=== PATIENT | male | born 1960 | race Caucasian/White ===

== ENCOUNTER 2022-05-04 11:10 | Outpatient (CLI) | payer OTHER, SELFPAY ==
[2022-05-04 21:47] LABS: Albumin* 4.2 g/dL (3.3-5.0)
[2022-05-04 21:48] LABS: Chloride* 101 mmol/L (96-114); Potassium* 3.9 mmol/L (3.6-5.1); Sodium* 138 mmol/L (135-149)
[2022-05-04 21:50] LABS: Carbon Dioxide* 26 mmol/L (20-32); Cholesterol* 156 mg/dL (90-199); Creatinine* 0.9 mg/dL (0.5-1.5); Estimated Glomerular Filt Rate 96 ml/min
[2022-05-04 21:51] LABS: Alanine Aminotransferase* 19 U/L (4-50); Alkaline Phosphatase* 116 U/L (40-150); Aspartate Amino Transferase* 24 U/L (12-35); Bilirubin Total* 0.6 mg/dL (0.1-1.5); Blood Urea Nitrogen* 14 mg/dL (7-30); Calcium* 7.7 mg/dL (8.4-10.6); Glucose* 200 mg/dL (60-115); HDL Cholesterol* 37 mg/dL (>=40); LDL Cholesterol Calculated 57 mg/dL (<100); Triglycerides* 311 mg/dL (40-149)
== END 2022-05-04 11:11 | disposition home or self-care (01) ==
PROVIDERS: PCP Family Medicine; Visit Provider Family Medicine
DX: E11.9 Type 2 diabetes mellitus without complications (principal); K21.9 Gastro-esophageal reflux disease without esophagitis; I10 Essential (primary) hypertension; F41.9 Anxiety disorder, unspecified
CPT/HCPCS: 80053; 80061

== ENCOUNTER 2022-09-13 12:25 | Outpatient (CLI) | payer OTHER, SELFPAY ==
[2022-09-13 13:21] LABS: PCR FLU A Negative PCR FLU A (Negative); PCR FLU B Negative PCR FLU B (Negative); PCR RSV Negative PCR RSV (Negative); SARS PCR* Negative SARS-CoV-2 (Negative)
== END 2022-09-13 12:26 | disposition home or self-care (01) ==
LOC: LKVREF 12:34
PROVIDERS: PCP Family Medicine; Visit Provider Emergency Medicine
DX: Z20.822 Contact with and (suspected) exposure to COVID-19 (principal); R05.9 Cough, unspecified
CPT/HCPCS: 87502; 87634; 87635

== ENCOUNTER 2022-11-17 15:11 | Outpatient (CLI) | payer OTHER, SELFPAY | END 2022-11-17 15:12 | disposition home or self-care (01) | LOC: LKVREF 15:11 | PROVIDERS: PCP Emergency Medicine; Visit Provider Emergency Medicine | DX: Z00.00 Encounter for general adult medical examination without abnormal findings (principal); E11.9 Type 2 diabetes mellitus without complications; E83.51 Hypocalcemia; I25.10 Atherosclerotic heart disease of native coronary artery without angina pectoris; Z13.6 Encounter for screening for cardiovascular disorders | CPT/HCPCS: 80053; 82043; 82570; 83735 ==

== ENCOUNTER 2024-02-20 14:28 | Outpatient (CLI) | payer OTHER, SELFPAY | END 2024-02-20 14:29 | disposition home or self-care (01) | LOC: NFLDREF 02-24 18:16 | PROVIDERS: PCP Emergency Medicine; Referring Provider Emergency Medicine; Visit Provider Emergency Medicine | DX: E11.65 Type 2 diabetes mellitus with hyperglycemia (principal); E11.9 Type 2 diabetes mellitus without complications; E83.51 Hypocalcemia; I10 Essential (primary) hypertension; E78.5 Hyperlipidemia, unspecified; F17.200 Nicotine dependence, unspecified, uncomplicated; I25.10 Atherosclerotic heart disease of native coronary artery without angina pectoris; L98.9 Disorder of the skin and subcutaneous tissue, unspecified; Z79.4 Long term (current) use of insulin; Z12.5 Encounter for screening for malignant neoplasm of prostate; Z85.528 Personal history of other malignant neoplasm of kidney | CPT/HCPCS: 80053; 80061; 82043; 82570; G0103 ==

== ENCOUNTER 2024-04-18 13:32 | Outpatient (CLI) | payer OTHER, SELFPAY ==
--- NOTE | 2024-04-18 14:00 | CRLHL7_ITS ---
For Patients: As a result of the Century Cures Act, medical imaging exams and procedure reports are released immediately into your electronic medical record. You may view this report before your referring provider. If you have questions, please contact your health care provider. INDICATION: Lung cancer screening. History of smoking. TECHNIQUE: Low-dose lung cancer screening non-contrast CT chest. Dose reduction techniques were used. COMPARISON: CT abdomen 11/30/2020 FINDINGS: NODULES: 2 millimeter benign calcified nodule left lung adjacent to the fissure, . Subpleural nodule in the right middle lobe measures 5.3 millimeters, . Noncalcified nodule right middle lobe measures 4.3 millimeters, . LUNGS AND PLEURA: Emphysema. Mild scarring. MEDIASTINUM: Trace pericardial effusion again noted. Subcentimeter mediastinal lymph nodes. Retroesophageal course of the right subclavian artery. Visualized thyroid normal. CORONARY ARTERY CALCIFICATION: Present. LIMITED UPPER ABDOMEN: Similar appearance of the left kidney with cystic change. Vascular calcifications. MUSCULOSKELETAL: Discogenic spurring mid and lower thoracic spine. No fracture. IMPRESSION: Bilateral nodules measuring up to 5.3 millimeters. LUNG-RADS CATEGORY: 2: Benign. RADIOLOGIST RECOMMENDATION: Continue annual screening with low-dose CT chest in 12 months. Please note that all CT scans at this facility use dose modulation, iterative reconstruction, and/or weight-based dosing when appropriate to reduce radiation dose to as low as reasonably achievable. Dictated by Kenney Florez MD @ 04/19/2024 10:24:23 AM (Electronically Signed)
== END 2024-04-18 13:33 | disposition home or self-care (01) ==
LOC: CT 13:33
PROVIDERS: PCP Emergency Medicine; Visit Provider Emergency Medicine
DX: Z12.2 Encounter for screening for malignant neoplasm of respiratory organs (principal); R91.8 Other nonspecific abnormal finding of lung field; F17.210 Nicotine dependence, cigarettes, uncomplicated
CPT/HCPCS: 71271

== ENCOUNTER 2024-04-26 10:18 | Outpatient (CLI) | payer OTHER, SELFPAY ==
--- OUTSIDE RECORDS SUMMARY | 2024-04-26 10:20 | XMS_ITS | Referral Summary ---
Author Organization [facility] Address [address] [place] [address] Care Team Providers Care Claim Specialist Name Role Phone Shona Vásquez MD Primary Care Provider [phone] Kiet Arias MD Unavailable [phone] Allergies Active Allergy Reactions Criticality Noted Date Comments Amoxicillin 06/04/2012 Medications Medication Sig Dispensed Refills Start Date End Date Status nitroglycerin (NITROSTAT) 0.4 MG SL tabletIndication s:Acute chest pain Place 1 tablet (0.4 mg) under the tongue every 5 minutes as needed for chest pain 25 tablet 0 03/23/2015 Active insulin aspart (NOVOLOG PEN) 100 UNIT/ML solnIndications: Diabetes mellitus, type 2 (H) Inject 8 Units Subcutaneous 3 times daily (with meals) 3 Month 2 03/23/2015 Active Additional Information Patient taking differently: 20 UnitsSubcutaneous 3 TIMES DAILY WITH MEALS, Reported on 06/20/2023 aspirin EC 81 MG EC tabletIndication s:NSTEMI (non-ST elevated myocardial infarction) (H) Take 1 tablet (81 mg) by mouth daily 30 tablet 5 03/23/2015 Active fluticasone-preston nterol (BREO ELLIPTA) 100-25 MCG/ACT inhaler Inhale 1 puff into the lungs daily Active insulin detemir (LEVEMIR PEN) 100 UNIT/ML pen Inject 40 Units Subcutaneous At Bedtime Acti ve metoprolol tartrate (LOPRESSOR) 100 MG tabletIndication s:NSTEMI (non-ST elevated myocardial infarction) (H) Take 1 tablet (100 mg) by mouth 2 times daily 12/30/2022 Activ e amLODIPine (NORVASC) 10 MG tablet Take 1 tablet (10 mg) by mouth daily 12/30/2022 Active lisinopril-hydro chlorothiazide (ZESTORETIC) 20-12.5 MG tablet Take 1 tablet by mouth daily 12/30/2022 Active atorvastatin (LIPITOR) 80 MG tablet Take 1 tablet (80 mg) by mouth daily 12/30/2022 Active clonazePAM (KLONOPIN) 0.5 MG tablet Take 0.5 tablets (0.25 mg) by mouth nightly as needed for anxiety 12/30/2022 Active coenzyme Q-10 200 MG CAPS capsule Take 1 capsule (200 mg) by mouth 12/30/2022 Active JARDIANCE 10 MG TABS tablet TAKE 1 TAB BY MOUTH EVERY MORNING 04/20/2023 Active furosemide (LASIX) 20 MG tablet Take 1 tablet by mouth daily at 2 pm 07/14/2022 Active buPROPion (WELLBUTRIN XL) 150 MG 24 hr tablet TAKE 1 TAB BY MOUTH EVERY MORNING 05/10/2023 Active ALPRAZolam (XANAX) 0.5 MG tablet Take 0.5 mg by mouth daily as needed Active albuterol (PROAIR HFA/PROVENTIL HFA/VENTOLIN HFA) 108 (90 Base) MCG/ACT inhaler INHALE 2 PUFFS EVERY 4 HOURS NEEDED FOR WHEEZE OR FOR SHORTNESS OF BREATH Active Active Problems Problem Noted Date Diagnosed Date 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/30/2022 Metabolic syndrome X 12/30/2022 Peripheral edema 12/30/2022 Pneumonia 03/21/2015 NSTEMI (non-ST elevated myocardial infarction) 0 03/21/2015 Coronary artery disease invo lving [place] coronary artery of [place] heart without angina pectoris Mixed hyperlipidemia Essential hypertension DM (diabetes mellitus), type 2 Tobacco abuse Hypercholesterolemia Resolved Problems Problem Noted Date Diagnosed Date Resolved Date Chest pain 06/05/2012 04/06/2015 ASCVD (arteriosclerotic card iovascular disease) 06/05/2012 04/06/2015 Immunizations Name Administration Dates Next Due Influenza (IIV3) PF 06/05/2012 Social History Tobacco Use Types Packs/Day Years Used Date Smoking Tobacco: Every Day Cigarettes Smokeless Tobacco: Never Tobacco Cessation:Ready to Q uit: Not Asked; Counseling Given: Not Answered Alcohol Use Standard Drinks/Week Comments No 0 (1 standard drink = 0.6 oz pur e alcohol) PHQ-2 Answer Date Recorded PHQ-2 Score 2 12/30/2022 Adolescent Education Answer Date Record ed Getting School Help Needed Not on file 06/12 Sex and Gender Information Value Date Recorded Sex Assigned at Not on file Gender Identity Not on file Sexual Orientation Not on file Last Filed Vital Signs Vital Sign Reading Time Taken Comments Blood Pressure 128/74 06/20/2023 3:21 PM CDT Pulse 78 06/20/2023 3:21 PM CDT Temperature 37 ??C (98.6 ??F) 03/23/2015 1:00 PM CDT Respiratory Rate 20 03/23/2015 8:00 AM CDT Oxygen Saturation 96% 06/20/2023 3:21 PM CDT Inhaled Oxygen Concentration - - Weight 119.3 kg (263 lb) 06/20/2023 3:21 PM CDT Height 177.8 cm (5' 10) 06/20/2023 3:21 PM CDT Body Mass Index 37.74 06/20/2023 3:21 PM CDT Plan of Treatment Not on file Medical Devices Implanted Type Area First Line Supervisor Device Identifier Shelf Expiration Date Model / Serial / Lot Clip Ligating Hem-O-Lock 10mm [id number] Implanted:Qty : 4 on 08/22/2016 Metallic Hardware/Anc hor Right: Abdomen PILLING WECK 06/14/2021 [id number] / / [id number] Cardiac Stents Procedures Procedure Name Priority Date/Time Associated Diagnosis Comments LIPID PROFILE Routine 06/19/2023 7:58 AM CDT Coronary artery disease involving [place] coronary artery of [place] heart without angina pectoris BASIC METABOLIC PANEL Routine 06/19/2023 7:58 AM CDT Coronary artery disease involving [place] coronary artery of [place] heart without angina pectoris HEMOGLOBIN A1C Routine 05/25/2023 10:15 AM CDT from Last 3 Months or Most Recently Relevant to Health Maintenance Results * (ABNORMAL) Lipid Profile (06/19/2023 7:58 AM CDT) Cholesterol 132 <200 mg/dL 06/19/2023 12:21 PM CDT [facility] Triglycerides 326(H) <150 mg/dL 06/19/2023 12:21 PM CDT [facility] Direct Measure HDL 38(L) >=40 mg/dL 06/19/2023 12:21 PM CDT [facility] LDL Cholesterol Calculated 29 <=100 mg/dL 06/19/2023 12:21 PM CDT [facility] Non HDL Cholesterol 94 <130 mg/dL 06/19/2023 12:21 PM CDT [facility] Blood STRUCTURE OF RIGHT UPPER LIMB / Unknown Venipuncture / Unknown 06/19/2023 7:58 AM CDT 06/19/2023 7:58 AM CDT Narrative [facility] - 06/19/2023 12:21 PM CDT Cholesterol Desirable: ??<200 mg/dL Triglycerides Normal: ??Less than 150 mg/dL Borderline High: ??150-199 mg/dL High: ??200-499 mg/dL Very High: ??Greater than or equal to 500 mg/dL Direct Measure HDL Female: ??Greater than or equal to 50 mg/dL Male: ??Greater than or equal to 40 mg/dL LDL Cholesterol Desirable: ??<100mg/dL Above Desirable: ??100-129 mg/dL Borderline High: ??130-159 mg/dL High: ??160-189 mg/dL Very High: ??>= 190 mg/dL Non HDL Cholesterol Desirable: ??130 mg/dL Above Desirable: ??130-159 mg/dL Borderline High: ??160-189 mg/dL High: ??190-219 mg/dL Very High: ??Greater than or equal to 220 mg/dL Kiet Arias MD LAB - BLOOD ORDERA BLES [facility] [place] [facility] [address] [facility], [address] [place] [address], [facility] [phone] * (ABNORMAL) Basic metabolic panel (06/19/2023 7:58 AM CDT) Sodium 143 135 - 145 mmol/L 06/19/2023 8:29 AM CDT [facility] Comment:Reference intervals for this test were updated on 06/06/2023 to more accurately reflect our healthy population. There may be differences in the flagging of prior results with similar values performed with this method. Interpretation of those prior results can be made in the context of the updated reference intervals. Potassium 4.0 3.4 - 5.3 mmol/L 06/19/2023 8:29 AM [facility] Chloride 103 98 - 107 mmol/L 06/19/2023 8:29 AM [facility] Carbon Dioxide (CO2) 28 22 - 29 mmol/L 06/19/2023 8:29 AM [facility] Anion Gap 12 7 - 15 mmol/L 06/19/2023 8:29 AM [facility] Urea Nitrogen 17.8 8.0 - 23.0 mg/dL 06/19/2023 8:29 AM [facility] Creatinine 1.15 0.67 - 1.17 mg/dL 06/19/2023 8:29 AM [facility] GFR Estimate 71 >60 mL/min/1. 73m2 06/19/2023 8:29 AM [facility] Calcium 8.5(L) 8.8 - 10.2 mg/dL 06/19/2023 8:29 AM [facility] Glucose 187(H) 70 - 99 mg/dL 06/19/2023 8:29 AM [facility] Blood STRUCTURE OF RIGHT UPPER LIMB / Unknown Venipuncture / Unknown 06/19/2023 7:58 AM CDT 06/19/2023 7:58 AM CDT Kiet Arias MD LAB - BLOOD ORDERA BLES [facility] Lab [address] [facility] (1st floor, no room number) [place] [address], [facility] [phone] * (ABNORMAL) Hemoglobin A1c (05/25/2023 10:15 AM CDT) Hemoglobin A1C (External) 14.9(H) 0 - 5.6 % NON-INTERFACE D (ONBASE SCANS) Blood BLOOD SPECIMEN / Unknown 05/25/2023 10:15 AM CDT Narrative [facility] - 06/15/2023 7:53 AM CDT Verified by Rc Corbin on 06/15/2023. Provider Outside LAB - BLOOD ORDERABL ES MARY PFRadu NON-INTERFACED (ONBASE SCANS) from Last 3 Months or Most Recently Relevant to Health Maintenance Advance Directives For more information, please contact: [phone] * Full Code (Latest Code Status on File) Date Activated Date Inactivated Comments 03/23/2015 9:44 AM * Full Code Date Activated Date Inactivated Comments 03/21/2015 4:38 PM 03/23/2015 9:44 AM * Full Code Date Activated Date Inactivated Comments 03/21/2015 4:25 AM 03/21/2015 3:22 PM * Full Code Date Activated Date Inactivated Comments 06/04/2012 2:20 PM 06/05/2012 5:52 PM Care Teams Claim Specialist Relationship Specialty Start Date End Date Shona Vásquez MD [facility] [address] [place] [address] PCP - General Family Medicine 12/30/22 Kiet Arias MD [address] [place] [address] Assigned Heart and Vascular Provider 06/24/23
--- OUTSIDE RECORDS SUMMARY | 2024-04-26 10:20 | XMS_ITS | Clinical Summary ---
Author Organization [facility] Address [address] [place] [address] Care Team Providers Care Mat Cutter Name Role Phone Shona Vásquez MD Primary Care Provider [phone] Kiet Arias MD Unavailable [phone] Allergies Active Allergy Reactions Criticality Noted Date [...] 0 03/21/2015 Coronary artery disease invo lving [place] coronary artery of [place]inson heart without angina pectoris Mixed hyperlipidemia Essential hypertension DM (diabetes mellitus), type 2 Tobacco abuse Hypercholesterolemia Resolved Problems Problem Noted Date Diagnosed Date Resolved Date Chest pain 06/05/2012 04/06/2015 ASCVD (arteriosclerotic card iovascular disease) 06/05/2012 04/06/2015 Immunizations Name Administration Dates Next Due Influenza (IIV3) PF 06/05/2012 Family History Medical History Relation Comments Atrial fibrillation Brother Cancer Father Other Cancer Father Cancer Mother Hypertension Mother Other Cancer Mother Pacemaker Mother Kidney Disease Sister Acute Myocardial Infarction No family hx of Relation Status Comments Brother Alive Father Mother Sister Social History Tobacco Use Types Packs/Day Years [...] 06/20/2023 3:21 PM CDT Plan of Treatment Health Maintenance Due Date Last Done Comments ADVANCE CARE PLANNING 1960 ANNUAL REVIEW OF HM ORDERS 1958 CT COLONOGRAPHY 1958 DIABETIC FOOT EXAM 1958 EYE EXAM 1958 FIT 1958 FLEX SIG 1958 MICROALBUMIN 1958 NICOTINE/TOBACCO CESSATION COUNSELING Q 1 YR 1958 sDNA (Cologuard) 1958 COLONOSCOPY 1968 COLORECTAL CANCER SCREENING 1968 HIV SCREENING 1973 HEPATITIS C SCREENING 1976 LUNG CANCER SCREENING 2008 ZOSTER IMMUNIZATION (1 of 2) 2008 Pneumococcal Vaccine: 65+ Years (2 of 2 - PCV) 05/10/2012 05/10/2011 DTAP/TDAP/TD IMMUNIZATION (2 - Td or Tdap) 05/03/2016 05/03/2006 RSV VACCINE ( & 60+) (1 - 1-dose 60+ series) 2018 COVID-19 Vaccine ( - 2022- season) 2023 05/26/2021, 05/03/2021 A1C 08/24/2023 05/25/2023, 08/11, 03/21/2015, Additional history exists AORTIC ANEURYSM SCREENING (SYSTEM ASSIGNED) 2023 FALL RISK ASSESSMENT 2023 MEDICARE ANNUAL WELLNESS VISIT 2023 PHQ-2 (once per calendar year) 2023 12/30/2022 INFLUENZA VACCINE (#1) 2024 , 08/18/2020, 07/31/2018, Additional history exists BMP 06/19/2024 06/19/2023, 05/0 09/2022, 03/23/2015, Additional history exists LIPID 06/19/2024 06/19/2023, 050 09/2022, 02/10/2017, Additional history exists HPV IMMUNIZATION Aged Out No longer e ligible based on patient's age to complete this topic IPV IMMUNIZATION Aged Out No longer e ligible based on patient's age to complete this topic MENINGITIS IMMUNIZATION Aged Out No l onger eligible based on patient's age to complete this topic RSV MONOCLONAL ANTIBODY Aged Out No l onger eligible based on patient's age to complete this topic Medical Devices Implanted Type Area Cleat Maker Device Identifier Shelf Expiration Date Model / Serial / Lot Clip Ligating Hem-O-Lock 10mm [id number] Implanted:Qty : 4 on 08/22/2016 Metallic Hardware/Anc hor Right: Abdomen PILLING WECK 06/14/2021 [id number] / / [id number] Cardiac Stents Procedures Procedure Name Priority Date/Time Associated Diagnosis Comments LIPID PROFILE Routine 06/19/2023 7:58 AM CDT Coronary artery disease involving [place]inson coronary artery of robinson heart without angina pectoris BASIC METABOLIC PANEL Routine 06/19/2023 7:58 AM CDT Coronary artery disease involving [place]inson coronary artery of robinson heart without angina pectoris HEMOGLOBIN A1C Routine [...] LAB - BLOOD ORDERA BLES [facility] [place] [facility] [address] [facility] [address], [address] [place] [address], [facility] [phone] * (ABNORMAL) Basic metabolic panel (06/19/2023 7:58 AM CDT) Sodium 143 135 - 145 mmol/L 06/19/2023 8:29 AM [facility] Comment:Reference intervals for this test were [...] Arias MD LAB - BLOOD ORDERA BLES [facility] Acute Care Lab [address] Lab (1st floor, no room number) [place] [address], [facility] [phone] * (ABNORMAL) Hemoglobin A1c (05/25/2023 10:15 AM [...] Advance Directives For more information, please contact: [phone] * Full Code (Latest Code Status on File) Date Activated Date Inactivated Comments 03/23/2015 9:44 AM * Full Code Date Activated Date Inactivated Comments 03/21/2015 4:38 PM 03/23/2015 9:44 AM * Full Code Date Activated Date Inactivated Comments 03/21/2015 4:25 AM 03/21/2015 3:22 PM * Full Code Date Activated Date Inactivated Comments 06/04/2012 2:20 PM 06/05/2012 5:52 PM Care Teams Mat Cutter Relationship Specialty Start Date End Date Shona Vásquez MD [facility] [address] [place] [address] PCP - General Family Medicine 12/30/22 Kiet Arias MD [address] [place] [id number] Assigned Heart and Vascular Provider 06/24/23
--- OUTSIDE RECORDS SUMMARY | 2024-04-26 10:21 | XMS_ITS | Encounter Summary ---
Author Organization [facility] Address [address] [place] [address] Care Team Providers Care Sys Dir Name Role Phone System, Provider Not In Primary Care Provider Un available Sangeetha Gonzales MD Primary Care Provider + Shona Vásquez MD Primary Care Provider [phone] Kiet Arias MD Unavailable [phone] Zofia Hager APRN FEED MANAGEMENT ADVISOR Unavailable Unavaila ble Kiet Arias MD Unavailable [phone] Encounter Details Date Type Department Care Team (Late st Contact Info) Description 08/29/2011 Office Visit-[facility] [address] [address] Wilian Epps MD Social History Tobacco Use Types Packs/Day Years Used Date Smoking Tobacco: Never Assessed Sex and Gender Information Value Date Recorded Sex Assigned at Not on file Gender Identity Not on file Sexual Orientation Not on file documented as of this encounter Progress Notes * Wilian Epps MD - 09/02/2011 3:54 PM CST Progress Note Created by: Wilian Epps M.D. DATE: 08/29/2011 ALIZA RAMIREZ [id number] DATE OF : 1960 AGE: [age] years old Referring Physician: SANGEETHA GONZALES Referring Clinic: [facility] CURRENT DIAGNOSES 1. - CAD, 414.00 2. - Hyperlipidemia, 272.4 3. Smoking or Tobacco Abuse, 305.1 4. - Hypertension, 401.1 5. Diabetes Mellitus-Insulin Dependent, 250.00 ALLERGIES Amoxicillin Trihydrate, Pruritus MEDICATIONS (prior to changes made today) 1. alprazolam 0.5 mg Tablet, 1 p.o. PRN as Directed 2. Aspirin Low Dose 81 mg Tablet, Delayed Release (E.C.), 1 p.o. daily 3. Effient 10 mg Tablet, 1 p.o. daily 4. lisinopril 10 mg Tablet, 1 p.o. daily 5. metoprolol succinate 100 mg Tablet Extended Release 24 hr, 1 p.o. daily 6. nitroglycerin 0.4 mg Tablet, Sublingual, Take as Directed 7. Novolog Mix 70-30 FlexPen 100 unit/mL (70-30) Insulin Pen, 15 units in a.m. and 20 units in p.m.8. simvastatin 40 mg Tablet, 1 p.o. qHS CHIEF COMPLAINTS HISTORY OF PRESENT ILLNESS I saw Roldan Ramirez today. He is 50. He was admitted to the hospital in May,, with a chest pain typical of unstable angina. He had multiple risk factors as noted, and I am sure you are familiar with. With his unstable angina he had stenting of his LAD, and angioplasty of a diagonal branch, both to the anterior wall. He had 30% lesions in his left circumflex marginal and his RCA, with a 60% mid RCA stenosis. His ejection fraction was in the 55% range. Since then he has not had classic angina. He recently had an upper respiratory infection with coughing and vomiting, etc. He has not had classic exertional angina at this time. I was a little concerned, but I did not feel it was suggestive of angina and he felt it was entirely different from his ischemic chest pain. He continues to smoke, he says six cigarettes per day. It is probably more. He remains obese. His blood pressure is borderline high at 140/90. Physical exam showed that he remains with central obesity at 281 pounds. Blood pressure was 140/90,heart rate 80 beats per minute and regular. Head and neck were normal, no bruits heard. Heart was regular without gallop or murmur. Lungs were clear. Abdomen was rotund, obese, and nontender without organomegaly. Extremities were free of edema. Pedal pulses were +1. 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 Generally when they are small in this fashion we follow them and do not treat them surgically. He had relatively normal velocities otherwise and no evidence of significant peripheral artery occlusive disease. I am sure he has some, but it is not affecting the lower leg flow. Accordingly, I spent at least half of his 35 minute visit renewing the absolute need for him to stop smoking. He is hypertensive, obese, and diabetic and has all of the features of metabolic syndromeon top of tobacco smoke. He just cannot afford to do it. He sheepishly admits that he will stop andtry to do better. I am not going to hold my breath, but he is a nice man and I hope he can succeed. 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 Surgeries/Procedures - General: right knee surgery,herniorrhaphy Cardiac/Vasc Procedures-Invasive: cardiac cath (left) Apr 2011 Vascular Procedures-Noninvasive: arterial ultrasound lower extremities right Apr 2011, 04/21 US pseudoaneurysm repair, arterial ultrasound lower extremities right May 2011, 08/21 aorto iliac US Pulmonary Testing: CXR Apr 2011 Cardiac Cath Results: 04/21 CAD, lesion prox LAD and 1st diagonal,LAD-90%,1st diagonal 95%,L.CFX- sm.marginal 30%,2nd marginal 20-30%,RCA-prox.20-30%,mid 60-70%,distal 20%.MEENU to LAD with angioplasty of diagonal branch Peripheral Vasc Procedure Results: 04/21 arterial RLE-Fistula ,see report.04/21, 05/22 US arterial RLE- no change since 04/21,see report, 08/21 no sig AAA Left Ventricular Ejection Fraction: EF 55% by cath 04/21 LVEF of 55% documented via cardiac cath on 05/09/2011 FAMILY HISTORY: Father - from cancer; Sister 1 - congenital renal failure, [id number] old-renal and renal transplant-young age; CARDIAC RISK FACTORS Tobacco Abuse: currently smoking; Family History of Heart Disease: negative; Hyperlipidemia: positive; Hypertension: positive; Diabetes Mellitus: positive; Prior History of Heart Disease: 04/21 anterior infarct ,CAD; Obesity:positive; Sedentary Life Style:positive ; LDL Goal <LT> 70 SOCIAL HISTORY Alcohol Use - quit drinking years ago; Smoking - smokes,; Diet - watching fats and Na in diet; Lifestyle - , children and sedentary lifestyle; Exercise - walking and 3-4 days per week; 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 EYES needs glasses, but hasn't gotten d/t no insurance EARS, NOSE, THROAT, MOUTH denies any hearing loss, epistaxis, hoarseness or difficulty speaking. RESPIRATORY dyspnea with exertion CARDIOVASCULAR chest tightness ABDOMINAL denies change in bowel habits, dyspepsia, ulcer disease, hematochezia or melena. GENITOURINARY-MALE denies difficulties MUSCULOSKELETAL right knee arthritis/pain NEUROLOGICAL denies any history of recurrent headaches, strokes, TIA, or seizure disorder. PSYCHIATRIC anxiety ENDOCRINE insulin dependent diabetes mellitus HEMATOLOGICAL/IMMUNOLOGIC seasonal allergies VASCULAR meg horses in calf muscles at night PHYSICAL EXAMINATION VITAL SIGNS: Blood Pressure: 140/97Sitting, Left arm, large cuff Pulse- 86.00/min. Weight- 281.40 lbs. Height- 70 CONSTITUTIONAL well developed, well nourished, in no acute distress SKIN warm and dry to touch HEAD normocephalic EYES Pupils equal and round ENT right hearing aide NECK thick, supple CHEST clear to auscultation, normal respiratory excursion CARDIAC normal 1st and 2nd heart sounds without murmur or gallop, regular rhythm, distant heart tones ABDOMEN abdomen soft, bowel sounds normoactive, severely obese PERIPHERAL PULSES right femoral pulse palpable, audible bruit. 2+ DP biltarally, EXTREMITIES & BACK no clubbing, cyanosis or edema MEDICATIONS UPDATED/STARTED TODAY: Effient 10 mg Tablet, 1 p.o. daily, #30 (Thirty) lisinopril 10 mg Tablet, 1 p.o. daily, #30 (Thirty) metoprolol succinate 100 mg Tablet Extended Release 24 hr, 1 p.o. daily, #30 (Thirty) nitroglycerin0.4 mg Tablet, Sublingual, Take as Directed, #30 (Thirty) simvastatin 40 mg Tablet, 1 p.o. qHS, #30 (Thirty) MEDICATIONS REFILLED/STOPPED TODAY: Effient 10 mg Tablet 1 p.o. daily #30 (Thirty) Refill, lisinopril 10 mg Tablet 1 p.o. daily #30 (Thirty) Refill, metoprolol succinate 100 mg Tablet Extended Release 24 hr 1 p.o. daily #30 (Thirty) Refill, nitroglycerin 0.4 mg Tablet, Sublingual Take as Directed #30 (Thirty) Refill, ranitidine HCl 150 mg Capsule 1 p.o. daily #0 Patient Terminated and simvastatin 40 mg Tablet 1 p.o. qHS #30 (Thirty) Refill IMPRESSION: 1. Asymptomatic coronary artery disease. 2. Multivessel CAD. 3. LV function low normal. 4. Treated hyperlipidemia. 5. Chronic tobacco abuse. 6. Obesity. PLAN: I discussed diet, weight loss, exercise, and absolute abstinence from cigarettes. I set him up for a stress test in the spring. I will see him in May and thereafter on an as needed basis.If he has problems, please let me know. We should continue to support any behavior modification that will lead him to a healthier lifestyle. TODAYS ORDERS 1. Treadmill Nuclear Study 4 months, Patient OFF MedsMD able to convert to pharm stress if pt unable to exercise 2. Return Visit 9 months Wilian Epps M.D. documented in this encounter Plan of Treatment Not on file documented as of this encounter Visit Diagnoses Not on filedocumented in this encounter Care Teams Sys Dir Relationship Specialty Start Date End Date System, Provider Not In PCP - General 08/19/11 06/03/12 Sangeetha Gonzales MD PCP - General 06/04/12 12/29/22 Shona Vásquez MD [facility] [address] [place] [address] PCP - General Family Medicine 12/30/22 Kiet Arias MD [address] [place] [id number] Assigned Heart and Vascular Provider 12/31/22 02/10/23 Zofia Hager APRN FEED MANAGEMENT ADVISOR Assigned Heart and Vascular Provider 02/11/23 06/23/23 Kiet Arias MD [address] [place] [id number] Assigned Heart and Vascular Provider 06/24/23 documented as of this encounter
--- OUTSIDE RECORDS SUMMARY | 2024-04-26 10:21 | XMS_ITS | Encounter Summary ---
Author Organization [facility] Address [address] [place] [address]. [place] [address] Care Team Providers Care Counterintelligence Analyst Name Role Phone Shona Vásquez MD Primary Care Provider [phone] Zofia Hager APRN SHOP AND ALTERATION TAILOR Unavailable Unavaila Kiet Reyna MD Unavailable [phone] Encounter Details Date Type Department Care Team (Late st Contact Info) Description 05/25/2023 External Order Results [facility] [address] [place] [address] Outside, Provider Social History Tobacco Use Types Packs/Day Years Used Date Smoking Tobacco: Every Day Cigarettes Smokeless Tobacco: Never Alcohol Use Standard Drinks/Week Comments No 0 (1 standard drink = 0.6 oz pur e alcohol) PHQ-2 Answer Date Recorded PHQ-2 Score 2 12/30/2022 Sex and Gender Information Value Date Recorded Sex Assigned at Not on file Gender Identity Not on file Sexual Orientation Not on file documented as of this encounter Plan of Treatment Not on file documented as of this encounter Procedures Procedure Name Priority Date/Time Associated Diagnosis Comments POTASSIUM Routine 05/25/2023 10:15 AM CDT HEMOGLOBIN A1C Routine 05/25/2023 10:15 AM CDT CREATININE Routine 05/25/2023 10:15 AM CDT CO2 TOTAL Routine 05/25/2023 10:15 AM CDT CHLORIDE Routine 05/25/2023 10:15 AM CDT IONIZED CALCIUM Routine 05/25/2023 10:15 AM CDT GLUCOSE Routine 05/25/2023 10:15 AM CDT SODIUM Routine 05/25/2023 10:15 AM CDT documented in this encounter Results * Sodium (05/25/2023 10:15 AM CDT) Sodium (External) 140 138 - 146 mmol/L NON-INTERFACED (ONBASE SCANS) Blood BLOOD SPECIMEN / Unknown 05/25/2023 10:15 AM CDT Narrative BREEZE PFT - 06/15/2023 7:54 AM CDT Verified by Rc Corbin on 06/15/2023. Provider Outside LAB - BLOOD ORDERABL ES BREEZE PFT NON-INTERFACED (ONBASE SCANS) * Potassium (05/25/2023 10:15 AM CDT) Potassium (External) 3.9 3.5 - 4.9 mmol/l NON-INTERFACED (ONBASE SCANS) Blood BLOOD SPECIMEN / Unknown 05/25/2023 10:15 AM CDT Narrative BREEZE PFT - 06/15/2023 7:54 AM CDT Verified by Rc Corbin on 06/15/2023. Provider Outside LAB - BLOOD ORDERABL ES BREEZE PFT NON-INTERFACED (ONBASE SCANS) * Chloride (05/25/2023 10:15 AM CDT) Chloride (External) 101 98 - 109 mmol/l NON-INTERFACED (ONBASE SCANS) Blood BLOOD SPECIMEN / Unknown 05/25/2023 10:15 AM CDT Narrative BREEZE PFT - 06/15/2023 7:54 AM CDT Verified by Rc Corbin on 06/15/2023. Provider Outside LAB - BLOOD ORDERABL Performing Organization Address [facility] Co de Phone Number BREEZE PFT NON-INTERFACED (ONBASE SCANS) * Co2 Total (05/25/2023 10:15 AM CDT) CO2 (External) 29 20 - 32 mmol/L NON-INTERFACED (ONBASE SCANS) Blood BLOOD SPECIMEN / Unknown 05/25/2023 10:15 AM CDT Narrative BREEZE PFT - 06/15/2023 7:53 AM CDT Verified by Rc Corbin on 06/15/2023. [facility] Performing Organization Address [facility] de Phone Number BREEZE PFT NON-INTERFACED (ONBASE SCANS) * Creatinine (05/25/2023 10:15 AM CDT) Creatinine (External) 1.2 0.6 - 1.3 mg/dl NON-INTERFACED (ONBASE SCANS) Blood BLOOD SPECIMEN / Unknown 05/25/2023 10:15 AM CDT Narrative BREEZE PFT - 06/15/2023 7:53 AM CDT Verified by Rc Corbin on 06/15/2023. Provider Outside LAB - BLOOD ORDERABL Performing Organization Address [facility] Co de Phone Number BREEZE PFT NON-INTERFACED (ONBASE SCANS) * (ABNORMAL) Glucose (05/25/2023 10:15 AM CDT) Glucose (External) 245(H) 60 - 115 mg/dl NON-INTERFACED (ONBASE SCANS) Blood BLOOD SPECIMEN / Unknown 05/25/2023 10:15 AM CDT Narrative BREEZE PFT - 06/15/2023 7:53 AM CDT Verified by Rc Corbin on 06/15/2023. Provider Outside LAB - BLOOD ORDERABL ES Performing Organization Address [facility] Co de Phone Number BREEZE PFT NON-INTERFACED (ONBASE SCANS) * (ABNORMAL) Ionized Calcium (05/25/2023 10:15 AM CDT) Calcium Ionized (External) 1.05(L) 1.11 - 1.33 mmol/L NON-INTERFACED (ONBASE SCANS) Blood BLOOD SPECIMEN / Unknown 05/25/2023 10:15 AM CDT Narrative BREEZE PFT - 06/15/2023 7:53 AM CDT Verified by Rc Corbin on 06/15/2023. Provider Outside LAB - BLOOD ORDERABL ES Performing Organization Address [facility] de Phone Number BREEZE PFT NON-INTERFACED (ONBASE SCANS) * (ABNORMAL) Hemoglobin A1c (05/25/2023 10:15 AM CDT) Hemoglobin A1C (External) 14.9(H) 0 - 5.6 % NON-INTERFACE D (ONBASE SCANS) Blood BLOOD SPECIMEN / Unknown 05/25/2023 10:15 AM CDT Narrative BREEZE PFT - 06/15/2023 7:53 AM CDT Verified by Rc Corbin on 06/15/2023. Provider Outside LAB - BLOOD ORDERABL ES Performing Organization Address [facility] Co de Phone Number BREEZE PFT NON-INTERFACED (ONBASE SCANS) documented in this encounter Visit Diagnoses Not on filedocumented in this encounter Care Teams Counterintelligence Analyst Relationship Specialty Start Date End Date Shona Vsáquez MD [facility] [address] [place] [address] PCP - General Family Medicine 12/30/22 Zofia Hager APRN SHOP AND ALTERATION TAILOR Assigned Heart and Vascular Provider 02/11/23 06/23/23 Kiet Arias MD [address] [place] [address] Assigned Heart and Vascular Provider 06/24/23 documented as of this encounter
--- OUTSIDE RECORDS SUMMARY | 2024-04-26 10:21 | XMS_ITS | Clinical Summary ---
Author Organization [facility] Address [place], [place] [address] Care Team Providers Care Densitometer Reader Name Role Phone Dileep Rhodes MD Primary Care Provider + Allergies Active Allergy Reactions Criticality Noted Date Comments Amoxicillin *Unknown 04/17/2016 Medications Medication Sig Dispensed Refills Start Date End Date Status INSULIN ASPART (NOVOLOG SUBQ) Inject subcutaneous. Active ALPRAZolam (XANAX) 0.5 mg tablet Take 1 tablet by mouth 3 times daily if needed. 4 08/16/2017 Active metoprolol (LOPRESSOR) 100 mg tablet Take 100 mg by mouth 2 times daily. 10 08/16/2017 Active amLODIPine (NORVASC) 5 mg tablet Take 5 mg by mouth once daily. 0 08/18/2017 Active lisinopril (PRINIVIL; ZESTRIL) 20 mg tablet Take 20 mg by mouth once daily. 10 08/16/2017 Active BASAGLAR KWIKPEN 100 unit/mL (3 mL) pen Inject 50 Units subcutaneous at bedtime. 11 08/16/2017 Active NOVOLOG FLEXPEN 100 unit/mL solution for injection Inject 15 Units subcutaneous 3 times daily before meals. 10 08/16/2017 Active CONTOUR NEXT STRIPS strip 1 Strip 2 times daily before meals. 98 08/16/2017 Active acetaminophen (TYLENOL EXTRA STRENGTH) 500 mg tablet Take 500-1,000 mg by mouth every 6 hours if needed. Max acetaminophen dose: 4000mg in 24 hrs. Active atorvastatin (LIPITOR) 80 mg tabletIndications:Hy perlipidemia, unspecified hyperlipidemia type Take 1 tablet by mouth at bedtime. 31 tablet 2 08/22/2017 Active aspirin chewable 81 mg chewable tabletIndications: HD (arteriosclerotic heart disease) Take 1 tablet by mouth once daily with a meal. 0 08/22/2017 Active nitroglycerin (NITROSTAT) 0.4 mg sublingual tabletIndications: HD (arteriosclerotic heart disease) Place 1 tablet under the tongue every 5 minutes if needed for Chest Pain (first choice for chest pain). 25 tablet 08/22/2017 Active clopidogreL (PLAVIX) 75 mg tablet 07/13/2020 Active furosemide (LASIX) 20 mg tablet Take 20 mg by mouth once daily. 04/28/2020 Active Active Problems Problem Noted Date Diagnosed Date Angina pectoris ASHD (arteriosclerotic heart disease) Hypertension Hyperlipidemia Diabetes mellitus GERD (gastroesophageal reflux disease) Renal cell carcinoma Overview: -s/p resection Tobacco abuse NSTEMI (non-ST elevated myocardial infarction) Encounters Date Type Department Care Team Description 04/24/2024 Lab Requisition [facility] [phone] Shona Vásquez MD from Last 3 Months Immunizations Name Administration Dates Next Due Influenza, IIV3 (Age 6-35 mos) 11/02/2011 Influenza, IIV4 08/22/2017,07/15/2016 Influenza, IIV4 (=>6mos) MDV 07/30/2014 Pneumococcal Poly,23-Valent (Pneumovax) 05/10/20 11 Tdap 05/03/2006 Social History Tobacco Use Types Packs/Day Years Used Date Smoking Tobacco: Every Day Cigarettes 1 40 Smokeless Tobacco: Never Tobacco Cessation:Ready to Q uit: No; Counseling Given: No Alcohol Use Standard Drinks/Week Comments No 0 (1 standard drink = 0.6 oz pur e alcohol) Social Connections Answer Date Recorded Frequency of Communication with Friends and Fami ly Not on file 09/11/2021 Financial Resource Strain Answer Date R ecorded Difficulty of Paying Living Expenses Not on file 09/11/2021 Difficulty of Paying Living Expenses Not on file 09/11/2021 Sex and Gender Information Value Date Recorded Sex Assigned at Not on file Gender Identity Not on file Sexual Orientation Not on file Obstetrics History Last Filed Vital Signs Vital Sign Reading Time Taken Comments Blood Pressure 157/84 09/26/2020 2:46 PM COIN BOX INSPECTOR Pulse 73 08/23/2017 12:00 PM COIN BOX INSPECTOR Temperature 37.1 ??C (98.7 ??F) 09/26/2020 2:46 PM CS T Respiratory Rate 18 08/23/2017 8:44 AM COIN BOX INSPECTOR Oxygen Saturation 95% 08/23/2017 8:44 AM COIN BOX INSPECTOR Inhaled Oxygen Concentration - - Weight 121.7 kg (268 lb 4.8 oz) 08/23/2017 6:00 AM COIN BOX INSPECTOR Height 182.9 cm (6') 08/22/2017 10:47 AM COIN BOX INSPECTOR Body Mass Index 36.39 08/22/2017 10:47 AM COIN BOX INSPECTOR Plan of Treatment Health Maintenance Due Date Last Done Comments Depression screening for age 12+ 1970 HIV for age 15-65 1973 BMI (ht and wt on same day) for age 18+ 1976 Hepatitis C screening for age 18-79 1976 Colonoscopy through age 75 2003 Zoster (shingles) series for age 50+ (1 of 2) 2008 Tetanus booster 05/03/2016 05/03/2006 Lipids for age 45-75 08/23/2022 08/23/2017, 08/22/20 17 COVID-19 vaccine series (1 - 2022-24 season) 2023 Pneumococcal series for age 65+ (2 of 2 - PCV) 2023 05/10/2011 Influenza for age 65+ 05/12/2024 08/22/2017 , 07/15/2016, 07/30/2014 Tdap Completed 05/03/2006 Procedures Procedure Name Priority Date/Time Associated Diagnosis Comments PATH TISSUE EXAM Routine 04/23/2024 12:3 0 PM CDT LIPID PANEL Routine 08/23/2017 ASHD (arteriosclerotic heart disease) Hypertension NSTEMI (non-ST elevated myocardial infarction) (HC) from Last 3 Months or Most Recently Relevant to Health Maintenance Results * PATH TISSUE EXAM (04/23/2024 12:30 PM CDT) Case Report Pathology Report ?Case: [id number] ? Authorizing Provider: ??Shona Vásquez MD ?Collected: ? 04/23/2024 1230 ? Ordering Location: ? [facility] ?Received: ?04/24/2024 1746 ? Pathologist: ? Erick Castorena MD ? Specimens: ?? A) - Right Anderson ? B) - Right Forearm ? 04/26/2024 10:17 AM [facility] Final Diagnosis A) SKIN, RIGHT ANDERSON, BIOPSY: 1. Dermatofibroma 2. No evidence of malignancy B) SKIN, RIGHT FOREARM, BIOPSY: 1. Verruca vulgaris 2. No evidence of malignancy 04/26/2024 10:17 AM [facility] Clinical Information Skin cancer. 04/26/2024 10:17 AM [facility] Gross Description A) Received in formalin, labeled with the patient's name and R anderson, is a 0.9 x 0.7 cm skin biopsy. There is a 1.0 x 0.7 cm slightly raised crawford lesion. The specimen is inked blue, serially sectioned and entirely submitted in one cassette. B) Received in formalin, labeled with the patient's name and R forearm, is a 0.9 x 0.9 cm skin biopsy. There is a 0.9 x 0.9 cm raised, verrucoid crawford lesion. The specimen is inked green, trisected and entirely submitted in one cassette. SJ 04/24/2024 04/26/2024 10:17 AM CDT [facility] ENTRAL LABORATORY Microscopic Description The final diagnosis is based on microscopic examination of appropriate sections of all specimens. A) The dermis shows a proliferation of spindled cells growing in a somewhat storiform fashion with no significant mitotic activity or cytologic atypia. At the periphery of the lesion the spindled cells encompass individual collagen bundles. The presence of ??blue ink is confirmed on tissue sections. B) There is an exophytic, symmetric, papillomatous lesion with large keratohyaline granules and inturning of the rete ridges. Parakeratotic columnar tiers of stratum corneum overlie the papillomatous surface. The presence of ??green ink is confirmed on tissue sections. 04/26/2024 10:17 AM CDT [facility] [employer] [facility] Additional Information Interpreted at [facility], Central Laboratory - [address] [facility] [address], [place] [address] 04/26/2024 10:17 AM CDT [facility] [employer] [facility] ENTRAL LABORATORY Other (Right Anderson) 04/23/2024 12:30 PM CDT 04/24/2024 5:46 PM CDT Specimen (specimen) (Right Forearm) 04/23/2024 12:30 PM CDT 04/24/2024 5:46 PM CDT Shona Vásquez MD PATHOLOGY/CYTOLOGY [facility] [employer] [facility]ATORY [address] [place] [address], from Last 3 Months or Most Recently Relevant to Health Maintenance Care Teams Densitometer Reader Relationship Specialty Start Date End Date Dileep Rhodes MD PCP - General Family Practice 05/24/21
--- OUTSIDE RECORDS SUMMARY | 2024-04-26 10:21 | XMS_ITS | Encounter Summary ---
Author Organization [place] Address [address] [place] [address] Care Team Providers Care It Support Consultant Name Role Phone Shona Vásquez MD Primary Care Provider [phone] Kiet Arias MD Unavailable [phone] Zofia Hager APRN MATE RELIEF Unavailable Unavaila ble Kiet Arias MD Unavailable [phone] Encounter Details Date Type Department Care Team (Late st Contact Info) Description 01/10/2023 [facility] [place] [facility] [address] [place] [address] Amna Rodriguez, RN Social History Tobacco Use Types Packs/Day Years [...] on file Sexual Orientation Not on file COVID-19 Exposure Response Date Recorded In the last 10 days, have yo u been in contact with someone who was confirmed or suspected to have Coronavirus/COVID-19? No / Unsure 01/09/2023 10:47 AM CDT documented as of this encounter Plan of Treatment Not on file documented as of this encounter Visit Diagnoses Not on filedocumented in this encounter Care Teams It Support Consultant Relationship Specialty Start Date End Date Shona Vásquez MD [facility] [address] [place] [address] PCP - General Family Medicine 12/30/22 Kiet Arias MD [address] [place] [id number] Assigned Heart and Vascular Provider 12/31/22 02/10/23 Zofia Hager APRN [facility] Assigned Heart and Vascular Provider 02/11/23 06/23/23 Kiet Arias MD [address] [place] [id number] Assigned Heart and Vascular Provider 06/24/23 documented as of this encounter
--- OUTSIDE RECORDS SUMMARY | 2024-04-26 10:21 | XMS_ITS | Encounter Summary ---
Author Organization [place] Address [address] [place] [address]. [place] [address] Care Team Providers Care Unitizer Name Role Phone System, Provider Not In Primary Care Provider Un available Sangeetha Gonzales MD Primary Care Provider + Shona Vásquez MD Primary Care Provider [phone] Kiet Arias MD Unavailable Zofia Hager DRYING UNIT FELTING MACHINE OPERATOR SE[employer]AT[employer] ARRANGER Unavailable Unavaila ble Kiet Arias MD Unavailable Encounter Details Date Type Department Care Team (Late st Contact Info) Description 05/30/2011 Office Visit-[facility] [place] [id number] [facility] [address] [place] [address] Sandy Briones, DRYING UNIT FELTING MACHINE OPERATOR SEED POTATO ARRANGER [address] [facility] [address] [place] [address] Social History Tobacco Use Types Packs/Day Years Used Date Smoking Tobacco: Never Assessed Sex and Gender Information Value Date Recorded Sex Assigned at Not on file Gender Identity Not on file Sexual Orientation Not on file documented as of this encounter Progress Notes * Sandy Briones NP - 06/01/2011 3:04 PM CDT Progress Note Created by: Sandy Briones NKelseaPKelsea [id number] DATE: 05/30/2011 ALIZA RAMIREZ DATE OF : 1960 AGE: [age] years old Referring Physician: SANGEETHA GONZALES Referring Clinic: [facility] CURRENT DIAGNOSES 1. - CAD, 414.00 2. Diabetes Mellitus-Insulin Dependent, 250.00 3. - Hyperlipidemia, 272.4 4. Smoking or Tobacco Abuse, 305.1 5. - Hypertension, 401.1 ALLERGIES Amoxicillin Trihydrate, Pruritus MEDICATIONS (prior to changes made today) 1. alprazolam 0.5 mg Tablet, 1 p.o. PRN as Directed 2. Aspirin Low Dose 81 mg Tablet, Delayed Release (E.C.), 1 p.o. daily 3. ranitidine HCl 150 mg Capsule, 1 p.o. daily 4. Effient 10 mg Tablet, 1 p.o. daily 5. simvastatin 40 mg Tablet, 1 p.o. qHS 6. nitroglycerin 0.4 mg Tablet, Sublingual, Take as Directed 7. lisinopril 10 mg Tablet, 1 p.o. daily 8. Novolog Mix 70-30 FlexPen 100 unit/mL (70-30) Insulin Pen, 15 units in a.m. and 20 units in p.m.9. metoprolol succinate 100 mg Tablet Extended Release 24 hr, 1 p.o. daily CHIEF COMPLAINTS Followup of recent hospitalization HISTORY OF PRESENT ILLNESS: This is a delightful 50-year-old male who presents to the [facility] today for a follow-up visit. He is a patient of Dr. Epps and Dr. Langley seen in our clinic for a past medical history of: Coronary artery disease, hypertension, tobacco abuse, hyperlipidemia, diabetes and obesity. Roldan has a longstanding history of diabetes and tobacco abuse. Unfortunately he was admitted three weeks ago with complaints of heartburn occurring in the evening. He was found to have an acute evolving non-Q wave myocardial infarction and underwent emergent coronary angiography. He was found to have a 95% blockage at his proximal left anterior descending at the diagonal bifurcation. He subsequently underwent a 3.5 x 23 mm drug-eluting stent reestablishing good flow with 0% residual stenosis. Hewas also noted to have 50% distal left anterior descending disease, mild obtuse marginal 2 disease and circumflex disease and 60 to 70% mid right coronary artery disease. His troponin did peak at 44.He was placed on Effient to be taken everyday for one full year. Postprocedure he was found to haveevidence of AV femoral fistula with a common femoral artery branch an accessory greater saphenous vein. He underwent a follow-up ultrasound one week later showing still a small AV fistula with a small hematoma surrounding. The patient continued to be asymptomatic. He was discharged to home in stable condition. He was found to have quite elevated triglyceride levels and total cholesterol 251, therefore, he was started on simvastatin. He returns today for reassessment. Roldan tells me he has been doing well. He does admit to some brief episodes of mild chest discomfort that comes on when he is sitting idle. These pains are brief, erratic, but no associated nausea, vomiting, diaphoresis or any exertional component. In fact, he is able to walk at least a mile everyday without any limitations or chest pain. He tells me he has not had any pain similar to what brought him into the hospital. He denies shortness of breath. He denies orthopnea, paroxysmal nocturnal dyspnea or peripheral edema. He also denies any palpations, light-headedness, dizziness or near syncope. He does have some mild light-headedness if he bends over and comes up quickly. He tells me that his right groin occasionally feels a little sore, however, he is not having any pain from that area whatsoever. His blood pressure today is 152/94 with a heart rate of 92 beats per minute. His lungs are clear. There is no evidence of any jugular venous distention or peripheral edema. Further review of systems and physical examination as noted below. 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 Surgeries/Procedures - General: right knee surgery,herniorrhaphy Cardiac/Vasc Procedures-Invasive: cardiac cath (left) Apr 2011 Vascular Procedures-Noninvasive: arterial ultrasound lower extremities right Apr 2011, 04/21 US pseudoaneurysm repair, arterial ultrasound lower extremities right May 2011 Pulmonary Testing: CXR Apr 2011 Cardiac Cath Results: 04/21 CAD, lesion prox LAD and 1st diagonal,LAD-90%,1st diagonal 95%,L.CFX- sm.marginal 30%,2nd marginal 20-30%,RCA-prox.20-30%,mid 60-70%,distal 20%.MEENU to LAD with angioplasty of diagonal branch Peripheral Vasc Procedure Results: 04/21 US arterial RLE-Fistula ,see report.04/21, 05/22 US arterial RLE- no change since 04/21,see report Left Ventricular Ejection Fraction: EF 55% by cath 04/21 LVEF of 55% documented via cardiac cath on 05/09/2011 FAMILY HISTORY: Father - from cancer; Sister 1 - congenital renal failure, [id number] old-renal and renal transplant-young age; SOCIAL HISTORY Alcohol Use - quit drinking years ago; Smoking - smokes, 2 cigarettes daily; Diet - watching fats and Na in diet; Lifestyle - , children and sedentary lifestyle; Exercise - walking 5-6 days weekly; 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 EYES needs glasses, but hasn't gotten d/t no insurance EARS, NOSE, THROAT, MOUTH denies any hearing loss, epistaxis, hoarseness or difficulty speaking. RESPIRATORY denies dyspnea, snoring, cough, wheezing or hemoptysis. CARDIOVASCULAR occasional chest tightness with activity, lightheaded or dizziness with quick position changes, denies palpitations or BRITTNEY ABDOMINAL denies change in bowel habits, dyspepsia, ulcer disease, hematochezia or melena. GENITOURINARY-MALE denies difficulties MUSCULOSKELETAL right knee arthritis/pain NEUROLOGICAL denies any history of recurrent headaches, strokes, TIA, or seizure disorder. PSYCHIATRIC denies any history of depression, substance abuse or change in cognitive functions. ENDOCRINE insulin dependent diabetes mellitus HEMATOLOGICAL/IMMUNOLOGIC seasonal allergies VASCULAR meg horses in calf muscles at night PHYSICAL EXAMINATION VITAL SIGNS: Blood Pressure: 152/94Sitting, Right arm, large cuff Pulse- 92.00/min. Weight- 281.10 lbs. Height- 70.00 Temperature- .00 CONSTITUTIONAL well developed, well nourished, in no [...] clubbing, cyanosis or edema MEDICATIONS UPDATED/STARTED TODAY: Aspirin Low Dose 81 mg Tablet, Delayed Release (E.C.), 1 p.o. daily, #0 Effient 10 mg Tablet, 1 p.o. daily, #30 (Thirty) lisinopril 10 mg Tablet, 1 p.o. daily, #30 (Thirty) metoprolol succinate 100 mg Tablet Extended Release 24 hr, 1 p.o. daily, #30 (Thirty) nitroglycerin0.4 mg Tablet, Sublingual, Take as Directed, #30 (Thirty) Novolog Mix 70-30 FlexPen 100 unit/mL (70-30) Insulin Pen, 15 units in a.m. and 20 units in p.m., #-1 ranitidine HCl 150 mg Capsule, 1 p.o. daily, #0 simvastatin 40 mg Tablet, 1 p.o. qHS, #30 (Thirty) MEDICATIONS REFILLED/STOPPED TODAY: lisinopril 10 mg Tablet 1 p.o. daily #0 Refill, simvastatin 40 mg Tablet 1 p.o. qHS #0 Refill, ranitidine HCl 150 mg Capsule 1 p.o. twice daily #0 Refill, Effient 10 mg Tablet 1 p.o. daily #0 Refill,metoprolol succinate 50 mg Tablet Sustained Release 24 hr 1 1/2 p.o. daily #0 Refill, Aspirin Low Dose 81 mg Tablet, Delayed Release (E.C.) 1 p.o. daily #30 (Thirty) Refill, lisinopril 5 mg Tablet 1 p.o. daily #30 (Thirty) Refill, metoprolol succinate 50 mg Tablet Extended Release 24 hr 1 p.o. daily #30 (Thirty) Refill, nitroglycerin 0.4 mg Tablet, Sublingual Take as Directed 30 Refill and metoprolol succinate 50 mg Tablet Extended Release 24 hr 1 1/2 tab (75mg)p.o. daily #30 (Thirty) Dosage Inc reased IMPRESSION/PLAN: 1. Coronary artery disease. Recent ST elevated myocardial infarction with troponin peak of 44. He underwent subsequent drug-eluting stent placement to his proximal left anterior descending and diagonal bifurcation reestablishing good flow. He does have remaining 50% distal left anterior descending disease and 60 to 70% mid right coronary artery disease. He is free from any anginal symptoms. He has admitted to some brief atypical type chest discomfort, not similar to what brought him into the hospital. He is aware to remain on Effient for one full year without interruption. He has tolerated the change from atenolol to metoprolol, HYA inhibitor therapy and aspirin. 2. Ultrasound confirmation of AV femoral fistula. Repeat ultrasound revealed continued small AV fistula. The patient is quite asymptomatic and the plan is to repeat this ultrasound again in three months per Dr. Epps's recommendation. 3. Hypertension. His blood pressure is not controlled today. I have asked him to increase his metoprolol succinate to 100 mg daily. 4. Tobacco abuse. I encouraged cessation. He tells me he isjust smoking minimally, around two cigarettes a day at this time. 5. Hypertension, mixed. He has recently started simvastatin and does not have a primary medical doctor. I will set him up for a lipidpanel to be done in the next couple months. 6. Diabetes, on insulin. 7. Obesity. I encouraged weight loss and dietary modifications. Thank you for allowing me to participate in this patient's care. We will have him return as mentioned in a couple months. He is to notify our clinic with chest discomfort, shortness of breath, light-headedness, dizziness or other concerns that he may have during the interim. TODAYS ORDERS 1. F/U with Wilian Epps MD 2 months 2. Lipid Profile 2 months Sandy Briones N.P. documented in this encounter Plan of Treatment Not on file documented as of this encounter Visit Diagnoses Not on filedocumented in this encounter Care Teams Unitizer Relationship Specialty Start Date End Date System, Provider Not In PCP - General 08/19/11 06/03/12 Sangeetha Gonzales MD PCP - General 06/04/12 12/29/22 Shona Vásquez MD [facility] [address] [place] [address] PCP - General Family Medicine 12/30/22 Kiet Arias MD [address] [place] [address] Assigned Heart and Vascular Provider 12/31/22 02/10/23 Zofia Hager APRN SE[employer] POTATO ARRANGER Assigned Heart and Vascular Provider 02/11/23 06/23/23 Kiet Arias MD [address] [place] [address] Assigned Heart and Vascular Provider 06/24/23 documented as of this encounter
--- OUTSIDE RECORDS SUMMARY | 2024-04-26 10:21 | XMS_ITS | Encounter Summary ---
Author Organization [facility] Address [address] [place] [address] Care Team Providers Care Data Processing Clerk Name Role Phone Sangeetha Gonzales MD Primary Care Provider + Shona Vásquez MD Primary Care Provider [phone] Kiet Arias MD Unavailable [phone] Zofia Hager APRN ACCESS NURSE Unavailable Unavaila ble Kiet Arias MD Unavailable [phone] Encounter Details Date Type Department Care Team (Late st Contact Info) Description 07/05/2012 Office Visit-[facility] [address] [id number] Wilian Epps MD Social History Tobacco Use Types Packs/Day Years Used Date Smoking Tobacco: Never Assessed Sex and Gender Information Value Date Recorded Sex Assigned at Not on file Gender Identity Not on file Sexual Orientation Not on file documented as of this encounter Progress Notes * Wilian Epps MD - 07/06/2012 4:39 PM CDT Progress Note Created by: Wilian Epps M.D. DATE: 07/05/2012 ALIZA RAMIREZ [id number] DATE OF : 1960 AGE: [age] years old Referring Physician: SANGEETHA GONZALES Referring Clinic: [facility] CURRENT DIAGNOSES 1. - CAD, 414.00 [...] COMPLAINTS HISTORY OF PRESENT ILLNESS I saw Aliza Ramirez again this morning. Aliza is 51. He has a history of documented coronary disease having presented with unstable angina in April 2011 when he had stenting of his LAD, angioplasty of a diagonal branch, and diffuse multiple vessel coronary disease in the RCA and left circumflex. His LV function had been normal. He did not sustain any significant myocardial injury. Recently, he was admitted for observation overnight at [facility] because of vague intermittent across the chest feelings that he described to me in retrospect as soreness in the nipples and a vague tightness that comes and goes fleetingly. It worried him enough that he went to the ER. They subsequently ruled out an MA and did a Cardiolite Lexiscan thallium study, which showed an ejection fraction of 60% with a very small area of mid anterior vasal ischemia. With this in retrospect, he says that he has only had very fleeting and mild symptoms and the soreness of the chest and nipples is entirely different from the more classic midsternal burning and tightness that he had with his unstable angina. He continues to smoke a half pack a day. His risk factors are well know to both of us, but include hyperlipidemia, hypertension, obesity, sedentary lifestyle, and adult onset diabetes. His physical exam revealed that he was rotund at 279 pounds. Blood pressure was 140/90. Heart rate was 90 beats per minute. Head and neck were normal. Carotids were equal. No bruits were heard. Heartwas regular without gallop or murmur. Lungs were clear. Abdomen was soft, rotund, obese, and nontender without organomegaly or bruits. Extremities showed 2+ pedal pulses and no edema. Aliza has not turned the corner yet as to improving his healthcare. Most decidedly, he is smoking.I gave him a prescription for Imdur 30 mg to be taken in the morning. I am going to ask to see him in a couple of months. If you think or if he lets you know that he is having progressive or unstable angina symptoms, please let me know and we will proceed more aggressively. His symptoms are so faint and somewhat atypical. Despite the stress nuclear study, I did not feel a mandate to hoffman him off for an angiogram. I spent 15 minutes reinforcing the absolute need to stop smoking. He implies that he will. Time will tell. 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 Surgeries/Procedures - General: right knee surgery,herniorrhaphy Cardiac/Vasc Procedures-Invasive: cardiac cath (left) Apr 2011 Vascular Procedures-Noninvasive: arterial ultrasound lower extremities right Apr 2011, 04/21 US pseudoaneurysm repair, arterial ultrasound lower extremities right May 2011, 08/21 aorto iliac US, nuc.stress test-05/2012 Pulmonary Testing: CXR Apr 2011 Cardiac Cath Results: 04/21 CAD, lesion prox LAD and 1st diagonal,LAD-90%,1st diagonal 95%,L.CFX- sm.marginal 30%,2nd marginal 20-30%,RCA-prox.20-30%,mid 60-70%,distal 20%.MEENU to LAD with angioplasty of diagonal branch Peripheral Vasc Procedure Results: 04/21 US arterial RLE-Fistula ,see report.04/21, 05/22 US arterial RLE- no change since 04/21,see report, 08/21 no sig AAA Left Ventricular Ejection Fraction: EF 55% by cath 04/21, EF<GT>55% by nuclear study -May 2012 Nuclear Results: 05/2012- small perfusion defect involving mid to basal anterior wall LVEF of 55-60% documented via nuclear study on 06/05/2012 FAMILY HISTORY: Father - from cancer; Sister 1 - congenital renal failure, [id number] old-renal and renal transplant-young age; CARDIAC RISK FACTORS Tobacco Abuse: currently smoking; Family History of Heart Disease: negative; Hyperlipidemia: positive; Hypertension: positive; Diabetes Mellitus: positive; Prior History of Heart Disease: 04/21 anterior infarct ,CAD; Obesity:positive; Sedentary Life Style:positive ; LDL Goal <LT> 70 SOCIAL HISTORY Alcohol Use - quit drinking years ago; Smoking - smokes, and 1/2 PPD; Diet - watching fats and Na in diet; Lifestyle - , children and sedentary lifestyle; Exercise - walking, 3-4 days per weekand not lately due to right knee pain; 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 INTEGUMENTARY denies any change in hair or nails, rashes, or skin lesions. EYES wears eye glasses/contact lenses EARS, NOSE, THROAT, MOUTH denies any hearing loss, epistaxis, hoarseness or difficulty speaking. RESPIRATORY dyspnea with exertion CARDIOVASCULAR chest tightness, twice a day ABDOMINAL denies change in bowel habits, dyspepsia, ulcer disease, hematochezia or melena. GENITOURINARY-MALE denies difficulties MUSCULOSKELETAL right knee arthritis/pain NEUROLOGICAL denies any history of recurrent headaches, strokes, TIA, or seizure disorder. PSYCHIATRIC anxiety ENDOCRINE insulin dependent diabetes mellitus HEMATOLOGICAL/IMMUNOLOGIC seasonal allergies VASCULAR meg horses in calf muscles at night PHYSICAL EXAMINATION VITAL SIGNS: Blood Pressure: 148/102Sitting, Right arm, large cuff Pulse- 102.00/min. Weight- 279.40 lbs. Height- 70 BMI Measurement: 40 CONSTITUTIONAL well developed, well nourished, in no acute distress, moderately obese SKIN warm and dry to touch HEAD [...] clubbing, cyanosis or edema MEDICATIONS UPDATED/STARTED TODAY: IMPRESSION: 1. Vague intermittent atypical chest symptoms. 2. Stress nuclear study suggests a small area of possible anterior ischemia. 3. Multiple vessel coronary disease. 4. Persistent smoking. 5. Risk factors as noted above. PLAN: 1. Abstinence from cigarettes. 2. Diet, weight loss, and exercise. 3. Imdur. I will revisit with him in a couple of months. We will see how he is doing. If you have any questions, concerns, or disagreements, please give me a call. TODAYS ORDERS 1. Return Visit 2 months Wilian Epps M.D. documented in this encounter Plan of Treatment Not on file documented as of this encounter Visit Diagnoses Not on filedocumented in this encounter Care Teams Data Processing Clerk Relationship Specialty Start Date End Date Sangeetha Gonzales MD PCP - General 06/04/12 12/29/22 Shona Vásquez MD [facility] [address] [place] [address] PCP - General Family Medicine 12/30/22 Kiet Arias MD [address] [place] [address] Assigned Heart and Vascular Provider 12/31/22 02/10/23 Zofia Hager APRN ACCESS NURSE Assigned Heart and Vascular Provider 02/11/23 06/23/23 Kiet Arias MD [address] [place] [address] Assigned Heart and Vascular Provider 06/24/23 documented as of this encounter
--- NOTE | 2024-04-26 10:45 | CRLHL7_ITS ---
For Patients: As a result of the Century Cures Act, medical imaging exams and procedure reports are released immediately into your electronic medical record. You may view this report before your referring provider. If you have questions, please contact your health care provider. Examination: US abdominal aorta Indication: nicotine dependence. Abdominal aortic aneurysm screening. Technique: Adame scale and color Doppler images of the aorta and common iliac arteries are obtained. Comparison: None Findings: Proximal aorta: 2.5 x 3.0 cm Mid aorta: 2.2 x 2.3 cm Distal aorta: 2.6 x 2.8 cm Right common iliac artery: 1.2 x 1.0 cm Left common iliac artery: 1.1 x 1.3 cm Atherosclerotic changes noted. Recommended imaging interval for ectatic aorta: 3.0-3.4 cm: 3 years Impression: Proximal aorta measures 3.0 cm. Follow-up in 3 years recommended. Dictated by Kenney Florez MD @ 04/26/2024 2:50:28 PM (Electronically Signed)
== END 2024-04-26 10:19 | disposition home or self-care (01) ==
LOC: US 10:18
PROVIDERS: PCP Emergency Medicine; Visit Provider Emergency Medicine
DX: Z13.6 Encounter for screening for cardiovascular disorders (principal); F17.210 Nicotine dependence, cigarettes, uncomplicated; F17.200 Nicotine dependence, unspecified, uncomplicated
CPT/HCPCS: 76775

== ENCOUNTER 2024-06-24 11:46 | Outpatient (RCR) | payer OTHER, SELFPAY ==
[2024-06-24] VITALS (8 sets, daily range): BP systolic 103–133; BP diastolic 67–76; PULSE 69–84; RESP 16–20; TEMP 36.4–36.9; O2SAT 94–98
--- NOTE | 2024-06-24 16:29 | ONC.NURNOTE ---
Pt tolerated 1 unit PRBC well. Reviewed s/s delayed reaction with pt and ; they verbalize understanding. DC'd ambulatory feeling better than when he arrived, per pt.
== END 2024-12-21 23:59 | disposition home or self-care (01) ==
LOC: CCIC 11:46
PROVIDERS: PCP Emergency Medicine; Referring Provider Emergency Medicine; Visit Provider Clinical Nurse Specialist
DX: D64.9 Anemia, unspecified (principal); I95.9 Hypotension, unspecified; R42 Dizziness and giddiness; K92.2 Gastrointestinal hemorrhage, unspecified; Z79.82 Long term (current) use of aspirin
CPT/HCPCS: 36415; 36430; 82607; 84443; 86850; 86900; 86901; 86922; P9016

== ENCOUNTER 2024-07-08 12:27 | Inpatient (IN) | payer OTHER, SELFPAY ==
[2024-07-08] VITALS (36 sets, daily range): BP systolic 119–141; BP diastolic 77–89; PULSE 73–100; RESP 16–26; TEMP 36.7–37.1; O2SAT 90–96; BMI 24.4; BMI 38.7
--- NOTE | 2024-07-08 13:07 | CRLHL7_ITS ---
For Patients: As a result of the Century Cures Act, medical imaging exams and procedure reports are released immediately into your electronic medical record. You may view this report before your referring provider. If you have questions, please contact your health care provider. INDICATION: Short of breath, weakness COMPARISON: CT 04/18/2024, radiograph 09/13/2022 TECHNIQUE: PA and lateral 2 view chest. FINDINGS: Lung volumes are overall good. Mild distortion in the right lung related to prior surgical interventions or other insult. Hazy opacities in the right mid to lower lung. Prominent pulmonary vascular markings with a few peripheral septal lines bilaterally. Small right pleural effusion. No pneumothorax. No pneumomediastinum. Heart size is large but similar to prior. Atherosclerotic vascular calcifications. Bones: Normal for age. IMPRESSION: Mild pulmonary edema. Small right pleural effusion. Dictated by Francesca Rodriguez MD @ 07/08/2024 2:05:23 PM (Electronically Signed)
--- NOTE | 2024-07-08 13:21 | ED_ITS ---
HPI - General Adult General Chief complaint: Dizziness/Vertigo Stated complaint: Low Hgb after transfusion 1-2wks ago sent from Time Seen by Provider: 07/08/24 13:04 Source: patient Mode of arrival: ambulatory Limitations: no limitations History of Present Illness HPI narrative: Patient is a 63-year-old male presenting today with dizziness requesting a blood transfusion. Patient states that he started feeling dizzy approximately 3 weeks ago and was found to have a very low hemoglobin. He has since then undergone an upper endoscopy and colonoscopy where he had 7 polyps removed and was diagnosed with duodenitis. He has received a blood transfusion with 1 unit and was generally feeling much better until yesterday he began to feel dizzy once again. He was seen in the urgent care where his hemoglobin, previously 8.7 after transfusion was back down to 8. He was encouraged to follow up with primary care the patient states that he feels even worse today with increasing dizziness, shortness of breath and decreased energy. When this all started patient was having dark tarry stools, he states that this has resolved. Patient denies any chest pain. Patient does have COPD, diabetes, coronary artery disease, history of renal cell carcinoma and tobacco use disorder. Related Data Home Medications ?Medication ?Instructions ?Recorded ?Confirmed aspirin 81 mg tablet,delayed 81 mg PO Q OTHER DAY 03/29/22 07/07/24 release atorvastatin 80 mg tablet 80 mg PO QHS 06/24/24 07/07/24 pantoprazole 40 mg tablet,delayed 40 mg PO BID 06/24/24 07/07/24 release Previous Rx's ?Medication ?Instructions ?Recorded insulin aspart U-100 100 unit/mL 20 unit (0.2 mL) subcut TIDWMEAL 02/20/24 (3 mL) subcutaneous pen (Novolog #15 mL FlexPen U-100 Insulin aspart) nitroglycerin 0.4 mg sublingual 0.4 mg sublingual Q5-15M PRN chest 02/20/24 tablet pain #30 tabs metoprolol tartrate 100 mg tablet 100 mg PO BID #180 tabs 04/15/24 empagliflozin 10 mg tablet 10 mg PO QAM #90 tabs 04/22/24 (Jardiance) ipratropium 0.5 mg-albuterol 3 mg 3 ml inhalation Q6H PRN shortness 06/06/24 (2.5 mg base)/3 mL nebulization of breath or wheezing #90 mL soln fluticasone 250 mcg-salmeterol 50 1 inh inhalation Q12H #60 ea 07/03/24 mcg/dose blistr powdr for inhalation (Advair Diskus) doxycycline hyclate 100 mg capsule 100 mg PO BID 7 days #14 caps 07/07/24 albuterol sulfate 90 mcg/actuation 2 puff inhalation Q4H PRN 07/08/24 aerosol inhaler shortness of breath or wheezing #8.5 grams insulin glargine 100 unit/mL (3 25 unit (0.25 mL) subcut BID #15 mL 07/08/24 mL) subcutaneous pen (Lantus Solostar U-100 Insulin) Allergies Allergy/AdvReac Type Severity Reaction Status Date / Time amoxicillin Allergy Intermediate itching Verified 07/08/24 12:58 hands and swelling in hands Review of Systems Status of ROS: Reports: 10 or more systems reviewed and unremarkable except as noted in History and below PFSH PFSH Surgical History History of partial nephrectomy ?Z90.5 - Acquired absence of kidney (ICD-10) History of knee surgery ?Z98.890 - Other specified postprocedural states (ICD-10) History of hernia repair ?Z98.890 - Other specified postprocedural states (ICD-10) ?Z87.19 - Personal history of other diseases of the digestive system (ICD-10) History of coronary artery stent placement ?Z95.5 - Presence of coronary angioplasty implant and graft (ICD-10) Family History Sister Breast cancer Kidney disease Brother Diabetes Mother Non Hodgkin's lymphoma Social History Narrative: Does not drink alcohol Marijuana use Smoker- 40 pack years 3/4 pack/day Smoking Status: Current every day smoker Little interest or pleasure in doing things: several days Feeling down, depressed, or hopeless: several days Exam Narrative: Exam Narrative: Overweight, well-developed patient in no acute distress. Alert and oriented. Answers questions appropriately. Mood and affect are appropriate. Thoughts are goal oriented and rational. No tangential or magical thinking noted. Patient speaks in full sentences without needing to catch his breath. HEENT: Normocephalic atraumatic. Pupils are equally round reactive to light. Extraocular muscles are intact. Conjunctivae are moist without any icterus noted. Slightly dry mucous membranes. Posterior pharynx is normal. Neck is soft. Cardiovascular: Heart is regular rate and rhythm. Lungs: Distant breath sounds bilaterally. Abdomen: Protuberant. Soft and nontender nondistended with normal bowel sounds. No guarding or rebound. No masses or organomegaly appreciated. Extremities: Bilateral lower extremities are with 1+ pitting edema. Skin: Well perfused without any obvious rashes. Const: Vital Signs, click to edit/add: Vital Signs - 24 hr 07/08/24 13:00 07/08/24 13:13 07/08/24 13:13 Temperature 98.7 F Pulse Rate 86 86 Pulse Rate [Pulse Oximeter] 93 Respiratory Rate 20 16 Blood Pressure 119/78 119/78 Blood Pressure [Ri ght Upper Arm] 125/77 Pulse Oximetry 96 96 96 Oxygen Delivery Me thod Room Air 07/08/24 13:13 07/08/24 13:14 07/08/24 13:15 Temperature Pulse Rate 86 84 86 Pulse Rate [Pulse Oximeter] Respiratory Rate Blood Pressure 119/78 Blood Pressure [Ri ght Upper Arm] Pulse Oximetry 96 95 95 Oxygen Delivery Me thod 07/08/24 13:30 07/08/24 13:45 07/08/24 14:00 Temperature Pulse Rate 87 85 81 Pulse Rate [Pulse Oximeter] Respiratory Rate Blood Pressure Blood Pressure [Ri ght Upper Arm] Pulse Oximetry 95 94 92 Oxygen Delivery Me thod 07/08/24 14:15 07/08/24 14:30 07/08/24 14:45 Temperature Pulse Rate 88 88 83 Pulse Rate [Pulse Oximeter] Respiratory Rate Blood Pressure Blood Pressure [Ri ght Upper Arm] Pulse Oximetry 95 93 93 Oxygen Delivery Me thod 07/08/24 15:00 07/08/24 15:15 07/08/24 15:30 Temperature Pulse Rate 86 82 88 Pulse Rate [Pulse Oximeter] Respiratory Rate Blood Pressure Blood Pressure [Ri ght Upper Arm] Pulse Oximetry 90 92 93 Oxygen Delivery Me thod 07/08/24 15:45 07/08/24 16:00 07/08/24 16:07 Temperature 98.2 F Pulse Rate 80 88 89 Pulse Rate [Pulse Oximeter] Respiratory Rate 16 Blood Pressure 119/78 Blood Pressure [Ri ght Upper Arm] Pulse Oximetry 94 94 91 Oxygen Delivery Me thod 07/08/24 16:12 07/08/24 16:15 07/08/24 16:23 Temperature 98.1 F Pulse Rate 85 82 81 Pulse Rate [Pulse Oximeter] Respiratory Rate 16 Blood Pressure 132/88 141/87 H Blood Pressure [Ri ght Upper Arm] Pulse Oximetry 94 93 93 Oxygen Delivery Me thod Room Air Course Course ED Course: Type and cross ordered. EKG, read by me, shows normal sinus rhythm with a pulse of 83. CBC shows a hemoglobin of 8.1. Normal lactate. Triple swab is negative. D-dimer is elevated at 0.92. Normal chemistries. Glucose is 160 Calcium is low at 7.4, in February of this year it was 8.6. Normal magnesium. LFTs are unremarkable. CRP 1.3. BNP 2340. Troponin elevated at 0.76. Negative triple swab. I did re-evaluate the patient at this time he continues to be chest pain free. While waiting for the blood, did repeat the EKG at the 90 minute jr in this was unchanged: Showing normal sinus rhythm with a pulse of 83. Repeat troponin was also drawn - this return at 0.71. Given that the patient has new onset shortness of breath today I do think we need to go ahead and do a chest CT PE protocol to rule out any other causes of acute shortness of breath. This is pending at this time. I also consulted with Dr. Cota, business intelligence developer at [facility] who recommends admission, serial troponins and an echo in the morning. Vital Signs Vital signs: Initial Vital Signs Temperature 98.7 F 07/08/24 13:00 Temperature Source Temporal Artery Scan 07/08/24 13:00 Pulse Rate 93 07/08/24 13:00 Pulse Rhythm Regular 07/08/24 13:00 Pulse Strength 3+ Normal 07/08/24 13:00 Respiratory Rate 20 07/08/24 13:00 Blood Pressure 125/77 07/08/24 13:00 Blood Pressure Mean 93 07/08/24 13:00 Blood Pressure Position Sitting 07/08/24 13:00 Pulse Oximetry 96 07/08/24 13:00 Oxygen Delivery Method Room Air 07/08/24 13:00 Vital Signs Temperature 98.7 F 07/08/24 13:00 Pulse Rate 93 07/08/24 13:00 Respiratory Rate 20 07/08/24 13:00 Blood Pressure 125/77 07/08/24 13:00 Pulse Oximetry 96 07/08/24 13:00 Oxygen Delivery Method Room Air 07/08/24 13:00 Temperature 98.1 F 07/08/24 16:23 Pulse Rate 81 07/08/24 16:23 Respiratory Rate 16 07/08/24 16:23 Blood Pressure 141/87 H 07/08/24 16:23 Pulse Oximetry 93 07/08/24 16:23 Oxygen Delivery Method Room Air 07/08/24 16:23 Medications Administered Medications: Generic Name Dose Route Start Last Admin Trade Name Freq PRN Reason Stop Dose Admin Sodium Chloride 250 ml 07/08/24 13:47 07/08/24 15:56 0.9 % Sodium Chloride 500 Ml IV 07/09/24 23:59 250 ml ONCE PRN Administration Medical Decision Making MDM Narrative Medical decision making narrative: 63-year-old male with anemia presenting with dizziness and shortness of breath. 1 unit of packed red blood cells transfusion started in the ER. Elevated troponins. Patient will be admitted for further management. Lab Data Lab results reviewed: Yes I reviewed the patient's lab results Labs: Lab Results 07/08/24 07/08/24 07/08/24 Range/Units 13:25 13:26 15:03 WBC 8.96 (4.50-11.00) K/uL RBC 3.14 L (4.30-5.90) m/uL Hgb 8.1 L (13.5-17.5) gm/dL Hct 27.1 L (37.0-53.0) % MCV 86 (80-100) fL MCH 26 (26-34) pg MCHC 30 L (32-36) gm/dL RDW Coeff of Laine 19.5 H (11.5-15.5) % Plt Count 311 (140-440) K/uL Neut % (Auto) 76.8 H (42.0-72.0) % Lymph % (Auto) 13.7 L (20-44) % [place] % (Auto) 7.6 (0.0-11.0) % Eos % (Auto) 0.7 (0.0-7.0) % Baso % (Auto) 0.6 (0.0-3.0) % Neut # (Auto) 6.90 (1.7-7.0) K/uL Lymph # (Auto) 1.20 (0.90-2.90) K/uL [place] # (Auto) 0.70 (0.00-0.90) K/UL Eos # (Auto) 0.06 (0.00-0.50) K/uL Baso # (Auto) 0.05 (0.00-0.30) K/uL Abs Immat Gran (auto) 0.05 (0.00-0.30) K/uL Imm/Tot Granulo (auto) 0.6 % D-Dimer Quant (PE/DVT) 0.92 H (0.00-0.50) ug/ml Sodium 139 (135-149) mmol/L Potassium 3.6 (3.6-5.1) mmol/L Chloride 103 (96-114) mmol/L Carbon Dioxide 24 (20-32) mmol/L Anion Gap 12 (7-15) mEq/L BUN 20 (7-30) mg/dL Creatinine 1.2 (0.5-1.5) mg/dL Estimated Creat Clear 63.37 Estimated GFR 67 ml/min Glucose 160 H (60-115) mg/dL Lactate 1.4 (0.5-1.9) mmol/L Calcium 7.4 L (8.4-10.6) mg/dL Magnesium 2.1 (1.5-2.6) mg/dL Total Bilirubin 0.3 (0.1-1.5) mg/dL Direct Bilirubin 0.1 (0.0-0.5) mg/dL AST 40 H (12-35) U/L ALT 25 (4-50) U/L Alkaline Phosphatase 137 (40-150) U/L Troponin I 0.76 H* 0.71 H* (0.01-0.04) ng/mL C-Reactive Protein 1.3 H (0.5-1.0) mg/dL NT-Pro-B Natriuret Pep 2340 pg/mL Total Protein 6.7 (6.0-8.3) g/dL Albumin 4.0 (3.3-5.0) g/dL SARS-CoV-2 (PCR) Negative SARS-CoV-2 (Negative) Influenza Type A (PCR) Negative PCR FLU A (Negative) Influenza Type B (PCR) Negative PCR FLU B (Negative) RSV (PCR) Negative PCR RSV (Negative) Blood Type O Positive Antibody Screen NEGATIVE Crossmatch (AHG) See Detail Imaging Data Chest x-ray: Attestation: I have reviewed the pertinent imaging results. Radiologist's impression: INDICATION: Short of breath, weakness COMPARISON: CT 04/18/2024, radiograph 09/13/2022 TECHNIQUE: PA and lateral 2 view chest. FINDINGS: Lung volumes are overall good. Mild distortion in the right lung related to prior surgical interventions or other insult. Hazy opacities in the right mid to lower lung. Prominent pulmonary vascular markings with a few peripheral septal lines bilaterally. Small right pleural effusion. No pneumothorax. No pneumomediastinum. Heart size is large but similar to prior. Atherosclerotic vascular calcifications. Bones: Normal for age. IMPRESSION: Mild pulmonary edema. Small right pleural effusion. ECG Data Attestation: I personally reviewed and interpreted this ECG as follows: Discharge Plan Discharge Clinical Impression: Anemia, Ischemia due to increased oxygen demand Patient Disposition: Admitted As Observation Condition: Stable
[2024-07-08 13:36] LABS: Basophils Absolute Auto 0.05 K/uL (0.00-0.30); Basophils Percent Auto 0.6 % (0.0-3.0); Eosinophils Absolute Auto 0.06 K/uL (0.00-0.50); Eosinophils Percent Auto 0.7 % (0.0-7.0); Hematocrit 27.1 % (37.0-53.0); Hemoglobin* 8.1 gm/dL (13.5-17.5); Immature Granulocytes Abs Auto 0.05 K/uL (0.00-0.30); Immature Granulocytes Pct Auto 0.6 %; Lymphocytes Percent Auto 13.7 % (20-44); Mean Corpuscular HGB Conc 30 gm/dL (32-36); Mean Corpuscular Hemoglobin 26 pg (26-34); Mean Corpuscular Volume 86 fL (80-100); Monocytes Percent Auto 7.6 % (0.0-11.0); Neutrophils Percent Auto 76.8 % (42.0-72.0); Platelet Count* 311 K/uL (140-440); RDW Coefficient of Variation % 19.5 % (11.5-15.5); Red Blood Count 3.14 m/uL (4.30-5.90); White Blood Count* 8.96 K/uL (4.50-11.00)
[2024-07-08 13:40] LABS: Slide Review Reflex No
[2024-07-08 13:52] LABS: Lactate* 1.4 mmol/L (0.5-1.9)
[2024-07-08 14:08] LABS: D Dimer Quantitative* 0.92 ug/ml (0.00-0.50)
[2024-07-08 14:12] LABS: Alkaline Phosphatase* 137 U/L (40-150); Aspartate Amino Transferase* 40 U/L (12-35); Bilirubin Direct* 0.1 mg/dL (0.0-0.5); Bilirubin Total* 0.3 mg/dL (0.1-1.5); Magnesium* 2.1 mg/dL (1.5-2.6); Total Protein* 6.7 g/dL (6.0-8.3)
[2024-07-08 14:13] LABS: Alanine Aminotransferase* 25 U/L (4-50)
[2024-07-08 14:15] LABS: PCR FLU A Negative PCR FLU A (Negative); PCR FLU B Negative PCR FLU B (Negative); PCR RSV Negative PCR RSV (Negative); SARS PCR* Negative SARS-CoV-2 (Negative)
[2024-07-08 14:17] LABS: C Reactive Protein* 1.3 mg/dL (0.5-1.0)
[2024-07-08 14:27] LABS: NT Pro B Type NatriureticPept* 2340 pg/mL; Troponin I* 0.76 ng/mL (0.01-0.04)
[2024-07-08 14:28] LABS: Chloride* 103 mmol/L (96-114); Potassium* 3.6 mmol/L (3.6-5.1); Sodium* 139 mmol/L (135-149)
--- OUTSIDE RECORDS SUMMARY | 2024-07-08 14:28 | XMS_ITS | Clinical Summary ---
Author Organization [facility] Address [address] [place] [address] Care Team Providers Care Executive Asst Name Role Phone Shona Vásquez MD Primary Care Provider [phone] Kiet Arias MD Unavailable [phone] Allergies Active Allergy Reactions Criticality Noted Date Comments Amoxicillin 06/04/2012 Medications nitroglycerin (NITROSTAT) 0.4 MG SL tabletIndications:A cute chest pain Place 1 tablet (0.4 mg) under the tongue every 5 minutes as needed for chest pain 25 tablet 0 015 Active insulin aspart (NOVOLOG PEN) 100 UNIT/ML solnIndications:Dorothy betes mellitus, type 2 (H) Inject 8 Units Subcutaneous 3 times daily (with meals) 3 Month 2 015 Active Additional Information Patient taking differently: 20 UnitsSubcutaneous 3 TIMES DAILY WITH MEALS, Reported on 06/18/2024 aspirin EC 81 MG EC tabletIndications:N STEMI (non-ST elevated myocardial infarction) (H) Take 1 tablet (81 mg) by mouth daily 30 tablet 5 015 Active metoprolol tartrate (LOPRESSOR) 100 MG tabletIndications:N STEMI (non-ST elevated myocardial infarction) (H) Take 1 tablet (100 mg) by mouth 2 times daily 023 Active atorvastatin (LIPITOR) 80 MG tablet Take 1 tablet (80 mg) by mouth daily 023 Active clonazePAM (KLONOPIN) 0.5 MG tablet Take 0.5 tablets (0.25 mg) by mouth nightly as needed for anxiety Active coenzyme Q-10 200 MG CAPS capsule Take 1 capsule (200 mg) by mouth 023 Active JARDIANCE 10 MG TABS tablet TAKE 1 TAB BY MOUTH EVERY MORNING Active ALPRAZolam (XANAX) 0.5 MG tablet Take 0.5 mg by mouth daily as needed Active albuterol (PROAIR HFA/PROVENTIL HFA/VENTOLIN HFA) 108 (90 Base) MCG/ACT inhaler INHALE 2 PUFFS EVERY 4 HOURS NEEDED FOR WHEEZE OR FOR SHORTNESS OF BREATH Active LANTUS SOLOSTAR 100 UNIT/ML soln Inject 28 Units subcutaneously every evening. 024 Active fluticasone-salmete rol (ADVAIR) 250-50 MCG/ACT inhaler Inhale 1 puff into the lungs 2 times daily. 024 Active pantoprazole (PROTONIX) 40 MG EC tabletIndications:U GIB (upper gastrointestinal bleed) Take 1 tablet (40 mg) by mouth 2 times daily. 60 tablet 024 Active fluticasone-vilante rol (BREO ELLIPTA) 100-25 MCG/ACT inhaler Inhale 1 puff into the lungs daily 2023 Disconti nued(Med Rec(No AVS / No eCancel) ) insulin detemir (LEVEMIR PEN) 100 UNIT/ML pen Inject 40 Units Subcutaneous At Bedtime 2023 Disconti nued(Med Rec(No AVS / No eCancel) ) amLODIPine (NORVASC) 10 MG tablet Take 1 tablet (10 mg) by mouth daily 023 2023 Disconti nued(Sto p at Discharg e) lisinopril-hydrochl orothiazide (ZESTORETIC) 20-12.5 MG tablet Take 1 tablet by mouth daily 023 2023 Disconti nued(Sto p at Discharg e) furosemide (LASIX) 20 MG tablet Take 1 tablet by mouth daily at 2 pm 022 2023 Disconti nued(Med Rec(No AVS / No eCancel) ) buPROPion (WELLBUTRIN XL) 150 MG 24 hr tablet TAKE 1 TAB BY MOUTH EVERY MORNING 023 2023 Disconti nued(Med Rec(No AVS / No eCancel) ) Active Problems Problem Noted Date Diagnosed Date Anemia due to blood loss, acute 06/17/2024 UGIB (upper gastrointestinal bleed) 06/17/2024 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/30/2022 Metabolic syndrome X 12/30/2022 Peripheral edema 12/30/2022 Pneumonia 03/21/2015 NSTEMI (non-ST elevated myocardial infarction) 0 03/21/2015 Coronary artery disease invo lving gulkana coronary artery of gulkana heart without angina pectoris Mixed hyperlipidemia Essential hypertension DM (diabetes mellitus), type 2 Tobacco abuse Hypercholesterolemia Resolved Problems Problem Noted Date Diagnosed Date Resolved Date Chest pain 06/05/2012 04/06/2015 ASCVD (arteriosclerotic card iovascular disease) 06/05/2012 04/06/2015 Encounters Date Type Department Care Team Description 06/18/2024 1:00 PM CDT - 06/18/2024 1:30 PM CDT Surgery [facility] [address] [place] [address] Kiet Blevins MD ESOPHAGOGASTRODUODENOSCOP Y, WITH BIOPSies using cold biopsy forceps 06/17/2024 7:24 PM CDT - 06/19/2024 12:11 PM CDT Emergency [place] [address] [facility] [address] [place] [address] Kushal Portillo MD Amdahl, MD [place] Karl R, MD Baxa, Alexander, UGIB (upper gastrointestinal bleed); Anemia due to blood loss, acute Discharge Disposition: Home or Self Care 06/17/2024 Travel from Last 3 Months Immunizations Name Administration Dates Next Due Influenza [...] School Help Needed Not on file 06/12 Food Insecurity Answer Date Recorded Within the past 12 months, d id you worry that your food would run out before you got money to buy more? No 06/18/2024 Within the past 12 months, d id the food you bought just not last and you didn? t have money to get more? No 06/18/2024 Housing Stability Answer Date Recorded Do you have housing? (Daly mir is defined as stable permanent housing and does not include staying ouside in a car, in a tent, in an abandoned building, in an overnight long-term, or couch-surfing.) Yes 06/18/2024 Are you worried about losing your housing? No 06/18/2024 Financial Resource Strain Answer Date R ecorded Within the past 12 months, h ave you or your family members you live with been unable to get utilities (heat, electricity) when it was really needed? No 06/18/2024 Transportation Needs Answer Date Record ed Within the past 12 months, h as lack of transportation kept you from medical appointments, getting your medicines, non-medical meetings or appointments, work, or from getting things that you need? No 06/18/2024 Interpersonal Safety Answer Date Record ed Do you feel physically and e motionally safe where you currently live? Yes 06/18/2024 Within the past 12 months, h ave you been hit, slapped, kicked or otherwise physically hurt by someone? No 06/18/2024 Within the past 12 months, h ave you been humiliated or emotionally abused in other ways by your partner or ex-partner? No 06/18/2024 Sex and Gender Information Value Date Recorded Sex Assigned at Not on file Legal Sex Male 3:08 AM [employer] Gender Identity Not on file Sexual Orientation Not on file Last Filed Vital Signs Vital Sign Reading Time Taken Comments Blood Pressure 119/72 06/19/2024 7:18 AM CDT Pulse 83 06/19/2024 7:18 AM CDT Temperature 36.7 ??C (98 ??F) 06/19/2024 7:18 AM CDT Respiratory Rate 16 06/19/2024 7:18 AM CDT Oxygen Saturation 98% 06/19/2024 7:18 AM CDT Inhaled Oxygen Concentration - - Weight 117.2 kg (258 lb 6.1 oz) 06/17/2024 7:22 PM CDT Height 177.8 cm (5' 10) 06/17/2024 7:22 PM CDT Body Mass Index 37.07 06/17/2024 7:22 PM CDT Plan of Treatment Health Maintenance Due Date Last Done Comments ADVANCE CARE PLANNING 1960 ANNUAL REVIEW OF HM ORDERS 1960 CT COLONOGRAPHY 1960 DIABETIC FOOT EXAM 1960 EYE EXAM 1960 FLEX SIG 1960 MICROALBUMIN 1960 NICOTINE/TOBACCO CESSATION COUNSELING Q 1 YR 1960 sDNA (Cologuard) 1960 COLONOSCOPY 1968 HIV SCREENING 1973 HEPATITIS C SCREENING 1976 LUNG CANCER SCREENING 2008 ZOSTER IMMUNIZATION (1 of 2) 2008 Pneumococcal Vaccine: 65+ Years (2 of 2 - PCV) 05/10/2012 05/10/2011 DTAP/TDAP/TD IMMUNIZATION (2 - Td or Tdap) 05/03/2016 05/03/2006 RSV VACCINE (1 - Risk 60-74 years 1-dose series) 2018 AORTIC ANEURYSM SCREENING (SYSTEM ASSIGNED) 2023 FALL RISK ASSESSMENT 2023 MEDICARE ANNUAL WELLNESS VISIT 2023 PHQ-2 (once per calendar year) 2023 12/30/2022 COVID-19 Vaccine (3 - season) 2024 05/26/2021, 05/03/2021 INFLUENZA VACCINE (#1) 2024 2, 08/18/2020, 07/31/2018, Additional history exists LIPID 06/19/2024 06/19/2023, 05/0 09/2022, 02/10/2017, Additional history exists A1C 09/17/2024 06/17/2024, 05/12, 08/23/2016, Additional history exists COLORECTAL CANCER SCREENING 06/17/2025 FIT 06/17/2025 06/17/2024 BMP 06/18/2025 06/18/2024, 1003/2024, 06/19/2023, Additional history exists HPV IMMUNIZATION Aged Out No longer e ligible based on patient's age to complete this topic MENINGITIS IMMUNIZATION Aged Out No l onger eligible based on patient's age to complete this topic RSV MONOCLONAL ANTIBODY Aged Out No l onger eligible based on patient's age to complete this topic Medical Devices Implanted Type [employer] Manager Device Identifier Shelf Expiration Date Model / Serial / Lot Clip Ligating Hem-O-Lock 10mm [id number] Implanted:Qty : 4 on 08/22/2016 Metallic Hardware/Anc hor Right: Abdomen PILLING WECK 06/14/2021 [id number] / / [id number] Cardiac Stents Procedures Procedure Name Priority Date/Time Associated Diagnosis Comments GLUCOSE BY METER Routine 06/19/2024 8:26 AM CDT EXTRA GREEN TOP TUBE (LAB USE ONLY) Routine 06/19/2024 7:37 AM CDT HEMOGLOBIN Routine 06/19/2024 7:37 AM CDT GLUCOSE BY METER Routine 06/19/2024 1:09 AM CDT GLUCOSE BY METER Routine 06/18/2024 9:31 PM CDT GLUCOSE BY METER Routine 06/18/2024 5:50 PM CDT HEMOGLOBIN Timed 06/18/2024 3:14 PM CDT GLUCOSE BY METER Routine 06/18/2024 2:31 PM CDT SURGICAL PATHOLOGY EXAM Routine 06/18/2024 1:27 PM CDT UGI ENDOSCOPY DIAG W BIOPSY 06/18/2024 12:42 PM CDT Anemia, unspecified type GLUCOSE BY METER Routine 06/18/2024 12:3 5 PM CDT UPPER GI ENDOSCOPY Routine 06/18/2024 12 :29 PM CDT GLUCOSE BY METER Routine 06/18/2024 10:1 8 AM CDT CBC WITH PLATELETS Routine 06/18/2024 6: 43 AM CDT BASIC METABOLIC PANEL Routine 06/18/2024 6:43 AM CDT GLUCOSE BY METER Routine 06/18/2024 5:30 AM CDT GLUCOSE BY METER Routine 06/18/2024 1:24 AM CDT OCCULT BLOOD STOOL STAT 06/17/2024 8: 10 PM CDT ABO/RH TYPE AND SCREEN STAT 7:48 PM CDT CBC WITH PLATELETS & DIFFERENTIAL STAT 06/17/2024 7:48 PM CDT TYPE AND SCREEN, ADULT STAT 7:48 PM CDT HEMOGLOBIN A1C Add-On 06/17/2024 7:48 PM CDT EXTRA RED TOP TUBE STAT 06/17/2024 7: 48 PM CDT CBC WITH PLATELETS AND DIFFERENTIAL STAT 06/17/2024 7:48 PM CDT EXTRA TUBE STAT 06/17/2024 7:48 PM CDT ETHYL ALCOHOL LEVEL STAT 06/17/2024 7 :48 PM CDT COMPREHENSIVE METABOLIC PANEL STAT 06/17/2024 7:48 PM CDT INR STAT 06/17/2024 7:48 PM CDT LAB RESULT - HIM SCAN 06/17/2024 12:00 AM CDT EKG CARDIAC - HIM SCAN 12:00 AM CDT LIPID PROFILE Routine 06/19/2023 7:58 AM CDT Coronary artery disease involving gulkana coronary artery of gulkana heart without angina pectoris from Last 3 Months or Most Recently Relevant to Health Maintenance Results * (ABNORMAL) Glucose by meter (06/19/2024 8:26 AM CDT) Only the most recent of9 resultswithin the time period is included. GLUCOSE BY METER POCT 179(H) 70 - 99 mg/dL 06/19/2024 8:33 AM CDT [facility] LABORATORY POC Blood, Capillary BLOOD SPECIMEN / Unknown 06/19/2024 8:26 AM CDT 06/19/2024 8:33 AM CDT us Ge Bowman MD LAB - BEAKER POCT Final Result LABORATORY POC [facility] [address] [employer] Lab (1st floor, no room number) [place] [phone] [place] [address] * Extra Green Top Tube (LAB USE ONLY) (06/19/2024 7:37 AM CDT) Hold Specimen JIC 06/19/2024 9:02 AM CDT LABORATORY Blood STRUCTURE OF RIGHT HAND / Unknown Venipuncture / Unknown 06/19/2024 7:37 AM CDT 06/19/2024 7:48 AM CDT us Jassi Felix MD LAB - BLOOD ORDERABLES Final Result LABORATORY [facility] [address] Lab (1st floor, no room number) [place] [phone] * (ABNORMAL) Hemoglobin (06/19/2024 7:37 AM CDT) Only the most recent of2 resultswithin the time period is included. Hemoglobin 8.2(L) 13.3 - 17.7 g/dL 06/19/2024 7:53 AM CDT LABORATORY Blood STRUCTURE OF RIGHT HAND / Unknown Venipuncture / Unknown 06/19/2024 7:37 AM CDT 06/19/2024 7:48 AM CDT us Elvis Herman DO LAB - BLOOD ORDERABLES Final R esult LABORATORY [facility] [address] [facility] Lab (1st floor, no room number) [place] [address] * Surgical Pathology Exam (06/18/2024 1:27 PM CDT) Case Report Surgical Pathology Report ? Case: [id number] ? Authorizing Provider: ??Kiet Blevins MD ? Collected: ? 06/18/2024 01:27 PM ? Ordering Location: ? [facility] ?Received: ?06/18/2024 01:58 PM ? [facility] ? Pathologist: ? Nicole Parham MD ? Specimen: ?Stomach, gastric biopsies for h.pylori ? 06/19/2024 12:49 PM T LABORATORY Final Diagnosis A. Stomach, biopsy: - Oxyntic and antral type gastric mucosa with mild chronic inflammation. - Negative for H. Pylori organisms on routine stains. - Negative for intestinal metaplasia. -Negative for dysplasia or malignancy 06/19/2024 12:49 PM [facility] Clinical Information Procedure: ESOPHAGOGASTRO DUODENOSCOPY, WITH BIOPSies using cold biopsy forceps Pre-op Diagnosis: Anemia, unspecified type [D64.9] Post-op Diagnosis: D64.9 - Anemia, unspecified type [ICD-10-CM] 06/19/2024 12:49 PM [facility] Gross Description A(1). Stomach, gastric biopsies for h.pylori: The specimen is received in formalin, labeled with the patient's name, medical record number and other identifying information and designated ? gastric biopsies? . It consists of 4 crawford soft tissue fragments ranging from 0.2-0.3 cm. Entirely submitted in one cassette. (JU Silva)06/18/2024 2:01 PM 06/19/2024 12:49 PM [facility] Microscopic Description Microscopic examination was performed. 06/19/2024 12:49 PM [facility] Performing Labs The technical component of this testing was completed at [facility]. Stain controls for all stains resulted within this report have been reviewed and show appropriate reactivity. 06/19/2024 12:49 PM [facility] Case Images 06/19/2024 12:49 PM [facility] Biopsy STOMACH STRUCTURE / Unknown 06/18/2024 1:27 PM CDT 06/18/2024 1:58 PM CDT us Kiet Blevins MD LAB - [facility] AP [facility] Resul t [facility] Lab [address] [facility] Lab (1st floor, no room number) [place] [address], [facility] * UPPER GI ENDOSCOPY (06/18/2024 12:29 PM CDT) [facility] Upper GI Endoscopy [facility] Patient Name: Dustin Carrera ?Procedure Date: 06/18/2024 12:29 PM ? Date of : 1960 ? Admit Type: Inpatient Age: 63 ? Gender: Male Attending MD: KIET BLEVINS MD, ??Total Sedation Time: Minutes of continuous bedside 1:1: 15 minutes Instrument Name: [id number] Gastroscope Procedure: ?Upper GI endoscopy Indications: ?Melena, Anemia Providers: ?KIET BLEVINS MD (Doctor) Referring MD: ? Medicines: ?Midazolam 2 mg IV, Fentanyl 100 micrograms IV, ?Cetacaine spray Complications: ?No immediate complications. Procedure: ?Pre-Anesthesia Assessment: ?- Prior to the procedure, a History and Physical ?was performed, and patient medications and ?allergies were reviewed. The patient is competent. ?The risks and benefits of the procedure and the ?sedation options and risks were discussed with the ?patient. All questions were answered and informed ?consent was obtained. Patient identification and ?proposed procedure were verified by the physician ?in the pre-procedure area. Mental Status ?Examination: alert and oriented. Airway ?Examination: normal oropharyngeal airway and neck ?mobility. Respiratory Examination: clear to ?auscultation. CV Examination: normal. Prophylactic ?Antibiotics: The patient does not require ?prophylactic antibiotics. Prior Anticoagulants: The ?patient has taken no anticoagulant or antiplatelet ?agents. ASA Grade Assessment: II - A patient with ?mild systemic disease. After reviewing the risks ?and benefits, the patient was deemed in ?satisfactory condition to undergo the procedure. ?The anesthesia plan was to use moderate sedation / ?analgesia (conscious sedation). Immediately prior ?to administration of medications, the patient was ?re-assessed for adequacy to receive sedatives. The ?heart rate, respiratory rate, oxygen saturations, ?blood pressure, adequacy of pulmonary ventilation, ?and response to care were monitored throughout the ?procedure. The physical status of the patient was ?re-assessed after the procedure. ?After obtaining informed consent, the endoscope was ?passed under direct vision. Throughout the ?procedure, the patient's blood pressure, pulse, and ?oxygen saturations were monitored continuously. The ?Olympus Gasrointestinal Videoscope, Model# ?GIF-1100, Censitrac# [id number], SN# [id number] ?was introduced through the mouth, and advanced to ?the second part of duodenum. The upper GI endoscopy ?was accomplished without difficulty. The patient ?tolerated the procedure well. ? Findings: ? The Z-line was regular and was found 45 cm from the incisors. ? The esophagus was normal. ? The entire examined stomach was normal. Biopsies were taken with a cold ? forceps for histology. ? Localized moderate inflammation characterized by congestion (edema) and ? erythema was found in the duodenal bulb. ? Impression: ? - Z-line regular, 45 cm from the incisors. ?- Normal esophagus. ?- Normal stomach. Biopsied to evaluate for H. ?pylori. ?- Duodenitis without overt ulceration or bleeding. Recommendation: ? - Await pathology results. ?- Continue empiric PPI antacid (omeprazole 40mg ?once daily or equivalent x1 month). ?- We will contact patient for colonoscopy which ?will be arranged within 1-2 weeks. ?- Discharge planning per hospital service. ? Procedure Code(s): ? --- Professional --- ? 04515, Esophagogastroduod enoscopy, flexible, transoral; with biopsy, ? single or multiple Diagnosis Code(s): ? --- Professional --- ? D64.9, Anemia, unspecified ? K92.1, Melena (includes Hematochezia) ? K29.80, Duodenitis without bleeding CPT copyright 2021 [employer]. All rights reserved. The codes documented in this report are preliminary and upon detective narcotics and vice review may be revised to meet current compliance requirements. Kiet Blevins M.D. ___ KIET BLEVINS MD 06/18/2024 1:38:23 PM Number of Addenda: 0 Note Initiated On: 06/18/2024 12:29 PM MRN: ?[id number] Procedure Date: ? 06/18/2024 12:29:49 PM Total Procedure Duration: 0 hours 11 minutes 0 seconds Estimated Blood Loss: ? Scope In: 1:17:45 PM Scope Out: 1:28:45 PM RADIOLOGY RESULTS 06/18/2024 12:2 9 PM CDT us Kiet Blevins MD PROCEDURES Final Resul t RADIOLOGY RESULTS * (ABNORMAL) Basic metabolic panel (06/18/2024 6:43 AM CDT) Sodium 141 135 - 145 mmol/L 06/18/2024 7:24 AM CDT [facility] LABORATORY Potassium 3.8 3.4 - 5.3 mmol/L 06/18/2024 7:24 AM CDT [facility] LAB[facility] Chloride 106 98 - 107 mmol/L 06/18/2024 7:24 AM CDT [facility] LAB[facility] Carbon Dioxide (CO2) 25 22 - 29 mmol/L 06/18/2024 7:24 AM CDT [facility] LAB[facility] Anion Gap 10 7 - 15 mmol/L 06/18/2024 7:24 AM CDT [facility] LAB[facility] Urea Nitrogen 27.9(H) 8.0 - 23.0 mg/dL 06/18/2024 7:24 AM CDT [facility] LAB[facility] Creatinine 1.20(H) 0.67 - 1.17 mg/dL 06/18/2024 7:24 AM CDT [facility] LAB[facility] GFR Estimate 67 >60 mL/min/1.7 3m2 06/18/2024 7:24 AM CDT [facility] LAB[facility] Comment:eGFR calculated usin g 2020 CKD-EPI equation. Calcium 7.5(L) 8.8 - 10.4 mg/dL 06/18/2024 7:24 AM CDT [facility] Comment:Reference intervals for this test were updated on 03/26/2024 to reflect our healthy population more accurately. There may be differences in the flagging of prior results with similar values performed with this method. Those prior results can be interpreted in the context of the updated reference intervals. Glucose 125(H) 70 - 99 mg/dL 06/18/2024 7:24 AM CDT [facility] LAB[facility]AT[facility] Blood STRUCTURE OF RIGHT UPPER LIMB / Unknown Venipuncture / Unknown 06/18/2024 6:43 AM CDT 06/18/2024 6:58 AM CDT us Kings Larson MD LAB - BLOOD ORDERABLES Final Re sult RH LABORATORY [facility] [address] Lab (1st floor, no room number) [place] [address], [facility] * (ABNORMAL) CBC with platelets (06/18/2024 6:43 AM CDT) Pathologist [facility] WBC Count 13.3(H) 4.0 - 11.0 10e3/uL 06/18/2024 7:03 AM CDT [facility] LABORATORY RBC Count 2.50(L) 4.40 - 5.90 10e6/uL 06/18/2024 7:03 AM CDT [facility] LABORAT[facility] Hemoglobin 7.5(L) 13.3 - 17.7 g/dL 06/18/2024 7:03 AM CDT [facility] LAB[facility] Hematocrit 23.5(L) 40.0 - 53.0 % 06/18/2024 7:03 AM CDT [facility] LAB[facility] MCV 94 78 - 100 fL 06/18/2024 7:03 AM CDT [facility] LAB[facility]AT[facility] MCH 30.0 26.5 - 33.0 pg 06/18/2024 7:03 AM CDT [facility] LAB[facility]AT[facility] MCHC 31.9 31.5 - 36.5 g/dL 06/18/2024 7:03 AM CDT [facility] LABORATORY RDW 15.5(H) 10.0 - 15.0 % 06/18/2024 7:03 AM CDT [facility] LAB[facility] Platelet Count 248 150 - 450 10e3/uL 06/18/2024 7:03 AM CDT [facility] LABORATORY Blood STRUCTURE OF RIGHT UPPER LIMB / Unknown Venipuncture / Unknown 06/18/2024 6:43 AM CDT 06/18/2024 6:58 AM CDT us Kings Larson MD LAB - BLOOD ORDERABLES Final Re sult RH LABORATORY [facility] [address] Lab (1st floor, no room number) [address] * (ABNORMAL) Occult blood stool (06/17/2024 8:10 PM CDT) Occult Blood Positive(A ) Negative ANAHI 06/17/2024 8:20 PM CDT LABORATORY Stool RECTAL CONTENTS / Unknown Non-blood Collection / Unknown 06/17/2024 8:10 PM CDT 06/17/2024 8:19 PM CDT Kushal Portillo MD LAB - STOOLS ORDERABLES Shantel l Result LABORATORY [facility] [address] Lab (1st floor, no room number) [address] * Extra Red Top Tube (06/17/2024 7:48 PM CDT) Hold Specimen JIC 06/17/2024 9:02 PM CDT LABORATORY Blood BLOOD SPECIMEN / Unknown Venipuncture / Unknown 06/17/2024 7:48 PM CDT 06/17/2024 7:55 PM CDT Kushal Portillo MD LAB - BLOOD ORDERABLES Final Result LABORATORY [facility] Lab [address] Lab (1st floor, no room number) [address] * (ABNORMAL) CBC with platelets and differential (06/17/2024 7:48 PM CDT) WBC Count 16.6(H) 4.0 - 11.0 10e3/uL 06/17/2024 7:58 PM CDT LABORATORY RBC Count 2.88(L) 4.40 - 5.90 10e6/uL 06/17/2024 7:58 PM CDT [facility] LAB[facility]AT[facility] Hemoglobin 8.7(L) 13.3 - 17.7 g/dL 06/17/2024 7:58 PM CDT [facility] LAB[facility] Hematocrit 27.4(L) 40.0 - 53.0 % 06/17/2024 7:58 PM CDT [facility] LAB[facility] MCV 95 78 - 100 fL 06/17/2024 7:58 PM CDT [facility] LAB[facility] MCH 30.2 26.5 - 33.0 pg 06/17/2024 7:58 PM CDT [facility] MCHC 31.8 31.5 - 36.5 g/dL 06/17/2024 7:58 PM CDT [facility] RDW 15.2(H) 10.0 - 15.0 % 06/17/2024 7:58 PM CDT [facility] Platelet Count 295 150 - 450 10e3/uL 06/17/2024 7:58 PM CDT [facility] % Neutrophils 70 % 06/17/2024 7:58 PM CDT [facility] % Lymphocytes 20 % 06/17/2024 7:58 PM CDT [facility] % Monocytes 6 % 06/17/2024 7:58 PM CDT [facility] LAB[facility] % Eosinophils 1 % 06/17/2024 7:58 PM CDT [facility] LAB[facility] % Basophils 0 % 06/17/2024 7:58 PM CDT [facility] LAB[facility] % Immature Granulocytes 2 % 06/17/2024 7:58 PM CDT [facility] LAB[facility] NRBCs per 100 WBC 0 <1 /100 024 7:58 PM CDT [facility] LAB[facility] Absolute Neutrophils 11.7(H) 1.6 - 8.3 10e3/uL 06/17/2024 7:58 PM CDT [facility] LAB[facility] Absolute Lymphocytes 3.4 0.8 - 5.3 10e3/uL 06/17/2024 7:58 PM CDT [facility] LAB[facility] Absolute Monocytes 1.0 0.0 - 1.3 10e3/uL 06/17/2024 7:58 PM CDT [facility] LAB[facility] Absolute Eosinophils 0.2 0.0 - 0.7 10e3/uL 06/17/2024 7:58 PM CDT [facility] LAB[facility] Absolute Basophils 0.1 0.0 - 0.2 10e3/uL 06/17/2024 7:58 PM CDT [facility] LAB[facility]AT[facility] Absolute Immature Granulocytes 0.4 <=0.4 10e3/uL 06/17/2024 7:58 PM CDT [facility] LAB[facility] Absolute NRBCs 0.0 10e3/uL 06/17/2024 7:58 PM CDT [facility] LAB[facility] Blood BLOOD SPECIMEN / Unknown Venipuncture / Unknown 06/17/2024 7:48 PM CDT 06/17/2024 7:55 PM CDT Kushal Portillo MD LAB - BLOOD ORDERABLES Final Result LABORATORY [facility] [address] Lab (1st floor, no room number) [place] [phone] [place] [address] * Adult Type and Screen (06/17/2024 7:48 PM CDT) ABO/RH(D) O POS 06/17/2024 7:31 PM CDT RH BLOOD BANK Antibody Screen Negative Negative 06/17/2024 7:31 PM CDT RH BLOOD BANK SPECIMEN EXPIRATION DATE [id number] 06/17/2024 7:31 PM CDT RH BLOOD BANK Blood BLOOD SPECIMEN / Unknown Venipuncture / Unknown 06/17/2024 7:48 PM CDT 06/17/2024 7:55 PM CDT Kushal Portillo MD LAB - BLOOD BANK TEST ORDER Final Result Performing Organization Address City/Va Hospital/ZIP Co de Phone Number BLOOD BANK [address] [place] [phone] [place] [address] * INR (06/17/2024 7:48 PM CDT) INR 0.95 0.85 - 1.15 06/17/2024 8:10 PM CDT RH LABORATORY Blood BLOOD SPECIMEN / Unknown Venipuncture / Unknown 06/17/2024 7:48 PM CDT 06/17/2024 7:55 PM CDT Kushal Portillo MD LAB - BLOOD ORDERABLES Final Result LABORATORY [facility] [address] [facility] [address] [facility] (1st floor, no room number) [place] [id number] * (ABNORMAL) Hemoglobin A1c (06/17/2024 7:48 PM CDT) Estimated Average Glucose 203(H) <117 mg/dL 06/17/2024 11:30 PM CDT [facility] Hemoglobin A1C 8.7(H) <5.7 % 06/17/2024 11:30 PM CDT [facility] Comment: Normal <5.7% Prediabetes 5.7-6.4% ?? Diabetes 6.5% or higher Note: Adopted from ADA consensus guidelines. Blood BLOOD SPECIMEN / Unknown Venipuncture / Unknown 06/17/2024 7:48 PM CDT 06/17/2024 7:55 PM CDT us Kings Larson MD LAB - BLOOD ORDERABLES Final Re sult LABORATORY [facility] [address] Lab (1st floor, no room number) [place] [address], [facility] * (ABNORMAL) Comprehensive metabolic panel (06/17/2024 7:48 PM CDT) Sodium 140 135 - 145 mmol/L 06/17/2024 8:15 PM CDT LABORATORY Potassium 4.2 3.4 - 5.3 mmol/L 06/17/2024 8:15 PM CDT LABORATORY Carbon Dioxide (CO2) 24 22 - 29 mmol/L 06/17/2024 8:15 PM CDT LABORATORY Anion Gap 15 7 - 15 mmol/L 06/17/2024 8:15 PM CDT LABORATORY Urea Nitrogen 30.5(H) 8.0 - 23.0 mg/dL 06/17/2024 8:15 PM CDT [facility] Creatinine 1.26(H) 0.67 - 1.17 mg/dL 06/17/2024 8:15 PM CDT LABORATORY GFR Estimate 63 >60 mL/min/1.7 3m2 06/17/2024 8:15 PM CDT LABORATORY Comment:eGFR calculated usin 2020 CKD-EPI equation. Calcium 7.5(L) 8.8 - 10.4 mg/dL 06/17/2024 8:15 PM CDT [facility] Comment:Reference intervals for this test were updated on 03/26/2024 to reflect our healthy population more accurately. There may be differences in the flagging of prior results with similar values performed with this method. Those prior results can be interpreted in the context of the updated reference intervals. Chloride 101 98 - 107 mmol/L 06/17/2024 8:15 PM CDT [facility] Glucose 221(H) 70 - 99 mg/dL 06/17/2024 8:15 PM CDT [facility] Alkaline Phosphatase 84 40 - 150 U/L 06/17/2024 8:15 PM CDT [facility] AST 17 0 - 45 U/L 06/17/2024 8:15 PM CDT [facility] ALT 17 0 - 70 U/L 06/17/2024 8:15 PM CDT [facility] Protein Total 5.7(L) 6.4 - 8.3 g/dL 06/17/2024 8:15 PM CDT [facility] Albumin 3.8 3.5 - 5.2 g/dL 06/17/2024 8:15 PM CDT [facility] Bilirubin Total 0.2 <=1.2 mg/dL 06/17/2024 8:15 PM CDT [facility] Blood BLOOD SPECIMEN / Unknown Venipuncture / Unknown 06/17/2024 7:48 PM CDT 06/17/2024 7:55 PM CDT Kushal Portillo MD LAB - BLOOD ORDERABLES Final Result LABORATORY [facility] [address] Lab (1st floor, no room number) [place] [address], [facility] * Ethyl Alcohol Level (06/17/2024 7:48 PM CDT) Alcohol ethyl <0.01 <=0.01 g/dL 06/17/2024 8:15 PM CDT [facility] Blood BLOOD SPECIMEN / Unknown Venipuncture / Unknown 06/17/2024 7:48 PM CDT 06/17/2024 7:55 PM CDT Kushal Portillo MD LAB - BLOOD ORDERABLES Final Result [facility] Acute Care Lab [address] Lab (1st floor, no room number) [place] [address], [facility] * Lab Result - HIM Scan (06/17/2024 12:00 AM CDT) 06/17/2024 us Provider Outside MH NON-BEAKER LAB TESTING Final Result * EKG Cardiac - HIM Scan (06/17/2024 12:00 AM CDT) 06/17/2024 us Provider Outside ECG ORDERABLES Final Result * (ABNORMAL) Lipid Profile (06/19/2023 7:58 AM [...] ??Greater than or equal to 220 mg/dL us Kiet Arias MD LAB - BLOOD ORDERABLES Fin al Result LABORATORY [facility] Core Lab [address] [facility], [address] [place] [address], [facility] [phone] from Last 3 Months or Most Recently Relevant to Health Maintenance Insurance [employer] Advance Directives For more information, please contact: [phone] * Full Code (Latest Code Status on File) Date Activated Date Inactivated Comments 06/17/2024 11:14 PM 06/19/2024 2:11 PM All basic a nd advanced life-sustaining interventions are performed as appropriate Question Answer Comments Code status determined by: Discussion with patie nt/ legal decision maker * Full Code Date Activated Date Inactivated Comments 03/23/2015 9:44 AM 06/17/2024 7:18 PM * Full Code Date Activated Date Inactivated Comments 03/21/2015 4:38 PM 03/23/2015 9:44 AM * Full Code Date Activated Date Inactivated Comments 03/21/2015 4:25 AM 03/21/2015 3:22 PM * Full Code Date Activated Date Inactivated Comments 06/04/2012 2:20 PM 06/05/2012 5:52 PM Care Teams Executive Asst Relationship Specialty Start Date End Date Shona Vásquez MD [facility] [address] [place] [address] PCP - General Family Medicine 12/30/22 Kiet Arias MD [address] [place] [address] Assigned Heart and Vascular Provider 06/24/23
--- OUTSIDE RECORDS SUMMARY | 2024-07-08 14:28 | XMS_ITS | Referral Summary ---
Author Organization [place] Address [address] [place] [address] Care Team Providers Care Awake Overnight Counselor Name Role Phone Shona Vásquez MD Primary Care Provider [phone] Kiet Arias MD Unavailable [phone] Encounters Date Type Department Care Team Description 06/17/2024 7:24 PM CDT - 06/19/2024 12:11 PM CDT Emergency [place] [address] Medical Surgical [address] [place] [address] Kushal Portillo MD Amdahl, John, MD Parens, Karl R, MD Baxa, Alexander, DO UGIB (upper gastrointestinal bleed); Anemia due to blood loss, acute Discharge Disposition: Home or Self Care 06/18/2024 1:00 PM CDT - 06/18/2024 1:30 PM CDT Surgery [facility] [place] [address] [place] [address] Kiet Brown MD ESOPHAGOGASTRODUODENOSCOP Y, WITH BIOPSies using cold biopsy forceps 06/17/2024 Travel from Last 3 Months Allergies Active Allergy Reactions Criticality Noted Date Comments Amoxicillin 06/04/2012 Medications nitroglycerin (NITROSTAT) 0.4 MG SL tabletIndications:A cute chest pain Place 1 tablet (0.4 mg) under the tongue every 5 minutes as needed for chest pain 25 tablet 0 015 Active insulin aspart (NOVOLOG PEN) 100 UNIT/ML solnIndications:Dorothy carnes mellitus, type 2 (H) Inject 8 Units Subcutaneous 3 times daily (with meals) 3 Month 2 Active Additional Information Patient taking differently: 20 UnitsSubcutaneous 3 TIMES DAILY WITH MEALS, Reported on 06/18/2024 aspirin EC 81 MG EC tabletIndications:N STEMI (non-ST elevated myocardial infarction) (H) Take 1 tablet (81 mg) by mouth daily 30 tablet 5 Active metoprolol tartrate (LOPRESSOR) 100 MG tabletIndications:N STEMI (non-ST elevated myocardial infarction) (H) Take 1 tablet (100 mg) by mouth 2 times daily 023 Active atorvastatin (LIPITOR) 80 MG tablet Take 1 tablet (80 mg) by mouth daily 023 Active clonazePAM (KLONOPIN) 0.5 MG tablet Take 0.5 tablets (0.25 mg) by mouth nightly as needed for anxiety 023 Active coenzyme Q-10 200 MG CAPS capsule Take 1 capsule (200 mg) by mouth 023 Active JARDIANCE 10 MG TABS tablet TAKE 1 TAB BY MOUTH EVERY MORNING 023 Active ALPRAZolam (XANAX) 0.5 MG tablet Take [...] puff into the lungs 2 times daily. Active pantoprazole (PROTONIX) 40 MG EC tabletIndications:U [...] 0 03/21/2015 Coronary artery disease invo lving port lions coronary artery of port lions heart without angina pectoris Mixed hyperlipidemia Essential [...] Answer Date Recorded Do you have housing? 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 Substitute Cosmetology Device Identifier Shelf Expiration Date Model / Serial / Lot Clip Ligating Hem-O-Lock 10mm [id number] Implanted:Qty : 4 on 08/22/2016 Metallic Hardware/Anc hor Right: Abdomen PILLING WECK 06/14/2021 [id number] / / [id number] Cardiac Stents Procedures Procedure Name Priority [...] 7:58 AM CDT Coronary artery disease involving port lions coronary artery of port lions heart without angina pectoris from Last 3 Months or Most Recently Relevant to Health Maintenance Results * (ABNORMAL) Glucose by meter (06/19/2024 8:26 AM CDT) Only the most recent of9 resultswithin the time period is included. GLUCOSE BY METER POCT 179(H) 70 - 99 mg/dL 06/19/2024 8:33 AM CDT LABORATORY POC Blood, Capillary BLOOD SPECIMEN / Unknown 06/19/2024 8:26 AM CDT 06/19/2024 8:33 AM CDT Ge Bowman MD LAB - BEAKER POCT Final Result LABORATORY [facility] Lab [address] Lab (1st floor, no room number) [place] [id number] [place] [address] * Extra Green Top Tube (LAB USE ONLY) (06/19/2024 7:37 AM CDT) [facility] Hold Specimen JIC 06/19/2024 9:02 AM CDT LABORATORY Blood STRUCTURE OF RIGHT HAND / Unknown Venipuncture / Unknown 06/19/2024 7:37 AM CDT 06/19/2024 7:48 AM CDT us Jassi Felix MD LAB - BLOOD ORDERABLES Final Result [facility] Lab [address] Lab (1st floor, no room number) [place] [id number] [place] [address] * (ABNORMAL) Hemoglobin (06/19/2024 7:37 AM CDT) Only the most recent of2 resultswithin the time period is included. Hemoglobin 8.2(L) 13.3 - 17.7 g/dL 06/19/2024 7:53 AM CDT LABORATORY Blood STRUCTURE OF RIGHT HAND / Unknown Venipuncture / Unknown 06/19/2024 7:37 AM CDT 06/19/2024 7:48 AM CDT us Elvis Herman DO LAB - BLOOD ORDERABLES Final R esult LABORATORY [facility] Acute Care Lab [address] Lab (1st floor, no room number) [place] [address], [facility] * Surgical Pathology Exam (06/18/2024 1:27 PM CDT) Case Report Surgical Pathology Report ? Case: [id number] ? Authorizing Provider: ??Kiet Brown MD ? Collected: ? 06/18/2024 01:27 PM ? Ordering Location: ? [facility] ?Received: ?06/18/2024 01:58 PM ? [facility] [place] ? Pathologist: ? Nicole Parham MD ? Specimen: ?Stomach, gastric biopsies for h.pylori ? 06/19/2024 12:49 PM CDT LABORATORY Final Diagnosis A. Stomach, biopsy: - Oxyntic and antral type gastric mucosa with mild chronic inflammation. - Negative for H. Pylori organisms on routine stains. - Negative for intestinal metaplasia. -Negative for dysplasia or malignancy 06/19/2024 12:49 PM [facility] Clinical Information Procedure: ESOPHAGOGASTRO DUODENOSCOPY, WITH BIOPSies using cold biopsy forceps Pre-op Diagnosis: Anemia, unspecified type [D64.9] Post-op Diagnosis: D64.9 - Anemia, unspecified type [ICD-10-CM] 06/19/2024 12:49 PM T LABORATORY Gross Description A(1). Stomach, gastric biopsies for h.pylori: The specimen is received in formalin, labeled with the patient's name, medical record number and other identifying information and designated ? gastric biopsies? . It consists of 4 crawford soft tissue fragments ranging from 0.2-0.3 cm. Entirely submitted in one cassette. (JU Silva)06/18/2024 2:01 PM 06/19/2024 12:49 PM [facility] Microscopic Description Microscopic examination was performed. 06/19/2024 12:49 PM [facility] Performing Labs The technical component of this testing was completed at [facility]. Stain controls for all stains resulted within this report have been reviewed and show appropriate reactivity. 06/19/2024 12:49 PM T LABORATORY Case Images 06/19/2024 12:49 PM [facility] Biopsy STOMACH STRUCTURE / Unknown 06/18/2024 1:27 PM CDT 06/18/2024 1:58 PM CDT us Kiet Brown MD LAB - NORMA FLORES Final Resul t [facility] Lab [address] [facility] (1st floor, no room number) [place] [address], [facility] * UPPER GI ENDOSCOPY (06/18/2024 12:29 PM CDT) [facility] Upper GI Endoscopy [facility] Patient Name: Dustin Carrera ?Procedure Date: 06/18/2024 12:29 PM ? Date of : 1960 ? Admit Type: Inpatient Age: 63 ? Gender: Male Attending MD: KIET BROWN MD, ??Total Sedation Time: Minutes of continuous bedside 1:1: 15 minutes Instrument Name: [id number] Gastroscope Procedure: ?Upper GI endoscopy Indications: ?Melena, Anemia Providers: ?KIET BROWN MD (Doctor) Referring MD: ? Medicines: ?Midazolam [...] The ?Olympus Gasrointestinal Videoscope, Model# ?[id number]-1100, Censitrac# [id number], SN# [id number] ?was introduced through the mouth, and advanced [...] Procedure Code(s): ? --- Professional --- ? 86745, Esophagogastroduod enoscopy, flexible, transoral; with biopsy, ? single or multiple Diagnosis Code(s): ? --- Professional --- ? D64.9, Anemia, unspecified ? K92.1, Melena (includes Hematochezia) ? K29.80, Duodenitis without bleeding CPT copyright 2021 [employer]. All rights reserved. The codes documented in this report are preliminary and upon paddock judge review may be revised to meet current compliance requirements. Kiet Brown M.D. ___ KIET BROWN MD 06/18/2024 1:38:23 PM Number of Addenda: 0 Note Initiated On: 06/18/2024 12:29 PM MRN: ?[id number] Procedure Date: ? 06/18/2024 12:29:49 PM Total Procedure Duration: 0 hours 11 minutes 0 seconds Estimated Blood Loss: ? Scope In: 1:17:45 PM Scope Out: 1:28:45 PM RADIOLOGY RESULTS 06/18/2024 12:2 9 PM CDT us Kiet Brown MD PROCEDURES Final Resul t RADIOLOGY RESULTS [...] AM CDT [facility] Comment:eGFR calculated usin 2020 CKD-EPI equation. [...] BLOOD ORDERABLES Final Re sult RH LABORATORY [facility] Acute Care Lab [address] Lab (1st floor, no room number) [place] [address] * (ABNORMAL) CBC with platelets (06/18/2024 6:43 AM CDT) WBC Count 13.3(H) 4.0 - 11.0 10e3/uL [...] - BLOOD ORDERABLES Final Re sult LABORATORY [facility] Lab [address] Lab (1st floor, no room number) [place] [address], [facility] * (ABNORMAL) Occult blood stool (06/17/2024 8:10 PM CDT) Occult Blood Positive(A ) Negative ANAHI 06/17/2024 8:20 PM CDT RH LAB[facility]ATORY Stool RECTAL CONTENTS / Unknown Non-blood Collection / Unknown 06/17/2024 8:10 PM CDT 06/17/2024 8:19 PM CDT Kushal Portillo MD LAB - STOOLS ORDERABLES [place]antel l Result [facility] Care Lab [address] Lab (1st floor, no room number) [address] * Extra Red Top Tube (06/17/2024 7:48 PM CDT) Pathologist [facility] Hold Specimen JIC 06/17/2024 9:02 PM CDT LABORATORY Blood BLOOD SPECIMEN / Unknown Venipuncture / Unknown 06/17/2024 7:48 PM CDT 06/17/2024 7:55 PM CDT Kushal Portillo MD LAB - BLOOD ORDERABLES Final Result [facility] Lab [address] Lab (1st floor, no room number) [address] * (ABNORMAL) CBC with platelets and differential (06/17/2024 7:48 PM CDT) [facility] WBC Count 16.6(H) 4.0 - 11.0 10e3/uL 06/17/2024 7:58 PM CDT RH LABORATORY RBC Count 2.88(L) 4.40 - 5.90 [...] LAB - BLOOD ORDERABLES Final Result LABORATORY [facility] Acute Care Lab [address] Lab (1st floor, no room number) [place] [address] * Adult Type and Screen (06/17/2024 7:48 PM CDT) Pathologist [facility] ABO/RH(D) O POS 06/17/2024 7:31 PM CDT RH BLOOD BANK Antibody Screen Negative Negative 06/17/2024 7:31 PM CDT RH BLOOD BANK SPECIMEN EXPIRATION DATE [id number] 06/17/2024 7:31 PM CDT RH BLOOD BANK Blood BLOOD SPECIMEN / Unknown Venipuncture / Unknown 06/17/2024 7:48 PM CDT 06/17/2024 7:55 PM CDT Kushal Portillo MD LAB - BLOOD BANK TEST ORDER Final Result BLOOD BANK [address] [place] [address] * INR (06/17/2024 7:48 PM CDT) [facility] INR 0.95 0.85 - 1.15 06/17/2024 8:10 PM CDT RH LABORATORY Blood BLOOD SPECIMEN / Unknown Venipuncture / Unknown 06/17/2024 7:48 PM CDT 06/17/2024 7:55 PM CDT Kushal Portillo MD LAB - BLOOD ORDERABLES Final Result LABORATORY [facility] Acute Care Lab [address] [facility] Lab (1st floor, no room number) [place] [address] * (ABNORMAL) Hemoglobin A1c (06/17/2024 7:48 PM CDT) [facility] Estimated Average Glucose 203(H) <117 mg/dL 06/17/2024 [...] - BLOOD ORDERABLES Final Re sult LABORATORY [facility] Lab [address] Lab (1st floor, no room number) [place] [address], [facility] * (ABNORMAL) Comprehensive metabolic panel (06/17/2024 7:48 [...] - 23.0 mg/dL 06/17/2024 8:15 PM CDT LABORATORY Creatinine 1.26(H) 0.67 - 1.17 mg/dL 06/17/2024 8:15 PM CDT LABORATORY GFR Estimate 63 >60 mL/min/1.7 3m2 06/17/2024 8:15 PM CDT RH LABORATORY Comment:eGFR calculated usin g [...] MD LAB - BLOOD ORDERABLES Final Result [facility] Lab [address] Lab (1st floor, no room number) [place] [address] * Ethyl Alcohol Level (06/17/2024 7:48 PM CDT) Alcohol ethyl <0.01 <=0.01 g/dL 06/17/2024 8:15 PM CDT RH LABORATORY Blood BLOOD SPECIMEN / Unknown Venipuncture / Unknown 06/17/2024 7:48 PM CDT 06/17/2024 7:55 PM CDT Kushal Portillo MD LAB - BLOOD ORDERABLES Final Result [facility] Acute Care Lab [address] Lab (1st floor, no room number) [place] [address], [facility] * Lab Result - HIM Scan (06/17/2024 12:00 AM CDT) 06/17/2024 us Provider Outside MH NON-BEAKER LAB TESTING Final Result * EKG Cardiac - HIM Scan (06/17/2024 12:00 AM CDT) 06/17/2024 us Provider Outside ECG ORDERABLES Final Result * (ABNORMAL) Lipid Profile (06/19/2023 7:58 AM CDT) Pathologist [facility] Cholesterol 132 <200 mg/dL 06/19/2023 12:21 PM [...] LAB - BLOOD ORDERABLES Fin al Result [facility] LABORATORY [facility] [place] [facility] Lab [address] [facility] [address] [facility], [address] [place] [address], [facility] [phone] from Last 3 Months or Most Recently Relevant to Health Maintenance Insurance [employer] Advance Directives For more information, please contact: [phone] * Full Code (Latest Code Status on [...] 2:20 PM 06/05/2012 5:52 PM Care Teams Awake Overnight Counselor Relationship Specialty Start Date End Date Shona Vásquez MD [facility] [address] [place] [address] PCP - General Family Medicine 12/30/22 Kiet Arias MD [address] [place] [address] Assigned Heart and Vascular Provider 06/24/23
--- OUTSIDE RECORDS SUMMARY | 2024-07-08 14:29 | XMS_ITS | Encounter Summary ---
Author Organization [facility] Address [address] [place] [id number] Care Team Providers Care Rfid Technician Name Role Phone Shona Vásquez MD Primary Care Provider [phone] Kiet Arias MD Unavailable [phone] Reason for Visit * Reason Comments Abnormal Labs * Auth/Cert (Routine) Specialty Diagnoses / Procedures Referred By Contac t Referred To Contact Med Surg Diagnoses Anemia due to blood loss, acute UGIB (upper gastrointestinal bleed) UGIB (upper gastrointestinal bleed) Anemia due to blood loss, acute [place] [address] [facility] [address] [place] [address] Phone: tel: fax: Referral ID Status Reason Start Date Expiration Date Visits Re quested Visits Authorized [id number] 1 1 Encounter Details Date Type Department Care Team (Late st Contact Info) Description 06/17/2024 7:24 PM CDT - 06/19/2024 12:11 PM CDT Emergency [place] [address] [facility] [address] [place] [address] Kushal Portillo MD [facility] [address] [facility] [address] [place] [id number] Ge Bowman MD [facility] [address] [place] [address] Kings Larson MD [address] [place] [place], [place] [id number] Elvis Herman DO [address] [place] [address] UGIB (upper gastrointestinal bleed); Anemia due to blood loss, acute Discharge Disposition: Home or Self Care Social History Tobacco Use Types Packs/Day Years [...] in an abandoned building, in an overnight mcfp, or couch-surfing.) Yes 06/18/2024 Are you worried [...] on file Legal Sex Male 3:08 AM [employer] Gender Identity Not on file Sexual Orientation Not on file documented as of this encounter Last Filed Vital Signs Vital Sign Reading [...] Mass Index 37.07 06/17/2024 7:22 PM CDT documented in this encounter Discharge Summaries * Elvis Herman DO - 06/19/2024 8:04 AM CDT [facility] Hospitalist Discharge Summary Date of Admission: 06/17/2024 Date of Discharge: 06/19/2024 12:11 PM Discharging Provider: Elvis Herman DO Discharge Service: Hospitalist Service Discharge Diagnoses Dustin Carrera is a 63 year old man with PMH of CAD, obesity, COPD, tobacco abuse, T2DM who was admitted on 06/17/2024 with dizziness, epigastric pain. He was found to have acute decline in his hemoglobin. Stool occult positive. Patient also endorses 1 week of black smelly stools. Patient underwent EGD with help of GI. Some duodenitis was found but no obvious source of bleeding was seen. Hemoglobin remained stable. He was discharged home in stablecondition on a twice daily PPI. ABLA Suspect UGIB Dizziness & epigastric pain: Presents with 1 week of black stools. Also endorsed dizziness and epigastric pain. Hemoglobin showsan acute decline. Reportedly had a hemoglobin of 17 3 months ago. Patient underwent EGD with help of GI. Some duodenitis was found but no obvious source of bleeding was seen. Hemoglobin remained stable. He was discharged home in stable condition on a twice daily PPI. Insulin dependent T2DM: DAY CARE HOME PROVIDER Lantus, aspart, Jardiance on discharge. HTN CAD s/p stenting: Discontinue DAY CARE HOME PROVIDER lisinopril/hydrochlorothiazide, amlodipine on discharge given normal blood pressureand dizziness on admission. Will continue DAY CARE HOME PROVIDER metoprolol. He should have follow-up with his primarydoctor in approximately 1 to 2 weeks for repeat blood pressure check. He may need to restart antihypertensives at that time. This was discussed with the patient. COPD: DAY CARE HOME PROVIDER Advair Clinically Significant Risk Factors # DMII: A1C = 8.7 % (Ref range: <5.7 %) within past 6 months # Obesity: Estimated body mass index is 37.07 kg/m?? as calculated from the following: Height as of this encounter: 1.778 m (5' 10). Weight as of this encounter: 117.2 kg (258 lb 6.1 oz). Follow-ups Needed After Discharge Follow-up Appointments Follow-up and recommended labs and tests Follow up with primary care provider, Shona Vásquez, within 7 days for hospital follow- up. The following labs/tests are recommended: Hgb. You should have a colonoscopy in the near future. Unresulted Labs Ordered in the Past 30 Days of this Admission Date and Time Order Name Status Description 06/18/2024 1:29 PM Surgical Pathology Exam In process These results will be followed up by PCP Discharge Disposition Discharged to home Condition at discharge: Good Consultations This Hospital Stay GASTROENTEROLOGY IP CONSULT Code Status Full Code Time Spent on this Encounter I, Elvis Herman DO, personally saw the patient today and spent greater than 30 minutes discharging this patient. Elvis Herman DO [place] [address] [facility] [address] [facility] [address] Physical Exam Vital Signs: Temp: 98 ??F (36.7 ??C) Temp src: Oral BP: 119/72 Pulse: 83 Resp: 16 SpO2: 98 % O2 Device: None (Room air) Oxygen Delivery: 2 LPM Weight: 258 lbs 6.07 oz General Appearance: Patient awake & alert. No apparent distress. Respiratory: Lungs are CTAB. Work of breathing appears normal on room air. Cardiovascular: Regular rate and rhythm. No murmurs rubs or gallops. There is no edema present. GI: Benign. Soft. Non-tender. Bowel sounds active. Skin: No rashes or lesions exposed skin. Neuro: The patient is moving all extremities. No obvious focal asymmetries. Other: Patient is appropriate and oriented x3. Primary Care Physician Shona Vásquez Discharge Orders Reason for your hospital stay You were hospitalized for dizziness. You were found to have anemia. This is thought related to upper GI bleeding. You underwent EGD which showed some irritation in the first part of the small intestine. You will need a colonoscopy in the near future as an outpatient. Follow-up and recommended labs and tests Follow up with primary care provider, Shona Vásquez, within 7 days for hospital follow- up. The following labs/tests are recommended: Hgb. You should have a colonoscopy in the near future. Activity Your activity upon discharge: activity as tolerated Diet Follow this diet upon discharge: Regular Significant Results and Procedures Most Recent 3 CBC's: Recent Labs Lab Test 06/19/24 0737 06/18/24 1514 06/18/24 0643 06/17/241947 WBC -- -- 13.3* 16.6* HGB 8.2* 7.8* 7.5* 8.7* MCV -- -- 94 95 PLT -- -- 248 295 Most Recent 3 BMP's: Recent Labs Lab Test 06/19/24 0826 06/19/24 0109 06/18/24 2131 06/18/24 1018 06/18/24 0643 06/18/24 0124 06/17/24 1948 06/19/23 0758 NA -- -- -- -- 141 -- 140 143 POTASSIUM -- -- -- -- 3.8 -- 4.2 4.0 CHLORIDE -- -- -- -- 106 -- 101 103 CO2 -- -- -- -- 25 -- 24 28 BUN -- -- -- -- 27.9* -- 30.5* 17.8 CR -- -- -- -- 1.20* -- 1.26* 1.15 ANIONGAP -- -- -- -- 10 -- 15 12 ENRIQUETA -- -- -- -- 7.5* -- 7.5* 8.5* GLC 179* 146* 169* < > 125* < > 221* 187* < > = values in this interval not displayed. Discharge Medications Current Discharge Medication List START taking these medications Details pantoprazole (PROTONIX) 40 MG EC tablet Take 1 tablet (40 mg) by mouth 2 times daily. Qty: 60 tablet, Refills: 0 Associated Diagnoses: UGIB (upper gastrointestinal bleed) CONTINUE these medications which have NOT CHANGED Details albuterol (PROAIR HFA/PROVENTIL HFA/VENTOLIN HFA) 108 (90 Base) MCG/ACT inhaler INHALE 2 PUFFS EVERY 4 HOURS NEEDED FOR WHEEZE OR FOR SHORTNESS OF BREATH aspirin EC 81 MG EC tablet Take 1 tablet (81 mg) by mouth daily Qty: 30 tablet, Refills: 5 Associated Diagnoses: NSTEMI (non-ST elevated myocardial infarction) (H) atorvastatin (LIPITOR) 80 MG tablet Take 1 tablet (80 mg) by mouth daily clonazePAM (KLONOPIN) 0.5 MG tablet Take 0.5 tablets (0.25 mg) by mouth nightly as needed for anxiety coenzyme Q-10 200 MG CAPS capsule Take 1 capsule (200 mg) by mouth fluticasone-salmeterol (ADVAIR) 250-50 MCG/ACT inhaler Inhale 1 puff into the lungs 2 times daily. insulin aspart (NOVOLOG PEN) 100 UNIT/ML soln Inject 8 Units Subcutaneous 3 times daily (with meals) Qty: 3 Month, Refills: 2 Associated Diagnoses: Diabetes mellitus, type 2 (H) JARDIANCE 10 MG TABS tablet TAKE 1 TAB BY MOUTH EVERY MORNING LANTUS SOLOSTAR 100 UNIT/ML soln Inject 28 Units subcutaneously every evening. metoprolol tartrate (LOPRESSOR) 100 MG tablet Take 1 tablet (100 mg) by mouth 2 times daily Associated Diagnoses: NSTEMI (non-ST elevated myocardial infarction) (H) nitroglycerin (NITROSTAT) 0.[address] 1 tablet (0.4 mg) under the tongue every 5 minutesas needed for chest pain Qty: 25 tablet, Refills: 0 Associated Diagnoses: Acute chest pain ALPRAZolam (XANAX) 0.5 MG tablet Take 0.5 mg by mouth daily as needed STOP taking these medications amLODIPine (NORVASC) 10 MG tablet Comments: Reason for Stopping: lisinopril-hydrochlorothiazide (ZESTORETIC) 20-12.5 MG tablet Comments: Reason for Stopping: Allergies Allergies Allergen Reactions Amoxicillin documented in this encounter Discharge Instructions * Discharge Instructions* Carlotta Coburn RN - 06/18/2024 1:54 PM CDT The patient has received a copy of the Provation Report the doctor has written and was discussed with the patient and given to primary RN prior to returning to the inpatient floor. All questions wereanswered and patient has provider's office phone number for further questions or concerns. * Attachments The following attachments cannot be sent through Care Everywhere. * Infection: H. Pylori Bacterial (Haitian) documented in this encounter Medications at Time of Discharge albuterol (PROAIR HFA/PROVENTIL HFA/VENTOLIN HFA) 108 (90 Base) MCG/ACT inhaler INHALE 2 PUFFS EVERY 4 HOURS NEEDED FOR WHEEZE OR FOR SHORTNESS OF BREATH aspirin EC 81 MG EC tabletIndications:NS GÉNESIS (non-ST elevated myocardial infarction) (H) Take 1 tablet (81 mg) by mouth daily 30 tablet 5 5 atorvastatin (LIPITOR) 80 MG tablet Take 1 tablet (80 mg) by mouth daily 3 clonazePAM (KLONOPIN) 0.5 MG tablet Take 0.5 tablets (0.25 mg) by mouth nightly as needed for anxiety 3 coenzyme Q-10 200 MG CAPS capsule Take 1 capsule (200 mg) by mouth 3 fluticasone-salmeter ol (ADVAIR) 250-50 MCG/ACT inhaler Inhale 1 puff into the lungs 2 times daily. 4 insulin aspart (NOVOLOG PEN) 100 UNIT/ML solnIndications:Diab etes mellitus, type 2 (H) Inject 8 Units Subcutaneous 3 times daily (with meals) 3 Month 2 5 JARDIANCE 10 MG TABS tablet TAKE 1 TAB BY MOUTH EVERY MORNING 3 LANTUS SOLOSTAR 100 UNIT/ML soln Inject 28 Units subcutaneously every evening. 4 metoprolol tartrate (LOPRESSOR) 100 MG tabletIndications:NS GÉNESIS (non-ST elevated myocardial infarction) (H) Take 1 tablet (100 mg) by mouth 2 times daily 3 nitroglycerin (NITROSTAT) 0.4 MG SL tabletIndications:Ac [place] chest pain Place 1 tablet (0.4 mg) under the tongue every 5 minutes as needed for chest pain 25 tablet 0 5 pantoprazole (PROTONIX) 40 MG EC tabletIndications:UG IB (upper gastrointestinal bleed) Take 1 tablet (40 mg) by mouth 2 times daily. 60 tablet 4 ALPRAZolam (XANAX) 0.5 MG tablet Take 0.5 mg by mouth daily as needed documented as of this encounter Progress Notes * Elvis Herman DO - 06/18/2024 11:36 AM CDT [facility] Medicine Progress Note - Hospitalist Service Date of Admission: 06/17/2024 Assessment & Plan Dustin Carrera is a 63 year old man with PMH of CAD, obesity, COPD, tobacco abuse, T2DM who was admitted on 06/17/2024 with dizziness, epigastric pain. He was found to have acute decline in his hemoglobin. Stool occult positive. Patient also endorses 1 week of black smelly stools. Concern for UGIB so GI is consulted. ABLA Suspect UGIB Dizziness & epigastric pain: Presents with 1 week of black stools. Also endorsed dizziness and epigastric pain. Hemoglobin showsan acute decline. Reportedly had a hemoglobin of 17 3 months ago. Hemoglobin is now 8.7. Followingmorning dropped to 7.5. Stool occult positive in the ED. -GI consultation -N.p.o. until GI recommendations regarding possible procedure -Pantoprazole IV 40 mg twice daily -Hemoglobin recheck this afternoon -Consented for transfusion -Transfuse for hemoglobin less than 7 -Continue NS at 100 ml/hr -Close monitoring of vitals Insulin dependent T2DM: Normally takes 28 units Lantus every evening, ?20 units 3 times daily with meals. -Lantus 28 units daily was ordered on admission -N.p.o. sliding scale ordered -DAY CARE HOME PROVIDER Jardiance CAD s/p stenting: -Hold DAY CARE HOME PROVIDER lisinopril/hydrochlorothiazide, amlodipine, aspirin in the setting of suspected upper GI bleed -Continue DAY CARE HOME PROVIDER metoprolol with hold parameters COPD: DAY CARE HOME PROVIDER Advair Diet: NPO per Anesthesia Guidelines for Procedure/Surgery Except for: Meds DVT Prophylaxis: Pneumatic Compression Devices Crane Catheter: Not present Lines: None Cardiac Monitoring: None Code Status: Full Code Clinically Significant Risk Factors Present on Admission # Hypocalcemia: Lowest Ca = 7.5 mg/dL in last 2 days, will monitor and replace as appropriate # Drug Induced Platelet Defect: home medication list includes an antiplatelet medication # Hypertension: Noted on problem list # Anemia: based on hgb <11 # Anemia: based on hgb <11 # DMII: A1C = 8.7 % (Ref range: <5.7 %) within past 6 months # Obesity: Estimated body mass index is 37.07 kg/m?? as calculated from the following: Height as of this encounter: 1.778 m (5' 10). Weight as of this encounter: 117.2 kg (258 lb 6.1 oz). Disposition Plan Medically Ready for Discharge: Anticipated Tomorrow Elvis Herman DO Hospitalist Service [facility] Securely message with Caden (more info) Text page via woohoo mobile marketing Paging/Directory Interval History NAEO. Patient with no complaints. No further bowel movements. Physical Exam Vital Signs: Temp: 98 ??F (36.7 ??C) Temp src: Oral BP: 108/58 Pulse: 96 Resp: 18 SpO2: 90 % O2 Device: None (Room air) Weight: 258 lbs 6.07 oz General Appearance: Patient awake & alert. No apparent distress. Respiratory: Lungs are CTAB. Work of breathing appears normal on room air. Cardiovascular: Regular rate and rhythm. No murmurs rubs or gallops. There is no edema present. GI: Benign. Soft. Non-tender. Bowel sounds active. Skin: No rashes or lesions exposed skin. Neuro: The patient is moving all extremities. No obvious focal asymmetries. Other: Patient is appropriate and oriented x3. Medical Decision Making 50 MINUTES SPENT BY ME on the date of service doing chart review, history, exam, documentation & further activities per the note. Data PAST 24 HR DATA REVIEWED I have personally reviewed the following data over the past 24 hrs: 13.3 (H) \ 7.5 (L) / 248 141 106 27.9 (H) / 130 (H) 3.8 25 1.20 (H) \ ALT: 17 AST: 17 AP: 84 TBILI: 0.2 ALB: 3.8 TOT PROTEIN: 5.7 (L) LIPASE: N/A TSH: N/A T4: N/A A1C: 8.7 (H) INR: 0.95 PTT: N/A D-dimer: N/A Fibrinogen: N/A Imaging results reviewed over the past 24 hrs: No results found for this or any previous visit (from the past 24 hour(s)). * Riya Acosta RN - 06/18/2024 6:30 AM CDT 06/18/24 0120 Skin Skin WDL X;integrity Skin Integrity scab;bruised (ecchymotic) (scattered scabs and scratching, bruising) Bruised (ecchymotic) location (scattered) Admitted/transferred from: ER 2 RN full skin assessment completed by Riya Acosta, RN and Anabell Solis RN. Skin assessment finding: other Bruises, scabs, scratches to abdomen & RACHAEL UE Interventions/actions: other Lotion to dry areas Will continue to monitor. documented in this encounter H&P Notes * Kings Larson MD - 06/17/2024 7:18 PM CDT [facility] History and Physical Dustin Carrera Age: [age] year old Date of : 1960 Date of Admission: 06/17/2024 Home clinic: [facility] Primary care provider: Shona Vásquez Assessment and Plan: Assessment: Dustin Carrera is a 63 year old man with history of CAD, Obesity, COPD, tobacco abuse and IDDM, type 2 who initially presented to an outside UC for dizziness and epigastric pain. He came to attention tonight in [facility] ED after having been found to have a hgb 8.7. A recent Hgb was 17, apparently measured 3 months ago. He was directed to the ED due to concern for possible UGI Bleed. On presentation to the ED, VS: HR 80 BP 103/67, RR 20 with oxygen saturation 98% breathing room air. The patient is afebrile. Examination: Alert, coherent in no apparent distress. Mr. Rasmussen is alert but without significant discomfort. He is fully appropriate to the situation is able to give a full history. Labs: Creatinine 1.26 with BUN 30.5, calcium 7.5, albumin 3.8. Other electrolytes and LFTs are normal. Glucose 221 with HbA1c 8.7. Stool occult blood is positive. WBC 16.6 with Hgb 8.7, PLT 297. INR 0.95. BAL less than measured threshold. Imaging: None. Interventions in the emergency department: Patient was started on Protonix 40 mg IV twice daily. I was asked to admit him for further evaluation. Diagnoses: Normocytic anemia. This is a reportedly fairly rapid drop from about 3 months ago. Patient is on chronic aspirin due to his coronary artery disease and recently was treated for bronchitis with antibiotics and a steroid burst. It was around the time of the steroid burst that the patient noticed darkstools though these were not frankly melenic. Insulin-dependent type 2 diabetes. Overall, patient appears to have fairly good control but reportsperipheral neuropathy. Coronary artery disease status post stenting x 5. No current active concerns. Suspect underlying COPD with history of smoking and recent bronchitis. Plan: 1. Admit to inpatient. 2. N.p.o. for possible EGD tomorrow. 3. [facility] is consulted. 4. The patient was typed and screened in the emergency department. 5. Continue with Lantus insulin at bedtime. Patient will also be on an insulin sliding scale every 4 hours for n.p.o. status. 6. Continue with Protonix 40 mg IV twice daily. Chief Complaint: Lab abnormalities History is obtained from the patient, electronic health record, and emergency department physician Mr. Carrera reports that over the course the last week he has noticed more dizziness when he bendsover or stands up quickly. He does not otherwise have much in the way of significant shortness of breath and has not had any chest pain. He has not passed out but does endorse some lightheadedness. He did not really notice much in the way of stool changes but describes at passing 2 stools today that were very dark though they were formed and fairly firm. He has not had any trouble with urinating. No nausea or vomiting. He has not noticed nausea or worsened epigastric pain with eating. He has not noticed that he is full faster than previous. He has not particularly noticed that fatty foods are problematic for him. He does report passing more gas than usual. Past Medical History: Past Medical History: Diagnosis Date CAD (coronary artery disease) DM (diabetes mellitus), type 2 (H) HTN (hypertension) Hypercholesterolemia Hyperlipidemia Myocardial infarction (H) 03-20-15 Tobacco abuse Past Surgical History: Past Surgical History: Procedure Laterality Date ANGIOGRAM 03-21-15 2 vessel coronary artery disease (diagonal-SHED BOSS, apical LAD, and culprit mid to distal RCA). Successful PCI of culprit mid to distal RCA with placement of a 3.5 x 12 mm and 3.5 x 38 mm Promus drug-eluting stents CARDIAC CATHETERIZATION CARDIAC CATHETERIZATION 07/15/2016 no interventions CARDIAC SURGERY stent CARDIAC SURGERY CORONARY ANGIOPLASTY CORONARY STENT PLACEMENT 2010 LAD stent, total 3 stents HERNIA REPAIR HERNIA REPAIR KNEE SURGERY X 2 KNEE SURGERY NEPHRECTOMY Right 08/22/2016 Procedure: ROBOTIC ASSISTED RIGHT NEPHRECTOMY WITH INTRA OPERATIVE ULTRASOUND; Surgeon: Shila Núñez MD; Location: [facility] [place]; Service: Social History: Social History Tobacco Use Smoking status: Every Day Current packs/day: 0.75 Types: Cigarettes Smokeless tobacco: Never Substance Use Topics Alcohol use: No Family History: Family History Problem Relation Age of Onset Other Cancer Father Hypertension Mother Other Cancer Mother Kidney Disease Sister Pacemaker Mother Cancer Mother Cancer Father Atrial fibrillation Brother Acute Myocardial Infarction No family hx of Family history reviewed Immunizations: Immunization History Administered Date(s) Administered COVID-19 MONOVALENT 12+ (Pfizer) 05/03/2021, 05/26/2021 Influenza (IIV3) PF 06/05/2012 Allergies: Allergies Allergen Reactions Amoxicillin Medications: Albuterol inhaler Alprazolam 0.5 mg daily as needed Amlodipine 10 mg daily Aspirin 81 mg daily Atorvastatin 80 mg daily Insulin Lantus 28 units in the evening. Insulin aspart 20 units with each meal Lisinopril-hydrochlorothiazide 20-12.5 daily Metoprolol tartrate 100 mg twice daily Nitroglycerin as needed. Review of Systems: A comprehensive review of systems was performed and found to be negative except as described in this note Physical Exam: Vitals were reviewed Temp: 97.5 ??F (36.4 ??C) BP: 110/69 Pulse: 80 Resp: 20 SpO2: 95 % Constitutional: Awake, alert, cooperative, no apparent distress, and appears stated age. Eyes: Lids and lashes normal, pupils equal and round, extra ocular muscles intact, sclera clear, conjunctiva normal. ENT: Normocephalic, without obvious abnormality, atraumatic. Neck: Supple, symmetrical, trachea midline, no adenopathy, thyroid symmetric, not enlarged and no tenderness, skin normal. Hematologic / Lymphatic: No cervical lymphadenopathy and no supraclavicular lymphadenopathy. Lungs: No increased work of breathing, good air exchange, clear to auscultation bilaterally, no crackles or wheezing. Cardiovascular: Regular rate and rhythm, normal S1 and S2, no S3 or S4, and no murmur noted. Abdomen: Normal bowel sounds, soft, non-distended, mildly tender in the epigastric and subcostal areas. No masses palpated, no hepatosplenomegally. Musculoskeletal: No redness, warmth, or swelling of the joints. Tone is normal. Neurologic: Awake, alert, oriented to name, place and time. Cranial nerves II- XII are grossly intact. Neuropsychiatric: Normal affect, mood, orientation, memory and insight. Skin: No rashes, erythema, pallor, petechia or purpura. Data: Results for orders placed or performed during the hospital encounter of 06/17/24 (from the past 24 hour(s)) CBC with platelets differential Narrative The following orders were created for panel order CBC with platelets differential. Procedure Abnormality Status --------- ------ CBC with platelets and d...[[id number]] Abnormal Final result Please view results for these tests on the individual orders. INR Result Value Ref Range INR 0.95 0.85 - 1.15 Comprehensive metabolic panel Result Value Ref Range Sodium 140 135 - 145 mmol/L Potassium 4.2 3.4 - 5.3 mmol/L Carbon Dioxide (CO2) 24 22 - 29 mmol/L Anion Gap 15 7 - 15 mmol/L Urea Nitrogen 30.5 (H) 8.0 - 23.0 mg/dL Creatinine 1.26 (H) 0.67 - 1.17 mg/dL GFR Estimate 63 >60 mL/min/1.73m2 Calcium 7.5 (L) 8.8 - 10.4 mg/dL Chloride 101 98 - 107 mmol/L Glucose 221 (H) 70 - 99 mg/dL Alkaline Phosphatase 84 40 - 150 U/L AST 17 0 - 45 U/L ALT 17 0 - 70 U/L Protein Total 5.7 (L) 6.4 - 8.3 g/dL Albumin 3.8 3.5 - 5.2 g/dL Bilirubin Total 0.2 <=1.2 mg/dL Ethyl Alcohol Level Result Value Ref Range Alcohol ethyl <0.01 <=0.01 g/dL ABO/Rh type and screen Narrative The following orders were created for panel order ABO/Rh type and screen. Procedure Abnormality Status --------- ------ Adult Type and Screen[[id number]] Final result Please view results for these tests on the individual orders. [place] Draw Narrative The following orders were created for panel order [place] Draw. Procedure Abnormality Status --------- ------ Extra Red Top Tube[[id number]] Final result Please view results for these tests on the individual orders. CBC with platelets and differential Result Value Ref Range WBC Count 16.6 (H) 4.0 - 11.0 10e3/uL RBC Count 2.88 (L) 4.40 - 5.90 10e6/uL Hemoglobin 8.7 (L) 13.3 - 17.7 g/dL Hematocrit 27.4 (L) 40.0 - 53.0 % MCV 95 78 - 100 fL MCH 30.2 26.5 - 33.0 pg MCHC 31.8 31.5 - 36.5 g/dL RDW 15.2 (H) 10.0 - 15.0 % Platelet Count 295 150 - 450 10e3/uL % Neutrophils 70 % % Lymphocytes 20 % % Monocytes 6 % % Eosinophils 1 % % Basophils 0 % % Immature Granulocytes 2 % NRBCs per 100 WBC 0 <1 /100 Absolute Neutrophils 11.7 (H) 1.6 - 8.3 10e3/uL Absolute Lymphocytes 3.4 0.8 - 5.3 10e3/uL Absolute Monocytes 1.0 0.0 - 1.3 10e3/uL Absolute Eosinophils 0.2 0.0 - 0.7 10e3/uL Absolute Basophils 0.1 0.0 - 0.2 10e3/uL Absolute Immature Granulocytes 0.4 <=0.4 10e3/uL Absolute NRBCs 0.0 10e3/uL Adult Type and Screen Result Value Ref Range ABO/RH(D) O POS Antibody Screen Negative Negative SPECIMEN EXPIRATION DATE [id number] Extra Red Top Tube Result Value Ref Range Hold Specimen [facility] Hemoglobin A1c Result Value Ref Range Estimated Average Glucose 203 (H) <117 mg/dL Hemoglobin A1C 8.7 (H) <5.7 % Occult blood stool Result Value Ref Range Occult Blood Positive (A) Negative All cardiac studies reviewed by me. All imaging studies reviewed by me. Attestation: I have reviewed today's vital signs, notes, medications, labs and imaging. Kings Larson MD documented in this encounter Consult Notes * Kiet Brown MD - 06/18/2024 2:05 PM CDT [facility] Chart Update 63 yo with 1 week dark stool, anemia, epigastric pain. EGD today with mild duodenitis, otherwise normal. No prior colonoscopy. Will arrange for outpatient colonoscopy within 2 weeks. Will follow up on H. Pylori biopsies taken today. Suggest continued empiric PPI x1 month. Resume regular diet. Discharge planning per hospital service. Keit Brown MD [facility] Digest[facility] Health documented in this encounter ED Notes * Riya Acosta RN - 06/17/2024 11:04 PM CDT [facility] ED Nurse Handoff Report ED Chief complaint: Abnormal Labs . ED Diagnosis: Final diagnoses: UGIB (upper gastrointestinal bleed) Anemia due to blood loss, acute Allergies: Allergies Allergen Reactions Amoxicillin Code Status: Full Code Activity level - Baseline/Home: independent. Activity Level - Current: independent. Lift room needed: No. Bariatric: No Infrastructure Technician Needed: No Isolation: No. Infection: Not Applicable. Respiratory status: Room air Vital Signs (within 30 minutes): Vitals: 06/17/24201206/17/24202706/17/24204206/17/242057 BP: 113/70 112/69 106/72 110/69 Pulse: 80 Resp: Temp: SpO2: 95% 95% 98% 95% Weight: Height: Cardiac Rhythm: , Pain level: Patient confused: No. Patient Falls Risk: arm band in place, activity supervised, and toileting schedule implemented. Elimination Status: Has voided Patient Report - Initial Complaint:Send for abnormal lab, epigastric pain, positive GI bleed . Focused Assessment: Dustin Carrera is a 63 year old male referred from an outside urgent care for further evaluation after presenting there with complaints of epigastric abdominal pain lightheadedness and weakness. He had testing there that showed a hemoglobin of 8.7. There is no history of GI bleed. He has noted about 3 days of black appearing stools. He was also recently treated with a course of azithromycin and prednisone for a respiratory illnessfrom which she is improved. Abnormal Results: Labs Ordered and Resulted from Time of ED Arrival to Time of ED Departure COMPREHENSIVE METABOLIC PANEL - Abnormal Result Value Sodium 140 Potassium 4.2 Carbon Dioxide (CO2) 24 Anion Gap 15 Urea Nitrogen 30.5 (*) Creatinine 1.26 (*) GFR Estimate 63 Calcium 7.5 (*) Chloride 101 Glucose 221 (*) Alkaline Phosphatase 84 AST 17 ALT 17 Protein Total 5.7 (*) Albumin 3.8 Bilirubin Total 0.2 OCCULT BLOOD STOOL - Abnormal Occult Blood Positive (*) CBC WITH PLATELETS AND DIFFERENTIAL - Abnormal WBC Count 16.6 (*) RBC Count 2.88 (*) Hemoglobin 8.7 (*) Hematocrit 27.4 (*) MCV 95 MCH 30.2 MCHC 31.8 RDW 15.2 (*) Platelet Count 295 % Neutrophils 70 % Lymphocytes 20 % Monocytes 6 % Eosinophils 1 % Basophils 0 % Immature Granulocytes 2 NRBCs per 100 WBC 0 Absolute Neutrophils 11.7 (*) Absolute Lymphocytes 3.4 Absolute Monocytes 1.0 Absolute Eosinophils 0.2 Absolute Basophils 0.1 Absolute Immature Granulocytes 0.4 Absolute NRBCs 0.0 INR - Normal INR 0.95 ETHYL ALCOHOL LEVEL - Normal Alcohol ethyl <0.01 TYPE AND SCREEN, ADULT ABO/RH(D) O POS Antibody Screen Negative SPECIMEN EXPIRATION DATE [id number] ABO/RH TYPE AND SCREEN No orders to display Treatments provided: See MAR Family Comments: spouse OBS brochure/video discussed/provided to patient: N/A ED Medications: Medications pantoprazole (PROTONIX) IV push injection 40 mg (40 mg Intravenous $Given 06/17/241949) Drips infusing: No For the majority of the shift this patient was Green. Interventions performed were NA . Sepsis treatment initiated: No Cares/treatment/interventions/medications to be completed following ED care: NA ED Nurse Name: Kay Simon RN 11:04 PM RECEIVING UNIT ED HANDOFF REVIEW Above ED Nurse Handoff Report was reviewed: Yes Reviewed by: Riya Acosta RN on June 18, 2024 at 12:45 AM I Vocera called the ED to inform them the note was read: No * Kushal Portillo MD - 06/17/2024 7:27 PM CDT Emergency Department Note History of Present Illness Chief Complaint Abnormal Labs HPI Dustin Carrera is a 63 year old male referred from an outside urgent care for further evaluationafter presenting there with complaints of epigastric abdominal pain lightheadedness and weakness. He had testing there that showed a hemoglobin of 8.7. There is no history of GI bleed. He has noted about 3 days of black appearing stools. He was also recently treated with a course of azithromycin and prednisone for a respiratory illnessfrom which she is improved. Independent Historian None Review of External Notes I reviewed paperwork from [place] urgent care. This is not appearing in the EMR/Care Everywhere. Labs included a white blood cell count 15.76, hemoglobin 8.7, platelets 285. Past Medical History Medical History and Problem List Past Medical History: Diagnosis Date CAD (coronary artery disease) DM (diabetes mellitus), type 2 (H) HTN (hypertension) Hypercholesterolemia Hyperlipidemia Myocardial infarction (H) Tobacco abuse Medications albuterol (PROAIR HFA/PROVENTIL HFA/VENTOLIN HFA) 108 (90 Base) MCG/ACT inhaler ALPRAZolam (XANAX) 0.5 MG tablet amLODIPine (NORVASC) 10 MG tablet aspirin EC 81 MG EC tablet atorvastatin (LIPITOR) 80 MG tablet buPROPion (WELLBUTRIN XL) 150 MG 24 hr tablet clonazePAM (KLONOPIN) 0.5 MG tablet coenzyme Q-10 200 MG CAPS capsule fluticasone-vilanterol (BREO ELLIPTA) 100-25 MCG/ACT inhaler furosemide (LASIX) 20 MG tablet insulin aspart (NOVOLOG PEN) 100 UNIT/ML soln insulin detemir (LEVEMIR PEN) 100 UNIT/ML pen JARDIANCE 10 MG TABS tablet lisinopril-hydrochlorothiazide (ZESTORETIC) 20-12.5 MG tablet metoprolol tartrate (LOPRESSOR) 100 MG tablet nitroglycerin (NITROSTAT) 0.4 MG SL tablet Surgical History Past Surgical History: Procedure Laterality Date ANGIOGRAM 03-21-15 2 vessel coronary artery disease (diagonal-SHED BOSS, apical LAD, and culprit mid to distal RCA). Successful PCI of culprit mid to distal RCA with placement of a 3.5 x 12 mm and 3.5 x 38 mm Promus drug-eluting stents CARDIAC CATHETERIZATION CARDIAC CATHETERIZATION 07/15/2016 no interventions CARDIAC SURGERY stent CARDIAC SURGERY CORONARY ANGIOPLASTY CORONARY STENT PLACEMENT 2010 LAD stent, total 3 stents HERNIA REPAIR HERNIA REPAIR KNEE SURGERY X 2 KNEE SURGERY NEPHRECTOMY Right 08/22/2016 Procedure: ROBOTIC ASSISTED RIGHT NEPHRECTOMY WITH INTRA OPERATIVE ULTRASOUND; Surgeon: Shila Núñez MD; Location: [facility] [place]; Service: Physical Exam Patient Vitals for the past 24 hrs: BP Temp Pulse Resp SpO2 Height Weight 06/17/242057 110/69 -- -- -- 95 % -- -- 06/17/242042 106/72 -- -- -- 98 % -- -- 06/17/242027 112/69 -- 80 -- 95 % -- -- 06/17/242012 113/70 -- -- -- 95 % -- -- 06/17/242002 110/69 -- 80 -- 95 % -- -- 06/17/241957 99/67 -- -- -- 96 % -- -- 06/17/241941 -- -- -- -- 96 % -- -- 06/17/241936 123/78 -- 78 -- -- -- -- 06/17/241921 103/67 97.5 ??F (36.4 ??C) 78 20 99 % 1.778 m (5' 10) 117.2 kg (258 lb 6.1 oz) Physical Exam General: Patient is alert and cooperative. Overweight. HENT: Normal nose, oropharynx. Moist oral mucosa. Eyes: EOMI. Normal conjunctiva. Neck: Normal range of motion and appearance. Cardiovascular: Normal rate, regular rhythm. Pulmonary/Chest: Effort normal. No wheezing or crackles. Abdominal: Soft. No distension; mild epigastric tenderness. Musculoskeletal: Normal range of motion. Neurological: oriented, normal strength, sensation, and coordination. Skin: Warm and dry. No rash or bruising. Psychiatric: Normal mood and affect. Normal behavior and judgement. Diagnostics Lab Results Labs Ordered and Resulted from Time of ED Arrival to Time of ED Departure COMPREHENSIVE METABOLIC PANEL - Abnormal Result Value Sodium 140 Potassium 4.2 Carbon Dioxide (CO2) 24 Anion Gap 15 Urea Nitrogen 30.5 (*) Creatinine 1.26 (*) GFR Estimate 63 Calcium 7.5 (*) Chloride 101 Glucose 221 (*) Alkaline Phosphatase 84 AST 17 ALT 17 Protein Total 5.7 (*) Albumin 3.8 Bilirubin Total 0.2 OCCULT BLOOD STOOL - Abnormal Occult Blood Positive (*) CBC WITH PLATELETS AND DIFFERENTIAL - Abnormal WBC Count 16.6 (*) RBC Count 2.88 (*) Hemoglobin 8.7 (*) Hematocrit 27.4 (*) MCV 95 MCH 30.2 MCHC 31.8 RDW 15.2 (*) Platelet Count 295 % Neutrophils 70 % Lymphocytes 20 % Monocytes 6 % Eosinophils 1 % Basophils 0 % Immature Granulocytes 2 NRBCs per 100 WBC 0 Absolute Neutrophils 11.7 (*) Absolute Lymphocytes 3.4 Absolute Monocytes 1.0 Absolute Eosinophils 0.2 Absolute Basophils 0.1 Absolute Immature Granulocytes 0.4 Absolute NRBCs 0.0 INR - Normal INR 0.95 ETHYL ALCOHOL LEVEL - Normal Alcohol ethyl <0.01 TYPE AND SCREEN, ADULT ABO/RH(D) O POS Antibody Screen Negative SPECIMEN EXPIRATION DATE [id number] ABO/RH TYPE AND SCREEN Imaging No orders to display ED Course Medications Administered Medications pantoprazole (PROTONIX) IV push injection 40 mg (40 mg Intravenous $Given 06/17/241949) Procedures Procedures Discussion of Management Admitting HospitalistNeo ED Course I reviewed the patient's medical record. The patient was seen and examined by myself. I discussed the course of care with the patient including laboratory and diagnostic studies. he understands and is agreeable to the plan. Additional Documentation None Medical Decision Making / Diagnosis [facility] Diagnoses: None MIPS None MDM Dustin Carrera is a 63 year old male referred from outside urgent care after presenting there with complaints of some lightheadedness and epigastric abdominal pain with dark stools. He was found to have a hemoglobin of 8.7 at that time and referred to the emergency department. He is hemodynamically stable on arrival and well-appearing. Appears to have some mild epigastric tenderness. Workup isincluded guaiac positive stool. CBC shows a hemoglobin of 8.7 white blood cell count 16.6, platelets 295. CMP suggest mild dehydration, BUN 30.6, creatinine 1.26. IV Protonix was administered and he was typed and screened and arranges made for admission to the hospital for further management of what appears to be a first-time upper GI bleed with symptomatic anemia. Disposition The patient was admitted to the hospital. Diagnosis ICD-10-CM 1. UGIB (upper gastrointestinal bleed) K92.2 2. Anemia due to blood loss, acute D62 Discharge Medications New Prescriptions No medications on file MD Lindsey Orozco Brian A, MD 06/17/242210 * Nita Franks RN - 06/17/2024 7:20 PM CDT Pt arrives for abnormal labs, sent from clinic, high WBC, low Hgb 8.7, Hgb was 17 3 months ago. Epigastric abdominal pain, dark stool. Takes aspirin daily. Dizziness, SOB. Recently finished z pack and prednisone for URI. AVSS on RA. documented in this encounter Miscellaneous Notes * Plan of Care - Jude Lynn RN - 06/19/2024 11:42 AM CDT Goal Outcome Evaluation: Plan of Care Reviewed With: patient Overall Patient Progress: improvingOverall Patient Progress: improving Outcome Evaluation: Discharge orders Discharge Note Patient discharged to home via private vehicle accompanied by significant other . IV: Discontinued Prescriptions printed and given to patient/family. Belongings reviewed and sent with patient. Home medications returned to patient: NA Equipment sent with: N/A. patient verbalizes understanding of discharge instructions. AVS given to patient. Additional education completed? NA * Plan of Care - Riya Acosta RN - 06/19/2024 6:26 AM CDT A/O x4. VSS. Up Ax1/walker. Denies pain. RBG 146. No BM. Most recent HgB 7.8 Shift events: Uneventful night, slept well. No significant change in condition. Treatment Plan: continue PPI, Monitor Hgb, GI following, Outpatient colonoscopy in 2 weeks Problem: Adult Inpatient Plan of Care Goal: Plan of Care Review Description: The Plan of Care Review/Shift note should be completed every shift. The Outcome Evaluation is a brief statement about your assessment that the patient is improving, declining, or no change. This information will be displayed automatically on your shift note. Outcome: Progressing Flowsheets (Taken 06/19/2024 0626) Plan of Care Reviewed With: patient Overall Patient Progress: improving Goal: Patient-Specific Goal (Individualized) Description: You can add care plan individualizations to a care plan. Examples of Individualizationmight be: Parent requests to be called daily at 9am for status, I have a hard time hearing out of my right ear, or Do not touch me to wake me up as it startles me. Outcome: Progressing Goal: Absence of Hospital-Acquired Illness or Injury Outcome: Progressing Intervention: Identify and Manage Fall Risk Recent Flowsheet Documentation Taken 06/19/2024 0000 by Riya Acosta, YONATHAN Safety Promotion/Fall Prevention: safety round/check completed Intervention: Prevent Skin Injury Recent Flowsheet Documentation Taken 06/19/2024 0000 by Riya Acosta, RN Body Position: position changed independently Goal: Optimal Comfort and Wellbeing Outcome: Progressing Goal: Readiness for Transition of Care Outcome: Progressing Goal Outcome Evaluation: Plan of Care Reviewed With: patient Overall Patient Progress: improvingOverall Patient Progress: improving * Plan of Care - Sven William RN - 06/18/2024 10:33 PM CDT Assessments: A/O x4. VSS. Up Ax1 wit hwalker. Denies pain, n/v, SOB. Tolerated regular diet. No bm, so signs of bleeding. Voiding without difficulties. BG 164 Treatment Plan: continue PPI, Monitor Hgb, GI following, Outpatient colonoscopy in 2 weeks Bedside Nurse: Sven William RN Problem: Adult Inpatient Plan of Care Goal: Plan of Care Review Description: The Plan of Care Review/Shift note should be completed every shift. The Outcome Evaluation is a brief statement about your assessment that the patient is improving, declining, or no change. This information will be displayed automatically on your shift note. Outcome: Progressing Flowsheets (Taken 06/18/2024 2232) Outcome Evaluation: no s/s of bleeding, VSS Plan of Care Reviewed With: patient Goal: Patient-Specific Goal (Individualized) Description: You can add care plan individualizations to a care plan. Examples of Individualizationmight be: Parent requests to be called daily at 9am for status, I have a hard time hearing out of my right ear, or Do not touch me to wake me up as it startles me. Outcome: Progressing Goal: Absence of Hospital-Acquired Illness or Injury Outcome: Progressing Intervention: Identify and Manage Fall Risk Recent Flowsheet Documentation Taken 06/18/2024 1720 by Sven William RN Safety Promotion/Fall Prevention: activity supervised safety round/check completed Intervention: Prevent Skin Injury Recent Flowsheet Documentation Taken 06/18/2024 1720 by Sven William RN Body Position: position changed independently Intervention: Prevent Infection Recent Flowsheet Documentation Taken 06/18/2024 1720 by Sven William RN Infection Prevention: rest/sleep promoted Goal: Optimal Comfort and Wellbeing Outcome: Progressing Goal: Readiness for Transition of Care Outcome: Progressing Problem: Gastrointestinal Bleeding Goal: Optimal Coping with Acute Illness Outcome: Progressing Goal: Hemostasis Outcome: Progressing Goal Outcome Evaluation: Plan of Care Reviewed With: patient Outcome Evaluation: no s/s of bleeding, VSS * Plan of Care - Dominik Serrano RN - 06/18/2024 2:37 PM CDT Goal Outcome Evaluation: Plan of Care Reviewed With: patient Overall Patient Progress: improvingOverall Patient Progress: improving Outcome Evaluation: No active bleeding noted, EGD completed refer to chart, hemoglobin stable, continues with on going poc. A/Ox4, up A1 G/Walker, VSS, on RA, denies pain, sob. Monitoring hemoglobin, continues with poc. Problem: Adult Inpatient Plan of Care Goal: Plan of Care Review Description: The Plan of Care Review/Shift note should be completed every shift. The Outcome Evaluation is a brief statement about your assessment that the patient is improving, declining, or no change. This information will be displayed automatically on your shift note. Outcome: Progressing Flowsheets (Taken 06/18/2024 1436) Outcome Evaluation: No active bleeding noted, EGD completed refer to chart, hemoglobin stable, continues with on going poc. Plan of Care Reviewed With: patient Overall Patient Progress: improving Goal: Patient-Specific Goal (Individualized) Description: You can add care plan individualizations to a care plan. Examples of Individualizationmight be: Parent requests to be called daily at 9am for status, I have a hard time hearing out of my right ear, or Do not touch me to wake me up as it startles me. Outcome: Progressing Goal: Absence of Hospital-Acquired Illness or Injury Outcome: Progressing Goal: Optimal Comfort and Wellbeing Outcome: Progressing Goal: Readiness for Transition of Care Outcome: Progressing Problem: Gastrointestinal Bleeding Goal: Optimal Coping with Acute Illness Outcome: Progressing Goal: Hemostasis Outcome: Progressing Problem: Adult Inpatient Plan of Care Goal: Patient-Specific Goal (Individualized) Description: You can add care plan individualizations to a care plan. Examples of Individualizationmight be: Parent requests to be called daily at 9am for status, I have a hard time hearing out of my right ear, or Do not touch me to wake me up as it startles me. Outcome: Progressing * Pharmacy-Admission Medication History - Linda Cheyr RP - 06/18/2024 10:36 AM CDT Pharmacist Admission Medication History Admission medication history is complete. The information provided in this note is only as accurateas the sources available at the time of the update. Information Source(s): Patient via in-person, [employer] Pertinent Information: - Changes made to DAY CARE HOME PROVIDER medication list: Added: Advair, insulin Lantus Deleted: insulin Levemir, bupropion, furosemide Changed: None Allergies reviewed with patient and updates made in EHR: unable to assess Medication History Completed By: Linda Chery RPH 06/18/2024 10:36 AM DAY CARE HOME PROVIDER Med List Medication Sig Last Dose albuterol (PROAIR HFA/PROVENTIL HFA/VENTOLIN HFA) 108 (90 Base) MCG/ACT inhaler INHALE 2 PUFFS EVERY 4 HOURS NEEDED FOR WHEEZE OR FOR SHORTNESS OF BREATH amLODIPine (NORVASC) 10 MG tablet Take 1 tablet (10 mg) by mouth daily 06/17/2024 aspirin EC 81 MG EC tablet Take 1 tablet (81 mg) by mouth daily 06/17/2024 atorvastatin (LIPITOR) 80 MG tablet Take 1 tablet (80 mg) by mouth daily 06/17/2024 clonazePAM (KLONOPIN) 0.5 MG tablet Take 0.5 tablets (0.25 mg) by mouth nightly as needed for anxiety Unknown coenzyme Q-10 200 MG CAPS capsule Take 1 capsule (200 mg) by mouth 06/17/2024 fluticasone-salmeterol (ADVAIR) 250-50 MCG/ACT inhaler Inhale 1 puff into the lungs 2 times daily. 06/17/2024 insulin aspart (NOVOLOG PEN) 100 UNIT/ML soln Inject 8 Units Subcutaneous 3 times daily (with meals) (Patient taking differently: Inject 20 Units subcutaneously 3 times daily (with meals).) 06/17/2024 JARDIANCE 10 MG TABS tablet TAKE 1 TAB BY MOUTH EVERY MORNING 06/17/2024 LANTUS SOLOSTAR 100 UNIT/ML soln Inject 28 Units subcutaneously every evening. 06/17/2024 at [facility] lisinopril-hydrochlorothiazide (ZESTORETIC) 20-12.5 MG tablet Take 1 tablet by mouth daily 06/17/2024 metoprolol tartrate (LOPRESSOR) 100 MG tablet Take 1 tablet (100 mg) by mouth 2 times daily 06/17/2024 nitroglycerin (NITROSTAT) 0.[address] 1 tablet (0.4 mg) under the tongue every 5 minutesas needed for chest pain Unknown * Plan of Care - Riya Acosta RN - 06/18/2024 6:44 AM CDT Admit from ER ~0130. Denies pain. Occasionally lightheaded. BP soft but stable. HS lopressor held per parameters. Pale dry skin with scattered scabs, scratches and bruising noted on abdomen- patient states he has two new kittens. Up with 1, walker to BR. Voiding without issue, no BM overnight. IVF infusing. NPO for GI consult today. RBG 159/120. Major Shift Events Admit from ER- oriented to room and POC reviewed, otherwise uneventful night, slept well. No significant change in condition. Treatment Plan: NPO, GI consult. Monitor HgB. Assist when OOB until symptoms improve. Problem: Adult Inpatient Plan of Care Goal: Plan of Care Review Description: The Plan of Care Review/Shift note should be completed every shift. The Outcome Evaluation is a brief statement about your assessment that the patient is improving, declining, or no change. This information will be displayed automatically on your shift note. Outcome: Progressing Flowsheets (Taken 06/18/2024 0644) Plan of Care Reviewed With: patient Overall Patient Progress: improving Goal: Patient-Specific Goal (Individualized) Description: You can add care plan individualizations to a care plan. Examples of Individualizationmight be: Parent requests to be called daily at 9am for status, I have a hard time hearing out of my right ear, or Do not touch me to wake me up as it startles me. Outcome: Progressing Goal: Absence of Hospital-Acquired Illness or Injury Outcome: Progressing Intervention: Identify and Manage Fall Risk Recent Flowsheet Documentation Taken 06/18/2024 012 by Riya Acosta RN Safety Promotion/Fall Prevention: safety round/check completed Intervention: Prevent Skin Injury Recent Flowsheet Documentation Taken 06/18/2024119 by Riya Acosta, RN Body Position: position changed independently Goal: Optimal Comfort and Wellbeing Outcome: Progressing Goal: Readiness for Transition of Care Outcome: Progressing Intervention: Mutually Develop Transition Plan Recent Flowsheet Documentation Taken 06/18/2024 0100 by Riya Acosta, RN Equipment Currently Used at Home: none Goal Outcome Evaluation: Plan of Care Reviewed With: patient Overall Patient Progress: improvingOverall Patient Progress: improving documented in this encounter Plan of Treatment [...] METER Routine 06/18/2024 10:1 8 AM CDT BASIC METABOLIC PANEL Routine 06/18/2024 6:43 AM CDT CBC WITH PLATELETS Routine 06/18/2024 6: 43 AM CDT GLUCOSE BY METER Routine 06/18/2024 5:30 AM CDT GLUCOSE BY METER Routine 06/18/2024 1:24 AM CDT OCCULT BLOOD STOOL STAT 06/17/2024 8: 10 PM CDT EXTRA TUBE STAT 06/17/2024 7:48 PM CDT EXTRA RED TOP TUBE STAT 06/17/2024 7: 48 PM CDT CBC WITH PLATELETS AND DIFFERENTIAL STAT 06/17/2024 7:48 PM CDT TYPE AND SCREEN, ADULT STAT 7:48 PM CDT CBC WITH PLATELETS & DIFFERENTIAL STAT 06/17/2024 7:48 PM CDT INR STAT 06/17/2024 7:48 PM CDT HEMOGLOBIN A1C Add-On 06/17/2024 7:48 PM CDT COMPREHENSIVE METABOLIC PANEL STAT 06/17/2024 7:48 PM CDT ETHYL ALCOHOL LEVEL STAT 06/17/2024 7 :48 PM CDT ABO/RH TYPE AND SCREEN STAT 7:48 PM CDT documented in this encounter Results * (ABNORMAL) Glucose by meter (06/19/2024 8:26 AM CDT) [facility] GLUCOSE BY METER POCT 179(H) 70 - 99 mg/dL 06/19/2024 8:33 AM CDT [facility] POC Blood, Capillary BLOOD SPECIMEN / Unknown 06/19/2024 8:26 AM CDT 06/19/2024 8:33 AM CDT us Ge VENTURA - BEZA POCT Final Result [facility] [address] [facility] (1st floor, no room number) [place] [id number] [place] [address] * Extra Green Top Tube (LAB USE ONLY) (06/19/2024 7:37 AM CDT) Hold Specimen JIC 06/19/2024 9:02 AM CDT LABORATORY Blood STRUCTURE OF RIGHT HAND / Unknown Venipuncture / Unknown 06/19/2024 7:37 AM CDT 06/19/2024 7:48 AM CDT Jassi Felix MD LAB - BLOOD ORDERABLES Final Result [facility] [address] [facility] (1st floor, no room number) [address] [place] [address] * (ABNORMAL) Hemoglobin (06/19/2024 7:37 AM CDT) Pathologist [facility] Hemoglobin 8.2(L) 13.3 - 17.7 g/dL 06/19/2024 7:53 AM CDT LABORATORY Blood STRUCTURE OF RIGHT HAND / Unknown Venipuncture / Unknown 06/19/2024 7:37 AM CDT 06/19/2024 7:48 AM CDT us Elvis Herman DO LAB - BLOOD ORDERABLES Final R esult [facility] [address] Lab (1st floor, no room number) [place] [phone] [place] [address] * (ABNORMAL) Glucose by meter (06/19/2024 1:09 AM CDT) GLUCOSE BY METER POCT 146(H) 70 - 99 mg/dL 06/19/2024 1:15 AM CDT LABORATORY POC Blood, Capillary BLOOD SPECIMEN / Unknown 06/19/2024 1:09 AM CDT 06/19/2024 1:15 AM CDT Ge Bowman MD LAB - BEAKER POCT Final Result LABORATORY [facility] [address] Lab (1st floor, no room number) [address] * (ABNORMAL) Glucose by meter (06/18/2024 9:31 PM CDT) GLUCOSE BY METER POCT 169(H) 70 - 99 mg/dL 06/18/2024 9:38 PM CDT RH LABORATORY POC Blood, Capillary BLOOD SPECIMEN / Unknown 06/18/2024 9:31 PM CDT 06/18/2024 9:38 PM CDT Ge Bowman MD LAB - BEAKER POCT Final Result Performing Organization Address [facility]/ZIP Co de Phone Number LABORATORY [facility] [address] Lab (1st floor, no room number) [address] * (ABNORMAL) Glucose by meter (06/18/2024 5:50 PM CDT) GLUCOSE BY METER POCT 164(H) 70 - 99 mg/dL 06/18/2024 5:56 PM CDT LABORATORY POC Blood, Capillary BLOOD SPECIMEN / Unknown 06/18/2024 5:50 PM CDT 06/18/2024 5:56 PM CDT Ge Bowman MD LAB - BEAKER POCT Final Result LABORATORY [facility] [address] Lab (1st floor, no room number) [address] * (ABNORMAL) Hemoglobin (06/18/2024 3:14 PM CDT) Hemoglobin 7.8(L) 13.3 - 17.7 g/dL 06/18/2024 3:28 PM CDT RH LABORATORY Blood STRUCTURE OF RIGHT UPPER LIMB / Unknown Venipuncture / Unknown 06/18/2024 3:14 PM CDT 06/18/2024 3:25 PM CDT Elvis Herman DO LAB - BLOOD ORDERABLES Final R esult LABORATORY [facility] [address] Lab (1st floor, no room number) [address] [place] [address] * (ABNORMAL) Glucose by meter (06/18/2024 2:31 PM CDT) GLUCOSE BY METER POCT 142(H) 70 - 99 mg/dL 06/18/2024 2:37 PM CDT LABORATORY POC Blood, Capillary BLOOD SPECIMEN / Unknown 06/18/2024 2:31 PM CDT 06/18/2024 2:37 PM CDT Ge Bowman MD LAB - BEAKER POCT Final Result Performing Organization Address [facility]/State/ZIP Co de Phone Number LABORATORY POC [facility] [address] Lab (1st floor, no room number) [address] * Surgical Pathology Exam (06/18/2024 1:27 PM CDT) Case Report Surgical Pathology Report ? Case: [id number] ? Authorizing Provider: ??Kiet Brown MD ? Collected: ? 06/18/2024 01:27 PM ? Ordering Location: ? [facility] ?Received: ?06/18/2024 01:58 PM ? [facility] [place] ? Pathologist: ? Nicole Parham MD ? Specimen: ?Stomach, gastric biopsies for h.pylori ? 06/19/2024 12:49 PM [facility] LABORATORY Final Diagnosis A. Stomach, biopsy: - Oxyntic and antral type gastric mucosa with mild chronic inflammation. - Negative for H. Pylori organisms on routine stains. - Negative for intestinal metaplasia. -Negative for dysplasia or malignancy 06/19/2024 12:49 PM [facility] LABORATORY Clinical Information Procedure: ESOPHAGOGASTRO DUODENOSCOPY, WITH BIOPSies using cold biopsy forceps Pre-op Diagnosis: Anemia, unspecified type [D64.9] Post-op Diagnosis: D64.9 - Anemia, unspecified type [ICD-10-CM] 06/19/2024 12:49 PM [facility] LABORATORY Gross Description A(1). Stomach, gastric biopsies for h.pylori: The specimen is received in formalin, labeled with the patient's name, medical record number and other identifying information and designated ? gastric biopsies? . It consists of 4 crawford soft tissue fragments ranging from 0.2-0.3 cm. Entirely submitted in one cassette. (JU Silva)06/18/2024 2:01 PM 06/19/2024 12:49 PM [facility] LABORATORY Microscopic Description Microscopic examination was performed. 06/19/2024 12:49 PM CDT LABORATORY Performing Labs The technical component of this testing was completed at [facility]. Stain controls for all stains resulted within this report have been reviewed and show appropriate reactivity. 06/19/2024 12:49 PM CDT LABORATORY Case Images 06/19/2024 12:49 PM CDT LABORATORY Biopsy STOMACH STRUCTURE / Unknown 06/18/2024 1:27 PM CDT 06/18/2024 1:58 PM CDT us Kiet Brown MD LAB - BEZA AP Final Resul t LABORATORY [facility] [email or web address] Lab (1st floor, no room number) [address] * (ABNORMAL) Glucose by meter (06/18/2024 12:35 PM CDT) GLUCOSE BY METER POCT 136(H) 70 - 99 mg/dL 06/18/2024 12:42 PM CDT LABORATORY POC Blood, venous BLOOD SPECIMEN / Unknown 06/18/2024 12:35 PM CDT 06/18/2024 12:42 PM CDT us Ge Bowmna MD LAB - BEZA POCT Final Result LABORATORY [facility] [email or web address] Lab (1st floor, no room number) [address] * UPPER GI ENDOSCOPY (06/18/2024 12:29 PM CDT) Upper GI Endoscopy [facility] Patient Name: Dustin Carrera ?Procedure Date: 06/18/2024 12:29 PM ? Date of : 1960 ? Admit Type: Inpatient Age: 63 ? Gender: Male Attending MD: KIET BROWN MD, ??Total Sedation Time: Minutes of continuous bedside 1:1: 15 minutes Instrument Name: [id number] Gastroscope Procedure: ?Upper GI endoscopy Indications: ?Melena, [...] The ?Olympus Gasrointestinal Videoscope, Model# ?GIF-1100, Censitrac# [id number], SN# [id number] ?was introduced through the mouth, and advanced [...] Procedure Code(s): ? --- Professional --- ? 93166, Esophagogastroduod enoscopy, flexible, transoral; with biopsy, ? single or multiple Diagnosis Code(s): ? --- Professional --- ? D64.9, Anemia, unspecified ? K92.1, Melena (includes Hematochezia) ? K29.80, Duodenitis without bleeding CPT copyright 2021 [employer]. All rights reserved. The codes documented in this report are preliminary and upon top installer review may be revised to meet current compliance requirements. Kiet Brown M.D. ___ KIET BROWN MD 06/18/2024 1:38:23 PM Number of Addenda: 0 Note Initiated On: 06/18/2024 12:29 PM MRN: ?[id number] Procedure Date: ? 06/18/2024 12:29:49 PM Total Procedure Duration: 0 hours 11 minutes 0 seconds Estimated Blood Loss: ? Scope In: 1:17:45 PM Scope Out: 1:28:45 PM RADIOLOGY RESULTS 06/18/2024 12:2 9 PM CDT us Kiet Brown MD PROCEDURES Final Resul t RADIOLOGY RESULTS * (ABNORMAL) Glucose by meter (06/18/2024 10:18 AM CDT) GLUCOSE BY METER POCT 130(H) 70 - 99 mg/dL 06/18/2024 10:25 AM CDT LABORATORY POC Blood, Capillary BLOOD SPECIMEN / Unknown 06/18/2024 10:18 AM CDT 06/18/2024 10:25 AM CDT us Ge Bowman MD LAB - BEAKER POCT Final Result RH LABORATORY POC [facility] [address] Lab (1st floor, no room number) [place] [address], [facility] * (ABNORMAL) CBC with platelets (06/18/2024 6:43 [...] BLOOD ORDERABLES Final Re sult RH LABORATORY [facility] [address] Lab (1st floor, no room number) [place] [address], [facility] * (ABNORMAL) Basic metabolic panel (06/18/2024 6:43 AM CDT) Sodium 141 135 - 145 mmol/L 06/18/2024 7:24 AM CDT LABORATORY Potassium 3.8 3.4 - 5.3 mmol/L 06/18/2024 7:24 AM CDT LABORATORY Chloride 106 98 - 107 mmol/L 06/18/2024 7:24 AM CDT LABORATORY Carbon Dioxide (CO2) 25 22 - 29 mmol/L 06/18/2024 7:24 AM CDT LABORATORY Anion Gap 10 7 - 15 mmol/L 06/18/2024 7:24 AM CDT LABORATORY Urea Nitrogen 27.9(H) 8.0 - 23.0 mg/dL 06/18/2024 7:24 AM CDT LABORATORY Creatinine 1.20(H) 0.67 - 1.17 mg/dL 06/18/2024 7:24 AM CDT LABORATORY GFR Estimate 67 >60 mL/min/1.7 3m2 06/18/2024 7:24 AM CDT LABORATORY Comment:eGFR calculated usin 2020 CKD-EPI equation. Calcium 7.5(L) 8.8 - 10.4 mg/dL 06/18/2024 7:24 AM CDT LABORATORY Comment:Reference intervals for this test were updated on 03/26/2024 to reflect our healthy population more accurately. There may be differences in the flagging of prior results with similar values performed with this method. Those prior results can be interpreted in the context of the updated reference intervals. Glucose 125(H) 70 - 99 mg/dL 06/18/2024 7:24 AM CDT LABORATORY Blood STRUCTURE OF RIGHT UPPER LIMB / Unknown Venipuncture / Unknown 06/18/2024 6:43 AM CDT 06/18/2024 6:58 AM CDT us Kings Larson MD LAB - BLOOD ORDERABLES Final Re sult LABORATORY [facility] [address] Lab (1st floor, no room number) [place] [address], [facility] * (ABNORMAL) Glucose by meter (06/18/2024 5:30 AM CDT) GLUCOSE BY METER POCT 120(H) 70 - 99 mg/dL 06/18/2024 5:37 AM CDT LABORATORY POC Blood, Capillary BLOOD SPECIMEN / Unknown 06/18/2024 5:30 AM CDT 06/18/2024 5:37 AM CDT Ge Bowman MD LAB - BEAKER POCT Final Result LABORATORY [facility] [address] Lab (1st floor, no room number) [place] [phone], [facility] * (ABNORMAL) Glucose by meter (06/18/2024 1:24 AM CDT) GLUCOSE BY METER POCT 159(H) 70 - 99 mg/dL 06/18/2024 1:31 AM CDT LABORATORY POC Blood, Capillary BLOOD SPECIMEN / Unknown 06/18/2024 1:24 AM CDT 06/18/2024 1:31 AM CDT Ge Bowman MD LAB - BEAKER POCT Final Result Performing Organization Address [facility] Co de Phone Number [facility] [address] Lab (1st floor, no room number) [place] [phone] * (ABNORMAL) Occult blood stool (06/17/2024 8:10 PM CDT) Occult Blood Positive(A ) Negative ANAHI 06/17/2024 8:20 PM CDT LABORATORY Stool RECTAL CONTENTS / Unknown Non-blood Collection / Unknown 06/17/2024 8:10 PM CDT 06/17/2024 8:19 PM CDT us Kushal Portillo MD LAB - STOOLS ORDERABLES Shantel l Result [facility] [address] Lab (1st floor, no room number) [place] [address] * (ABNORMAL) Hemoglobin A1c (06/17/2024 7:48 PM CDT) [facility] Estimated Average Glucose 203(H) <117 mg/dL 06/17/2024 [...] LAB - BLOOD ORDERABLES Final Re sult [facility] [address] Lab (1st floor, no room number) [place] [address] * Extra Red Top Tube (06/17/2024 7:48 PM CDT) [facility] Hold Specimen JIC 06/17/2024 9:02 PM CDT RH LABORATORY Blood BLOOD SPECIMEN / Unknown Venipuncture / Unknown 06/17/2024 7:48 PM CDT 06/17/2024 7:55 PM CDT us Kushal Portillo MD LAB - BLOOD ORDERABLES Final Result LABORATORY [facility] [address] Lab (1st floor, no room number) [place] [address] * Adult Type and Screen (06/17/2024 7:48 PM CDT) [facility] ABO/RH(D) O POS 06/17/2024 7:31 PM CDT RH BLOOD BANK Antibody Screen Negative Negative 06/17/2024 7:31 PM CDT RH BLOOD BANK SPECIMEN EXPIRATION DATE [id number] 06/17/2024 7:31 PM CDT RH BLOOD BANK Blood BLOOD SPECIMEN / Unknown Venipuncture / Unknown 06/17/2024 7:48 PM CDT 06/17/2024 7:55 PM CDT us Kushal Portillo MD LAB - BLOOD BANK TEST ORDER Final Result RH BLOOD BANK [address] [place] [address], [facility] * (ABNORMAL) CBC with platelets and differential [...] LAB - BLOOD ORDERABLES Final Result LABORATORY [facility] [address] Lab (1st floor, no room number) [place] [address], [facility] * Ethyl Alcohol Level (06/17/2024 7:48 PM CDT) Alcohol ethyl <0.01 <=0.01 g/dL 06/17/2024 8:15 PM CDT RH LABORATORY Blood BLOOD SPECIMEN / Unknown Venipuncture / Unknown 06/17/2024 7:48 PM CDT 06/17/2024 7:55 PM CDT us Kushal Portillo MD LAB - BLOOD ORDERABLES Final Result RH LABORATORY [facility] [address] [facility] Lab (1st floor, no room number) [place] [address], [facility] * (ABNORMAL) Comprehensive metabolic panel (06/17/2024 7:48 PM CDT) Sodium 140 135 - 145 mmol/L 06/17/2024 8:15 PM CDT RH LABORATORY Potassium 4.2 3.4 - 5.3 mmol/L 06/17/2024 8:15 PM CDT RH LABORATORY Carbon Dioxide (CO2) 24 22 - 29 mmol/L 06/17/2024 8:15 PM CDT RH LABORATORY Anion Gap 15 7 - 15 mmol/L 06/17/2024 8:15 PM CDT RH LABORATORY Urea Nitrogen 30.5(H) 8.0 - 23.0 mg/dL 06/17/2024 8:15 PM CDT RH LABORATORY Creatinine 1.26(H) 0.67 - 1.17 mg/dL 06/17/2024 8:15 PM CDT RH LABORATORY GFR Estimate 63 >60 mL/min/1.7 3m2 06/17/2024 8:15 PM CDT RH LABORATORY Comment:eGFR calculated usin 2020 [...] MD LAB - BLOOD ORDERABLES Final Result [facility] [email or web address] Lab (1st floor, no room number) [place] [address] * INR (06/17/2024 7:48 PM CDT) INR 0.95 0.85 - 1.15 06/17/2024 8:10 PM CDT RH LABORATORY Blood BLOOD SPECIMEN / Unknown Venipuncture / Unknown 06/17/2024 7:48 PM CDT 06/17/2024 7:55 PM CDT Kushal Portillo MD LAB - BLOOD ORDERABLES Final Result [facility] [address] Lab (1st floor, no room number) [place] [address] documented in this encounter Visit Diagnoses Diagnosis UGIB (upper gastrointestinal bleed) Hemorrhage of gastrointestinal tract, unspecified Anemia due to blood loss, acute Acute posthemorrhagic anemia Anemia due to blood loss, acute Acute posthemorrhagic anemia UGIB (upper gastrointestinal bleed) Hemorrhage of gastrointestinal tract, unspecified documented in this encounter Administered Medications Inactive Administered Medications - up to 3 most recent administrations Medication Order MAR Action Action Date Dose Rate Site acetaminophen (TYLENOL) Suppository 650 mg 650 mg, Rectal, EVERY 4 HOURS PRN, mild pain, other, and adjunct with moderate or severe pain or per patient request, Starting on Mon06/17/24 at 2314, Alternate with ibuprofen if ordered. Maximum acetaminophen dose from all sources = 75 mg/kg/day not to exceed 4 grams/day. acetaminophen (TYLENOL) tablet 650 mg 650 mg, Oral, EVERY 4 HOURS PRN, mild pain, other, and adjunct with moderate or severe pain or per patient request, Starting on Mon06/17/24 at 2314, Alternate with ibuprofen if ordered. Maximum acetaminophen dose from all sources = 75 mg/kg/day not to exceed 4 grams/day. ALPRAZolam (XANAX) tablet 0.5 mg 0.5 mg, Oral, AT BEDTIME PRN, sleep, anxiety, Starting on Mon06/18/24 at 0147, Dose and sig verified with patient / RN Avoid taking with grapefruit juice $Given 06/18/2024 10:59 PM CDT 0.5 mg $Given 06/18/2024 1:58 AM CDT 0.5 mg dextrose 50 % injection 25-50 mL 25-50 mL, Intravenous, EVERY 15 MIN PRN, low blood sugar, Administer over 1-5 Minutes, Starting on Mon06/17/24 at 2314, Use if have IV access, BG less than 70 mg/dL and meet dose criteria below: Dose if conscious and alert (or disorientated) and NPO = 25 mL Dose if unconscious / not alert = 50 mL Give first dose for initial blood glucose less than 70 mg/dL. If blood glucose at 15 minute recheck is less than or equal to 80 mg/dL continue to administer carbohydrate treatment every 15 minutes, as needed, based on blood glucose and assessment parameters until blood glucose level is above 80 mg/dL x 2 consecutive 15 minute checks. empagliflozin (JARDIANCE) tablet 10 mg 10 mg, Oral, DAILY, First dose on Mon06/18/24 at 1030 $Given 06/19/2024 8:02 AM CDT 10 mg $Given 06/18/2024 11:35 AM CDT 10 mg fentaNYL (PF) (SUBLIMAZE) injection 50-100 mcg 50-100 mcg, Intravenous, EVERY 5 MIN PRN, severe pain, If inadequate response may repeat every 3 min PRN severe pain; when verbally requested by provider., Starting on Mon06/18/24 at 1311, Doses can be exceeded under direct oversight of patient by physician., Intra-procedure $Given 06/18/2024 1:16 PM CDT 100 mcg glucagon injection 1 mg 1 mg, Subcutaneous, EVERY 15 MIN PRN, low blood sugar, May repeat x 1 only, Starting on Mon06/17/24 at 2314, May give SQ or IM. ONLY use glucagon IF patient has NO IV access AND is UNABLE to swallow AND blood glucose is LESS than or EQUAL to 50 mg/dL. glucose gel 15-30 g 15-30 g, Oral, EVERY 15 MIN PRN, low blood sugar, Starting on Mon06/17/24 at 2314, Give first dose for initial blood glucose less than 70 mg/dL per the dosing instructions below. If blood glucose at 15 minute rechecks is still less than or equal to 80 mg/dL, continue to administer doses per blood glucose parameters every 15 minutes, as needed, until blood glucose level is at or above 80 mg/dL x 2 consecutive 15 minute checks. Dosing Instructions: ~If patient is conscious and able to swallow and NO enteral tube For initial BG 51-69mg/dL OR 15 minute recheck BG 51- 80 mg/dL - give 15 g For BG less than or equal to 50 mg/dL - give 30 g ~ If Enteral tube For initial BG 51-69mg/dL OR 15 minute recheck BG 51- 80 mg/dL - give apple juice 120 mL (4 oz or 15 g of CHO) via enteral tube For BG less than or equal to 50 mg/dL - Give apple juice 240 mL (8 oz or 30 g of CHO) via enteral tube ~Oral gel is preferable for conscious and able to swallow patient. ~IF gel unavailable or patient refuses may provide apple juice per Enteral tube dosing instructions. Document juice on I and O flowsheet. insulin aspart (NovoLOG) injection (RAPID ACTING) 1-12 Units, Subcutaneous, EVERY 4 HOURS, First dose on Mon06/17/24 at 2320, Correction Scale - HIGH INSULIN RESISTANCE DOSING? Do Not give Correction Insulin if BG less than 140 For BG 140 - 164 give 1 unit. For BG 165 - 189 give 2 units. For BG 190 - 214 give 3 units. For BG 215 - 239 give 4 units. For BG 240 - 264 give 5 units. For BG 265 - 289 give 6 units. For BG 290 - 314 give 7 units. For BG 315 - 339 give 8 units For BG 340??- 364 give 9 units For BG 365 - 389 give 10 units For BG 390 - 414 give 11 units For BG greater than or equal to 415 give 12 units Check blood glucose Q4H and administer based on blood glucose. Notify provider if glucose greater than or equal to 350 mg/dL after administration of correction dose. $Given 06/18/2024 10:07 PM CDT 2 Units $Given 06/18/2024 6:44 PM CDT 1 Units insulin aspart (NovoLOG) injection (RAPID ACTING) 1-12 Units, Subcutaneous, 4 TIMES DAILY BEFORE MEALS & NIGHTLY, First dose (after last reorder) on Mon06/19/24 at 0000, Correction Scale - HIGH INSULIN RESISTANCE DOSING? Do Not give Correction Insulin if BG less than 140 For BG 140 - 164 give 1 unit. For BG 165 - 189 give 2 units. For BG 190 - 214 give 3 units. For BG 215 - 239 give 4 units. For BG 240 - 264 give 5 units. For BG 265 - 289 give 6 units. For BG 290 - 314 give 7 units. For BG 315 - 339 give 8 units For BG 340??- 364 give 9 units For BG 365 - 389 give 10 units For BG 390 - 414 give 11 units For BG greater than or equal to 415 give 12 units Check blood glucose Q4H and administer based on blood glucose. Notify provider if glucose greater than or equal to 350 mg/dL after administration of correction dose. $Given 06/19/2024 8:50 AM CDT 2 Units insulin glargine (LANTUS PEN) injection 28 Units 28 Units, Subcutaneous, AT BEDTIME, First dose on Mon06/17/24 at 2345 $Given 06/18/2024 10:06 PM CDT 28 Units $Given 06/18/2024 1:29 AM CDT 20 Units lactated ringers infusion at 100 mL/hr, Intravenous, CONTINUOUS, Starting on Mon06/18/24 at 0000, Until Mon06/18/24 at 0959 $New Bag 06/18/2024 1:29 AM CDT 100 mL/hr metoprolol tartrate (LOPRESSOR) tablet 100 mg 100 mg, Oral, 2 TIMES DAILY, First dose on Mon06/17/24 at 2315, Hold for SBP < 110 or HR < 60 $Given 06/19/2024 8:02 AM CDT 100 mg $Given 06/18/2024 10:01 PM CDT 100 mg $Given 06/18/2024 11:36 AM CDT 100 mg midazolam (VERSED) injection 0.5-2 mg 0.5-2 mg, Intravenous, EVERY 4 MIN PRN, sedation, If inadequate response may repeat every 4 minutes PRN sedation until desired response; when verbally requested by provider., Starting on Mon06/18/24 at 1311, Doses can be exceeded under direct oversight of patient by physician. This drug may cause significant respiratory depression. Monitor respiratory status and vital signs carefully for 1 hour after each dose., Intra-procedure $Given 06/18/2024 1:16 PM CDT 2 mg naloxone (NARCAN) injection 0.2 mg 0.2 mg, Intravenous, EVERY 2 MIN PRN, opioid reversal, Starting on Mon06/18/24 at 1350, Administer intravenous route when available and notify provider when administered. For unintended sedation or respiratory depression if all of the below criteria are met: ~ respiratory rate LESS than or EQUAL to 8. ~SaO2 less than 92% and or/end-tidal CO2 is greater than 50. ~ the patient is receiving an opioid, has unintended sedations assessed as RASS (-3), and is currently not on mechanical ventilation. RASS scale moderate (-3) is movement or eye opening to voice but no eye contact. Patient Monitoring Once the patient has demonstrated a response to the naloxone, continue to monitor respiratory rate, depth, oxygen saturation and end-tidal CO2 (if available) every 15 minutes x 2, then every 30 minutes x 2, then every 1 hour x 1 after each naloxone dose. Consider transfer to ICU if patient respiratory parameters have not improved after 4 naloxone doses. naloxone (NARCAN) injection 0.2 mg 0.2 mg, Intramuscular, EVERY 2 MIN PRN, opioid reversal, Starting on Mon06/18/24 at 1350, Administer intramuscular if an intravenous route is not available and notify provider when administered. For unintended sedation or respiratory depression if all of the below criteria are met: ~ respiratory rate LESS than or EQUAL to 8. ~SaO2 less than 92% and or/end-tidal CO2 is greater than 50. ~ the patient is receiving an opioid, has unintended sedations assessed as RASS (-3), and is currently not on mechanical ventilation. RASS scale moderate (-3) is movement or eye opening to voice but no eye contact. Patient Monitoring Once the patient has demonstrated a response to the naloxone, continue to monitor respiratory rate, depth, oxygen saturation and end-tidal CO2 (if available) every 15 minutes x 2, then every 30 minutes x 2, then every 1 hour x 1 after each naloxone dose. Consider transfer to ICU if patient respiratory parameters have not improved after 4 naloxone doses. naloxone (NARCAN) injection 0.4 mg 0.4 mg, Intravenous, EVERY 2 MIN PRN, opioid reversal, Starting on Mon06/18/24 at 1350, Administer intravenous route when available and notify provider when administered. For unintended sedation or respiratory depression if all of the below criteria are met: ~ respiratory rate LESS than or EQUAL to 8. ~ SaO2 less than 92% and or/end-tidal CO2 is greater than 50. ~ the patient is receiving an opioid, has unintended sedation assessed as RASS (-4) or (-5) and patient is currently not on mechanical ventilation. RASS scale (-4) is deep sedation with no response to voice but movement or eye opening to physical stimulation. RASS scale (-5) is unarousable. Patient Monitoring Once the patient has demonstrated a response to the naloxone, continue to monitor respiratory rate, depth, oxygen saturation and end-tidal CO2 (if available) every 15 minutes x 2, then every 30 minutes x 2, then every 1 hour x 1 after each naloxone dose. Consider transfer to ICU if patient respiratory parameters have not improved after 4 naloxone doses. naloxone (NARCAN) injection 0.4 mg 0.4 mg, Intramuscular, EVERY 2 MIN PRN, opioid reversal, Starting on Mon06/18/24 at 1350, Administer intramuscular if an intravenous route is not available and notify provider when administered. For unintended sedation or respiratory depression if all of the below criteria are met: ~ respiratory rate LESS than or EQUAL to 8. ~ SaO2 less than 92% and or/end-tidal CO2 is greater than 50. ~ the patient is receiving an opioid, has unintended sedation assessed as RASS (-4) or (-5) and patient is currently not on mechanical ventilation. RASS scale (-4) is deep sedation with no response to voice but movement or eye opening to physical stimulation. RASS scale (-5) is unarousable. Patient Monitoring Once the patient has demonstrated a response to the naloxone, continue to monitor respiratory rate, depth, oxygen saturation and end-tidal CO2 (if available) every 15 minutes x 2, then every 30 minutes x 2, then every 1 hour x 1 after each naloxone dose. Consider transfer to ICU if patient respiratory parameters have not improved after 4 naloxone doses. ondansetron (ZOFRAN ODT) ODT tab 4 mg 4 mg, Oral, EVERY 6 HOURS PRN, nausea, vomiting, Starting on Mon06/17/24 at 2314, This is Step 1 of nausea and vomiting management. If nausea not resolved in 15 minutes, go to Step 2 prochlorperazine (COMPAZINE). With dry hands, peel back foil backing and gently remove tablet. Do not push oral disintegrating tablet through foil backing. Administer immediately on tongue and oral disintegrating tablet dissolves in seconds, then swallow with saliva. Liquid not required. ondansetron (ZOFRAN) injection 4 mg 4 mg, Intravenous, EVERY 6 HOURS PRN, nausea, vomiting, Administer over 2-5 Minutes, Starting on Mon06/17/24 at 2314, Give IF patient unable to tolerate oral medication. This is Step 1 of nausea and vomiting management. If nausea not resolved in 15 minutes, go to Step 2 prochlorperazine (COMPAZINE). pantoprazole (PROTONIX) IV push injection 40 mg 40 mg, Intravenous, ONCE, On Mon06/17/24 at 1935, For 1 dose $Given 06/17/2024 7:50 PM CDT 40 mg pantoprazole (PROTONIX) IV push injection 40 mg 40 mg, Intravenous, EVERY 12 HOURS, First dose on Mon06/18/24 at 0800 $Given 06/19/2024 8:04 AM CDT 40 mg $Given 06/18/2024 10:03 PM CDT 40 mg $Given 06/18/2024 10:13 AM CDT 40 mg senna-docusate (SENOKOT-S/PERICOLACE) 8.6-50 MG per tablet 1 tablet 1 tablet, Oral, 2 TIMES DAILY PRN, constipation, Starting on Mon06/17/24 at 2314, If no bowel movement in 24 hours, increase to 2 tablets by mouth. IF more than 1 constipation PRN medication is ordered, administer step-chandra as indicated, moving to the next step ONLY if prior step ineffective. Step 1: senna-docusate (SENOKOT-S; PERICOLACE) OR bisacodyl (DULCOLAX) EC tablet Step 2: polyethylene glycol (MIRALAX/GLYCOLAX) Step 3: bisacodyl (DULCOLAX) suppository Step 4: enema Hold for loose stools. senna-docusate (SENOKOT-S/PERICOLACE) 8.6-50 MG per tablet 2 tablet 2 tablet, Oral, 2 TIMES DAILY PRN, constipation, Starting on Mon06/17/24 at 2314, IF more than 1 constipation PRN medication is ordered, administer step-chandra as indicated, moving to the next step ONLY if prior step ineffective. Step 1: senna-docusate (SENOKOT-S; PERICOLACE) OR bisacodyl (DULCOLAX) EC tablet Step 2: polyethylene glycol (MIRALAX/GLYCOLAX) Step 3: bisacodyl (DULCOLAX) suppository Step 4: enema Hold for loose stools. sodium chloride (PF) 0.9% PF flush 3 mL 3 mL, Intracatheter, EVERY 8 HOURS, First dose on Mon06/17/24 at 2315, to lock peripheral IV dormant line $Given 06/18/2024 6:48 PM CDT 3 mLs $Given 06/18/2024 10:14 AM CDT 3 mLs sodium chloride (PF) 0.9% PF flush 3 mL 3 mL, Intravenous, EVERY 1 MIN PRN, line flush, Starting on Mon06/18/24 at 1311, Indications: for Peripheral IV flush post IV meds, Intra-procedureIndications:for Peripheral IV flush post IV meds $Given 06/18/2024 1:16 PM CDT 3 mLs documented in this encounter Active and Recently Administered Medications Times are shown in CDT. Scheduled Medication Order 06/17/2024 06/18/2024 06/19/2024 empagliflozin (JARDIANCE) tablet 10 mg 10 mg, Oral, DAILY, First dose on Mon06/18/24 at 1030 1135 ($Given - Provider: Dominik Serrano RN) 0802 ($Given - Provider: Jude Lynn RN) insulin aspart (NovoLOG) injection (RAPID ACTING) (CANCELED) 1-12 Units, Subcutaneous, EVERY 4 HOURS, First dose on Mon06/17/24 at 2320, Correction Scale - HIGH INSULIN RESISTANCE DOSING? Do Not give Correction Insulin if BG less than 140 For BG 140 - 164 give 1 unit. For BG 165 - 189 give 2 units. For BG 190 - 214 give 3 units. For BG 215 - 239 give 4 units. For BG 240 - 264 give 5 units. For BG 265 - 289 give 6 units. For BG 290 - 314 give 7 units. For BG 315 - 339 give 8 units For BG 340??- 364 give 9 units For BG 365 - 389 give 10 units For BG 390 - 414 give 11 units For BG greater than or equal to 415 give 12 units Check blood glucose Q4H and administer based on blood glucose. Notify provider if glucose greater than or equal to 350 mg/dL after administration of correction dose. 0200 (Not Given - Provider: Riya Acosta RN - Reason: Patient/family refused)1051 (Not Given - Provider: Dominik Serrano RN - Reason: Order parameters not met)1503 (Not Given - Provider: Dominik Serrano RN - Reason: Order parameters not met)1844 ($Given - Provider: Sven William RN)2207 ($Given - Provider: Sven William, YONATHAN) insulin aspart (NovoLOG) injection (RAPID ACTING) 1-12 Units, Subcutaneous, 4 TIMES DAILY BEFORE MEALS & NIGHTLY, First dose (after last reorder) on Mon06/19/24 at 0000, Correction Scale - HIGH INSULIN RESISTANCE DOSING? Do Not give Correction Insulin if BG less than 140 For BG 140 - 164 give 1 unit. For BG 165 - 189 give 2 units. For BG 190 - 214 give 3 units. For BG 215 - 239 give 4 units. For BG 240 - 264 give 5 units. For BG 265 - 289 give 6 units. For BG 290 - 314 give 7 units. For BG 315 - 339 give 8 units For BG 340??- 364 give 9 units For BG 365 - 389 give 10 units For BG 390 - 414 give 11 units For BG greater than or equal to 415 give 12 units Check blood glucose Q4H and administer based on blood glucose. Notify provider if glucose greater than or equal to 350 mg/dL after administration of correction dose. 2338 (Canceled Entry - Provider: Riya Acosta RN - Comment: already given) 0850 ($Given - Provider: Jude Lynn RN)1130 (Canceled Entry - Provider: Orders Generic Provider - Comment: Automatically canceled at discontinue of medication order) insulin glargine (LANTUS PEN) injection 28 Units 28 Units, Subcutaneous, AT BEDTIME, First dose on Mon06/17/24 at 2345 0129 ($Given - Provider: Riya Acosta RN - Comment: patient only agreed to 20 units due to NPO status)2206 ($Given - Provider: Sven William RN) metoprolol tartrate (LOPRESSOR) tablet 100 mg 100 mg, Oral, 2 TIMES DAILY, First dose on Mon06/17/24 at 2315, Hold for SBP < 110 or HR < 60 0121 (Not Given - Provider: Riya Acosta RN - Reason: Contraindicated)113 6 ($Given - Provider: Dominik Serrano RN)2201 ($Given - Provider: Sven William, YONATHAN) 0802 ($Given - Provider: Jude Lynn RN) pantoprazole (PROTONIX) IV push injection 40 mg (COMPLETED) 40 mg, Intravenous, ONCE, On Mon06/17/24 at 1935, For 1 dose 1950 ($Given - Provider: Regina Nobles RN) pantoprazole (PROTONIX) IV push injection 40 mg 40 mg, Intravenous, EVERY 12 HOURS, First dose on Mon06/18/24 at 0800 1013 ($Given - Provider: Dominik Serrano RN)2203 ($Given - Provider: Sven William RN) 0804 ($Given - Provider: Jude Lynn RN) sodium chloride (PF) 0.9% PF flush 3 mL 3 mL, Intracatheter, EVERY 8 HOURS, First dose on Mon06/17/24 at 2315, to lock peripheral IV dormant line 0121 (Canceled Entry - Provider: Riya Acosta RN)1014 ($Given - Provider: Dominik Serrano RN)1848 ($Given - Provider: Sven William, YONATHAN) 0949 (Canceled Entry - Provider: Jude Lynn RN) Continuous Medication Order 06/17/2024 06/18/2024 06/19/2024 lactated ringers infusion (CANCELED) at 100 mL/hr, Intravenous, CONTINUOUS, Starting on Mon06/18/24 at 0000, Until Mon06/18/24 at 0959 0129 ($New Bag - Provider: Riya Acosta RN) PRN Medication Order 06/17/2024 06/18/2024 06/19/2024 acetaminophen (TYLENOL) Suppository 650 mg(Linked Group 1) 650 mg, Rectal, EVERY 4 HOURS PRN, mild pain, other, and adjunct with moderate or severe pain or per patient request, Starting on Mon06/17/24 at 2314, Alternate with ibuprofen if ordered. Maximum acetaminophen dose from all sources = 75 mg/kg/day not to exceed 4 grams/day. acetaminophen (TYLENOL) tablet 650 mg(Linked Group 1) 650 mg, Oral, EVERY 4 HOURS PRN, mild pain, other, and adjunct with moderate or severe pain or per patient request, Starting on Mon06/17/24 at 2314, Alternate with ibuprofen if ordered. Maximum acetaminophen dose from all sources = 75 mg/kg/day not to exceed 4 grams/day. ALPRAZolam (XANAX) tablet 0.5 mg 0.5 mg, Oral, AT BEDTIME PRN, sleep, anxiety, Starting on Mon06/18/24 at 0147, Dose and sig verified with patient / RN Avoid taking with grapefruit juice 0158 ($Given - Provider: Riya Acosta RN)2259 ($Given - Provider: Sven William, YONATHAN) calcium carbonate (TUMS) chewable tablet 1,000 mg 1,000 mg, Oral, 4 TIMES DAILY PRN, heartburn, Starting on Mon06/17/24 at 2314 dextrose 50 % injection 25-50 mL(Linked Group 2) 25-50 mL, Intravenous, EVERY 15 MIN PRN, low blood sugar, Administer over 1-5 Minutes, Starting on Mon06/17/24 at 2314, Use if have IV access, BG less than 70 mg/dL and meet dose criteria below: Dose if conscious and alert (or disorientated) and NPO = 25 mL Dose if unconscious / not alert = 50 mL Give first dose for initial blood glucose less than 70 mg/dL. If blood glucose at 15 minute recheck is less than or equal to 80 mg/dL continue to administer carbohydrate treatment every 15 minutes, as needed, based on blood glucose and assessment parameters until blood glucose level is above 80 mg/dL x 2 consecutive 15 minute checks. fentaNYL (PF) (SUBLIMAZE) injection 50-100 mcg (CANCELED) 50-100 mcg, Intravenous, EVERY 5 MIN PRN, severe pain, If inadequate response may repeat every 3 min PRN severe pain; when verbally requested by provider., Starting on Mon06/18/24 at 1311, Doses can be exceeded under direct oversight of patient by physician., Intra-procedure 1316 ($Given - Provider: Theresa Rodriguez RN) flumazenil (ROMAZICON) injection 0.2 mg 0.2 mg, Intravenous, EVERY 1 MIN PRN, benzodiazepine reversal, over sedation, Administer over 1 Minutes, Starting on Mon06/18/24 at 1350, For 12 hours, Give over 15 seconds. If inadequate response after 45 seconds, may repeat up to a MAX total dose of 1 mg) Use with caution in patients on benzodiazepine therapy. glucagon injection 1 mg(Linked Group 2) 1 mg, Subcutaneous, EVERY 15 MIN PRN, low blood sugar, May repeat x 1 only, Starting on Mon06/17/24 at 2314, May give SQ or IM. ONLY use glucagon IF patient has NO IV access AND is UNABLE to swallow AND blood glucose is LESS than or EQUAL to 50 mg/dL. glucose gel 15-30 g(Linked Group 2) 15-30 g, Oral, EVERY 15 MIN PRN, low blood sugar, Starting on Mon06/17/24 at 2314, Give first dose for initial blood glucose less than 70 mg/dL per the dosing instructions below. If blood glucose at 15 minute rechecks is still less than or equal to 80 mg/dL, continue to administer doses per blood glucose parameters every 15 minutes, as needed, until blood glucose level is at or above 80 mg/dL x 2 consecutive 15 minute checks. Dosing Instructions: ~If patient is conscious and able to swallow and NO enteral tube For initial BG 51-69mg/dL OR 15 minute recheck BG 51- 80 mg/dL - give 15 g For BG less than or equal to 50 mg/dL - give 30 g ~ If Enteral tube For initial BG 51-69mg/dL OR 15 minute recheck BG 51- 80 mg/dL - give apple juice 120 mL (4 oz or 15 g of CHO) via enteral tube For BG less than or equal to 50 mg/dL - Give apple juice 240 mL (8 oz or 30 g of CHO) via enteral tube ~Oral gel is preferable for conscious and able to swallow patient. ~IF gel unavailable or patient refuses may provide apple juice per Enteral tube dosing instructions. Document juice on I and O flowsheet. HYDROmorphone (DILAUDID) injection 0.2 mg 0.2 mg, Intravenous, EVERY 2 HOURS PRN, moderate pain, IF patient cannot take oral opioid OR IF pain not managed with non-pharmacological, non-opioid, or oral opioid interventions if ordered, Starting on Mon06/17/24 at 2314, May use concomitant with non-opioid analgesics. HYDROmorphone (DILAUDID) injection 0.4 mg 0.4 mg, Intravenous, EVERY 2 HOURS PRN, severe pain, IF patient cannot take oral opioid OR IF pain not managed with non-pharmacological, non-opioid, or oral opioid interventions if ordered, Starting on Mon06/17/24 at 2314, May use concomitant with non-opioid analgesics. lidocaine (LMX4) cream Topical, EVERY 1 HOUR PRN, pain, with VAD insertion, Starting on Mon06/17/24 at 2314, Apply at least 30 minutes prior to VAD insertion in divided doses as needed for size of site for insertion. MAX Dose: 2.5 g (?? of 5 g tube) Do NOT give if patient has a history of allergy to any local anesthetic or any alejandro product. Do NOT use both lidocaine intradermal/subcutaneous injection and the lidocaine cream on the same site. lidocaine 1 % 0.1-1 mL 0.1-1 mL, Other, EVERY 1 HOUR PRN, mild pain with VAD insertion, Starting on Mon06/17/24 at 2314, MAX dose 1 mL subcutaneous OR intradermal along the side of the vein in divided doses as needed for VAD insertion. Do NOT give if patient has a history of allergy to any local anesthetic or any alejandro product. Do NOT use both lidocaine intradermal/subcutaneous injection and the lidocaine cream on the same site. midazolam (VERSED) injection 0.5-2 mg (CANCELED) 0.5-2 mg, Intravenous, EVERY 4 MIN PRN, sedation, If inadequate response may repeat every 4 minutes PRN sedation until desired response; when verbally requested by provider., Starting on Mon06/18/24 at 1311, Doses can be exceeded under direct oversight of patient by physician. This drug may cause significant respiratory depression. Monitor respiratory status and vital signs carefully for 1 hour after each dose., Intra-procedure 1316 ($Given - Provider: Theresa Rodriguez RN) naloxone (NARCAN) injection 0.2 mg 0.2 mg, Intravenous, EVERY 2 MIN PRN, opioid reversal, Starting on Mon06/18/24 at 1350, Administer intravenous route when available and notify provider when administered. For unintended sedation or respiratory depression if all of the below criteria are met: ~ respiratory rate LESS than or EQUAL to 8. ~SaO2 less than 92% and or/end-tidal CO2 is greater than 50. ~ the patient is receiving an opioid, has unintended sedations assessed as RASS (-3), and is currently not on mechanical ventilation. RASS scale moderate (-3) is movement or eye opening to voice but no eye contact. Patient Monitoring Once the patient has demonstrated a response to the naloxone, continue to monitor respiratory rate, depth, oxygen saturation and end-tidal CO2 (if available) every 15 minutes x 2, then every 30 minutes x 2, then every 1 hour x 1 after each naloxone dose. Consider transfer to ICU if patient respiratory parameters have not improved after 4 naloxone doses. naloxone (NARCAN) injection 0.2 mg 0.2 mg, Intramuscular, EVERY 2 MIN PRN, opioid reversal, Starting on Mon06/18/24 at 1350, Administer intramuscular if an intravenous route is not available and notify provider when administered. For unintended sedation or respiratory depression if all of the below criteria are met: ~ respiratory rate LESS than or EQUAL to 8. ~SaO2 less than 92% and or/end-tidal CO2 is greater than 50. ~ the patient is receiving an opioid, has unintended sedations assessed as RASS (-3), and is currently not on mechanical ventilation. RASS scale moderate (-3) is movement or eye opening to voice but no eye contact. Patient Monitoring Once the patient has demonstrated a response to the naloxone, continue to monitor respiratory rate, depth, oxygen saturation and end-tidal CO2 (if available) every 15 minutes x 2, then every 30 minutes x 2, then every 1 hour x 1 after each naloxone dose. Consider transfer to ICU if patient respiratory parameters have not improved after 4 naloxone doses. naloxone (NARCAN) injection 0.4 mg 0.4 mg, Intravenous, EVERY 2 MIN PRN, opioid reversal, Starting on Mon06/18/24 at 1350, Administer intravenous route when available and notify provider when administered. For unintended sedation or respiratory depression if all of the below criteria are met: ~ respiratory rate LESS than or EQUAL to 8. ~ SaO2 less than 92% and or/end-tidal CO2 is greater than 50. ~ the patient is receiving an opioid, has unintended sedation assessed as RASS (-4) or (-5) and patient is currently not on mechanical ventilation. RASS scale (-4) is deep sedation with no response to voice but movement or eye opening to physical stimulation. RASS scale (-5) is unarousable. Patient Monitoring Once the patient has demonstrated a response to the naloxone, continue to monitor respiratory rate, depth, oxygen saturation and end-tidal CO2 (if available) every 15 minutes x 2, then every 30 minutes x 2, then every 1 hour x 1 after each naloxone dose. Consider transfer to ICU if patient respiratory parameters have not improved after 4 naloxone doses. naloxone (NARCAN) injection 0.4 mg 0.4 mg, Intramuscular, EVERY 2 MIN PRN, opioid reversal, Starting on Mon06/18/24 at 1350, Administer intramuscular if an intravenous route is not available and notify provider when administered. For unintended sedation or respiratory depression if all of the below criteria are met: ~ respiratory rate LESS than or EQUAL to 8. ~ SaO2 less than 92% and or/end-tidal CO2 is greater than 50. ~ the patient is receiving an opioid, has unintended sedation assessed as RASS (-4) or (-5) and patient is currently not on mechanical ventilation. RASS scale (-4) is deep sedation with no response to voice but movement or eye opening to physical stimulation. RASS scale (-5) is unarousable. Patient Monitoring Once the patient has demonstrated a response to the naloxone, continue to monitor respiratory rate, depth, oxygen saturation and end-tidal CO2 (if available) every 15 minutes x 2, then every 30 minutes x 2, then every 1 hour x 1 after each naloxone dose. Consider transfer to ICU if patient respiratory parameters have not improved after 4 naloxone doses. ondansetron (ZOFRAN ODT) ODT tab 4 mg(Linked Group 3) 4 mg, Oral, EVERY 6 HOURS PRN, nausea, vomiting, Starting on Mon06/17/24 at 2314, This is Step 1 of nausea and vomiting management. If nausea not resolved in 15 minutes, go to Step 2 prochlorperazine (COMPAZINE). With dry hands, peel back foil backing and gently remove tablet. Do not push oral disintegrating tablet through foil backing. Administer immediately on tongue and oral disintegrating tablet dissolves in seconds, then swallow with saliva. Liquid not required. ondansetron (ZOFRAN) injection 4 mg(Linked Group 3) 4 mg, Intravenous, EVERY 6 HOURS PRN, nausea, vomiting, Administer over 2-5 Minutes, Starting on Mon06/17/24 at 2314, Give IF patient unable to tolerate oral medication. This is Step 1 of nausea and vomiting management. If nausea not resolved in 15 minutes, go to Step 2 prochlorperazine (COMPAZINE). senna-docusate (SENOKOT-S/PERICOLACE) 8.6-50 MG per tablet 1 tablet(Linked Group 4) 1 tablet, Oral, 2 TIMES DAILY PRN, constipation, Starting on Mon06/17/24 at 2314, If no bowel movement in 24 hours, increase to 2 tablets by mouth. IF more than 1 constipation PRN medication is ordered, administer step-chandra as indicated, moving to the next step ONLY if prior step ineffective. Step 1: senna-docusate (SENOKOT-S; PERICOLACE) OR bisacodyl (DULCOLAX) EC tablet Step 2: polyethylene glycol (MIRALAX/GLYCOLAX) Step 3: bisacodyl (DULCOLAX) suppository Step 4: enema Hold for loose stools. senna-docusate (SENOKOT-S/PERICOLACE) 8.6-50 MG per tablet 2 tablet(Linked Group 4) 2 tablet, Oral, 2 TIMES DAILY PRN, constipation, Starting on Mon06/17/24 at 2314, IF more than 1 constipation PRN medication is ordered, administer step-chandra as indicated, moving to the next step ONLY if prior step ineffective. Step 1: senna-docusate (SENOKOT-S; PERICOLACE) OR bisacodyl (DULCOLAX) EC tablet Step 2: polyethylene glycol (MIRALAX/GLYCOLAX) Step 3: bisacodyl (DULCOLAX) suppository Step 4: enema Hold for loose stools. sodium chloride (PF) 0.9% PF flush 3 mL 3 mL, Intracatheter, EVERY 1 MIN PRN, line flush, other, to ensure patency or to lock dormant line, Starting on Mon06/17/24 at 2314 sodium chloride (PF) 0.9% PF flush 3 mL (CANCELED) 3 mL, Intravenous, EVERY 1 MIN PRN, line flush, Starting on Mon06/18/24 at 1311, Indications: for Peripheral IV flush post IV meds, Intra-procedure 1316 ($Given - Provider: Theresa Rodriguez RN) Linked Groups Order Group 1: acetaminophen (TYLENOL) tablet 650 mgJump to med 650 mg, Oral, EVERY 4 HOURS PRN, mild pain, other, and adjunct with moderate or severe pain or per patient request, Starting on Mon06/17/24 at 2314, Alternate with ibuprofen if ordered. Maximum acetaminophen dose from all sources = 75 mg/kg/day not to exceed 4 grams/day. Or acetaminophen (TYLENOL) Suppository 650 mgJump to med 650 mg, Rectal, EVERY 4 HOURS PRN, mild pain, other, and adjunct with moderate or severe pain or per patient request, Starting on Mon06/17/24 at 2314, Alternate with ibuprofen if ordered. Maximum acetaminophen dose from all sources = 75 mg/kg/day not to exceed 4 grams/day. Group 2: glucose gel 15-30 gJump to med 15-30 g, Oral, EVERY 15 MIN PRN, low blood sugar, Starting on Mon06/17/24 at 2314, Give first dose for initial blood glucose less than 70 mg/dL per the dosing instructions below. If blood glucose at 15 minute rechecks is still less than or equal to 80 mg/dL, continue to administer doses per blood glucose parameters every 15 minutes, as needed, until blood glucose level is at or above 80 mg/dL x 2 consecutive 15 minute checks. Dosing Instructions: ~If patient is conscious and able to swallow and NO enteral tube For initial BG 51-69mg/dL OR 15 minute recheck BG 51- 80 mg/dL - give 15 g For BG less than or equal to 50 mg/dL - give 30 g ~ If Enteral tube For initial BG 51-69mg/dL OR 15 minute recheck BG 51- 80 mg/dL - give apple juice 120 mL (4 oz or 15 g of CHO) via enteral tube For BG less than or equal to 50 mg/dL - Give apple juice 240 mL (8 oz or 30 g of CHO) via enteral tube ~Oral gel is preferable for conscious and able to swallow patient. ~IF gel unavailable or patient refuses may provide apple juice per Enteral tube dosing instructions. Document juice on I and O flowsheet. Or dextrose 50 % injection 25-50 mLJump to med 25-50 mL, Intravenous, EVERY 15 MIN PRN, low blood sugar, Administer over 1-5 Minutes, Starting on Mon06/17/24 at 2314, Use if have IV access, BG less than 70 mg/dL and meet dose criteria below: Dose if conscious and alert (or disorientated) and NPO = 25 mL Dose if unconscious / not alert = 50 mL Give first dose for initial blood glucose less than 70 mg/dL. If blood glucose at 15 minute recheck is less than or equal to 80 mg/dL continue to administer carbohydrate treatment every 15 minutes, as needed, based on blood glucose and assessment parameters until blood glucose level is above 80 mg/dL x 2 consecutive 15 minute checks. Or glucagon injection 1 mgJump to med 1 mg, Subcutaneous, EVERY 15 MIN PRN, low blood sugar, May repeat x 1 only, Starting on Mon06/17/24 at 2314, May give SQ or IM. ONLY use glucagon IF patient has NO IV access AND is UNABLE to swallow AND blood glucose is LESS than or EQUAL to 50 mg/dL. Group 3: ondansetron (ZOFRAN ODT) ODT tab 4 mgJump to med 4 mg, Oral, EVERY 6 HOURS PRN, nausea, vomiting, Starting on Mon06/17/24 at 2314, This is Step 1 of nausea and vomiting management. If nausea not resolved in 15 minutes, go to Step 2 prochlorperazine (COMPAZINE). With dry hands, peel back foil backing and gently remove tablet. Do not push oral disintegrating tablet through foil backing. Administer immediately on tongue and oral disintegrating tablet dissolves in seconds, then swallow with saliva. Liquid not required. Or ondansetron (ZOFRAN) injection 4 mgJump to med 4 mg, Intravenous, EVERY 6 HOURS PRN, nausea, vomiting, Administer over 2-5 Minutes, Starting on Mon06/17/24 at 2314, Give IF patient unable to tolerate oral medication. This is Step 1 of nausea and vomiting management. If nausea not resolved in 15 minutes, go to Step 2 prochlorperazine (COMPAZINE). Group 4: senna-docusate (SENOKOT-S/PERICOLACE) 8.6-50 MG per tablet 1 tabletJump to med 1 tablet, Oral, 2 TIMES DAILY PRN, constipation, Starting on Mon06/17/24 at 2314, If no bowel movement in 24 hours, increase to 2 tablets by mouth. IF more than 1 constipation PRN medication is ordered, administer step-chandra as indicated, moving to the next step ONLY if prior step ineffective. Step 1: senna-docusate (SENOKOT-S; PERICOLACE) OR bisacodyl (DULCOLAX) EC tablet Step 2: polyethylene glycol (MIRALAX/GLYCOLAX) Step 3: bisacodyl (DULCOLAX) suppository Step 4: enema Hold for loose stools. Or senna-docusate (SENOKOT-S/PERICOLACE) 8.6-50 MG per tablet 2 tabletJump to med 2 tablet, Oral, 2 TIMES DAILY PRN, constipation, Starting on Mon06/17/24 at 2314, IF more than 1 constipation PRN medication is ordered, administer step-chandra as indicated, moving to the next step ONLY if prior step ineffective. Step 1: senna-docusate (SENOKOT-S; PERICOLACE) OR bisacodyl (DULCOLAX) EC tablet Step 2: polyethylene glycol (MIRALAX/GLYCOLAX) Step 3: bisacodyl (DULCOLAX) suppository Step 4: enema Hold for loose stools. documented in this encounter Care Teams Rfid Technician Relationship Specialty Start Date End Date Shona Vásquez MD [facility] [address] [place] [address] PCP - General Family Medicine 12/30/22 Kiet Arias MD [address] [place] [address] Assigned Heart and Vascular Provider 06/24/23 documented as of this encounter
--- OUTSIDE RECORDS SUMMARY | 2024-07-08 14:29 | XMS_ITS | Encounter Summary ---
Author Organization [facility] Address [address] [place] [address] Care Team Providers Care Polisher Hand Name Role Phone Shona Vásquez MD Primary Care Provider [phone] Kiet Arias MD Unavailable [phone] Zofia Hager APRN STARCH TREATING ASSISTANT Unavailable Unavaila ble Kiet Arias MD Unavailable [phone] Encounter Details Date Type Department Care Team (Late st Contact Info) Description 01/10/2023 [facility] [place] [facility] [address] [place] [address] Amna Rodriguez, RN Social History [...] on file 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 Gender Identity Not on file Sexual Orientation [...] on filedocumented in this encounter Care Teams Polisher Hand Relationship Specialty Start Date End Date Shona Vásquez MD [facility] [place] [facility] [address] [place] [address] PCP - General Family Medicine 12/30/22 Kiet Arias MD [address] [place] [address] Assigned Heart and Vascular Provider 12/31/22 02/10/23 Zofia aHger APRN [facility] Assigned Heart and Vascular Provider 02/11/23 06/23/23 Kiet Arias MD [address] [place] [address] Assigned Heart and Vascular Provider 06/24/23 documented as of this encounter
--- OUTSIDE RECORDS SUMMARY | 2024-07-08 14:29 | XMS_ITS | Encounter Summary ---
Author Organization [facility] Address [address] [place] [address]. [place] [address] Care Team Providers Care Automobile Seat Cover Installer Name Role Phone System, Provider Not In Primary Care Provider Un available Sangeetha Gonzales MD Primary Care Provider + Shona Vásquez MD Primary Care Provider [phone] Kiet Arias MD Unavailable Zofia Hager HEALTH AID IT SOLUTIONS ARCHITECT Unavailable Unavaila ble Kiet Arias MD Unavailable [phone] Encounter Details Date Type Department Care Team (Late st Contact Info) Description 05/30/2011 Office Visit-[facility] [place] [id number] [facility] [address] [place] [phone] Sandy Briones, HEALTH AID IT SOLUTIONS ARCHITECT [address] [facility] [address] [place] [address] Social History Tobacco Use Types Packs/Day Years Used Date Smoking Tobacco: Never Assessed Sex and Gender Information Value Date Recorded Sex Assigned at Not on file 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 [id number] DATE: 05/30/2011 ALIZA RAMIREZ DATE OF : 1960 AGE: [age] years old Referring Physician: SANGEETHA GONZALES Referring Clinic: [facility] CURRENT DIAGNOSES 1. - CAD, 414.00 2. 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 [address] [place] [address] PCP - General Family Medicine 12/30/22 Kiet Arias MD [address] [facility] [place] [address] Assigned Heart and Vascular Provider 12/31/22 02/10/23 Zofia Hager, HEALTH AID IT SOLUTIONS ARCHITECT Assigned Heart and Vascular Provider 02/11/23 06/23/23 Kiet Arias MD [address] [place] [address] Assigned Heart and Vascular Provider 06/24/23 documented as of this encounter
--- OUTSIDE RECORDS SUMMARY | 2024-07-08 14:29 | XMS_ITS | Encounter Summary ---
Author Organization [facility] Address [address] [place] [address] Care Team Providers Care Mechanical Service Representative Name Role Phone System, Provider Not In Primary Care Provider Un available Sangeetha Gonzales MD Primary Care Provider + Shona Vásquez MD Primary Care Provider + [phone] Kiet Arias MD Unavailable [phone] Zofia Hager APRN CLOTH MERCERIZING SUPERVISOR Unavailable Unavaila ble Kiet Arias MD Unavailable [phone] Encounter Details Date Type Department Care Team (Late st Contact Info) Description 08/29/2011 Office Visit-[facility] [address] [address] Wilian Epps MD Social History Tobacco Use Types Packs/Day Years Used Date Smoking Tobacco: Never Assessed Sex and Gender Information Value Date Recorded Sex Assigned at Not on file 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 DATE: 08/29/2011 ALIZA RAMIREZ [id number] DATE OF : 1960 AGE: [age] years old Referring Physician: SANGEETHA GONZALES Referring Clinic: [facility] CURRENT DIAGNOSES 1. - CAD, 414.00 [...] HISTORY OF PRESENT ILLNESS I saw Roldan Ramriez today. He is 50. 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; Residence - lives with and children; [...] on filedocumented in this encounter Care Teams Mechanical Service Representative Relationship Specialty Start Date End Date System, Provider Not In PCP - General 08/19/11 06/03/12 Sangeetha Gonzales MD PCP - General 06/04/12 12/29/22 Shona Vásquez MD [facility] [address] [place] [address] PCP - General Family Medicine 12/30/22 Kiet Arias MD [address] [place] [id number] Assigned Heart and Vascular Provider 12/31/22 02/10/23 Zofia Hager APRN CLOTH MERCERIZING SUPERVISOR Assigned Heart and Vascular Provider 02/11/23 06/23/23 Kiet Arias MD [address] [place] [address] Assigned Heart and Vascular Provider 06/24/23 documented as of this encounter
--- OUTSIDE RECORDS SUMMARY | 2024-07-08 14:29 | XMS_ITS | Encounter Summary ---
Author Organization [facility] [facility] Address [address] [place] [address] Care Team Providers Care Coat Joiner Lockstitch Name Role Phone Sangeetha Gonzales MD Primary Care Provider + Shona Vásquez MD Primary Care Provider [phone] Kiet Arias MD Unavailable [phone] Zofia Hager APRN RESTAURANT LINE SERVER Unavailable Unavaila ble Kiet Arias MD Unavailable [phone] Encounter Details Date Type Department Care Team (Late st Contact Info) Description 07/05/2012 Office Visit-[facility] [address] [phone] Wilian Epps MD Social History Tobacco Use Types Packs/Day Years Used Date Smoking Tobacco: Never Assessed Sex and Gender Information Value Date Recorded Sex Assigned at Not on file 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 DATE: 07/05/2012 ALIZA RAMIREZ [id number] DATE OF : 1960 AGE: [age] years old Referring Physician: SANGEETHA GONZALES Referring Clinic: [facility] CURRENT DIAGNOSES 1. - CAD, 414.00 [...] he was admitted for observation overnight at [facility] because of vague intermittent across the chest feelings that he described to me in retrospect as soreness in the nipples and a vague tightness that comes and goes fleetingly. It worried him enough that he went to the ER. 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; Residence - lives with and children; [...] on filedocumented in this encounter Care Teams Coat Joiner Lockstitch Relationship Specialty Start Date End Date Sangeetha Gonzales MD PCP - General 06/04/12 12/29/22 Shona Vásquez MD [facility] [address] [place] [address] PCP - General Family Medicine 12/30/22 Kiet Arias MD [address] [place] [address] Assigned Heart and Vascular Provider 12/31/22 02/10/23 Zofia Hager, REHABILITATION WORKER RESTAURANT LINE SERVER Assigned Heart and Vascular Provider 02/11/23 06/23/23 Kiet Arias MD [address] [place] [address] Assigned Heart and Vascular Provider 06/24/23 documented as of this encounter
--- OUTSIDE RECORDS SUMMARY | 2024-07-08 14:29 | XMS_ITS | Encounter Summary ---
Author Organization [place] Address [address] [place] [address] Care Team Providers Care Electromechanical Engineer Name Role Phone Shona Vásquez MD Primary Care Provider [phone] Kiet Arias MD Unavailable [phone] Reason for Visit * Reason Comments Abnormal Labs * Auth/Cert (Routine) Specialty Diagnoses / Procedures Referred By Contcesar t Referred To Contact Med Surg Diagnoses Anemia due to blood loss, acute UGIB (upper gastrointestinal bleed) UGIB (upper gastrointestinal bleed) Anemia due to blood loss, acute [place] [address] [facility] Surgical [address] [place] [address] Phone: tel: fax: Referral ID Status Reason Start Date Expiration Date Visits Re quested Visits Authorized [id number] 1 1 Encounter Details Date Type Department Care Team (Late st Contact Info) Description 06/18/2024 1:00 PM CDT - 06/18/2024 1:30 PM CDT Surgery [facility] [place] [address] [place] [address] Kiet Brown MD [facility] [address] [facility] [address] ESOPHAGOGASTRODUODENOS COPY, WITH BIOPSies using cold biopsy forceps Surgery Details Date/Time Status Location OR Service Patient Class Case Class Case Type Trauma Case? 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 Gender Identity Not on file Sexual Orientation Not on file documented as of this encounter Last Filed Vital Signs Vital Sign Reading Time Taken Comments Blood Pressure 110/75 06/18/2024 1:30 PM CDT Pulse 78 06/18/2024 1:30 PM CDT Temperature 36.7 ??C (98 ??F) 06/18/2024 7:55 AM CDT Respiratory Rate 23 06/18/2024 1:30 PM CDT Oxygen Saturation 98% 06/18/2024 1:30 PM CDT Inhaled Oxygen Concentration - - Weight 117.2 kg (258 lb 6.1 oz) 06/17/2024 7:22 PM CDT Height 177.8 cm (5' 10) 06/17/2024 7:22 PM CDT Body Mass Index 37.07 06/17/2024 7:22 PM CDT documented in this encounter Discharge Summaries * Elvis Herman DO - 06/19/2024 8:[address] [facility] Hospitalist Discharge Summary Date of Admission: [...] a twice daily PPI. Insulin dependent T2DM: REFRIGERATION PLANT CORK INSULATOR Lantus, aspart, Jardiance on discharge. HTN CAD s/p stenting: Discontinue REFRIGERATION [employer]ANT CORK INSULATOR lisinopril/hydrochlorothiazide, amlodipine on discharge given normal blood pressureand dizziness on admission. Will continue REFRIGERATION PLANT CORK INSULATOR metoprolol. He should have follow-up with his primarydoctor in approximately 1 to 2 weeks for repeat blood pressure check. He may need to restart antihypertensives at that time. This was discussed with the patient. COPD: REFRIGERATION PLANT CORK INSULATOR Advair Clinically Significant Risk Factors # DMII: [...] minutes discharging this patient. Elvis Herman DO [place] [address] MEDICAL SURGICAL [address] [facility] [address] Physical Exam Vital Signs: Temp: 98 ??F [...] 2131 06/18/24 1018 06/18/24 0643 06/18/24 0124 06/17/24194706/19/23 0758 NA -- -- -- -- 141 [...] Care Everywhere. * Infection: H. Pylori Bacterial (Jamaican) documented in this encounter Medications at Time [...] 3 nitroglycerin (NITROSTAT) 0.4 MG SL tabletIndications:Ac se chest pain Place 1 tablet (0.4 mg) [...] Herman DO - 06/18/2024 11:36 AM CDT [facility] Medicine Progress Note - Hospitalist Service Date [...] 3 months ago. Hemoglobin is now 8.7. Following morning dropped to 7.5. Stool occult positive in [...] ordered on admission -N.p.o. sliding scale ordered -REFRIGERATION PLANT CORK INSULATOR Jardiance CAD s/p stenting: -Hold REFRIG[employer] C[employer] INSULATOR lisinopril/hydrochlorothiazide, amlodipine, aspirin in the setting of suspected upper GI bleed -Continue REFR[employer] C[employer] INSULATOR metoprolol with hold parameters COPD: REFRIGERATION PL[employer] CORK INSULATOR Advair Diet: NPO per Anesthesia Guidelines for [...] Anticipated Tomorrow Elvis Herman DO Hospitalist Service [facility] Securely message with Cadne (more info) Text page via Picturk Paging/Directory Interval History NAEO. Patient with no [...] completed by Riya Acosta, RN and Anabell Solis, YONATHAN. Skin assessment finding: other Bruises, scabs, scratches to abdomen & RACHAEL UE Interventions/actions: other Lotion to dry areas Will continue to monitor. documented in this encounter H&P Notes * Kings Larson MD - 06/17/2024 7:18 PM CDT [facility] History and Physical Dustin Carrera Age: [age] year old Date of : 1960 Date of Admission: 06/17/2024 Home clinic: [facility] Primary care provider: Shona Vásquez Assessment and Plan: Assessment: Dustin Carrera is a 63 year old man with history of CAD, Obesity, COPD, tobacco abuse and IDDM, type 2 who initially presented to an outside UC for dizziness and epigastric pain. He came to attention tonight in [facility] ED after having been found to have [...] 2. N.p.o. for possible EGD tomorrow. 3. [facility] is consulted. 4. The patient was [...] ANGIOGRAM 03-21-15 2 vessel coronary artery disease (diagonal-SWEEPING COMPOUND BLENDER, apical LAD, and culprit mid to distal [...] OPERATIVE ULTRASOUND; Surgeon: Shila Núñez MD; Location: [facility]; Service: Social History: Social History Tobacco Use [...] Status --------- ------ CBC with platelets and d...[[id number]] Abnormal Final result Please view results for [...] Abnormality Status --------- ------ Adult Type and Screen[[id number]] Final result Please view results for these tests on the individual orders. [place] [facility] Narrative The following orders were created for panel order [place] [facility]. Procedure Abnormality Status --------- ------ Extra Red Top Tube[[id number]] Final result Please view results for these [...] Antibody Screen Negative Negative SPECIMEN EXPIRATION DATE [id number] Extra Red Top Tube Result Value Ref Range Hold Specimen [facility] Hemoglobin A1c Result Value Ref Range Estimated [...] Brown MD - 06/18/2024 2:05 PM CDT [facility] Chart Update 63 yo with 1 week dark stool, anemia, epigastric pain. EGD today with mild duodenitis, otherwise normal. No prior colonoscopy. Will arrange for outpatient colonoscopy within 2 weeks. Will follow up on H. Pylori biopsies taken today. Suggest continued empiric PPI x1 month. Resume regular diet. Discharge planning per hospital service. Kiet Brown MD [facility] Digestive Health documented in this encounter ED Notes * Riya Acosta RN - 06/17/2024 11:[address] [facility] ED Nurse Handoff Report ED Chief complaint: Abnormal Labs . ED Diagnosis: Final diagnoses: UGIB (upper gastrointestinal bleed) Anemia due to blood loss, acute Allergies: Allergies Allergen Reactions Amoxicillin Code Status: Full Code Activity level - Baseline/Home: independent. Activity Level - Current: independent. Lift room needed: No. Bariatric: No Painter Hand Needed: No Isolation: No. Infection: Not Applicable. [...] POS Antibody Screen Negative SPECIMEN EXPIRATION DATE [id number] ABO/RH TYPE AND SCREEN No orders to [...] June 18, 2024 at 12:45 AM I Caden called the ED to inform them the [...] of External Notes I reviewed paperwork from [facility]. This is not appearing in [...] ANGIOGRAM 03-21-15 2 vessel coronary artery disease (diagonal-SWEEPING COMPOUND BLENDER, apical LAD, and culprit mid to distal [...] OPERATIVE ULTRASOUND; Surgeon: Shila Núñez MD; Location: [facility]; Service: Physical Exam Patient Vitals for the [...] POS Antibody Screen Negative SPECIMEN EXPIRATION DATE [id number] ABO/RH TYPE AND SCREEN Imaging No orders to display ED Course Medications Administered Medications pantoprazole (PROTONIX) IV push injection 40 mg (40 mg Intravenous $Given 06/17/241949) Procedures Procedures Discussion of Management Admitting Hospitalist, [facility] ED Course I reviewed the patient's medical record. The patient was seen and examined by myself. I discussed the course of care with the patient including laboratory and diagnostic studies. he understands and is agreeable to the plan. Additional Documentation None Medical Decision Making / Diagnosis [facility] Diagnoses: None MIPS None [facility] Dustin Carrera is a 63 year old [...] Flowsheet Documentation Taken 06/19/2024 0000 by Riya Acosta RN Body Position: position changed independently Goal: [...] your shift note. Outcome: Progressing Flowsheets (Taken 06/18/20242) Outcome Evaluation: no s/s of bleeding, VSS [...] Progressing * Pharmacy-Admission Medication History - Linda Chery RPH - 06/18/2024 10:36 AM CDT Pharmacist Admission Medication History Admission medication history is complete. The information provided in this note is only as accurateas the sources available at the time of the update. Information Source(s): Patient via in-person, Sure Scripts Pertinent Information: - Changes made to REFRIG[employer] C[employer] INSULATOR medication list: Added: Advair, insulin Lantus Deleted: insulin Levemir, bupropion, furosemide Changed: None Allergies reviewed with patient and updates made in EHR: unable to assess Medication History Completed By: Linda Chery RPH 06/18/2024 10:36 AM REFRIGERATION [employer]ANT CORK INSULATOR Med List Medication Sig Last Dose albuterol [...] 28 Units subcutaneously every evening. 06/17/2024 at [facility] lisinopril-hydrochlorothiazide (ZESTORETIC) 20-12.5 MG tablet Take 1 [...] Flowsheet Documentation Taken 06/18/2024 012 by Riya Acosta, YONATHAN Safety Promotion/Fall Prevention: safety round/check completed Intervention: Prevent Skin Injury Recent Flowsheet Documentation Taken 06/18/2024119 by Riya Acosta RN Body Position: position changed independently Goal: Optimal Comfort and Wellbeing Outcome: Progressing Goal: Readiness for Transition of Care Outcome: Progressing Intervention: Mutually Develop Transition Plan Recent Flowsheet Documentation Taken 06/18/2024 010 by Riya Acosta, RN Equipment Currently Used [...] meter (06/19/2024 8:26 AM CDT) [facility] GLUCOSE BY METER POCT 179(H) 70 - 99 mg/dL 06/19/2024 8:33 AM CDT RH LABORATORY POC Blood, Capillary BLOOD SPECIMEN / Unknown 06/19/2024 8:26 AM CDT 06/19/2024 8:33 AM CDT [facility] Final Result [facility] LABORATORY [facility] [address] [facility] Lab (1st floor, no room number) [place] [address], [facility] * Extra Green Top Tube (LAB USE ONLY) (06/19/2024 7:37 AM CDT) Hold Specimen JIC 06/19/2024 9:02 AM CDT LABORATORY Blood STRUCTURE OF RIGHT HAND / Unknown Venipuncture / Unknown 06/19/2024 7:37 AM CDT 06/19/2024 7:48 AM CDT us Jassi Felix MD LAB - BLOOD ORDERABLES Final Result LABORATORY [facility] Lab [address] Lab (1st floor, no room number) [place] [address], [facility] * (ABNORMAL) Hemoglobin (06/19/2024 7:37 AM CDT) Hemoglobin 8.2(L) 13.3 - 17.7 g/dL 06/19/2024 7:53 AM CDT LABORATORY Blood STRUCTURE OF RIGHT HAND / Unknown Venipuncture / Unknown 06/19/2024 7:37 AM CDT 06/19/2024 7:48 AM CDT us Elvis Herman DO LAB - BLOOD ORDERABLES Final R esult [facility] Lab [address] Lab (1st floor, no room number) [place] [address], [facility] * (ABNORMAL) Glucose by meter (06/19/2024 1:09 AM CDT) GLUCOSE BY METER POCT 146(H) 70 - 99 mg/dL 06/19/2024 1:15 AM CDT LABORATORY POC Blood, Capillary BLOOD SPECIMEN / Unknown 06/19/2024 1:09 AM CDT 06/19/2024 1:15 AM CDT us Ge Bowman MD LAB - BEAKER POCT Final Result LABORATORY [facility] [address] Lab (1st floor, no room number) [place] [phone] [place] [address] * (ABNORMAL) Glucose by meter (06/18/2024 9:31 PM CDT) GLUCOSE BY METER POCT 169(H) 70 - 99 mg/dL 06/18/2024 9:38 PM CDT RH LABORATORY POC Blood, Capillary BLOOD SPECIMEN / Unknown 06/18/2024 9:31 PM CDT 06/18/2024 9:38 PM CDT Ge Bowman MD LAB - BEAKER POCT Final Result LABORATORY [facility] Lab [address] Lab (1st floor, no room number) [place] [phone] [place] [address] * (ABNORMAL) Glucose by meter (06/18/2024 5:50 PM CDT) GLUCOSE BY METER POCT 164(H) 70 - 99 mg/dL 06/18/2024 5:56 PM CDT RH LABORATORY POC Blood, Capillary BLOOD SPECIMEN / Unknown 06/18/2024 5:50 PM CDT 06/18/2024 5:56 PM CDT Ge Bowman MD LAB - BEAKER POCT Final Result LABORATORY [facility] Lab [address] Lab (1st floor, no room number) [place] [phone] * (ABNORMAL) Hemoglobin (06/18/2024 3:14 PM CDT) Hemoglobin 7.8(L) 13.3 - 17.7 g/dL 06/18/2024 3:28 PM CDT RH LABORATORY Blood STRUCTURE OF RIGHT UPPER LIMB / Unknown Venipuncture / Unknown 06/18/2024 3:14 PM CDT 06/18/2024 3:25 PM CDT us Elvis Herman DO LAB - BLOOD ORDERABLES Final R esult LABORATORY [facility] [address] Lab (1st floor, no room number) [place] [address] * (ABNORMAL) Glucose by meter (06/18/2024 2:31 PM CDT) GLUCOSE BY METER POCT 142(H) 70 - 99 mg/dL 06/18/2024 2:37 PM CDT LABORATORY POC Blood, Capillary BLOOD SPECIMEN / Unknown 06/18/2024 2:31 PM CDT 06/18/2024 2:37 PM CDT us Ge Bowman MD LAB - BEAKER POCT Final Result Performing Organization Address City/[facility]/ZIP Co de Phone Number LABORATORY POC [facility] [address] Lab (1st floor, no room number) [place] [address] * Surgical Pathology Exam (06/18/2024 1:27 PM CDT) Case Report Surgical Pathology Report ? Case: [id number] ? Authorizing Provider: ??Kiet Brown MD ? Collected: ? 06/18/2024 01:27 PM ? Ordering Location: ? [facility] ?Received: ?06/18/2024 01:58 PM ? [facility] [place] ? Pathologist: ? Nicole Parham MD ? Specimen: ?Stomach, gastric biopsies for h.pylori ? 06/19/2024 12:49 PM [facility] Final Diagnosis A. Stomach, biopsy: - Oxyntic and antral type gastric mucosa with mild chronic inflammation. - Negative for H. Pylori organisms on routine stains. - Negative for intestinal metaplasia. -Negative for dysplasia or malignancy 06/19/2024 12:49 PM [facility] Clinical Information Procedure: ESOPHAGOGASTRO DUODENOSCOPY, WITH BIOPSies using cold biopsy forceps Pre-op Diagnosis: Anemia, unspecified type [D64.9] Post-op Diagnosis: D64.9 - Anemia, unspecified type [ICD-10-CM] 06/19/2024 12:49 PM [facility] Gross Description A(1). Stomach, gastric biopsies for h.pylori: The specimen is received in formalin, labeled with the patient's name, medical record number and other identifying information and designated ? gastric biopsies? . It consists of 4 crawford soft tissue fragments ranging from 0.2-0.3 cm. Entirely submitted in one cassette. (JU Silva)06/18/2024 2:01 PM 06/19/2024 12:49 PM [facility] Microscopic Description Microscopic examination was performed. 06/19/2024 12:49 PM [facility] Performing Labs The technical component of this testing was completed at [facility]. Stain controls for all stains resulted within this report have been reviewed and show appropriate reactivity. 06/19/2024 12:49 PM CDT LABORATORY Case Images 06/19/2024 12:49 PM CDT LABORATORY Biopsy STOMACH STRUCTURE / Unknown 06/18/2024 1:27 PM CDT 06/18/2024 1:58 PM CDT us Kiet [facility] - [facility] AP Final Resul t [facility] [address] Lab (1st floor, no room number) [place] [address] * (ABNORMAL) Glucose by meter (06/18/2024 12:35 PM CDT) GLUCOSE BY METER POCT 136(H) 70 - 99 mg/dL 06/18/2024 12:42 PM CDT LABORATORY POC Blood, venous BLOOD SPECIMEN / Unknown 06/18/2024 12:35 PM CDT 06/18/2024 12:42 PM CDT us Ge [facility] POCT Final Result Performing Organization Address City/[facility]/ZIP Co de Phone Number LABORATORY [facility] Lab [address] Lab (1st floor, no room number) [place] [address] * UPPER GI ENDOSCOPY (06/18/2024 12:29 PM CDT) Upper GI Endoscopy [facility] Patient Name: Dustin Carrera ?Procedure Date: 06/18/2024 12:29 PM ? Date of : 1960 ? Admit Type: Inpatient Age: 63 ? Gender: Male Attending MD: KIET BROWN MD, ??Total Sedation Time: Minutes of continuous bedside 1:1: 15 minutes Instrument Name: [id number] Gastroscope Procedure: ?Upper GI endoscopy Indications: ?Melena, [...] The ?Olympus Gasrointestinal Videoscope, Model# ?[id number]-1100, Censitrac# [id number], SN# [id number] ?was introduced through the mouth, and advanced [...] Procedure Code(s): ? --- Professional --- ? 13983, Esophagogastroduod enoscopy, flexible, transoral; with biopsy, ? single or multiple Diagnosis Code(s): ? --- Professional --- ? D64.9, Anemia, unspecified ? K92.1, Melena (includes Hematochezia) ? K29.80, Duodenitis without bleeding CPT copyright 2021 [employer]. All rights reserved. The codes documented in this report are preliminary and upon associate dean of students review may be revised to meet current compliance requirements. Kiet Brown M.D. ___ KIET BROWN MD 06/18/2024 1:38:23 PM Number of Addenda: 0 Note Initiated On: 06/18/2024 12:29 PM MRN: ?[id number] Procedure Date: ? 06/18/2024 12:29:49 PM Total [...] - 99 mg/dL 06/18/2024 10:25 AM CDT RH LABORATORY POC Blood, Capillary BLOOD SPECIMEN / Unknown 06/18/2024 10:18 AM CDT 06/18/2024 10:25 AM CDT Ge Bowman MD LAB - BEAKER POCT Final Result RH LABORATORY POC [facility] [address] Lab (1st floor, no room number) [place] [address], [facility] * (ABNORMAL) CBC with platelets (06/18/2024 [...] BLOOD ORDERABLES Final Re sult RH LABORATORY [facility] [address] [facility], no room number) [place] [address], [facility] * (ABNORMAL) Basic metabolic panel (06/18/2024 6:43 AM CDT) Pathologist [facility] Sodium 141 135 - 145 mmol/L 06/18/2024 [...] - BLOOD ORDERABLES Final Re sult LABORATORY [facility] [address] [facility] Lab (1st floor, no room number) [place] [address], [facility] * (ABNORMAL) Glucose by meter (06/18/2024 5:30 AM CDT) Pathologist [facility] GLUCOSE BY METER POCT 120(H) 70 - 99 mg/dL 06/18/2024 5:37 AM CDT LABORATORY POC Blood, Capillary BLOOD SPECIMEN / Unknown 06/18/2024 5:30 AM CDT 06/18/2024 5:37 AM CDT Ge Bowman MD LAB - BEAKER POCT Final Result LABORATORY [facility] Lab [address] Lab (1st floor, no room number) [place] [phone] [place] [address] * (ABNORMAL) Glucose by meter (06/18/2024 1:24 AM CDT) GLUCOSE BY METER POCT 159(H) 70 - 99 mg/dL 06/18/2024 1:31 AM CDT LABORATORY POC Blood, Capillary BLOOD SPECIMEN / Unknown 06/18/2024 1:24 AM CDT 06/18/2024 1:31 AM CDT Ge Bowman MD LAB - BEAKER POCT Final Result Performing Organization Address City/[facility]/ZIP Co de Phone Number [facility] Lab [address] Lab (1st floor, no room number) [place] [phone] [place] [address] * (ABNORMAL) Occult blood stool (06/17/2024 8:10 PM CDT) Occult Blood Positive(A ) Negative ANAHI 06/17/2024 8:20 PM CDT LABORATORY Stool RECTAL CONTENTS / Unknown Non-blood Collection / Unknown 06/17/2024 8:10 PM CDT 06/17/2024 8:19 PM CDT Kushal Portillo MD LAB - STOOLS ORDERABLES Shantel l Result [facility] [address] Lab (1st floor, no room number) [place] [phone] * (ABNORMAL) Hemoglobin A1c (06/17/2024 7:48 [...] LAB - BLOOD ORDERABLES Final Re sult [facility] [place] [facility] Lab [address] Lab (1st floor, no room number) [place] [phone] * Extra Red Top Tube (06/17/2024 7:48 PM CDT) Pathologist [facility] Hold Specimen JIC 06/17/2024 9:02 PM CDT RH LABORATORY Blood BLOOD SPECIMEN / Unknown Venipuncture / Unknown 06/17/2024 7:48 PM CDT 06/17/2024 7:55 PM CDT us Kushal Portillo MD LAB - BLOOD ORDERABLES Final Result [facility] [address] Lab (1st floor, no room number) [place] [phone] [place] [address] * Adult Type and Screen (06/17/2024 7:48 PM CDT) Pathologist [facility] ABO/RH(D) O POS 06/17/2024 7:31 PM CDT RH BLOOD BANK Antibody Screen Negative Negative 06/17/2024 7:31 PM CDT RH BLOOD BANK SPECIMEN EXPIRATION DATE [id number] 06/17/2024 7:31 PM CDT RH BLOOD BANK Blood BLOOD SPECIMEN / Unknown Venipuncture / Unknown 06/17/2024 7:48 PM CDT 06/17/2024 7:55 PM CDT Kushal Portillo MD LAB - BLOOD BANK TEST ORDER Final Result BLOOD B[place] [address], [facility] * (ABNORMAL) CBC with platelets and differential [...] 7:48 PM CDT 06/17/2024 7:55 PM CDT uKshal Portillo MD LAB - BLOOD ORDERABLES Final Result [facility] [address] Lab (1st floor, no room number) [place] [address] * Ethyl Alcohol Level (06/17/2024 7:48 PM CDT) Alcohol ethyl <0.01 <=0.01 g/dL 06/17/2024 8:15 PM CDT RH LABORATORY Blood BLOOD SPECIMEN / Unknown Venipuncture / Unknown 06/17/2024 7:48 PM CDT 06/17/2024 7:55 PM CDT Kushal Portillo MD LAB - BLOOD ORDERABLES Final Result [facility] [address] Lab (1st floor, no room number) [place] [address], [facility] * (ABNORMAL) Comprehensive metabolic panel (06/17/2024 [...] MD LAB - BLOOD ORDERABLES Final Result [facility] [address] Lab (1st floor, no room number) [place] [phone] * INR (06/17/2024 7:48 PM CDT) INR 0.95 0.85 - 1.15 06/17/2024 8:10 PM CDT RH LABORATORY Blood BLOOD SPECIMEN / Unknown Venipuncture / Unknown 06/17/2024 7:48 PM CDT 06/17/2024 7:55 PM CDT Kushal Portillo MD LAB - BLOOD ORDERABLES Final Result [facility] [address] Lab (1st floor, no room number) [place] [phone] documented in this encounter Visit Diagnoses Diagnosis UGIB (upper gastrointestinal bleed) Hemorrhage of gastrointestinal tract, unspecified Anemia due to blood loss, acute Acute posthemorrhagic anemia Anemia due to blood loss, acute Acute posthemorrhagic anemia UGIB (upper gastrointestinal bleed) Hemorrhage of gastrointestinal tract, unspecified Anemia, unspecified type documented in this encounter Administered Medications Inactive [...] parameters not met)1844 ($Given - Provider: Sven William, YONATHAN)2207 ($Given - Provider: Sven William, YONATHAN) insulin [...] already given) 0850 ($Given - Provider: Jude Lynn, RN)1130 (Canceled Entry - Provider: Orders Generic [...] Dominik Serrano RN)2201 ($Given - Provider: Sven William RN) 0802 ($Given - Provider: Jude Lynn [...] Dominik Serrano RN)1848 ($Given - Provider: Sven William RN) 0949 (Canceled Entry - Provider: Jude Lynn [...] Riya Acosta RN)2259 ($Given - Provider: Sven William RN) calcium carbonate (TUMS) chewable tablet 1,000 mg [...] stools. documented in this encounter Care Teams Electromechanical Engineer Relationship Specialty Start Date End Date Shona Vásquez MD [facility] [address] [place] [address] PCP - General Family Medicine 12/30/22 Kiet Arias MD [address] [place] [address] Assigned Heart and Vascular Provider 06/24/23 documented as of this encounter
--- OUTSIDE RECORDS SUMMARY | 2024-07-08 14:29 | XMS_ITS | Encounter Summary ---
Author Organization [place] Address [address] [place] [id number] Care Team Providers Care Grounds/Maintenance Specialist Name Role Phone Shona Vásquez MD Primary Care Provider [phone] Zofia Hager APRN RIVETER Unavailable Unavaila Kiet Reyna MD Unavailable [phone] Encounter Details Date Type Department Care Team (Late st Contact Info) Description 05/25/2023 External Order Results [facility] [address] [place] [address] Outside, Provider Social History Tobacco Use Types Packs/Day Years Used Date Smoking Tobacco: Every Day Cigarettes Smokeless Tobacco: Never Alcohol Use Standard Drinks/Week Comments No 0 (1 standard drink = 0.6 oz pur e alcohol) PHQ-2 Answer Date Recorded PHQ-2 Score 2 12/30/2022 Sex and Gender Information Value Date Recorded Sex Assigned at Not on file 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 Provider Outside LAB - BLOOD ORDERABLES Edited Screen BREEZE PFT NON-INTERFACED (ONBASE SCANS) * Potassium (05/25/2023 10:15 AM CDT) Potassium (External) 3.9 3.5 - 4.9 mmol/l NON-INTERFACED (ONBASE SCANS) Blood BLOOD SPECIMEN / Unknown 05/25/2023 10:15 AM CDT Narrative BREEZE PFT - 06/15/2023 7:54 AM CDT Verified by Rc Corbin on 06/15/2023. us Provider Outside LAB - BLOOD ORDERABLES Edited [facility] BREEZE PFT NON-INTERFACED (ONBASE SCANS) * Chloride (05/25/2023 10:15 AM CDT) Chloride (External) 101 98 - 109 mmol/l NON-INTERFACED (ONBASE SCANS) Blood BLOOD SPECIMEN / Unknown 05/25/2023 10:15 AM CDT Narrative BREEZE PFT - 06/15/2023 7:54 AM CDT Verified by Rc Corbin on 06/15/2023. Provider Outside LAB - BLOOD ORDERABLES Edited [employer] BREEZE PFT NON-INTERFACED (ONBASE SCANS) * Co2 Total (05/25/2023 10:15 AM CDT) CO2 (External) 29 20 - 32 mmol/L NON-INTERFACED (ONBASE SCANS) Blood BLOOD SPECIMEN / Unknown 05/25/2023 10:15 AM CDT Narrative BREEZE PFT - 06/15/2023 7:53 AM CDT Verified by Rc Corbin on 06/15/2023. Provider Outside LAB - BLOOD ORDERABLES Edited [employer] Performing Organization Address [facility]/ZIP Co de Phone Number BREEZE PFT NON-INTERFACED (ONBASE SCANS) * Creatinine (05/25/2023 10:15 AM CDT) Creatinine (External) 1.2 0.6 - 1.3 mg/dl NON-INTERFACED (ONBASE SCANS) Blood BLOOD SPECIMEN / Unknown 05/25/2023 10:15 AM CDT Narrative BREEZE PFT - 06/15/2023 7:53 AM CDT Verified by Rc Corbin on 06/15/2023. Provider Outside LAB - BLOOD ORDERABLES Edited Screen Performing Organization Address City/[facility] Co de Phone Number BREEZE PFT NON-INTERFACED (ONBASE SCANS) * (ABNORMAL) Glucose (05/25/2023 10:15 AM CDT) Glucose (External) 245(H) 60 - 115 mg/dl NON-INTERFACED (ONBASE SCANS) Blood BLOOD SPECIMEN / Unknown 05/25/2023 10:15 AM CDT Narrative BREEZE PFT - 06/15/2023 7:53 AM CDT Verified by Rc Corbin on 06/15/2023. Provider Outside LAB - BLOOD ORDERABLES Edited [employer] Performing Organization Address City/[facility]/ZIP Co de Phone Number BREEZE PFT NON-INTERFACED (ONBASE SCANS) * (ABNORMAL) Ionized Calcium (05/25/2023 10:15 AM CDT) Calcium Ionized (External) 1.05(L) 1.11 - 1.33 mmol/L NON-INTERFACED (ONBASE SCANS) Blood BLOOD SPECIMEN / Unknown 05/25/2023 10:15 AM CDT Narrative BREEZE PFT - 06/15/2023 7:53 AM CDT Verified by Rc Corbin on 06/15/2023. Provider Outside LAB - BLOOD ORDERABLES Edited [employer] Per[employer] Organization Address [facility] de Phone Number BREEZE PFT NON-INTERFACED (ONBASE SCANS) * (ABNORMAL) Hemoglobin A1c (05/25/2023 10:15 AM CDT) Hemoglobin A1C (External) 14.9(H) 0 - 5.6 % NON-INTERFACE D (ONBASE SCANS) Blood BLOOD SPECIMEN / Unknown 05/25/2023 10:15 AM CDT Narrative BREEZE PFT - 06/15/2023 7:53 AM CDT Verified by Rc Corbin on 06/15/2023. Provider Outside LAB - BLOOD ORDERABLES Edited Screen Performing Organization Address City/[facility]/ZIP Co de Phone Number BREEZE PFT NON-INTERFACED (ONBASE SCANS) documented in this encounter Visit Diagnoses Not on filedocumented in this encounter Care Teams Grounds/Maintenance Specialist Relationship Specialty Start Date End Date Shona Vásquez MD [facility] [address] [place] [address] PCP - General Family Medicine 12/30/22 Zofia Hager APRN RIVETER Assigned Heart and Vascular Provider 02/11/23 06/23/23 Kiet Arias MD [address] [place] [address] Assigned Heart and Vascular Provider 06/24/23 documented as of this encounter
--- OUTSIDE RECORDS SUMMARY | 2024-07-08 14:29 | XMS_ITS | Clinical Summary ---
Author Organization [facility] Address [place], [place] [address] Care Team Providers Care Swatcher Name Role Phone Dileep Rhodes MD Primary [...] GERD (gastroesophageal reflux disease) Renal cell carcinoma Overview (08/22/2017): -s/p resection Tobacco abuse NSTEMI (non-ST elevated myocardial infarction) Encounters Date Type Department Care Team Description 04/24/2024 Lab Requisition [facility] [phone] Shona Vásquez MD from Last 3 Months [...] Comments Blood Pressure 157/84 09/26/2020 2:46 PM [facility] Pulse 73 08/23/2017 12:00 PM [facility] Temperature 37.1 ??C (98.7 ??F) 09/26/2020 2:46 PM CS T Respiratory Rate 18 08/23/2017 8:44 AM [facility] Oxygen Saturation 95% 08/23/2017 8:44 AM [facility] Inhaled Oxygen Concentration - - Weight 121.7 kg (268 lb 4.8 oz) 08/23/2017 6:00 AM [facility] Height 182.9 cm (6') 08/22/2017 10:47 AM [facility] Body Mass Index 36.39 08/22/2017 10:47 AM [facility] Plan of Treatment Health Maintenance Due Date [...] for age 45-75 08/23/2022 08/23/2017, 08/22/20 17 Pneumococcal series for age 65+ (2 of 2 - PCV) 2023 05/10/2011 COVID-19 vaccine series ( - season) 2024 Influenza for age 65+ 05/12/2024 08/22/2017 , 07/15/2016, 07/30/2014 Tdap Completed 05/03/2006 Procedures Procedure Name Priority Date/Time Associated Diagnosis Comments LAB TRACKING EVENT Routine 04/23/2024 12 :30 PM CDT PATH TISSUE EXAM Routine 04/23/2024 12:3 0 PM CDT LIPID PANEL Routine 08/23/2017 ASHD (arteriosclerotic heart disease) Hypertension NSTEMI (non-ST elevated myocardial infarction) (HC) from Last 3 Months or Most Recently Relevant to Health Maintenance Results * LAB TRACKING EVENT (04/23/2024 12:30 PM CDT) Other (Other) Client Collect / Unknown 04/23/2024 12:30 PM CDT 04/24/2024 4:32 PM CDT Shona Vásquez MD LAB BILL ONLY [facility] [address] [place] [address], * PATH TISSUE EXAM (04/23/2024 12:30 PM CDT) Case Report Pathology Report ?Case: [id number] ? Authorizing Provider: ??Shona Vásquez MD ?Collected: ? 04/23/2024 1230 ? Ordering Location: ? [facility] ?Received: ?04/24/2024 1746 ? Pathologist: ? Erick Castorena MD ? Specimens: ?? A) - Right Anderson ? B) - Right Forearm ? 04/26/2024 10:17 AM [facility] Final Diagnosis A) SKIN, RIGHT ANDERSON, BIOPSY: 1. Dermatofibroma 2. No evidence of malignancy B) SKIN, RIGHT FOREARM, BIOPSY: 1. Verruca vulgaris 2. No evidence of malignancy 04/26/2024 10:17 AM [facility] Clinical Information Skin cancer. 04/26/2024 10:17 AM [facility] Gross Description A) Received in [...] trisected and entirely submitted in one cassette. [facility] 04/24/2024 04/26/2024 10:17 AM [facility] Microscopic Description The final diagnosis is [...] confirmed on tissue sections. 04/26/2024 10:17 AM [facility] Additional Information Interpreted at [facility] - [address] [address] 04/26/2024 10:17 AM [facility] Other (Right Anderson) 04/23/2024 12:30 PM CDT 04/24/2024 5:46 PM CDT Specimen (specimen) (Right Forearm) 04/23/2024 12:30 PM CDT 04/24/2024 5:46 PM CDT Shona Vásquez MD [facility] [address] [place] [address], from Last 3 Months or Most Recently Relevant to Health Maintenance Care Teams Swatcher Relationship Specialty Start Date End Date Dileep Rhodes MD PCP - General Family Practice 05/24/21
[2024-07-08 14:30] LABS: Creatinine* 1.2 mg/dL (0.5-1.5); Est. Creatinine Clearance* 63.37; Estimated Glomerular Filt Rate 67 ml/min
[2024-07-08 14:31] LABS: Anion Gap 12 mEq/L (7-15); Blood Urea Nitrogen* 20 mg/dL (7-30); Calcium* 7.4 mg/dL (8.4-10.6); Carbon Dioxide* 24 mmol/L (20-32); Glucose* 160 mg/dL (60-115)
--- NOTE | 2024-07-08 15:43 | CRLHL7_ITS ---
For Patients: As a result of the 21st Century Cures Act, medical imaging exams and procedure reports are released immediately into your electronic medical record. You may view this report before your referring provider. If you have questions, please contact your health care provider. INDICATION: SOB, LIGHTHEADED X2 MONTHS. HX SKIN AND RT KIDNEY CANCER. TECHNIQUE: CT chest PE was acquired with 95 cc Isovue 370 IV contrast. COMPARISON: None. FINDINGS: Heart and vasculature: Contrast opacification of the pulmonary arterial tree is adequate. No sign of pulmonary embolism. Heart size is borderline enlarged. Thoracic aorta is normal in caliber.Main pulmonary artery is enlarged measuring up to 39 millimeters in diameter. Coronary artery calcifications and/or stents. Lungs and pleura: Small bilateral pleural effusions worse on the right than the left. Adjacent compressive atelectasis is noted. Lymph nodes/mediastinum: Mild diffuse mediastinal adenopathy. Chest wall: No masses. Upper abdomen: No acute or significant findings. Bones: Unremarkable for age. IMPRESSION: No pulmonary embolism identified. Small bilateral pleural effusions worse on the right than the left with adjacent compressive atelectasis. Please note that all CT scans at this facility use dose modulation, iterative reconstruction, and/or weight-based dosing when appropriate to reduce radiation dose to as low as reasonably achievable. Dictated by Sebas Alvarez MD @ 07/08/2024 6:19:27 PM (Electronically Signed)
[2024-07-08] MEDS: 0.9 % SODIUM CHLORIDE 500 ML 250 ML IV (15:56)
[2024-07-08 16:03] LABS: Troponin I* 0.71 ng/mL (0.01-0.04)
[2024-07-08 20:42] LABS: Ionized Calcium* 0.94 mmol/L (1.11-1.30)
[2024-07-08] MEDS: INSULIN ASPART 100 UNIT/ML SUBCUT (21:42)
[2024-07-08] MEDS: FUROSEMIDE 10 MG/ML inj 20 MG IVP (21:43)
[2024-07-08] MEDS: ATORVASTATIN CALCIUM 40 MG TABLET 80 MG PO (21:44)
[2024-07-08] MEDS: METOPROLOL TARTRATE 100 MG TABLET 50 MG PO (21:44)
[2024-07-08] MEDS: OMEPRAZOLE 20 MG CAPSULE DR 40 MG PO (21:44)
[2024-07-08] MEDS: SODIUM CHLORIDE 0.9 % (FLUSH) 10 ML SYRINGE 5 ML IVF (21:44)
[2024-07-08] MEDS: INSULIN GLARGINE,HUM.REC.ANLOG 100 UNIT/ML INSULN.PEN 28 UNIT SUBCUT (21:45)
[2024-07-08 22:32] LABS: Troponin I* 0.52 ng/mL (0.01-0.04)
[2024-07-09] VITALS (10 sets, daily range): BP systolic 115–138; BP diastolic 71–85; PULSE 73–103; RESP 20–27; TEMP 36.7–37; O2SAT 91–96
--- NOTE | 2024-07-09 00:42 | PM.IMHP1 ---
Hospitalist- H&P: HPI History of Present Illness Time Seen by Provider: 19:50 Date Seen: 07/08/24 Chief complaint: Low Hgb after transfusion 1-2wks ago sent from Narrative: Dustin Carrera is a 63 year old male with a history of coronary artery disease, uncontrolled diabetes mellitus type 2, hypertension, hyperlipidemia, COPD, and tobacco abuse who came into the emergency department for persistent dizziness. He started having abdominal pain, melena, and dizziness on 06/17/2024. He was seen for this in the urgent care and transferred to [facility] where he had an EGD. He had duodenitis and no other explanation for GI bleeding. His blood pressures were low normal and so several of his antihypertensives were stopped. He followed up with Dr. German for persistent dizziness and his hemoglobin at that visit was lower than the 1 at discharge from [facility]. He was given 1 unit packed red blood cells. He had a colonoscopy the next week which found 7 polyps that were removed. He has had no further melena or abdominal pain, but does have persistent dizziness. He denies any chest pain or shortness of breath. He thought that maybe he needed another blood transfusion today, but his hemoglobin is 8.1. He was found to have an elevated troponin in the emergency department, but again is completely asymptomatic other than dizziness. He does note that his ankles have been swollen over the last few days which is new. Review of Systems Status of ROS: Reports: 10 or more systems reviewed and unremarkable except as noted in History and below [facility] Medical History (Updated 07/09/24 @ 00:59 by Deja Alanis MD) NSTEMI (non-ST elevated myocardial infarction) ?I21.4 - Non-ST elevation (NSTEMI) myocardial infarction (ICD-10) Macular degeneration ?H35.30 - Unspecified macular degeneration (ICD-10) Gastroesophageal reflux disease ?K21.9 - Gastro-esophageal reflux disease without esophagitis (ICD-10) Ectatic aorta ?I77.819 - Aortic ectasia, unspecified site (ICD-10) Microalbuminuria ?R80.9 - Proteinuria, unspecified (ICD-10) Skin lesion of right arm ?L98.9 - Disorder of the skin and subcutaneous tissue, unspecified (ICD-10) History of renal cell carcinoma ?Z85.528 - Personal history of other malignant neoplasm of kidney (ICD-10) Anxiety and depression ?F41.9 - Anxiety disorder, unspecified (ICD-10) ?F32.A - Depression, unspecified (ICD-10) Neuropathy ?G62.9 - Polyneuropathy, unspecified (ICD-10) Abnormal nuclear stress test ?R94.39 - Abnormal result of other cardiovascular function study (ICD-10) BPH (benign prostatic hyperplasia) ?N40.0 - Benign prostatic hyperplasia without lower urinary tract symptoms (ICD-10) COPD (chronic obstructive pulmonary disease) ?J44.9 - Chronic obstructive pulmonary disease, unspecified (ICD-10) Tobacco use disorder ?F17.200 - Nicotine dependence, unspecified, uncomplicated (ICD-10) Hyperlipidemia ?E78.5 - Hyperlipidemia, unspecified (ICD-10) Coronary artery disease ?I25.10 - Atherosclerotic heart disease of [place] coronary artery without angina pectoris (ICD-10) Angina pectoris ?I20.9 - Angina pectoris, unspecified (ICD-10) Hypertension ?I10 - Essential (primary) hypertension (ICD-10) Uncontrolled type 2 diabetes mellitus Surgical History History of partial nephrectomy ?Z90.5 - Acquired absence of kidney (ICD-10) History of knee surgery ?Z98.890 - Other specified postprocedural states (ICD-10) History of hernia repair ?Z98.890 - Other specified postprocedural states (ICD-10) ?Z87.19 - Personal history of other diseases of the digestive system (ICD-10) History of coronary artery stent placement ?Z95.5 - Presence of coronary angioplasty implant and graft (ICD-10) Family History Sister Breast cancer Kidney disease Brother Diabetes Mother Non Hodgkin's lymphoma Social History (Updated 07/09/24 @ 00:44 by Deja Alanis MD) Narrative: . 6 grandchildren. Does not drink alcohol Marijuana use Current Smoker- 40 pack years, 3/4 pack/day, no plans to quit or cut down. What is your current living situation?: I presently have a place to live Problems where you live: no known problems Problems where you live details: n/a In the past 12 months, utilities in danger of being shut off: no In past 12 months, lack of transportation kept you from medical appts, meetings, work, or getting things needed for daily living: no In the past 12 mos, have been you worried that your food would run out before you had money to buy more?: never true In the past 12 mos, the food you bought just didn't last and you didn't have money to buy more?: never true Smoking Status: Current every day smoker What tobacco products do you use: cigarettes How often do you have a drink containing alcohol: never AUDIT-C Alcohol total score: 0 Non-prescribed substance use: denies use Caffeine: No How often does anyone, including family, friends and others, physically hurt you: never How often does anyone, including family, friends and others, insult or talk down to you: never How often does anyone, including family, friends and others, threaten you with harm: never How often does anyone, including family, friends and others, scream or curse at you: never Little interest or pleasure in doing things: several days Feeling down, depressed, or hopeless: several days service: No Meds Home Medications and Allergies Home Medications ?Medication ?Instructions ?Recorded ?Confirmed ?Type aspirin 81 mg tablet,delayed 81 mg PO MOWEFR 03/29/22 07/08/24 History release atorvastatin 80 mg tablet 80 mg PO HS 06/24/24 07/08/24 History pantoprazole 40 mg tablet,delayed 40 mg PO BID 06/24/24 07/08/24 History release empagliflozin 10 mg tablet 10 mg PO DAILY 07/08/24 07/08/24 History (Jardiance) fluticasone 250 mcg-salmeterol 50 1 inh inhalation DAILY PRN 07/08/24 07/08/24 History mcg/dose blistr powdr for inhalation (Advair Diskus) insulin glargine 100 unit/mL (3 28 unit subcut BID 07/08/24 07/08/24 History mL) subcutaneous pen (Lantus Solostar U-100 Insulin) metoprolol tartrate 100 mg tablet 50 mg PO BID 07/08/24 07/08/24 History Allergies Allergy/AdvReac Type Severity Reaction Status Date / Time amoxicillin Allergy Intermediate itching Verified 07/08/24 17:14 hands and swelling in hands Exam Narrative: Exam Narrative: General: No acute distress. Awake alert oriented x3. Obese. HEENT: Normocephalic atraumatic, pupils equally round and reactive to light and accommodation. Oropharynx clear. Mucous membranes are moist. No cervical lymphadenopathy, thyromegaly or carotid bruits. No JVD. Cardiovascular: Regular rate and rhythm. No murmurs, gallops, or rubs. Chest: No increased work of breathing. Clear to auscultation bilaterally. No crackles or wheezes. Abdomen: Bowel sounds present. Soft, nondistended, nontender. No hepatosplenomegaly or masses. Extremities: 1+ bilateral lower extremity edema, no cyanosis or clubbing. Skin: No jaundice, no pallor, no rashes. Const: Vital Signs, click to edit/add: Vital Signs - 24 hr 07/08/24 13:00 07/08/24 13:13 07/08/24 13:13 Temperature 98.7 F Pulse Rate 86 86 Pulse Rate [Pulse Oximeter] 93 Pulse Rate [Right Pulse Oximeter] Respiratory Rate 20 16 Blood Pressure 119/78 119/78 Blood Pressure [Ri ght Arm] Blood Pressure [Ri ght Upper Arm] 125/77 Pulse Oximetry 96 96 96 Oxygen Delivery Me thod Room Air 07/08/24 13:13 07/08/24 13:14 07/08/24 13:15 Temperature Pulse Rate 86 84 86 Pulse Rate [Pulse Oximeter] Pulse Rate [Right Pulse Oximeter] Respiratory Rate Blood Pressure 119/78 Blood Pressure [Ri ght Arm] Blood Pressure [Ri ght Upper Arm] Pulse Oximetry 96 95 95 Oxygen Delivery Me thod 07/08/24 13:30 07/08/24 13:45 07/08/24 14:00 Temperature Pulse Rate 87 85 81 Pulse Rate [Pulse Oximeter] Pulse Rate [Right Pulse Oximeter] Respiratory Rate Blood Pressure Blood Pressure [Ri ght Arm] Blood Pressure [Ri ght Upper Arm] Pulse Oximetry 95 94 92 Oxygen Delivery Me thod 07/08/24 14:15 07/08/24 14:30 07/08/24 14:45 Temperature Pulse Rate 88 88 83 Pulse Rate [Pulse Oximeter] Pulse Rate [Right Pulse Oximeter] Respiratory Rate Blood Pressure Blood Pressure [Ri ght Arm] Blood Pressure [Ri ght Upper Arm] Pulse Oximetry 95 93 93 Oxygen Delivery Me thod 07/08/24 15:00 07/08/24 15:15 07/08/24 15:30 Temperature Pulse Rate 86 82 88 Pulse Rate [Pulse Oximeter] Pulse Rate [Right Pulse Oximeter] Respiratory Rate Blood Pressure Blood Pressure [Ri ght Arm] Blood Pressure [Ri ght Upper Arm] Pulse Oximetry 90 92 93 Oxygen Delivery Me thod 07/08/24 15:45 07/08/24 16:00 07/08/24 16:07 Temperature 98.2 F Pulse Rate 80 88 89 Pulse Rate [Pulse Oximeter] Pulse Rate [Right Pulse Oximeter] Respiratory Rate 16 Blood Pressure 119/78 Blood Pressure [Ri ght Arm] Blood Pressure [Ri ght Upper Arm] Pulse Oximetry 94 94 91 Oxygen Delivery Me thod 07/08/24 16:12 07/08/24 16:15 07/08/24 16:23 Temperature 98.1 F Pulse Rate 85 82 81 Pulse Rate [Pulse Oximeter] Pulse Rate [Right Pulse Oximeter] Respiratory Rate 16 Blood Pressure 132/88 141/87 H Blood Pressure [Ri ght Arm] Blood Pressure [Ri ght Upper Arm] Pulse Oximetry 94 93 93 Oxygen Delivery Me thod Room Air 07/08/24 16:26 07/08/24 16:30 07/08/24 16:45 Temperature Pulse Rate 83 83 85 Pulse Rate [Pulse Oximeter] Pulse Rate [Right Pulse Oximeter] Respiratory Rate 18 Blood Pressure 141/87 H Blood Pressure [Ri ght Arm] Blood Pressure [Ri ght Upper Arm] Pulse Oximetry 93 93 91 Oxygen Delivery Me thod 07/08/24 16:53 07/08/24 17:12 07/08/24 17:15 Temperature 98.0 F Pulse Rate 80 94 81 Pulse Rate [Pulse Oximeter] Pulse Rate [Right Pulse Oximeter] Respiratory Rate 16 Blood Pressure 134/82 Blood Pressure [Ri ght Arm] Blood Pressure [Ri ght Upper Arm] Pulse Oximetry 93 90 94 Oxygen Delivery Me thod Room Air 07/08/24 17:18 07/08/24 17:19 07/08/24 17:30 Temperature Pulse Rate 73 82 81 Pulse Rate [Pulse Oximeter] Pulse Rate [Right Pulse Oximeter] Respiratory Rate Blood Pressure 134/82 Blood Pressure [Ri ght Arm] Blood Pressure [Ri ght Upper Arm] Pulse Oximetry 94 94 92 Oxygen Delivery Me thod 07/08/24 17:45 07/08/24 18:00 07/08/24 18:06 Temperature Pulse Rate 84 88 90 Pulse Rate [Pulse Oximeter] Pulse Rate [Right Pulse Oximeter] Respiratory Rate Blood Pressure 127/89 Blood Pressure [Ri ght Arm] Blood Pressure [Ri ght Upper Arm] Pulse Oximetry 93 90 91 Oxygen Delivery Me thod 07/08/24 18:07 07/08/24 18:55 07/08/24 18:58 Temperature 98.1 F 98.7 F Pulse Rate 83 Pulse Rate [Pulse Oximeter] Pulse Rate [Right Pulse Oximeter] 97 Respiratory Rate 16 26 H 26 H Blood Pressure 127/89 Blood Pressure [Ri ght Arm] 132/85 Blood Pressure [Ri ght Upper Arm] Pulse Oximetry 93 93 93 Oxygen Delivery Me thod Room Air Room Air 07/08/24 20:37 07/08/24 23:44 Temperature 98.7 F 98.1 F Pulse Rate Pulse Rate [Pulse Oximeter] Pulse Rate [Right Pulse Oximeter] 100 76 Respiratory Rate 26 H 22 Blood Pressure Blood Pressure [Ri ght Arm] 132/85 124/80 Blood Pressure [Ri ght Upper Arm] Pulse Oximetry 93 95 Oxygen Delivery Me thod Room Air Room Air Hospitalist - H&P: Result Labs Labs: Short CBC 07/08/24 Range/Units 13:25 WBC 8.96 (4.50-11.00) K/uL Hgb 8.1 L (13.5-17.5) gm/dL Hct 27.1 L (37.0-53.0) % Plt Count 311 (140-440) K/uL BMP 07/08/24 13:25 Sodium 139 Potassium 3.6 Chloride 103 Carbon Dioxide 24 BUN 20 Creatinine 1.2 Glucose 160 H Calcium 7.4 L Cardiac Enzymes 07/08/24 07/08/24 07/08/24 Range/Units 13:25 15:03 21:27 Troponin I 0.76 H* 0.71 H* 0.52 H* (0.01-0.04) ng/mL Liver Function 07/08/24 Range/Units 13:25 Total Bilirubin 0.3 (0.1-1.5) mg/dL Direct Bilirubin 0.1 (0.0-0.5) mg/dL AST 40 H (12-35) U/L ALT 25 (4-50) U/L Alkaline Phosphatase 137 (40-150) U/L Albumin 4.0 (3.3-5.0) g/dL 07/08/2024 1:21 p.m. EKG: Normal sinus rhythm 83 beats per minute, normal EKG. 07/08/2024 3:12 p.m. EKG: Normal sinus rhythm, 83 beats per minute, normal EKG. Ordering Physician: Temitope Villa M.D. Date of Service: 07/08/24 Procedure(s): XR chest 2V Accession Number(s): [id number] cc: Temitope Villa M.D.; Shona Vásquez M.D.~ For Patients: As a result of the Cures Act, medical imaging exams and procedure reports are released immediately into your electronic medical record. You may view this report before your referring provider. If you have questions, please contact your health care provider. INDICATION: Short of breath, weakness COMPARISON: CT 04/18/2024, radiograph 09/13/2022 TECHNIQUE: PA and lateral 2 view chest. FINDINGS: Lung volumes are overall good. Mild distortion in the right lung related to prior surgical interventions or other insult. Hazy opacities in the right mid to lower lung. Prominent pulmonary vascular markings with a few peripheral septal lines bilaterally. Small right pleural effusion. No pneumothorax. No pneumomediastinum. Heart size is large but similar to prior. Atherosclerotic vascular calcifications. Bones: Normal for age. IMPRESSION: Mild pulmonary edema. Small right pleural effusion. Dictated by Francesca Rodriguez MD @ 07/08/2024 2:05:23 PM (Electronically Signed) Ordering Physician: Temitope Villa M.D. Date of Service: 07/08/24 Procedure(s): CT angio chest PE protocol Accession Number(s): [id number] cc: Temitope Villa M.D.; Shona Vásquez M.D.~ For Patients: As a result of the Cures Act, medical imaging exams and procedure reports are released immediately into your electronic medical record. You may view this report before your referring provider. If you have questions, please contact your health care provider. INDICATION: SOB, LIGHTHEADED X2 MONTHS. HX SKIN AND RT KIDNEY CANCER. TECHNIQUE: CT chest PE was acquired with 95 cc Isovue 370 IV contrast. COMPARISON: None. FINDINGS: Heart and vasculature: Contrast opacification of the pulmonary arterial tree is adequate. No sign of pulmonary embolism. Heart size is borderline enlarged. Thoracic aorta is normal in caliber.Main pulmonary artery is enlarged measuring up to 39 millimeters in diameter. Coronary artery calcifications and/or stents. Lungs and pleura: Small bilateral pleural effusions worse on the right than the left. Adjacent compressive atelectasis is noted. Lymph nodes/mediastinum: Mild diffuse mediastinal adenopathy. Chest wall: No masses. Upper abdomen: No acute or significant findings. Bones: Unremarkable for age. IMPRESSION: No pulmonary embolism identified. Small bilateral pleural effusions worse on the right than the left with adjacent compressive atelectasis. Please note that all CT scans at this facility use dose modulation, iterative reconstruction, and/or weight-based dosing when appropriate to reduce radiation dose to as low as reasonably achievable. Dictated by Sebas Alvarez MD @ 07/08/2024 6:19:27 PM (Electronically Signed) Assessment and Plan Assessment and plan (1) Ischemia due to increased oxygen demand: Problem comment: - NSTEMI with elevated trop. I suspect he was largely asymptomatic due to longstanding uncontrolled DM - chest CT is negative for PE - cardiac risk factors include uncontrolled diabetes mellitus type 2, previous history of coronary artery disease, extended past history and current tobacco use, hypertension, hyperlipidemia - Suspect demand ischemia is the cause. Hgb 8.1 now. Monitor as I suspect this will improve with diuresis. I do not think he need transfusion, but if trop increases or he becomes symptomatic, transfusion should be considered. - Increase Asprin to 81 mg daily. Monitor for GI bleeding. Continue metoprolol. - Counseled to quit smoking. - admit for cardiac telemetry, serial troponins, echocardiogram Status: Acute (2) Heart failure: Problem comment: - proBNP is elevated, lower extremity edema present, pulmonary edema and small pleural effusions on imaging - Suspect diastolic heart failure secondary to hypertension and recent cardiac event - start Lasix for diuresis - obtain echocardiogram Status: Acute (3) Coronary artery disease: Problem comment: stent [id number],RCA 2014 [employer] diagonal and 30% re instent stenosis LAD stent 80%apical LAD stenosis cardiology f/u 12/2022 and 02/2023 Status: Chronic (4) GI bleed: Problem comment: 06/17/2024 - Appears to have resolved. No further melena, Hgb stable. Status: Acute (5) Hypertension: Problem comment: - Continue metoprolol. 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 Status: Chronic
[2024-07-09] MEDS: CALCIUM GLUC 1,000MG/50 ML 1,000 MG/50 ML BAG 100 MG IVPB ×2 (01:35→03:16)
[2024-07-09] MEDS: IPRAT-ALBUT 0.5-2.5 MG/3 ML NEB 1 NEB IH (01:40)
[2024-07-09] MEDS: SODIUM CHLORIDE 0.9 % (FLUSH) 10 ML SYRINGE 5 ML IVF ×3 (03:16→21:27)
[2024-07-09 06:31] LABS: Basophils Absolute Auto 0.05 K/uL (0.00-0.30); Basophils Percent Auto 0.7 % (0.0-3.0); Eosinophils Absolute Auto 0.16 K/uL (0.00-0.50); Eosinophils Percent Auto 2.1 % (0.0-7.0); Hematocrit 29.3 % (37.0-53.0); Hemoglobin* 8.9 gm/dL (13.5-17.5); Immature Granulocytes Abs Auto 0.05 K/uL (0.00-0.30); Immature Granulocytes Pct Auto 0.7 %; Lymphocytes Percent Auto 19.2 % (20-44); Mean Corpuscular HGB Conc 30 gm/dL (32-36); Mean Corpuscular Hemoglobin 26 pg (26-34); Mean Corpuscular Volume 85 fL (80-100); Monocytes Percent Auto 10.5 % (0.0-11.0); Neutrophils Absolute Auto 5.14 K/uL (1.7-7.0); Neutrophils Percent Auto 66.8 % (42.0-72.0); Platelet Count* 293 K/uL (140-440); RDW Coefficient of Variation % 19.6 % (11.5-15.5); Red Blood Count 3.45 m/uL (4.30-5.90); White Blood Count* 7.69 K/uL (4.50-11.00)
[2024-07-09 06:32] LABS: Slide Review Reflex No
--- NOTE | 2024-07-09 06:39 | PC.NURSE ---
Pt alert and oriented x3. Afebrile. Pt denies pain, chest pain and N/V. SOB is noted with exertion, and pt has intermittent cough, Neb given. Pt is up Ind in room, voiding and tolerating a regular diet. Pt had 1 bm overnight, pt denies blood in stool. ??
[2024-07-09 06:56] LABS: Albumin* 3.8 g/dL (3.3-5.0)
[2024-07-09 06:57] LABS: Chloride* 102 mmol/L (96-114); Potassium* 3.4 mmol/L (3.6-5.1); Sodium* 136 mmol/L (135-149)
[2024-07-09 06:59] LABS: Anion Gap 9 mEq/L (7-15); Aspartate Amino Transferase* 25 U/L (12-35); Bilirubin Total* 0.4 mg/dL (0.1-1.5); Carbon Dioxide* 25 mmol/L (20-32); Creatinine* 1.2 mg/dL (0.5-1.5); Est. Creatinine Clearance* 63.37; Estimated Glomerular Filt Rate 67 ml/min; Total Protein* 6.3 g/dL (6.0-8.3)
[2024-07-09 07:00] LABS: Alanine Aminotransferase* 23 U/L (4-50); Alkaline Phosphatase* 131 U/L (40-150); Blood Urea Nitrogen* 18 mg/dL (7-30); Calcium* 7.3 mg/dL (8.4-10.6); Glucose* 245 mg/dL (60-115)
[2024-07-09 07:27] LABS: Troponin I* 0.34 ng/mL (0.01-0.04)
[2024-07-09] MEDS: INSULIN ASPART 100 UNIT/ML SUBCUT ×2 (08:36→21:24)
[2024-07-09] MEDS: FUROSEMIDE 10 MG/ML inj 20 MG IVP (08:36)
[2024-07-09] MEDS: EMPAGLIFLOZIN 10 MG TABLET PO (08:37)
[2024-07-09] MEDS: INSULIN ASPART 100 UNIT/ML 20 UNIT SUBCUT ×3 (08:37→18:07)
[2024-07-09] MEDS: ASPIRIN 81 MG TABLET EC PO (08:37)
[2024-07-09] MEDS: INSULIN GLARGINE,HUM.REC.ANLOG 100 UNIT/ML INSULN.PEN 28 UNIT SUBCUT ×2 (08:37→21:23)
[2024-07-09] MEDS: OMEPRAZOLE 20 MG CAPSULE DR 40 MG PO ×2 (08:38→21:22)
[2024-07-09] MEDS: METOPROLOL TARTRATE 100 MG TABLET 50 MG PO ×2 (08:38→21:22)
[2024-07-09] MEDS: lisinopriL 10 MG TABLET PO (12:21)
[2024-07-09] MEDS: POTASSIUM BICARB 25 MEQ EFFERVESCENT TAB 50 MEQ PO (12:22)
--- NOTE | 2024-07-09 13:47 | P.IMPN_ITS ---
Progress Note: A&P Assessment and plan (1) Heart failure: Problem details: Heart failure with preserved ejection fraction. Echocardiogram on July 09 shows ejection fraction of 55-60% with increased wall thickness. Dilated inferior vena cava with respiratory size variation less than 50%. Right side pressure 33 mmHg plus right atrial pressure. No marked valvular disease Trigger for this episode of heart failure likely a combination of the GI bleed with resuscitation and blood transfusions and discontinuing his normal heart failure and blood pressure medications, lisinopril, hydrochlorothiazide, amlodipine, and decreasing metoprolol. Plan to reinstitute guideline directed medical therapy as tolerated. Continue diuresis. Status: Acute (2) Ischemia due to increased oxygen demand: Problem details: Elevated troponin likely due primarily to heart failure exacerbation though anemia from GI bleeding may contribute as well. Known coronary artery disease as outlined above. Hemoglobin today is 8.9. No transfusion needed. Monitor for symptoms such as chest pain Status: Acute (3) Anemia: Problem details: He has been transfused to hemoglobin 8.9. Continue to monitor for any evidence of GI bleeding Status: Acute (4) GI bleed: Problem details: 06/17/2024 - Appears to have resolved. No further melena, Hgb stable. Status: Acute (5) Hypertension: Problem details: - Continue metoprolol. Resume heart failure medications as blood pressure allows Status: Chronic (6) Coronary artery disease: Problem details: stent [id number],RCA 2014 [employer] diagonal and 30% re instent stenosis LAD stent 80%apical LAD stenosis cardiology f/u 12/2022 and 02/2023. Status: Chronic (7) Uncontrolled type 2 diabetes mellitus: Problem details: - Insulin dependent - 06/06/24 HgbA1C 8.5% - Continue home insulin regimen plus ISS Status: Chronic (8) Hyperlipidemia: Problem details: Lipids cardiology January 2023, cholesterol 145, LDL 54, HDL 40, triglycerides 255 LDL goal <70 - continue atorvastatin Status: Chronic (9) Tobacco use disorder: Problem details: 40+ Years, 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 Status: Chronic (10) COPD (chronic obstructive pulmonary disease): Problem details: Counseled patient to stop smoking Status: Chronic Plan Continue in hospital for management of heart failure with preserved ejection fraction. Optimize heart failure management. Outpatient Cardiology follow-up for ischemic workup if indicated. Time Spent With Patient Total time spent: Total time spent today is 60 minutes in coordination of care, reviewing records and discussing with patient and his ongoing management of heart failure Subjective Date Seen: 07/09/24 Interval history: Dustin Carrera is a 63 year old male with a history of coronary artery disease, uncontrolled diabetes mellitus type 2, hypertension, hyperlipidemia, COPD, and tobacco abuse who came into the emergency department for persistent dizziness. He started having abdominal pain, melena, and dizziness on 06/17/2024. He was seen for this in the urgent care and transferred to [facility] where he had an EGD. He had duodenitis and no other explanation for GI bleeding. Biopsies negative for H pylori His blood pressures were low normal and so several of his antihypertensive (amlodipine 10 mg, lisinopril 20 mg, hydrochlorothiazide 12.5 mg) were stopped and metoprolol was reduced from 100 mg b.i.d. to 50 mg b.i.d.. He followed up with Dr. German for persistent dizziness and his hemoglobin at that visit was lower than the 1 at discharge from [facility]. He was given 1 unit packed red blood cells. He had a colonoscopy the next week which found 7 polyps that were removed. Outpatient with any Yusuf. Results of biopsies are still not available at the time of admission. He has had no further melena or abdominal pain, but does have persistent dizziness. He describes is primarily as weakness and lightheadedness. No vertigo. No syncope He denies any chest pain or shortness of breath. He thought that maybe he needed another blood transfusion today, but his hemoglobin is 8.1. He was found to have an elevated troponin in the emergency department, but again is completely asymptomatic other than dizziness. He does note that his ankles have been swollen over the last few days which is new. Previous history of coronary artery disease: Stent in LAD and 2011, 2 stents in his right coronary artery in 2014. Two thousand fifteen he was noted to have CT 0 of his diagonal and a 30% in stent restenoses of his LAD an 80% apical LAD stenosis. Echocardiogram in 2017 showed ejection fraction of 65 to 70% with no focal wall motion abnormality. December 2022 he had a Lexiscan showing ejection fraction of 50% with a small area of nontransmural infarct in the mid to distal anterior wall of the LAD artery distribution with mild degree of bobbi-infarct ischemia this is consistent with his known occluded collateralized diagonal. Exam Narrative: Exam Narrative: He is alert and appears in no distress. Breathing is unlabored. Respirations with bibasilar crackles. No wheezing. Fair air exchange in all lung rudolph. Cardiovascular: S1, S2, regular rate and rhythm. Abdomen: Bowel sounds active. Abdomen is soft without tenderness or mass. Extremities with 1+ edema bilaterally. Const: Vital Signs, click to edit/add: Vital Signs - 24 hr 07/08/24 14:00 07/08/24 14:15 07/08/24 14:30 Temperature Pulse Rate 81 88 88 Pulse Rate [Right Pulse Oximeter] Respiratory Rate Blood Pressure Blood Pressure [Ri ght Arm] Pulse Oximetry 92 95 93 Oxygen Delivery Me thod 07/08/24 14:45 07/08/24 15:00 07/08/24 15:15 Temperature Pulse Rate 83 86 82 Pulse Rate [Right Pulse Oximeter] Respiratory Rate Blood Pressure Blood Pressure [Ri ght Arm] Pulse Oximetry 93 90 92 Oxygen Delivery Me thod 07/08/24 15:30 07/08/24 15:45 07/08/24 16:00 Temperature Pulse Rate 88 80 88 Pulse Rate [Right Pulse Oximeter] Respiratory Rate Blood Pressure Blood Pressure [Ri ght Arm] Pulse Oximetry 93 94 94 Oxygen Delivery Me thod 07/08/24 16:07 07/08/24 16:12 07/08/24 16:15 Temperature 98.2 F Pulse Rate 89 85 82 Pulse Rate [Right Pulse Oximeter] Respiratory Rate 16 Blood Pressure 119/78 132/88 Blood Pressure [Ri ght Arm] Pulse Oximetry 91 94 93 Oxygen Delivery Me thod 07/08/24 16:23 07/08/24 16:26 07/08/24 16:30 Temperature 98.1 F Pulse Rate 81 83 83 Pulse Rate [Right Pulse Oximeter] Respiratory Rate 16 18 Blood Pressure 141/87 H 141/87 H Blood Pressure [Ri ght Arm] Pulse Oximetry 93 93 93 Oxygen Delivery Me thod Room Air 07/08/24 16:45 07/08/24 16:53 07/08/24 17:12 Temperature 98.0 F Pulse Rate 85 80 94 Pulse Rate [Right Pulse Oximeter] Respiratory Rate 16 Blood Pressure 134/82 Blood Pressure [Ri ght Arm] Pulse Oximetry 91 93 90 Oxygen Delivery Me thod Room Air 07/08/24 17:15 07/08/24 17:18 07/08/24 17:19 Temperature Pulse Rate 81 73 82 Pulse Rate [Right Pulse Oximeter] Respiratory Rate Blood Pressure 134/82 Blood Pressure [Ri ght Arm] Pulse Oximetry 94 94 94 Oxygen Delivery Me thod 07/08/24 17:30 07/08/24 17:45 07/08/24 18:00 Temperature Pulse Rate 81 84 88 Pulse Rate [Right Pulse Oximeter] Respiratory Rate Blood Pressure Blood Pressure [Ri ght Arm] Pulse Oximetry 92 93 90 Oxygen Delivery Me thod 07/08/24 18:06 07/08/24 18:07 07/08/24 18:55 Temperature 98.1 F 98.7 F Pulse Rate 90 83 Pulse Rate [Right Pulse Oximeter] 97 Respiratory Rate 16 26 H Blood Pressure 127/89 127/89 Blood Pressure [Ri ght Arm] 132/85 Pulse Oximetry 91 93 93 Oxygen Delivery Me thod Room Air 07/08/24 18:58 07/08/24 20:37 07/08/24 23:44 Temperature 98.7 F 98.1 F Pulse Rate Pulse Rate [Right Pulse Oximeter] 100 76 Respiratory Rate 26 H 26 H 22 Blood Pressure Blood Pressure [Ri ght Arm] 132/85 124/80 Pulse Oximetry 93 93 95 Oxygen Delivery Me thod Room Air Room Air Room Air 07/08/24 23:44 07/08/24 23:44 07/09/24 00:43 Temperature Pulse Rate 103 H Pulse Rate [Right Pulse Oximeter] Respiratory Rate 22 22 Blood Pressure Blood Pressure [Ri ght Arm] Pulse Oximetry 95 Oxygen Delivery Me thod Room Air 07/09/24 01:54 07/09/24 08:17 07/09/24 08:17 Temperature 98.0 F Pulse Rate Pulse Rate [Right Pulse Oximeter] 81 93 Respiratory Rate 20 27 H 27 H Blood Pressure Blood Pressure [Ri ght Arm] 124/72 Pulse Oximetry 91 93 Oxygen Delivery Me thod Room Air Room Air 07/09/24 08:17 07/09/24 09:00 07/09/24 11:00 Temperature Pulse Rate 91 Pulse Rate [Right Pulse Oximeter] 93 73 Respiratory Rate 27 H 27 H Blood Pressure Blood Pressure [Ri ght Arm] 137/85 115/71 Pulse Oximetry 93 93 Oxygen Delivery Me thod Room Air Room Air Documenting provider has reviewed patient's vital signs: yes Labs Labs: Laboratory Results - last 24 hr 07/08/24 07/08/24 07/08/24 13:25 13:26 15:03 WBC RBC Hgb Hct MCV MCH MCHC RDW Coeff of Laine Plt Count Neut % (Auto) Lymph % (Auto) Cloud % (Auto) Eos % (Auto) Baso % (Auto) Neut # (Auto) Lymph # (Auto) Cloud # (Auto) Eos # (Auto) Baso # (Auto) Abs Immat Gran (auto) Imm/Tot Granulo (auto) D-Dimer Quant (PE/DVT) 0.92 H Sodium 139 Potassium 3.6 Chloride 103 Carbon Dioxide 24 Anion Gap 12 BUN 20 Creatinine 1.2 Estimated Creat Clear 63.37 Estimated GFR 67 Glucose 160 H Lactate 1.4 Calcium 7.4 L Ionized Calcium Allyson 0.94 L Magnesium 2.1 Total Bilirubin 0.3 Direct Bilirubin 0.1 AST 40 H ALT 25 Alkaline Phosphatase 137 Troponin I 0.76 H* 0.71 H* C-Reactive Protein 1.3 H NT-Pro-B Natriuret Pep 2340 Total Protein 6.7 Albumin 4.0 SARS-CoV-2 (PCR) Negative SARS-CoV-2 Influenza Type A (PCR) Negative PCR FLU A Influenza Type B (PCR) Negative PCR FLU B RSV (PCR) Negative PCR RSV Lab Acknowledgement Blood Type O Positive Antibody Screen NEGATIVE Crossmatch ([facility]) See Detail 07/08/24 07/08/24 07/09/24 20:34 21:27 04:00 WBC 7.69 RBC 3.45 L Hgb 8.9 L Hct 29.3 L MCV 85 MCH 26 MCHC 30 L RDW Coeff of Laine 19.6 H Plt Count 293 Neut % (Auto) 66.8 Lymph % (Auto) 19.2 L Cloud % (Auto) 10.5 Eos % (Auto) 2.1 Baso % (Auto) 0.7 Neut # (Auto) 5.14 Lymph # (Auto) 1.50 Cloud # (Auto) 0.80 Eos # (Auto) 0.16 Baso # (Auto) 0.05 Abs Immat Gran (auto) 0.05 Imm/Tot Granulo (auto) 0.7 D-Dimer Quant (PE/DVT) Sodium Potassium Chloride Carbon Dioxide Anion Gap BUN Creatinine Estimated Creat Clear Estimated GFR Glucose Lactate Calcium Ionized Calcium Allyson Magnesium Total Bilirubin Direct Bilirubin AST ALT Alkaline Phosphatase Troponin I 0.52 H* C-Reactive Protein NT-Pro-B Natriuret Pep Total Protein Albumin SARS-CoV-2 (PCR) Influenza Type A (PCR) Influenza Type B (PCR) RSV (PCR) Lab Acknowledgement Test Added Blood Type Antibody Screen Crossmatch ([facility]) 07/09/24 06:04 WBC RBC Hgb Hct MCV MCH MCHC RDW Coeff of Laine Plt Count Neut % (Auto) Lymph % (Auto) Cloud % (Auto) Eos % (Auto) Baso % (Auto) Neut # (Auto) Lymph # (Auto) Cloud # (Auto) Eos # (Auto) Baso # (Auto) Abs Immat Gran (auto) Imm/Tot Granulo (auto) D-Dimer Quant (PE/DVT) Sodium 136 Potassium 3.4 L Chloride 102 Carbon Dioxide 25 Anion Gap 9 BUN 18 Creatinine 1.2 Estimated Creat Clear 63.37 Estimated GFR 67 Glucose 245 H Lactate Calcium 7.3 L Ionized Calcium Allyson Magnesium Total Bilirubin 0.4 Direct Bilirubin AST 25 ALT 23 Alkaline Phosphatase 131 Troponin I 0.34 H* C-Reactive Protein NT-Pro-B Natriuret Pep Total Protein 6.3 Albumin 3.8 SARS-CoV-2 (PCR) Influenza Type A (PCR) Influenza Type B (PCR) RSV (PCR) Lab Acknowledgement Blood Type Antibody Screen Crossmatch ([facility])
[2024-07-09] MEDS: FUROSEMIDE 10 MG/ML inj 40 MG IVP (16:06)
[2024-07-09] MEDS: POTASSIUM CHLORIDE 10 MEQ CAPSULE ER 20 MEQ PO (18:18)
--- NOTE | 2024-07-09 19:49 | PC.NURSE ---
Nursing Care Hours: 1117-0632 Pt this shift calm and cooperative, no reports of chest pain or nausea. Independent in room. VSS. SOB at rest reported this morning but has not c/o SOB this evening. No nebulizers used. ECHO done at bedside.
[2024-07-09] MEDS: ATORVASTATIN CALCIUM 40 MG TABLET 80 MG PO (21:22)
[2024-07-09] MEDS: MELATONIN 3 MG TABLET PO (23:45)
[2024-07-10 03:25] VITALS: BP 126/70; PULSE 87; RESP 20; TEMP 36.6; O2SAT 92
[2024-07-10 06:33] LABS: Basophils Absolute Auto 0.06 K/uL (0.00-0.30); Basophils Percent Auto 0.7 % (0.0-3.0); Eosinophils Absolute Auto 0.15 K/uL (0.00-0.50); Eosinophils Percent Auto 1.7 % (0.0-7.0); Hematocrit 29.1 % (37.0-53.0); Hemoglobin* 8.7 gm/dL (13.5-17.5); Immature Granulocytes Abs Auto 0.09 K/uL (0.00-0.30); Mean Corpuscular HGB Conc 30 gm/dL (32-36); Mean Corpuscular Hemoglobin 25 pg (26-34); Mean Corpuscular Volume 84 fL (80-100); Monocytes Percent Auto 10.2 % (0.0-11.0); Neutrophils Absolute Auto 6.37 K/uL (1.7-7.0); Neutrophils Percent Auto 71.4 % (42.0-72.0); Platelet Count* 302 K/uL (140-440); RDW Coefficient of Variation % 19.4 % (11.5-15.5); Red Blood Count 3.45 m/uL (4.30-5.90); White Blood Count* 8.92 K/uL (4.50-11.00)
[2024-07-10 06:37] LABS: Slide Review Reflex No
[2024-07-10 06:53] LABS: Chloride* 102 mmol/L (96-114); Sodium* 139 mmol/L (135-149)
[2024-07-10 06:54] LABS: Potassium* 3.5 mmol/L (3.6-5.1)
[2024-07-10 06:56] LABS: Anion Gap 11 mEq/L (7-15); Carbon Dioxide* 26 mmol/L (20-32); Creatinine* 1.1 mg/dL (0.5-1.5); Est. Creatinine Clearance* 69.13; Estimated Glomerular Filt Rate 75 ml/min
[2024-07-10 06:57] LABS: Blood Urea Nitrogen* 20 mg/dL (7-30); Glucose* 136 mg/dL (60-115)
[2024-07-10 07:32] LABS: Troponin I* 0.25 ng/mL (0.01-0.04)
[2024-07-10 08:00] VITALS: BP 141/78; PULSE 72; RESP 18; TEMP 36.6; O2SAT 93
--- NOTE | 2024-07-10 08:02 | PC.NURSE ---
END OF SHIFT NOTE: PT PLEASANT AND COOPERATIVE WITH CARES. AMBULATES INDEPENDENTLY WITHIN ROOM. VSS ON RA; AFEBRILE. BG 205 RECEIVED 4 UNITS PER SS PROTOCOL. MELATONIN ADMINISTERED PRN TO AID WITH SLEEP. CALL LIGHT WITHIN PT REACH.
[2024-07-10] MEDS: OMEPRAZOLE 20 MG CAPSULE DR 40 MG PO (08:34)
[2024-07-10] MEDS: ASPIRIN 81 MG TABLET EC PO (08:34)
[2024-07-10] MEDS: POTASSIUM CHLORIDE 10 MEQ CAPSULE ER 20 MEQ PO (08:34)
[2024-07-10] MEDS: METOPROLOL TARTRATE 100 MG TABLET 50 MG PO (08:34)
[2024-07-10] MEDS: FUROSEMIDE 10 MG/ML inj 40 MG IVP (08:35)
[2024-07-10] MEDS: EMPAGLIFLOZIN 10 MG TABLET PO (08:35)
[2024-07-10] MEDS: lisinopriL 20 MG TABLET PO (08:35)
[2024-07-10] MEDS: SODIUM CHLORIDE 0.9 % (FLUSH) 10 ML SYRINGE 5 ML IVF (08:39)
[2024-07-10] MEDS: INSULIN GLARGINE,HUM.REC.ANLOG 100 UNIT/ML INSULN.PEN 28 UNIT SUBCUT (08:39)
[2024-07-10] MEDS: INSULIN ASPART 100 UNIT/ML 20 UNIT SUBCUT ×2 (08:41→12:01)
[2024-07-10 09:44] VITALS: RESP 18; O2SAT 93
--- NOTE | 2024-07-10 10:31 | NUTR.NU ---
RDN with diet education related to heart failure. Patient admitted with heart failure exacerbation. Past medical history includes but not limited to coronary artery disease, uncontrolled diabetes mellitus type 2, hypertension, hyperlipidemia, COPD, and tobacco abuse. Current weight 266 lb 8oz; height 5ft 10in; BMI 38.2 kg/m2. Weight has been stable recently. RDN visited with patient whom reports he does not follow a specific diet at home, however he tries to avoid processed meats. He reports never receiving diet education related to heart failure. RDN offered Heart Healthy diet education, however he declined at this time. Patient did accept educational materails to review on his own and take home. We briefly discussed limiting saturated fat and sodium intake. Handouts provided to support discussion. RDN's contact information provided and encouraged patient to call with questions. RDN to follow up as needed.
[2024-07-10] MEDS: INSULIN ASPART 100 UNIT/ML SUBCUT (12:01)
--- NOTE | 2024-07-10 13:56 | PC.NURSE ---
End of Shift: Patient pleasant and cooperative, A&O. VSS, afebrile. SpO2 maintained above 90% on RA. Patient denies pain this shift. Tolerating regular diet. IV removed with tip intact. Discharge instructions provided, all questions answered. Discharged to home via wheelchair with spouse.
--- NOTE | 2024-07-10 15:17 | P.DS_ITS ---
DS: Providers Provider Date Seen: 07/10/24 Date of admission: 07/08/24 20:34 Primary care physician: Shona Vásquez Admitting Clinician: Deja Alanis MD Attending Physician on discharge: Demarco Barreto MD Date of Discharge: 07/10/24 DS: Diagnosis Discharge Diagnosis (1) Heart failure: Status: Acute Problem details: Heart failure with preserved ejection fraction. Echocardiogram on July 09 shows ejection fraction of 55-60% with increased wall thickness. Dilated inferior vena cava with respiratory size variation less than 50%. Right side pressure 33 mmHg plus right atrial pressure. No marked valvular disease Trigger for this episode of heart failure likely a combination of the GI bleed with resuscitation and blood transfusions and discontinuing his normal heart failure and blood pressure medications, lisinopril, hydrochlorothiazide, amlodipine, and decreasing metoprolol. Plan to reinstitute guideline directed medical therapy as tolerated. Continue diuresis. At discharge medications will be largely unchanged from prior to GI bleed episode. Consider increasing metoprolol to previous dose of 100 mg b.i.d. (2) Ischemia due to increased oxygen demand: Status: Acute Problem details: Elevated troponin likely due primarily to heart failure exacerbation though anemia from GI bleeding may contribute as well. Known coronary artery disease as outlined above. Hemoglobin today is 8.7 on discharge. No transfusion needed. Monitor for recurrent bleeding. (3) Anemia: Status: Acute Problem details: He has been transfused to hemoglobin 8.7. Continue to monitor for any evidence of GI bleeding (4) GI bleed: Status: Acute Problem details: 06/17/2024 - Appears to have resolved. No further melena, Hgb stable. (5) Hypertension: Status: Chronic Problem details: - Continue metoprolol at reduced dose pending followup. All other heart failure and hypertension medicines resumed at previous dosing. (6) Coronary artery disease: Status: Chronic Problem details: stent LAD 2010,RCA 2014 STEERER diagonal and 30% in-stent stenosis LAD stent 80%apical LAD stenosis cardiology f/u 12/2022 and 02/2023. Discussed with [facility] cardiology. He plans to get follow-up with them as an outpatient. Further evaluation for coronary artery disease based on symptoms. If having significant ongoing cardiac symptoms despite optimal heart failure management may need re-evaluation for worsening coronary artery disease. (7) Hyperlipidemia: Status: Chronic Problem details: Lipids cardiology January 2023, cholesterol 145, LDL 54, HDL 40, triglycerides 255 LDL goal <70 - continue atorvastatin (8) Uncontrolled type 2 diabetes mellitus: Status: Chronic Problem details: - Insulin dependent - 06/06/24 HgbA1C 8.5% - Continue home insulin regimen plus ISS (9) Tobacco use disorder: Status: Chronic Problem details: 40+ Years, 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 (10) COPD (chronic obstructive pulmonary disease): Status: Chronic Problem details: Counseled patient to stop smoking DS: Summary Hospital Course Hospital Course: Dustin Carrera is a 63 year old male with a history of coronary artery disease, uncontrolled diabetes mellitus type 2, hypertension, hyperlipidemia, COPD, and tobacco abuse who came into the emergency department for persistent dizziness. He started having abdominal pain, melena, and dizziness on 06/17/2024. He was seen for this in the urgent care and transferred to [facility] where he had an EGD. He had duodenitis and no other explanation for GI bleeding. Biopsies negative for H pylori His blood pressures were low normal and so several of his antihypertensive (amlodipine 10 mg, lisinopril 20 mg, hydrochlorothiazide 12.5 mg) were stopped and metoprolol was reduced from 100 mg b.i.d. to 50 mg b.i.d.. He followed up with Dr. German for persistent dizziness and his hemoglobin at that visit was lower than the [address] [facility]. He was given 1 unit packed red blood cells. He had a colonoscopy the next week which found 7 polyps that were removed. Outpatient with any [facility] Results of biopsies are still not available at the time of admission. He has had no further melena or abdominal pain, but does have p ersistent dizziness. He describes is primarily as weakness and lightheadedness. No vertigo. No syncope He denies any chest pain or shortness of breath. He thought that maybe he needed another blood transfusion today, but his hemoglobin is 8.1. He was found to have an elevated troponin in the emergency department, but again is completely asymptomatic other than dizziness. He does note that h is ankles have been swollen over the last few days which is new. Previous history of coronary artery disease: Stent in LAD and 2010, 2 stents in his right coronary artery in 2014. Two thousand fifteen he was noted to have CT 0 of his diagonal and a 30% in stent restenoses of his LAD an 80% apical LAD stenosis. Echocardiogram in 2017 showed ejection fraction of 65 to 70% with no focal wall motion abnormality. December 2022 he had a Lexiscan showing ejection fraction of 50% with a small area of nontransmural infarct in the mid to distal anterior wall of the LAD artery distribution with mild degree of bobbi-infarct ischemia this is consistent with his known occluded collateralized diagonal. 07/10/2024: On the day of discharge he reports feeling better. No chest pain. Dyspnea is better. Tolerating the up titration of his hypertension and heart failure medicines quite well. Status at Discharge Overall status at discharge: patient is progressing back to baseline Time Spent with Patient Time attestation: Total time spent providing and/or coordinating discharge services: 45 minutes Exam Narrative: Exam Narrative: He is alert and appears in no distress. Respirations are clear to auscultation. Somewhat diminished breath sounds. No wheezing or rales or rhonchi. Cardiovascular: S1, S2, regular rate and rhythm. Abdomen: Bowel sounds acti ve. Abdomen is soft without tenderness or mass. Extremities with trace edema bilaterally Const: Vital Signs, click to edit/add: Vital Signs - 24 hr 07/09/24 16:53 07/09/24 21:15 07/09/24 21:15 Temperature 98.4 F Pulse Rate 92 Pulse Rate [Right Pulse Oximeter] 91 91 Respiratory Rate 20 20 Blood Pressure [Ri t Arm] 138/76 Pulse Oximetry 95 Oxygen Delivery Me thod Room Air 07/09/24 21:15 07/09/24 22:25 07/09/24 23:45 Temperature 98.2 F Pulse Rate 78 Pulse Rate [Right Pulse Oximeter] 77 Respiratory Rate 22 Blood Pressure [Ri ght Arm] 125/75 Pulse Oximetry 95 96 Oxygen Delivery Me thod Room Air Room Air 07/10/24 03:25 07/10/24 08:00 07/10/24 08:00 Temperature 97.9 F 97.9 F Pulse Rate Pulse Rate [Right Pulse Oximeter] 87 72 72 Respiratory Rate 20 18 18 Blood Pressure [Ri ght Arm] 126/70 141/78 H Pulse Oximetry 92 93 Oxygen Delivery Me thod Room Air Room Air 07/10/24 09:44 Temperature Pulse Rate Pulse Rate [Right Pulse Oximeter] Respiratory Rate 18 Blood Pressure [Ri ght Arm] Pulse Oximetry 93 Oxygen Delivery Me thod Room Air Documenting provider has reviewed patient's vital signs: yes DS: Data Data Completed and Pending Labs on day of discharge: Labs from last 24 hours 07/10/24 06:10 WBC 8.92 RBC 3.45 L Hgb 8.7 L Hct 29.1 L MCV 84 MCH 25 L MCHC 30 L RDW Coeff of Laine 19.4 H Plt Count 302 Neut % (Auto) 71.4 Lymph % (Auto) 15.0 L [place] % (Auto) 10.2 Eos % (Auto) 1.7 Baso % (Auto) 0.7 Neut # (Auto) 6.37 Lymph # (Auto) 1.30 [place] # (Auto) 0.90 Eos # (Auto) 0.15 Baso # (Auto) 0.06 Abs Immat Gran (auto) 0.09 Imm/Tot Granulo (auto) 1.0 Sodium 139 Potassium 3.5 L Chloride 102 Carbon Dioxide 26 Anion Gap 11 BUN 20 Creatinine 1.1 Estimated Creat Clear 69.13 Estimated GFR 75 Glucose 136 H Calcium 7.0 L Troponin I 0.25 H* Imaging CT scan - chest: Radiologist's impression: INDICATION: SOB, LIGHTHEADED X2 MONTHS. HX SKIN AND RT KIDNEY CANCER. TECHNIQUE: CT chest PE was acquired with 95 cc Isovue 370 IV contrast. COMPARISON: None. FINDINGS: Heart and vasculature: Contrast opacification of the pulmonary arterial tree is adequate. No sign of pulmonary embolism. Heart size is borderline enlarged. Thoracic aorta is normal in caliber.Main pulmonary artery is enlarged measuring up to 39 millimeters in diameter. Coronary artery calcifications and/or stents. Lungs and pleura: Small bilateral pleural effusions worse on the right than the left. Adjacent compressive atelectasis is noted. Lymph nodes/mediastinum: Mild diffuse mediastinal adenopathy. Chest wall: No masses. Upper abdomen: No acute or significant findings. Bones: Unremarkable for age. IMPRESSION: No pulmonary embolism identified. Small bilateral pleural effusions worse on the right than the left with adjacent compressive atelectasis. Discharge Plan Discharge Disposition: Home, Self-Care Date of Admission: 07/08/24 20:34 Attending Provider on Discharge: Gordon Barreto Primary Care Provider: Shona Vásquez Condition: Stable Anticipated Discharge Date/Time: 07/10/24 11:44 Discharge Medications: New lisinopril 20 mg tablet 20 mg PO DAILY Qty: 30 0RF torsemide 20 mg tablet 40 mg PO DAILY Qty: 60 0RF potassium chloride 20 mEq tablet extended release 40 meq PO DAILY Qty: 60 0RF amlodipine 10 mg tablet 10 mg PO DAILY Qty: 30 0RF Continued nitroglycerin 0.4 mg tablet, sublingual 0.4 mg sublingual Q5-15M PRN (Reason: chest pain) Qty: 30 0RF Rx Instructions: do not exceed 3 doses per episode insulin aspart U-100 [Novolog FlexPen U-100 Insulin] 100 unit/mL (3 mL) insulin pen 20 unit subcut TIDWMEAL Qty: 15 6RF ipratropium-albuterol 0.5 mg-3 mg(2.5 mg base)/3 mL solution for nebulization 3 ml inhalation Q6H PRN (Reason: shortness of breath or wheezing) Qty: 90 0RF pantoprazole 40 mg tablet,delayed release (DR/EC) 40 mg PO BID atorvastatin 80 mg tablet 80 mg PO HS fluticasone propion-salmeterol [Advair Diskus] 250-50 mcg/dose blister with d evice 1 inh inhalation DAILY PRN metoprolol tartrate 100 mg tablet 50 mg PO BID insulin glargine [Lantus Solostar U-100 Insulin] 100 unit/mL (3 mL) insulin pen 28 unit subcut BID Jardiance 10 mg tablet 10 mg PO DAILY albuterol sulfate 90 mcg/actuation HFA aerosol inhaler 2 puff inhalation Q4H PRN (Reason: shortness of breath or wheezing) Qty: 8.5 2RF Patient Comments: uses 1-2 times day in the last 3 weeks. Changed aspirin 81 mg tablet,delayed release (DR/EC) 81 mg PO DAILY Qty: 100 0RF Rx Instructions: MON,WED,FRI Discontinued doxycycline hyclate 100 mg capsule 100 mg PO BID 7 Days Qty: 14 0RF Discharge Orders: Discharge Order (Routine); Ordered 07/10/24 Ordered By: Gordon Barreto Patient Education: Lisinopril (By mouth), Potassium Chloride (By mouth), Amlodipine (By mouth), Torsemide (By mouth), Anemia (DC) Additional Instructions: Follow-up with [facility] at next available appointment in [place] or [place]. Weigh yourself every morning and record the weight. If your weight goes up 2 lb in 1 day or 3 lb in a week, call your doctor. You may need to take extra diuretic. Activity Level: Activity as Tolerated Discharge Diet: Heart Healthy (2 gm sodium, low fat) Follow Up Appointments: [facility] [Provider Group] - 07/11/24 1:00 pm ([id number], [address] [facility] [address]. If this appointment does not work call [phone]) Shona Vásquez MD [Primary Care Provider] - 07/16/24 12:45 am ([facility] with Dr. Vásquez for follow up; ) Forms: [employer] Info Instructions
== END 2024-07-10 13:45 | disposition home or self-care (01) | DRG 291 ==
LOC: ED 16:30 → MEDSURG 18:35
PROVIDERS: Family Medicine; Admitting Provider Family Medicine; Emergency Provider Family Medicine; PCP Emergency Medicine; Visit Provider Family Medicine
DX: I11.0 Hypertensive heart disease with heart failure (principal); I50.33 Acute on chronic diastolic (congestive) heart failure; D62 Acute posthemorrhagic anemia; K92.2 Gastrointestinal hemorrhage, unspecified; I24.9 Acute ischemic heart disease, unspecified; E11.65 Type 2 diabetes mellitus with hyperglycemia; Z79.4 Long term (current) use of insulin; J44.9 Chronic obstructive pulmonary disease, unspecified; I25.10 Atherosclerotic heart disease of native coronary artery without angina pectoris; K21.9 Gastro-esophageal reflux disease without esophagitis; Z90.5 Acquired absence of kidney; Z95.5 Presence of coronary angioplasty implant and graft; F17.210 Nicotine dependence, cigarettes, uncomplicated; E78.5 Hyperlipidemia, unspecified; Z85.528 Personal history of other malignant neoplasm of kidney
CPT/HCPCS: 36415; 36430; 71046; 71275; 80048; 80053; 80076; 82330; 82962; 83605; 83735; 83880; 84484; 85025; 85379; 86140; 86850; 86900; 86901; 86922; 87631; 93005; 93306; 94761; 99285; A9270; J0613; J1815; J1940; J7030; P9016; Q9967

== ENCOUNTER 2024-07-18 17:08 | Emergency (ER) | payer OTHER, SELFPAY ==
[2024-07-18 17:16] VITALS: BP 139/77; PULSE 92; RESP 16; TEMP 36.4; O2SAT 98; BMI 37.3
--- NOTE | 2024-07-18 17:38 | ED.GENADULT ---
HPI - General Adult General Date Seen: 07/18/24 Chief complaint: Unspecified Complaint, Adult Stated complaint: Sent by Vásquez for IV fluids Time Seen by Provider: 07/18/24 17:12 Source: patient and old records reviewed Mode of arrival: ambulatory Limitations: no limitations History of Present Illness HPI narrative: Patient is a 63-year-old male presenting to the emergency department for concerns of dehydration. She was sent in by his primary care provider. The patient was admitted last week and discharged on 07/10/2024. He is admitted for anemia of unknown etiology and heart failure. At discharge day adjusted his medications and started on torsemide. They believe the GI bleed exacerbated his heart failure. Echo done at his hospitalization shows an EF of 55-60%. He has been following up outpatient and his provider states that his creatinine has gone up from 1.1 at discharge to 1.52 days ago and now 1.6 today. She has tried to make sure he drinks plenty of fluids and he states he is drinking as much fluids as he can. His primary care provider is concerned he is getting dehydrated and may need hospitalization for this. I have spoken to her on the phone as she called an about the patient prior to his arrival in our emergency department. She please at this time he will need to be admitted for gentle rehydration as she does not want to cause fluid overload worsening his CHF. He has stopped his torsemide a couple days ago because of the acute kidney injury. She also had him hold his amlodipine and lisinopril as his blood pressure on the was 100/59. At his return visit blood pressure was better but is creatinine kept going up. Patient states he has been feeling lightheaded for the past several days and this occurs at all times whether he is up moving around or lying in bed. Denies dizziness, chest pain, shortness of breath, fevers, chills, weakness, numbness, headache, abdominal pain. Has not noticed any further blood in his stool. Patient states he does not feel back to himself yet. Related Data Home Medications ?Medication ?Instructions ?Recorded ?Confirmed atorvastatin 80 mg tablet 80 mg PO HS 06/24/24 07/18/24 empagliflozin 10 mg tablet 10 mg PO DAILY 07/08/24 07/18/24 (Jardiance) fluticasone 250 mcg-salmeterol 50 1 inh inhalation DAILY PRN 07/08/24 07/18/24 mcg/dose blistr powdr for inhalation (Advair Diskus) insulin glargine 100 unit/mL (3 28 unit subcut BID 07/08/24 07/18/24 mL) subcutaneous pen (Lantus Solostar U-100 Insulin) metoprolol tartrate 100 mg tablet 50 mg PO BID 07/08/24 07/18/24 Previous Rx's ?Medication ?Instructions ?Recorded insulin aspart U-100 100 unit/mL 20 unit (0.2 mL) subcut TIDWMEAL 02/20/24 (3 mL) subcutaneous pen (Novolog #15 mL FlexPen U-100 Insulin aspart) nitroglycerin 0.4 mg sublingual 0.4 mg sublingual Q5-15M PRN chest 02/20/24 tablet pain #30 tabs ipratropium 0.5 mg-albuterol 3 mg 3 ml inhalation Q6H PRN shortness 06/06/24 (2.5 mg base)/3 mL nebulization of breath or wheezing #90 mL soln albuterol sulfate 90 mcg/actuation 2 puff inhalation Q4H PRN 07/08/24 aerosol inhaler shortness of breath or wheezing #8.5 grams amlodipine 10 mg tablet 10 mg PO DAILY #30 tabs 07/10/24 aspirin 81 mg tablet,delayed 81 mg PO DAILY #100 tabs 07/10/24 release lisinopril 20 mg tablet 20 mg PO DAILY #30 tabs 07/10/24 potassium chloride 20 mEq 40 meq (2 x 20 mEq) PO DAILY #60 07/10/24 tablet,extended release tabs torsemide 20 mg tablet 40 mg (2 x 20 mg) PO DAILY #60 tabs 07/10/24 clonazepam 0.5 mg tablet 0.25 - 0.5 mg (0.5 - 1 x 0.5 mg) 07/16/24 PO BID PRN anxiety #20 tabs pantoprazole 40 mg tablet,delayed 40 mg PO BID #180 tabs 07/16/24 release Allergies Allergy/AdvReac Type Severity Reaction Status Date / Time amoxicillin Allergy Intermediate itching Verified 07/18/24 14:48 hands and swelling in hands Review of Systems Status of ROS: Reports: 10 or more systems reviewed and unremarkable except as noted in History and below [facility] Medical History Hypotension ?I95.9 - Hypotension, unspecified (ICD-10) Duodenitis ?K29.80 - Duodenitis without bleeding (ICD-10) Colon polyp ?K63.5 - Polyp of colon (ICD-10) NSTEMI (non-ST elevated myocardial infarction) ?I21.4 - Non-ST elevation (NSTEMI) myocardial infarction (ICD-10) Macular degeneration ?H35.30 - Unspecified macular degeneration (ICD-10) Gastroesophageal reflux disease ?K21.9 - Gastro-esophageal reflux disease without esophagitis (ICD-10) Ectatic aorta ?I77.819 - Aortic ectasia, unspecified site (ICD-10) Microalbuminuria ?R80.9 - Proteinuria, unspecified (ICD-10) Skin lesion of right arm ?L98.9 - Disorder of the skin and subcutaneous tissue, unspecified (ICD-10) History of renal cell carcinoma ?Z85.528 - Personal history of other malignant neoplasm of kidney (ICD-10) Anxiety and depression ?F41.9 - Anxiety disorder, unspecified (ICD-10) ?F32.A - Depression, unspecified (ICD-10) Neuropathy ?G62.9 - Polyneuropathy, unspecified (ICD-10) Abnormal nuclear stress test ?R94.39 - Abnormal result of other cardiovascular function study (ICD-10) BPH (benign prostatic hyperplasia) ?N40.0 - Benign prostatic hyperplasia without lower urinary tract symptoms (ICD-10) COPD (chronic obstructive pulmonary disease) ?J44.9 - Chronic obstructive pulmonary disease, unspecified (ICD-10) Tobacco use disorder ?F17.200 - Nicotine dependence, unspecified, uncomplicated (ICD-10) Hyperlipidemia ?E78.5 - Hyperlipidemia, unspecified (ICD-10) Coronary artery disease ?I25.10 - Atherosclerotic heart disease of [place] coronary artery without angina pectoris (ICD-10) Angina pectoris ?I20.9 - Angina pectoris, unspecified (ICD-10) Hypertension ?I10 - Essential (primary) hypertension (ICD-10) Uncontrolled type 2 diabetes mellitus Surgical History History of partial nephrectomy ?Z90.5 - Acquired absence of kidney (ICD-10) History of knee surgery ?Z98.890 - Other specified postprocedural states (ICD-10) History of hernia repair ?Z98.890 - Other specified postprocedural states (ICD-10) ?Z87.19 - Personal history of other diseases of the digestive system (ICD-10) History of coronary artery stent placement ?Z95.5 - Presence of coronary angioplasty implant and graft (ICD-10) Family History Sister Breast cancer Kidney disease Brother Diabetes Mother Non Hodgkin's lymphoma Social History Narrative: . 6 grandchildren. Does not drink alcohol Marijuana use Current Smoker- 40 pack years, 3/4 pack/day, no plans to quit or cut down. What is your current living situation?: I presently have a place to live Problems where you live: no known problems Problems where you live details: n/a In the past 12 months, utilities in danger of being shut off: no In past 12 months, lack of transportation kept you from medical appts, meetings, work, or getting things needed for daily living: no In the past 12 mos, have been you worried that your food would run out before you had money to buy more?: never true In the past 12 mos, the food you bought just didn't last and you didn't have money to buy more?: never true Smoking Status: Current every day smoker What tobacco products do you use: cigarettes How often do you have a drink containing alcohol: never AUDIT-C Alcohol total score: 0 Non-prescribed substance use: former substance user Caffeine: No How often does anyone, including family, friends and others, physically hurt you: never How often does anyone, including family, friends and others, insult or talk down to you: never How often does anyone, including family, friends and others, threaten you with harm: never How often does anyone, including family, friends and others, scream or curse at you: never Little interest or pleasure in doing things: several days Feeling down, depressed, or hopeless: several days service: No Exam Narrative: Exam Narrative: Const: Well-nourished, Well-developed, in mild distress Eyes: PERRL, no conjunctival injection, and symmetrical lids HENT: Atraumatic external nose and ears. Moist mucous membranes. Neck: Symmetric, trachea midline, No thyromegaly. CVS: RRR, No murmurs or gallops. Peripheral pulses 2+ and equal in all extremities RESP: Unlabored respiratory effort. Clear to auscultation bilaterally. GI: Nontender/Nondistended, No rebound or guarding. MSK:Extremities w/o deformity, Normal Active ROM Skin: Warm, Dry. No rashes or lesions. Neuro: Normal Muscle tone, No focal neurological deficits. Psych: Awake, Alert, & Oriented x3. Appropriate mood and affect. Const: Vital Signs, click to edit/add: Vital Signs - 24 hr 07/18/24 17:16 07/18/24 17:54 Temperature 97.6 F Pulse Rate [Pulse Oximeter] 92 Pulse Rate [orthos tatic lying] 84 Pulse Rate [orthos tatic sitting] 92 Pulse Rate [orthos tatic standing] 90 Respiratory Rate 16 Blood Pressure [Ri t Upper Arm] 139/77 Blood Pressure [or thostatic lying] 138/81 Blood Pressure [or thostatic sitting] 128/82 Blood Pressure [or thostatic standing ] 136/74 Pulse Oximetry 98 Oxygen Delivery Me thod Room Air Course Vital Signs Vital signs: Initial Vital Signs Temperature 97.6 F 07/18/24 17:16 Temperature Source Temporal Artery Scan 07/18/24 17:16 Pulse Rate 92 07/18/24 17:16 Respiratory Rate 16 07/18/24 17:16 Blood Pressure 139/77 07/18/24 17:16 Blood Pressure Mean 97 07/18/24 17:16 Blood Pressure Position Supine 07/18/24 17:16 Pulse Oximetry 98 07/18/24 17:16 Oxygen Delivery Method Room Air 07/18/24 17:16 Vital Signs Temperature 97.6 F 07/18/24 17:16 Pulse Rate 92 07/18/24 17:16 Respiratory Rate 16 07/18/24 17:16 Blood Pressure 139/77 07/18/24 17:16 Pulse Oximetry 98 07/18/24 17:16 Oxygen Delivery Method Room Air 07/18/24 17:16 Temperature 97.6 F 07/18/24 17:16 Pulse Rate 84 07/18/24 17:54 Respiratory Rate 16 07/18/24 17:16 Blood Pressure 138/81 07/18/24 17:54 Pulse Oximetry 98 07/18/24 17:16 Oxygen Delivery Method Room Air 07/18/24 17:16 Medical Decision Making [facility] Narrative Medical decision making narrative: Patient is a 63-year-old male presenting for concern of dehydration and acute kidney injury. Will recheck a BMP, CBC, magnesium, BMP, EKG, troponin. Will hold off on giving fluids until lab heart come back. Do not believe head imaging is necessary as his symptoms seem more related to lightheadedness from dehydration rather than the time of dizziness or intracranial issue. Will check orthostatic blood pressure. Orthostatic blood pressures were within normal limits. And he was asymptomatic for them. Lab work shows a creatinine of 1.3 only slightly up from discharge. Of note his other creatinine outpatient were point of cares. His calcium is low at 6.2. Vitamin-D within normal limits. His calcium seems unlikely to be causing his symptoms but will order of phosphorus, albumin, PTH for outpatient follow-up. Corrected calcium is 4.1. He does have a follow-up appointment next for his symptoms. He he continues to have only very mild lightheadedness occasionally is EKG shows no concerning findings. Troponin within normal limits and not believe is necessary to repeat the troponin. At this point he feels comfortable for discharge I will discharge the patient. He is agreeable to this plan. Lab Data Labs: Lab Results 07/18/24 07/18/24 07/18/24 Range/Units 17:10 17:31 18:55 WBC 11.00 (4.50-11.00) K/uL RBC 3.93 L (4.30-5.90) m/uL Hgb 9.5 L (13.5-17.5) gm/dL Hct 32.0 L (37.0-53.0) % MCV 81 (80-100) fL MCH 24 L (26-34) pg MCHC 30 L (32-36) gm/dL RDW Coeff of Laine 21.8 H (11.5-15.5) % Plt Count 402 (140-440) K/uL Neut % (Auto) 72.1 H (42.0-72.0) % Lymph % (Auto) 16.5 L (20-44) % [place] % (Auto) 8.6 (0.0-11.0) % Eos % (Auto) 0.9 (0.0-7.0) % Baso % (Auto) 0.7 (0.0-3.0) % Neut # (Auto) 7.90 H (1.7-7.0) K/uL Lymph # (Auto) 1.80 (0.90-2.90) K/uL [place] # (Auto) 0.90 (0.00-0.90) K/UL Eos # (Auto) 0.10 (0.00-0.50) K/uL Baso # (Auto) 0.10 (0.00-0.30) K/uL Abs Immat Gran (auto) 0.10 (0.00-0.30) K/uL Imm/Tot Granulo (auto) 1.2 % Sodium 138 (135-149) mmol/L Potassium 3.7 (3.6-5.1) mmol/L Chloride 101 (96-114) mmol/L Carbon Dioxide 26 (20-32) mmol/L Anion Gap 11 (7-15) mEq/L BUN 27 (7-30) mg/dL Creatinine 1.3 (0.5-1.5) mg/dL Estimated Creat Clear 58.49 Estimated GFR 61 ml/min Glucose 103 (60-115) mg/dL Calcium 6.2 L (8.4-10.6) mg/dL Phosphorus 5.3 H (2.5-4.5) mg/dL Magnesium 1.8 (1.5-2.6) mg/dL NT-Pro-B Natriuret Pep 1160 pg/mL Albumin 4.1 (3.3-5.0) g/dL 25-OH Vitamin D Total 31 (30-80) ng/mL Lab Acknowledgement Test Added POC Troponin I 0.01 (0.01-0.04) ng/ml 07/18/24 Range/Units 19:02 WBC (4.50-11.00) K/uL RBC (4.30-5.90) m/uL Hgb (13.5-17.5) gm/dL Hct (37.0-53.0) % MCV (80-100) fL MCH (26-34) pg MCHC (32-36) gm/dL RDW Coeff of Laine (11.5-15.5) % Plt Count (140-440) K/uL Neut % (Auto) (42.0-72.0) % Lymph % (Auto) (20-44) % [place] % (Auto) (0.0-11.0) % Eos % (Auto) (0.0-7.0) % Baso % (Auto) (0.0-3.0) % Neut # (Auto) (1.7-7.0) K/uL Lymph # (Auto) (0.90-2.90) K/uL [place] # (Auto) (0.00-0.90) K/UL Eos # (Auto) (0.00-0.50) K/uL Baso # (Auto) (0.00-0.30) K/uL Abs Immat Gran (auto) (0.00-0.30) K/uL Imm/Tot Granulo (auto) % Sodium (135-149) mmol/L Potassium (3.6-5.1) mmol/L Chloride (96-114) mmol/L Carbon Dioxide (20-32) mmol/L Anion Gap (7-15) mEq/L BUN (7-30) mg/dL Creatinine (0.5-1.5) mg/dL Estimated Creat Clear Estimated GFR ml/min Glucose (60-115) mg/dL Calcium (8.4-10.6) mg/dL Phosphorus (2.5-4.5) mg/dL Magnesium (1.5-2.6) mg/dL NT-Pro-B Natriuret Pep pg/mL Albumin (3.3-5.0) g/dL 25-OH Vitamin D Total (30-80) ng/mL Lab Acknowledgement Test Added POC Troponin I (0.01-0.04) ng/ml ECG Data Attestation: I personally reviewed and interpreted this ECG as follows: Prior ECG tracings: available for review Interpretation: Normal sinus rhythm with a rate of 83 beats per minute, normal intervals, normal axis, no ST or T-wave abnormalities. Appears similar to previous EKGs on file. Discharge Plan Discharge Clinical Impression: Acute dehydration, Hypocalcemia Instructions: Hypocalcemia (ED) Additional Instructions: Return to emergency department for any new or worsening symptoms. Make sure to keep your follow-up appointment next . Prescriptions: No Action pantoprazole 40 mg tablet,delayed release (DR/EC) 40 mg PO BID Qty: 180 0RF clonazepam 0.5 mg tablet 0.25 - 0.5 mg PO BID PRN (Reason: anxiety) Qty: 20 0RF nitroglycerin 0.4 mg tablet, sublingual 0.4 mg sublingual Q5-15M PRN (Reason: chest pain) Qty: 30 0RF Rx Instructions: do not exceed 3 doses per episode insulin aspart U-100 [Novolog FlexPen U-100 Insulin] 100 unit/mL (3 mL) insulin pen 20 unit subcut TIDWMEAL Qty: 15 6RF ipratropium-albuterol 0.5 mg-3 mg(2.5 mg base)/3 mL solution for nebulization 3 ml inhalation Q6H PRN (Reason: shortness of breath or wheezing) Qty: 90 0RF atorvastatin 80 mg tablet 80 mg PO HS fluticasone propion-salmeterol [Advair Diskus] 250-50 mcg/dose blister with device 1 inh inhalation DAILY PRN metoprolol tartrate 100 mg tablet 50 mg PO BID insulin glargine [Lantus Solostar U-100 Insulin] 100 unit/mL (3 mL) insulin pen 28 unit subcut BID Jardiance 10 mg tablet 10 mg PO DAILY lisinopril 20 mg tablet 20 mg PO DAILY Qty: 30 0RF torsemide 20 mg tablet 40 mg PO DAILY Qty: 60 0RF potassium chloride 20 mEq tablet extended release 40 meq PO DAILY Qty: 60 0RF amlodipine 10 mg tablet 10 mg PO DAILY Qty: 30 0RF aspirin 81 mg tablet,delayed release (DR/EC) 81 mg PO DAILY Qty: 100 0RF Rx Instructions: MON,WED,FRI albuterol sulfate 90 mcg/actuation HFA aerosol inhaler 2 puff inhalation Q4H PRN (Reason: shortness of breath or wheezing) Qty: 8.5 2RF Patient Comments: uses 1-2 times day in the last 3 weeks. Follow Up/Referrals: Shona Vásquez MD [Primary Care Provider] - Stand Alone Forms: [facility] Info Instructions
[2024-07-18 17:43] LABS: Mean Corpuscular HGB Conc 30 gm/dL (32-36); Mean Corpuscular Hemoglobin 24 pg (26-34); Mean Corpuscular Volume 81 fL (80-100)
[2024-07-18 17:52] LABS: Slide Review Reflex No
[2024-07-18 17:54] VITALS: BP 128/82; BP 136/74; BP 138/81; PULSE 84; PULSE 90; PULSE 92
[2024-07-18 18:17] LABS: Troponin, Point-of-Care* 0.01 ng/ml (0.01-0.04)
[2024-07-18 18:20] LABS: Chloride* 101 mmol/L (96-114); Potassium* 3.7 mmol/L (3.6-5.1); Sodium* 138 mmol/L (135-149)
--- OUTSIDE RECORDS SUMMARY | 2024-07-18 18:20 | XMS_ITS | Encounter Summary ---
Author Organization [facility] Address [address] [place] [address] Care Team Providers Care Sql Application Developer Name Role Phone System, Provider Not In Primary Care Provider Un available Sangeetha Gonzales MD Primary Care Provider + Shona Vásquez MD Primary Care Provider + [phone] Kiet Arias MD Unavailable [phone] Zofia Hager APRN ADMINISTRATIVE JOB TITLES Unavailable Unavaila ble Kiet Arias MD Unavailable [phone] Encounter Details Date Type Department Care Team (Late st Contact Info) Description 08/29/2011 Office Visit-[facility] [address] [phone] Wilian Epps MD Social History Tobacco Use Types Packs/Day Years Used Date Smoking Tobacco: Never Assessed Sex and Gender Information Value Date Recorded Sex Assigned at Not on file 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 DATE: 08/29/2011 ALIZA RAMIREZ [id number] DATE OF : 1960 AGE: [age] years old Referring Physician: SANGEETHA GONZALES Referring Clinic: [facility] CURRENT DIAGNOSES 1. 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 [address] [place] [address] PCP - General Family Medicine 12/30/22 Kite Arias MD [address] [place] [id number] Assigned Heart and Vascular Provider 12/31/22 02/10/23 oZfia Hager APRN ADMINISTRATIVE JOB TITLES Assigned Heart and Vascular Provider 02/11/23 06/23/23 Kiet Arias MD [address] [place] [address] Assigned Heart and Vascular Provider 06/24/23 documented as of this encounter
--- OUTSIDE RECORDS SUMMARY | 2024-07-18 18:20 | XMS_ITS | Encounter Summary ---
Author Organization [facility] Address [address] [place] [address]. [place] [address] Care Team Providers Care Garment Sorter Name Role Phone System, Provider Not In Primary Care Provider Un available Sangeetha Gonzales MD Primary Care Provider + Shona Vásquez MD Primary Care Provider [phone] Kiet Arias MD Unavailable Zofia Hager PUPPY SITTER FIBERGLASS ROVING WINDER Unavailable Unavaila ble Kiet Arias MD Unavailable [phone] Encounter Details Date Type Department Care Team (Late st Contact Info) Description 05/30/2011 Office Visit-[facility] [place] [id number] 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 [id number] DATE: 05/30/2011 ALIZA RAMIREZ DATE OF : 1960 AGE: [age] years old Referring Physician: SANGEETHA GONZALES Referring Clinic: [facility] CURRENT DIAGNOSES 1. - CAD, 414.00 2. 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 2. Ultrasound confirmation [...] on filedocumented in this encounter Care Teams Garment Sorter Relationship Specialty Start Date End Date System, Provider Not In PCP - General 08/19/11 06/03/12 Sangeetha Gonzales MD PCP - General 06/04/12 12/29/22 Shona Vásquez MD [facility] [address] [place] [address] PCP - General Family Medicine 12/30/22 Kiet Arias MD [address] [facility] [place] [address] Assigned Heart and Vascular Provider 12/31/22 02/10/23 Zofia Hager, PUPPY SITTER FIBERGLASS ROVING WINDER Assigned Heart and Vascular Provider 02/11/23 06/23/23 Kiet Arias MD [address] [place] [address] Assigned Heart and Vascular Provider 06/24/23 documented as of this encounter
--- OUTSIDE RECORDS SUMMARY | 2024-07-18 18:20 | XMS_ITS | Encounter Summary ---
Author Organization [facility] Address [address] [place] [address] Care Team Providers Care Medicare Insurance Specialist Name Role Phone Sangeetha Gonzales MD Primary Care Provider + Shona Vásquez MD Primary Care Provider [phone] Kiet Arias MD Unavailable [phone] Zofia Hager APRN CORPORATE RECEPTIONIST Unavailable Unavaila ble Kiet Arias MD Unavailable [phone] Encounter Details Date Type Department Care Team (Late st Contact Info) Description 07/05/2012 Office Visit-[facility] [address] [phone] Wilian Epps MD Social History Tobacco Use Types Packs/Day Years Used Date Smoking Tobacco: Never Assessed Sex and Gender Information Value Date Recorded Sex Assigned at Not on file 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 DATE: 07/05/2012 ALIZA RAMIREZ [id number] DATE OF : 1960 AGE: [age] years old Referring Physician: SANGEETHA GONZALES Referring Clinic: [facility] CURRENT DIAGNOSES 1. - CAD, 414.00 2. [...] he was admitted for observation overnight at [facility] because of vague intermittent across the chest feelings that he described to me in retrospect as soreness in the nipples and a vague tightness that comes and goes fleetingly. It worried him enough that he went to the ER. They subsequently ruled out an LA and did a Cardiolite Lexiscan thallium study, [...] I did not feel a mandate to hfofman him off for an angiogram. 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 Return Visit 2 months Wilian Epsp M.D. documented in this encounter Plan of Treatment Not on file documented as of this encounter Visit Diagnoses Not on filedocumented in this encounter Care Teams Medicare Insurance Specialist Relationship Specialty Start Date End Date Sangeetha Gonzales MD PCP - General 06/04/12 12/29/22 Shona Vásquez MD [facility] [address] [place] [address] PCP - General Family Medicine 12/30/22 Kiet Arias MD [address] [place] [id number] Assigned Heart and Vascular Provider 12/31/22 02/10/23 Zofia Hager, ARCH SUPPORT MAKER CORPORATE RECEPTIONIST Assigned Heart and Vascular Provider 02/11/23 06/23/23 Kiet Arias MD [address] [place] [address] Assigned Heart and Vascular Provider 06/24/23 documented as of this encounter
--- OUTSIDE RECORDS SUMMARY | 2024-07-18 18:20 | XMS_ITS | Encounter Summary ---
Author Organization [place] Address [address] [place] [address] Care Team Providers Care Neon Glass Blower Name Role Phone Shona Vásquez MD Primary Care Provider [phone] Kiet Arias MD Unavailable [phone] Reason for Visit * Reason Comments Abnormal Labs * Auth/Cert (Routine) Specialty Diagnoses / Procedures Referred By Contac t Referred To Contact Med Surg Diagnoses Anemia due to blood loss, acute UGIB (upper gastrointestinal bleed) UGIB (upper gastrointestinal bleed) Anemia due to blood loss, acute [place] [address] [facility] [address] [place] [address] Phone: tel: fax: Referral ID Status Reason Start Date Expiration Date Visits Re quested Visits Authorized [id number] 1 1 Encounter Details Date Type Department Care Team (Late st Contact Info) Description 06/17/2024 7:24 PM CDT - 06/19/2024 12:11 PM CDT Emergency [place] [address] [facility] [address] [place] [address] Kushal Portillo MD [facility] [address] [facility] [address] [place] [phone] Ge Bowman MD [facility] [address] [place] [address] Kings Larson MD [address] [place], [place] [address] Elvis Herman DO [address] [place] [address] UGIB (upper gastrointestinal bleed); Anemia [...] in an abandoned building, in an overnight assisted, or couch-surfing.) Yes 06/18/2024 Are you worried [...] on file Legal Sex Male 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 Insulin dependent T2DM: TOOLS PROGRAMMER Lantus, aspart, Jardiance on discharge. HTN CAD s/p stenting: Discontinue TOOLS PROGRAMMER lisinopril/hydrochlorothiazide, amlodipine on discharge given normal blood pressureand dizziness on admission. Will continue TOOLS PROGRAMMER metoprolol. He should have follow-up with his primarydoctor in approximately 1 to 2 weeks for repeat blood pressure check. He may need to restart antihypertensives at that time. This was discussed with the patient. COPD: TOOLS PROGRAMMER Advair Clinically Significant Risk Factors # DMII: [...] minutes discharging this patient. Elvis Herman DO [place] [address] [facility] [address] [facility] [address] Physical Exam Vital Signs: Temp: 98 ??F [...] Care Everywhere. * Infection: H. Pylori Bacterial (Afghan) documented in this encounter Medications at Time [...] 3 nitroglycerin (NITROSTAT) 0.4 MG SL tabletIndications:Ac [place] [facility] chest pain Place 1 tablet (0.4 mg) [...] Herman DO - 06/18/2024 11:36 AM CDT [facility] Medicine Progress Note - Hospitalist Service Date [...] ordered on admission -N.p.o. sliding scale ordered -TOOLS PROGRAMMER Jardiance CAD s/p stenting: -Hold TOOLS PROGRAMMER lisinopril/hydrochlorothiazide, amlodipine, aspirin in the setting of suspected upper GI bleed -Continue TOOLS PROGRAMMER metoprolol with hold parameters COPD: TOOLS PROGRAMMER Advair Diet: NPO per Anesthesia Guidelines for [...] Anticipated Tomorrow Elvis Herman DO Hospitalist Service [facility] Securely message with Caden (more info) Text page via mth sense Paging/Directory Interval History NAEO. Patient with no [...] Larson MD - 06/17/2024 7:18 PM CDT [facility] History and Physical Dustin Carrera Age: [age] year old Date of : 1960 Date of Admission: 06/17/2024 Home clinic: [facility] Primary care provider: Shona Vásquez Assessment and Plan: Assessment: Dustin Carrera is a 63 year old man with history of CAD, Obesity, COPD, tobacco abuse and IDDM, type 2 who initially presented to an outside UC for dizziness and epigastric pain. [facility] after having been found to [...] 2. N.p.o. for possible EGD tomorrow. 3. [facility] is consulted. 4. 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 Wayne Draw Narrative The following orders were created for panel order [facility] Draw. Procedure Abnormality Status --------- ------ Extra Red Top Tube[[id number]] Final result Please view results for these [...] Antibody Screen Negative Negative SPECIMEN EXPIRATION DATE [id number] Extra Red Top Tube Result Value Ref Range Hold Specimen [facility] Hemoglobin A1c Result Value Ref Range Estimated [...] Brown MD - 06/18/2024 2:05 PM CDT [facility] Chart Update 63 yo with 1 week dark stool, anemia, epigastric pain. EGD today with mild duodenitis, otherwise normal. No prior colonoscopy. Will arrange for outpatient colonoscopy within 2 weeks. Will follow up on H. Pylori biopsies taken today. Suggest continued empiric PPI x1 month. Resume regular diet. Discharge planning per hospital service. Kiet Brown MD [facility] Digestive Health documented in this encounter ED Notes * Riya Acosta RN - 06/17/2024 11:04 PM CDT [facility] ED Nurse Handoff Report ED Chief complaint: Abnormal Labs . ED Diagnosis: Final diagnoses: UGIB (upper gastrointestinal bleed) Anemia due to blood loss, acute Allergies: Allergies Allergen Reactions Amoxicillin Code Status: Full Code Activity level - Baseline/Home: independent. Activity Level - Current: independent. Lift room needed: No. Bariatric: No Senior Database Administrator Needed: No Isolation: No. Infection: Not Applicable. [...] POS Antibody Screen Negative SPECIMEN EXPIRATION DATE [id number] ABO/RH TYPE AND SCREEN No orders to [...] of External Notes I reviewed paperwork from [facility] urgent care. 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, apical LAD, and culprit mid to distal [...] OPERATIVE ULTRASOUND; Surgeon: Shila Núñez MD; Location: [facility]; Service: Physical Exam Patient Vitals for the [...] POS Antibody Screen Negative SPECIMEN EXPIRATION DATE [id number] ABO/RH TYPE AND SCREEN Imaging No orders [...] Documentation None Medical Decision Making / Diagnosis [facility] Diagnoses: None MIPS None MDM Dustin Carrera [...] * Pharmacy-Admission Medication History - Linda Chery RP - 06/18/2024 10:36 AM CDT Pharmacist Admission Medication History Admission medication history is complete. The information provided in this note is only as accurateas the sources available at the time of the update. Information Source(s): Patient via in-person, Sure Scripts Pertinent Information: - Changes made to TOOLS PROGRAMMER medication list: Added: Advair, insulin Lantus Deleted: insulin Levemir, bupropion, furosemide Changed: None Allergies reviewed with patient and updates made in EHR: unable to assess Medication History Completed By: Linda Chery RPH 06/18/2024 10:36 AM TOOLS PROGRAMMER Med List Medication Sig Last Dose albuterol [...] 28 Units subcutaneously every evening. 06/17/2024 at [facility] lisinopril-hydrochlorothiazide (ZESTORETIC) 20-12.5 MG tablet Take 1 [...] Glucose by meter (06/19/2024 8:26 AM CDT) [facility] GLUCOSE BY METER POCT 179(H) 70 - 99 mg/dL 06/19/2024 8:33 AM CDT [facility] LABORATORY POC Blood, Capillary BLOOD SPECIMEN / Unknown 06/19/2024 8:26 AM CDT 06/19/2024 8:33 AM CDT us Ge VENTURA - BEZA POCT Final Result [facility] LABORATORY [facility] [address] [facility] Lab (1st floor, no room number) [place] [phone] [place] [address] * Extra Green Top Tube (LAB USE ONLY) (06/19/2024 7:37 AM CDT) Hold Specimen JIC 06/19/2024 9:02 AM CDT LABORATORY Blood STRUCTURE OF RIGHT HAND / Unknown Venipuncture / Unknown 06/19/2024 7:37 AM CDT 06/19/2024 7:48 AM CDT Jassi Felix MD LAB - BLOOD ORDERABLES Final Result [facility] Lab [address] [facility] Lab (1st floor, no room number) [address] [place] [address] * (ABNORMAL) Hemoglobin (06/19/2024 7:37 AM CDT) Pathologist [facility] Hemoglobin 8.2(L) 13.3 - 17.7 g/dL 06/19/2024 7:53 AM CDT LABORATORY Blood STRUCTURE OF RIGHT HAND / Unknown Venipuncture / Unknown 06/19/2024 7:37 AM CDT 06/19/2024 7:48 AM CDT us Elvis Herman DO LAB - BLOOD ORDERABLES Final R esult [facility] Lab [address] [facility] Lab (1st floor, no room number) [place] [phone] [place] [address] * (ABNORMAL) Glucose by meter (06/19/2024 1:09 AM CDT) GLUCOSE BY METER POCT 146(H) 70 - 99 mg/dL 06/19/2024 1:15 AM CDT LABORATORY POC Blood, Capillary BLOOD SPECIMEN / Unknown 06/19/2024 1:09 AM CDT 06/19/2024 1:15 AM CDT Ge Bowman MD LAB - BEAKER POCT Final Result LABORATORY [facility] Lab [address] Lab (1st floor, no room number) [address] * (ABNORMAL) Glucose by meter (06/18/2024 9:31 PM CDT) GLUCOSE BY METER POCT 169(H) 70 - 99 mg/dL 06/18/2024 9:38 PM CDT [facility] LABORATORY POC Blood, Capillary BLOOD SPECIMEN / Unknown 06/18/2024 9:31 PM CDT 06/18/2024 9:38 PM CDT Ge Bowman MD LAB - BEAKER POCT Final Result Performing Organization Address [facility]/ZIP Co de Phone Number LABORATORY [facility] Lab [address] Lab (1st floor, no room number) [address] * (ABNORMAL) Glucose by meter (06/18/2024 5:50 PM CDT) GLUCOSE BY METER POCT 164(H) 70 - 99 mg/dL 06/18/2024 5:56 PM CDT LABORATORY POC Blood, Capillary BLOOD SPECIMEN / Unknown 06/18/2024 5:50 PM CDT 06/18/2024 5:56 PM CDT Ge Bowman MD LAB - BEAKER POCT Final Result LABORATORY [facility] [address] Lab (1st floor, no room number) [address] * (ABNORMAL) Hemoglobin (06/18/2024 3:14 PM CDT) Hemoglobin 7.8(L) 13.3 - 17.7 g/dL 06/18/2024 3:28 PM CDT [facility] LABORATORY Blood STRUCTURE OF RIGHT UPPER LIMB / Unknown Venipuncture / Unknown 06/18/2024 3:14 PM CDT 06/18/2024 3:25 PM CDT Elvis Herman DO LAB - BLOOD ORDERABLES Final R esult LABORATORY [facility] [address] Lab (1st floor, no room number) [address] [place] [address] * (ABNORMAL) Glucose by meter (06/18/2024 2:31 PM CDT) GLUCOSE BY METER POCT 142(H) 70 - 99 mg/dL 06/18/2024 2:37 PM CDT LABORATORY POC Blood, Capillary BLOOD SPECIMEN / Unknown 06/18/2024 2:31 PM CDT 06/18/2024 2:37 PM CDT Ge Bowman MD LAB - BEAKER POCT Final Result Performing Organization Address [facility]/State/ZIP Co de Phone Number LABORATORY POC [facility] [address] Lab (1st floor, no room number) [address] * Surgical Pathology Exam (06/18/2024 1:27 PM CDT) Case Report Surgical Pathology Report ? Case: [id number] ? Authorizing Provider: ??Kiet Brown MD ? Collected: ? 06/18/2024 01:27 PM ? Ordering Location: ? [facility] ?Received: ?06/18/2024 01:58 PM ? [facility] [place] ? Pathologist: ? Nicole Parham MD ? Specimen: ?Stomach, gastric biopsies for h.pylori ? 06/19/2024 12:[address] [facility] Final Diagnosis A. Stomach, biopsy: - Oxyntic and antral type gastric mucosa with mild chronic inflammation. - Negative for H. Pylori organisms on routine stains. - Negative for intestinal metaplasia. -Negative for dysplasia or malignancy 06/19/2024 12:[address] [facility] Clinical Information Procedure: ESOPHAGOGASTRO DUODENOSCOPY, WITH BIOPSies using cold biopsy forceps Pre-op Diagnosis: Anemia, unspecified type [D64.9] Post-op Diagnosis: D64.9 - Anemia, unspecified type [ICD-10-CM] 06/19/2024 12:[address] [facility] Gross Description A(1). Stomach, gastric biopsies for h.pylori: The specimen is received in formalin, labeled with the patient's name, medical record number and other identifying information and designated ? gastric biopsies? . It consists of 4 crawford soft tissue fragments ranging from 0.2-0.3 cm. Entirely submitted in one cassette. (JU Silva)06/18/2024 2:01 PM 06/19/2024 12:[address] [facility] Microscopic Description Microscopic examination was performed. 06/19/2024 12:49 PM CDT LABORATORY Performing Labs The technical component of this testing was completed at [facility]. Stain controls for all stains resulted within this report have been reviewed and show appropriate reactivity. 06/19/2024 12:49 PM CDT LABORATORY Case Images 06/19/2024 12:49 PM CDT LABORATORY Biopsy STOMACH STRUCTURE / Unknown 06/18/2024 1:27 PM CDT 06/18/2024 1:58 PM CDT us Kiet Brown MD LAB - BEZA AP Final Resul t LABORATORY [facility] [address] Lab (1st floor, no room number) [address] * (ABNORMAL) Glucose by meter (06/18/2024 12:35 PM CDT) GLUCOSE BY METER POCT 136(H) 70 - 99 mg/dL 06/18/2024 12:42 PM CDT LABORATORY POC Blood, venous BLOOD SPECIMEN / Unknown 06/18/2024 12:35 PM CDT 06/18/2024 12:42 PM CDT us Ge Bowman MD LAB - BEZA POCT Final Result LABORATORY [facility] [address] Lab (1st floor, no room number) [address] * UPPER GI ENDOSCOPY (06/18/2024 12:29 PM CDT) Upper GI Endoscopy [facility] Patient Name: Dustin Carrera ?Procedure Date: 06/18/2024 12:29 PM ? Date of : 1960 ? Admit Type: Inpatient Age: 63 ? Gender: Male Attending MD: KIET BROWN MD, ??Total Sedation Time: Minutes of continuous bedside 1:1: 15 minutes Instrument Name: [id number] Gastroscope Procedure: ?Upper GI endoscopy Indications: ?Melena, [...] The ?Olympus Gasrointestinal Videoscope, Model# ?GIF-1100, Censitrac# [id number], SN# [id number] ?was introduced through the mouth, and advanced [...] Procedure Code(s): ? --- Professional --- ? 88817, Esophagogastroduod enoscopy, flexible, transoral; with biopsy, ? single or multiple Diagnosis Code(s): ? --- Professional --- ? D64.9, Anemia, unspecified ? K92.1, Melena (includes Hematochezia) ? K29.80, Duodenitis without bleeding CPT copyright 2021 [employer]. All rights reserved. The codes documented in this report are preliminary and upon emergency planner review may be revised to meet current compliance requirements. Kiet Brown M.D. ___ KIET BROWN MD 06/18/2024 1:38:23 PM Number of Addenda: 0 Note Initiated On: 06/18/2024 12:29 PM MRN: ?[id number] Procedure Date: ? 06/18/2024 12:29:49 PM Total [...] BEAKER POCT Final Result [facility] LABORATORY POC [facility] [address] Lab (1st floor, no room number) [place] [address], [facility] * (ABNORMAL) CBC with platelets (06/18/2024 [...] BLOOD ORDERABLES Final Re sult [facility] LABORATORY [facility] [address] Lab (1st floor, no room number) [place] [address], [facility] * (ABNORMAL) Basic metabolic panel (06/18/2024 [...] - BLOOD ORDERABLES Final Re sult LABORATORY [facility] [address] Lab (1st floor, no room number) [place] [address], [facility] * (ABNORMAL) Glucose by meter (06/18/2024 5:30 AM CDT) GLUCOSE BY METER POCT 120(H) 70 - 99 mg/dL 06/18/2024 5:37 AM CDT LABORATORY POC Blood, Capillary BLOOD SPECIMEN / Unknown 06/18/2024 5:30 AM CDT 06/18/2024 5:37 AM CDT Ge Bowman MD LAB - BEAKER POCT Final Result LABORATORY [facility] [address] Lab (1st floor, no room number) [place] [id number], [facility] * (ABNORMAL) Glucose by meter (06/18/2024 1:24 AM CDT) GLUCOSE BY METER POCT 159(H) 70 - 99 mg/dL 06/18/2024 1:31 AM CDT LABORATORY POC Blood, Capillary BLOOD SPECIMEN / Unknown 06/18/2024 1:24 AM CDT 06/18/2024 1:31 AM CDT Ge Bowman MD LAB - BEAKER POCT Final Result Performing Organization Address [facility] Co de Phone Number [facility] [address] Lab (1st floor, no room number) [place] [phone] * (ABNORMAL) Occult blood stool (06/17/2024 8:10 PM CDT) Occult Blood Positive(A ) Negative ANAHI 06/17/2024 8:20 PM CDT LABORATORY Stool RECTAL CONTENTS / Unknown Non-blood Collection / Unknown 06/17/2024 8:10 PM CDT 06/17/2024 8:19 PM CDT us Kushal Portillo MD LAB - STOOLS ORDERABLES Shantel l Result [facility] [address] Lab (1st floor, no room number) [place] [address] * (ABNORMAL) Hemoglobin A1c (06/17/2024 7:48 PM CDT) [facility] Estimated Average Glucose 203(H) <117 mg/dL 06/17/2024 [...] LAB - BLOOD ORDERABLES Final Re sult [facility] Lab [address] Lab (1st floor, no room number) [place] [address] * Extra Red Top Tube (06/17/2024 7:48 PM CDT) [facility] Hold Specimen JIC 06/17/2024 9:02 PM CDT [facility] LABORATORY Blood BLOOD SPECIMEN / Unknown Venipuncture / Unknown 06/17/2024 7:48 PM CDT 06/17/2024 7:55 PM CDT us Kushal Portillo MD LAB - BLOOD ORDERABLES Final Result LABORATORY [facility] [address] Lab (1st floor, no room number) [place] [address] * Adult Type and Screen (06/17/2024 7:48 PM CDT) [facility] ABO/RH(D) O POS 06/17/2024 7:31 PM CDT RH BLOOD BANK Antibody Screen Negative Negative 06/17/2024 7:31 PM CDT RH BLOOD BANK SPECIMEN EXPIRATION DATE [id number] 06/17/2024 7:31 PM CDT RH BLOOD BANK Blood BLOOD SPECIMEN / Unknown Venipuncture / Unknown 06/17/2024 7:48 PM CDT 06/17/2024 7:55 PM CDT us Kushal Portillo MD LAB - BLOOD BANK TEST ORDER Final Result RH BLOOD BANK [address] [place] [address], [facility] * (ABNORMAL) CBC with platelets and [...] LAB - BLOOD ORDERABLES Final Result LABORATORY [facility] [address] [facility] Lab (1st floor, no room number) [place] [address], [facility] * Ethyl Alcohol Level (06/17/2024 7:48 PM CDT) Alcohol ethyl <0.01 <=0.01 g/dL 06/17/2024 8:15 PM CDT [facility] LABORATORY Blood BLOOD SPECIMEN / Unknown Venipuncture / Unknown 06/17/2024 7:48 PM CDT 06/17/2024 7:55 PM CDT us Kushal Portillo MD LAB - BLOOD ORDERABLES Final Result RH LABORATORY [facility] Lab [address] [facility] Lab (1st floor, no room number) [place] [address], [facility] * (ABNORMAL) Comprehensive metabolic panel (06/17/2024 [...] MD LAB - BLOOD ORDERABLES Final Result [facility] [address] Lab (1st floor, no room number) [place] [address] * INR (06/17/2024 7:48 PM CDT) INR 0.95 0.85 - 1.15 06/17/2024 8:10 PM CDT [facility] LABORATORY Blood BLOOD SPECIMEN / Unknown Venipuncture / Unknown 06/17/2024 7:48 PM CDT 06/17/2024 7:55 PM CDT Kushal Portillo MD LAB - BLOOD ORDERABLES Final Result [facility] Lab [address] Lab (1st floor, no room number) [place] [address] documented in this encounter Visit Diagnoses Diagnosis [...] stools. documented in this encounter Care Teams Neon Glass Blower Relationship Specialty Start Date End Date Shona Vásquez MD [facility] [address] [place] [address] PCP - General Family Medicine 12/30/22 Kiet Arias MD [address] [place] [address] Assigned Heart and Vascular Provider 06/24/23 documented as of this encounter
--- OUTSIDE RECORDS SUMMARY | 2024-07-18 18:20 | XMS_ITS | Referral Summary ---
Author Organization [place] Address [address] [place] [address] Care Team Providers Care Public Address Announcer Name Role Phone Shona Vásquez MD Primary Care Provider [phone] Kiet Arias MD Unavailable [phone] Encounters Date Type Department Care Team Description 06/17/2024 7:24 PM CDT - 06/19/2024 12:11 PM CDT Emergency [place] [address] Medical Surgical [address] [place] [address] Kushal Portillo MD Amdahl, John, MD Parens, Karl R, MD Baxa, Alexander, DO UGIB (upper gastrointestinal bleed); Anemia due to blood loss, acute Discharge Disposition: Home or Self Care 06/18/2024 1:00 PM CDT - 06/18/2024 1:[address] [facility] [place] [address] [place] [address] Kiet Blevins MD ESOPHAGOGASTRODUODENOSCOP Y, WITH BIOPSies [...] 1 tablet (80 mg) by mouth daily Active clonazePAM (KLONOPIN) 0.5 MG tablet Take [...] by mouth 2 times daily. 60 tablet Active amLODIPine (NORVASC) 10 MG tablet Take 1 tablet (10 mg) by mouth daily 023 2023 Disconti nued(Sto p at Discharg e) lisinopril-hydrochl orothiazide (ZESTORETIC) 20-12.5 MG tablet Take 1 tablet by mouth daily 023 2023 Disconti nued(Sto p at Discharg e) Active Problems Problem Noted Date Diagnosed Date Anemia due to blood loss, acute 06/17/2024 UGIB (upper gastrointestinal bleed) 06/17/2024 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/30/2022 Metabolic syndrome X 12/30/2022 Peripheral edema 12/30/2022 Pneumonia 03/21/2015 NSTEMI (non-ST elevated myocardial infarction) 0 03/21/2015 Coronary artery disease invo lving stebbins coronary artery of stebbins heart without angina pectoris Mixed hyperlipidemia Essential [...] in an abandoned building, in an overnight intermediate, or couch-surfing.) Yes 06/18/2024 Are you worried [...] on file 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 Gender Identity Not on file Sexual Orientation [...] on file Medical Devices Implanted Type Area Crayon Grader Device Identifier Shelf Expiration Date Model / Serial / Lot Clip Ligating Hem-O-Lock 10mm [id number] Implanted:Qty : 4 on 08/22/2016 Metallic Hardware/Anc hor Right: Abdomen PILLING WECK 06/14/2021 [id number] / / [id number] Cardiac Stents Procedures Procedure Name Priority [...] 7:58 AM CDT Coronary artery disease involving stebbins coronary artery of stebbins heart without angina pectoris from Last 3 Months or Most Recently Relevant to Health Maintenance Results * (ABNORMAL) Glucose by meter (06/19/2024 8:26 AM CDT) Only the most recent of9 resultswithin the time period is included. [facility] GLUCOSE BY METER POCT 179(H) 70 - 99 mg/dL 06/19/2024 8:33 AM CDT RH LABORATORY POC Blood, Capillary BLOOD SPECIMEN / Unknown 06/19/2024 8:26 AM CDT 06/19/2024 8:33 AM CDT Ge Bowman MD LAB - BEAKER POCT Final Result LABORATORY POC [facility] Care Lab [address] Lab (1st floor, no room number) [address] * Extra Green Top Tube (LAB USE ONLY) (06/19/2024 7:37 AM CDT) Hold Specimen JIC 06/19/2024 9:02 AM CDT LABORATORY Blood STRUCTURE OF RIGHT HAND / Unknown Venipuncture / Unknown 06/19/2024 7:37 AM CDT 06/19/2024 7:48 AM CDT us Jassi Felix MD LAB - BLOOD ORDERABLES Final Result Performing Organization Address [facility] Co de Phone Number [facility] Lab [address] Lab (1st floor, no room number) [address] * (ABNORMAL) Hemoglobin (06/19/2024 7:37 AM CDT) Only the most recent of2 resultswithin the time period is included. Hemoglobin 8.2(L) 13.3 - 17.7 g/dL 06/19/2024 7:53 AM CDT LABORATORY Blood STRUCTURE OF RIGHT HAND / Unknown Venipuncture / Unknown 06/19/2024 7:37 AM CDT 06/19/2024 7:48 AM CDT us Elvis Herman DO LAB - BLOOD ORDERABLES Final R esult Performing Organization Address City/[facility]/ZIP Co de Phone Number [facility] Care Lab [address] Lab (1st floor, no room number) [address] * Surgical Pathology Exam (06/18/2024 1:27 PM CDT) Case Report Surgical Pathology Report ? Case: [id number] ? Authorizing Provider: ??Kiet Blevins MD ? Collected: ? 06/18/2024 01:27 PM ? Ordering Location: ? [facility] ?Received: ?06/18/2024 01:58 PM ? [facility] [place] ? Pathologist: ? Nicole Parham MD ? Specimen: ?Stomach, gastric biopsies for h.pylori ? 06/19/2024 12:49 PM CDT LABORATORY Final Diagnosis A. Stomach, biopsy: - Oxyntic and antral type gastric mucosa with mild chronic inflammation. - Negative for H. Pylori organisms on routine stains. - Negative for intestinal metaplasia. -Negative for dysplasia or malignancy 06/19/2024 12:49 PM CDT LABORATORY Clinical Information Procedure: ESOPHAGOGASTRO DUODENOSCOPY, WITH BIOPSies using cold biopsy forceps Pre-op Diagnosis: Anemia, unspecified type [D64.9] Post-op Diagnosis: D64.9 - Anemia, unspecified type [ICD-10-CM] 06/19/2024 12:49 PM CDT LABORATORY Gross Description A(1). Stomach, gastric biopsies for h.pylori: The specimen is received in formalin, labeled with the patient's name, medical record number and other identifying information and designated ? gastric biopsies? . It consists of 4 crawford soft tissue fragments ranging from 0.2-0.3 cm. Entirely submitted in one cassette. (JU Silva)06/18/2024 2:01 PM 06/19/2024 12:49 PM CDT LABORATORY Microscopic Description Microscopic examination was performed. [...] CDT us Kiet Blevins MD LAB - NORMA AP Final Resul t [facility] Acute Care Lab [address] [facility] Lab (1st floor, no room number) [place] [address], [facility] * UPPER GI ENDOSCOPY (06/18/2024 12:29 PM CDT) Upper GI Endoscopy [facility] Patient Name: Dustin Carrera ?Procedure Date: 06/18/2024 12:29 PM ? Date of : 1960 ? Admit Type: Inpatient Age: 63 ? Gender: Male Attending MD: KIET BLEVINS MD, ??Total Sedation Time: Minutes of continuous bedside 1:1: 15 minutes Instrument Name: [id number] Gastroscope Procedure: ?Upper GI endoscopy Indications: ?Melena, [...] The ?Olympus Gasrointestinal Videoscope, Model# ?[id number]-1100, Censitrac# [id number], SN# [id number] ?was introduced through the mouth, and advanced [...] Procedure Code(s): ? --- Professional --- ? 56265, Esophagogastroduod enoscopy, flexible, transoral; with biopsy, ? single or multiple Diagnosis Code(s): ? --- Professional --- ? D64.9, Anemia, unspecified ? K92.1, Melena (includes Hematochezia) ? K29.80, Duodenitis without bleeding CPT copyright 2021 [employer]. All rights reserved. The codes documented in this report are preliminary and upon rehab nurse review may be revised to meet current compliance requirements. Kiet Blevins M.D. ___ KIET BLEVINS MD 06/18/2024 1:38:23 PM Number of Addenda: 0 Note Initiated On: 06/18/2024 12:29 PM MRN: ?[id number] Procedure Date: ? 06/18/2024 12:29:49 PM Total [...] CDT 06/18/2024 6:58 AM CDT us Kings Lrason MD LAB - BLOOD ORDERABLES Final Re sult LABORATORY [facility] Lab [address] [facility] Lab (1st floor, no room number) [place] [address], [facility] * (ABNORMAL) CBC with platelets (06/18/2024 6:43 [...] - 450 10e3/uL 06/18/2024 7:03 AM CDT LABORATORY Blood STRUCTURE OF RIGHT UPPER LIMB / Unknown Venipuncture / Unknown 06/18/2024 6:43 AM CDT 06/18/2024 6:58 AM CDT us Kings Larson MD LAB - BLOOD ORDERABLES Final Re sult [facility] Lab [address] Lab (1st floor, no room number) [address] [place] [address] * (ABNORMAL) Occult blood stool (06/17/2024 8:10 PM CDT) Occult Blood Positive(A ) Negative ANAHI 06/17/2024 8:20 PM CDT LABORATORY Stool RECTAL CONTENTS / Unknown Non-blood Collection / Unknown 06/17/2024 8:10 PM CDT 06/17/2024 8:19 PM CDT us Kushal Portillo MD LAB - STOOLS ORDERABLES Shantel l Result [facility] Lab [address] Lab (1st floor, no room number) [place] [id number] * Extra Red Top Tube (06/17/2024 7:48 PM CDT) Hold Specimen JIC 06/17/2024 9:02 PM CDT LABORATORY Blood BLOOD SPECIMEN / Unknown Venipuncture / Unknown 06/17/2024 7:48 PM CDT 06/17/2024 7:55 PM CDT us Kushal Portillo MD LAB - BLOOD ORDERABLES Final Result RH LABORATORY [facility] [address] Lab (1st floor, no room number) [place] [address], [facility] * (ABNORMAL) CBC with platelets and differential [...] - BLOOD ORDERABLES Final Result RH LABORATORY [facility] [address] Lab (1st floor, no room number) [place] [address] * Adult Type and Screen (06/17/2024 7:48 PM CDT) ABO/RH(D) O POS 06/17/2024 7:31 PM CDT RH BLOOD BANK Antibody Screen Negative Negative 06/17/2024 7:31 PM CDT RH BLOOD BANK SPECIMEN EXPIRATION DATE [id number] 06/17/2024 7:31 PM CDT RH BLOOD BANK Blood BLOOD SPECIMEN / Unknown Venipuncture / Unknown 06/17/2024 7:48 PM CDT 06/17/2024 7:55 PM CDT Kushal Portillo MD LAB - BLOOD BANK TEST ORDER Final Result Performing Organization Address City/[facility]/ZIP Co de Phone Number BLOOD BANK [address] [place] [id number] * INR (06/17/2024 7:48 PM CDT) Pathologist [facility] INR 0.95 0.85 - 1.15 06/17/2024 8:10 PM CDT LABORATORY Blood BLOOD SPECIMEN / Unknown Venipuncture / Unknown 06/17/2024 7:48 PM CDT 06/17/2024 7:55 PM CDT Kushal Portillo MD LAB - BLOOD ORDERABLES Final Result Performing Organization Address [facility]/ZIP Co de Phone Number LABORATORY [facility] Care Lab [address] [facility] Lab (1st floor, no room number) [place] [phone] [place] [address] * (ABNORMAL) Hemoglobin A1c (06/17/2024 7:48 PM CDT) Pathologist [facility] Estimated Average Glucose 203(H) <117 mg/dL 06/17/2024 11:30 PM CDT LABORATORY Hemoglobin A1C 8.7(H) <5.7 % 06/17/2024 11:30 PM CDT LABORATORY Comment: Normal <5.7% Prediabetes 5.7-6.4% ?? Diabetes 6.5% or higher Note: Adopted from ADA consensus guidelines. Blood BLOOD SPECIMEN / Unknown Venipuncture / Unknown 06/17/2024 7:48 PM CDT 06/17/2024 7:55 PM CDT Kings Larson MD LAB - BLOOD ORDERABLES Final Re sult Performing Organization Address City/[facility]/ZIP Co de Phone Number LABORATORY [facility] [address] Lab (1st floor, no room number) [place] [phone] * (ABNORMAL) Comprehensive metabolic panel (06/17/2024 [...] MD LAB - BLOOD ORDERABLES Final Result [facility] Lab [address] Lab (1st floor, no room number) [place] [phone] * Ethyl Alcohol Level (06/17/2024 7:48 PM CDT) Alcohol ethyl <0.01 <=0.01 g/dL 06/17/2024 8:15 PM CDT LABORATORY Blood BLOOD SPECIMEN / Unknown Venipuncture / Unknown 06/17/2024 7:48 PM CDT 06/17/2024 7:55 PM CDT Kushal Portillo MD LAB - BLOOD ORDERABLES Final Result Performing Organization Address City/[facility]/ZIP Co de Phone Number [facility] Lab [address] Lab (1st floor, no room number) [place] [phone] * Lab Result - HIM Scan (06/17/2024 [...] BLOOD ORDERABLES Fin al Result [facility] LABORATORY [facility] [place] [facility] [address] [facility] [address] [facility], [address] [place] [address], [place] [phone] from Last 3 Months or Most Recently Relevant to Health Maintenance Insurance [employer] Advance Directives For more information, please contact: [phone] * Full Code (Latest Code Status on [...] 2:20 PM 06/05/2012 5:52 PM Care Teams Public Address Announcer Relationship Specialty Start Date End Date Shona Vásquez MD [facility] [address] [place] [address] PCP - General Family Medicine 12/30/22 Kiet Arias MD [address] [place] [address] Assigned Heart and Vascular Provider 06/24/23
--- OUTSIDE RECORDS SUMMARY | 2024-07-18 18:20 | XMS_ITS | Encounter Summary ---
Author Organization [place] Address [address] [place] [address] Care Team Providers Care Flanging Machine Operator Name Role Phone Shona Vásquez MD Primary Care Provider [phone] Kiet Arias MD Unavailable [phone] Zofia Hager APRN FABRICATION AND ASSEMBLY SUPERVISOR Unavailable Unavaila ble Kiet Arias MD Unavailable [phone] Encounter Details Date Type Department Care Team (Late st Contact Info) Description 01/10/2023 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 Gender Identity Not on file Sexual [...] on filedocumented in this encounter Care Teams Flanging Machine Operator Relationship Specialty Start Date End Date Shona Vásquez MD [facility] [address] [place] [address] PCP - General Family Medicine 12/30/22 Kiet Arias MD [address] [place] [address] Assigned Heart and Vascular Provider 12/31/22 02/10/23 Zofia Hager APRN [facility] Assigned Heart and Vascular Provider 02/11/23 06/23/23 Kiet Arias MD [address] [place] [address] Assigned Heart and Vascular Provider 06/24/23 documented as of this encounter
--- OUTSIDE RECORDS SUMMARY | 2024-07-18 18:20 | XMS_ITS | Encounter Summary ---
Author Organization [facility] Address [address] [place] [address] Care Team Providers Care Quality Systems Specialist Name Role Phone Shona Vásquez MD Primary Care Provider [phone] Kiet Arias MD Unavailable [phone] Reason for Visit * Reason Comments Abnormal Labs * Auth/Cert (Routine) Specialty Diagnoses / Procedures Referred By Contcesar t Referred To Contact Med Surg Diagnoses Anemia due to blood loss, acute UGIB (upper gastrointestinal bleed) UGIB (upper gastrointestinal bleed) Anemia due to blood loss, acute [place] [address] [facility] [address] [place] [address] Phone: tel: fax: Referral ID Status Reason Start Date Expiration Date Visits Re quested Visits Authorized [id number] 1 1 Encounter Details Date Type Department Care Team (Late st Contact Info) Description 06/18/2024 1:00 PM CDT - 06/18/2024 1:[address] 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 Hospitalist Discharge Summary Date of Admission: [...] a twice daily PPI. 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 HTN CAD s/p stenting: Discontinue HUMAN RELATIONS TEACHER lisinopril/hydrochlorothiazide, amlodipine on discharge given normal blood pressureand dizziness on admission. Will continue HUMAN RELATIONS TEACHER metoprolol. He should have follow-up with his primarydoctor in approximately 1 to 2 weeks for repeat blood pressure check. He may need to restart antihypertensives at that time. This was discussed with the patient. COPD: HUMAN RELATIONS TEACHER Advair Clinically Significant Risk Factors # DMII: [...] minutes discharging this patient. Elvis Herman DO [place] [address] [facility] [address] [facility] [address] Physical Exam Vital Signs: Temp: 98 ??F [...] Care Everywhere. * Infection: H. Pylori Bacterial (Lao) documented in this encounter Medications at Time [...] Herman DO - 06/18/2024 11:36 AM CDT [facility] Medicine Progress Note - Hospitalist Service [...] ordered on admission -N.p.o. sliding scale ordered -HUMAN RELATIONS TEACHER Jardiance CAD s/p stenting: -Hold HUMAN RELATIONS TEACHER lisinopril/hydrochlorothiazide, amlodipine, aspirin in the setting of suspected upper GI bleed -Continue HUMAN RELATIONS TEACHER metoprolol with hold parameters COPD: HUMAN RELATIONS TEACHER Advair Diet: NPO per Anesthesia Guidelines for [...] Tomorrow Elvis Herman DO Hospitalist Service [facility] Securely message with Caden (more info) Text page via Innohat Paging/Directory Interval History NAEO. Patient with no [...] Larson MD - 06/17/2024 7:18 PM CDT [facility] History and Physical Dustin Carrera Age: [age] year old Date of : 1960 Date of Admission: 06/17/2024 Home clinic: [facility] Primary care provider: Shona Vásquez Assessment and Plan: Assessment: Dustin Carrera is a 63 year old man with history of CAD, Obesity, COPD, tobacco abuse and IDDM, type 2 who initially presented to an outside UC for dizziness and epigastric pain. He came to attention tonight in [facility] ED after having been found to have [...] 2. N.p.o. for possible EGD tomorrow. 3. [facility] is consulted. 4. The patient was [...] ANGIOGRAM 03-21-15 2 vessel coronary artery disease (diagonal-PUBLISHER ASSISTANT, apical LAD, and culprit mid to distal [...] OPERATIVE ULTRASOUND; Surgeon: Shila Núñez MD; Location: [facility]; Service: Social History: Social History Tobacco Use [...] Status --------- ------ CBC with platelets and d...[[id number]] Abnormal Final result Please view results for [...] Abnormality Status --------- ------ Adult Type and Screen[[id number]] Final result Please view results for these tests on the individual orders. Independence Draw Narrative The following orders were created for panel order Independence Draw. Procedure Abnormality Status --------- ------ Extra Red Top Tube[[id number]] Final result Please view results for these [...] Antibody Screen Negative Negative SPECIMEN EXPIRATION DATE [id number] Extra Red Top Tube Result Value Ref Range Hold Specimen [facility] Hemoglobin A1c Result Value Ref [...] Brown MD - 06/18/2024 2:05 PM CDT [facility] Chart Update 63 yo with 1 week dark stool, anemia, epigastric pain. EGD today with mild duodenitis, otherwise normal. No prior colonoscopy. Will arrange for outpatient colonoscopy within 2 weeks. Will follow up on H. Pylori biopsies taken today. Suggest continued empiric PPI x1 month. Resume regular diet. Discharge planning per hospital service. Kiet Brown MD [facility] Digestive Health documented in this encounter ED Notes * Riya Acosta RN - 06/17/2024 11:[address] [facility] ED Nurse Handoff Report ED Chief complaint: Abnormal Labs . ED Diagnosis: Final diagnoses: UGIB (upper gastrointestinal bleed) Anemia due to blood loss, acute Allergies: Allergies Allergen Reactions Amoxicillin Code Status: Full Code Activity level - Baseline/Home: independent. Activity Level - Current: independent. Lift room needed: No. Bariatric: No Chemical Processing Technician Needed: No Isolation: No. Infection: Not [...] POS Antibody Screen Negative SPECIMEN EXPIRATION DATE [id number] ABO/RH TYPE AND SCREEN No orders to [...] Present Illness Chief Complaint Abnormal Labs HPI Dsutin Carrera is a 63 year old male [...] of External Notes I reviewed paperwork from [place] urgent care. This is not appearing in [...] ANGIOGRAM 03-21-15 2 vessel coronary artery disease (diagonal-PUBLISHER ASSISTANT, apical LAD, and culprit mid to distal [...] OPERATIVE ULTRASOUND; Surgeon: Shila Núñez MD; Location: [facility]; Service: Physical Exam Patient Vitals for the [...] POS Antibody Screen Negative SPECIMEN EXPIRATION DATE [id number] ABO/RH TYPE AND SCREEN Imaging No orders [...] Documentation None Medical Decision Making / Diagnosis [facility] Diagnoses: None MIPS None [facility] Dustin Carrera is a 63 year old [...] Scripts Pertinent Information: - Changes made to HUMAN RELATIONS TEACHER medication list: Added: Advair, insulin Lantus Deleted: insulin Levemir, bupropion, furosemide Changed: None Allergies reviewed with patient and updates made in EHR: unable to assess Medication History Completed By: Linda Chery RPH 06/18/2024 10:36 AM HUMAN RELATIONS TEACHER Med List Medication Sig Last Dose albuterol [...] 28 Units subcutaneously every evening. 06/17/2024 at [facility] lisinopril-hydrochlorothiazide (ZESTORETIC) 20-12.5 MG tablet Take [...] Glucose by meter (06/19/2024 8:26 AM CDT) [facility] GLUCOSE BY METER POCT 179(H) 70 - 99 mg/dL 06/19/2024 8:33 AM CDT [facility] LABORATORY POC Blood, Capillary BLOOD SPECIMEN / Unknown 06/19/2024 8:26 AM CDT 06/19/2024 8:33 AM CDT [facility] Final Result [facility] LABORATORY [facility] Acute Care Lab [address] [facility] Lab (1st floor, no room number) [place] [address], [facility] * Extra Green Top Tube (LAB USE ONLY) (06/19/2024 7:37 AM CDT) Hold Specimen JIC 06/19/2024 9:02 AM CDT LABORATORY Blood STRUCTURE OF RIGHT HAND / Unknown Venipuncture / Unknown 06/19/2024 7:37 AM CDT 06/19/2024 7:48 AM CDT us Jassi Felix MD LAB - BLOOD ORDERABLES Final Result LABORATORY [facility] Acute Care Lab [address] Lab (1st floor, no room number) [place] [address], [facility] * (ABNORMAL) Hemoglobin (06/19/2024 7:37 AM CDT) Hemoglobin 8.2(L) 13.3 - 17.7 g/dL 06/19/2024 7:53 AM CDT LABORATORY Blood STRUCTURE OF RIGHT HAND / Unknown Venipuncture / Unknown 06/19/2024 7:37 AM CDT 06/19/2024 7:48 AM CDT us Elvis Herman DO LAB - BLOOD ORDERABLES Final R esult [facility] Lab [address] Lab (1st floor, no room number) [place] [address], [facility] * (ABNORMAL) Glucose by meter (06/19/2024 1:09 AM CDT) GLUCOSE BY METER POCT 146(H) 70 - 99 mg/dL 06/19/2024 1:15 AM CDT LABORATORY POC Blood, Capillary BLOOD SPECIMEN / Unknown 06/19/2024 1:09 AM CDT 06/19/2024 1:15 AM CDT us Ge Bowman MD LAB - BEAKER POCT Final Result LABORATORY [facility] Acute Care Lab [address] Lab (1st floor, no room number) [place] [id number] [place] [address] * (ABNORMAL) Glucose by meter (06/18/2024 9:31 PM CDT) GLUCOSE BY METER POCT 169(H) 70 - 99 mg/dL 06/18/2024 9:38 PM CDT [facility] LABORATORY POC Blood, Capillary BLOOD SPECIMEN / Unknown 06/18/2024 9:31 PM CDT 06/18/2024 9:38 PM CDT Ge Bowman MD LAB - BEAKER POCT Final Result LABORATORY [facility] Lab [address] Lab (1st floor, no room number) [place] [id number] [place] [address] * (ABNORMAL) Glucose by meter (06/18/2024 5:50 PM CDT) GLUCOSE BY METER POCT 164(H) 70 - 99 mg/dL 06/18/2024 5:56 PM CDT RH LABORATORY POC Blood, Capillary BLOOD SPECIMEN / Unknown 06/18/2024 5:50 PM CDT 06/18/2024 5:56 PM CDT Ge Bowman MD LAB - BEAKER POCT Final Result LABORATORY [facility] Lab [address] Lab (1st floor, no room number) [place] [id number] * (ABNORMAL) Hemoglobin (06/18/2024 3:14 PM CDT) Hemoglobin 7.8(L) 13.3 - 17.7 g/dL 06/18/2024 3:28 PM CDT RH LABORATORY Blood STRUCTURE OF RIGHT UPPER LIMB / Unknown Venipuncture / Unknown 06/18/2024 3:14 PM CDT 06/18/2024 3:25 PM CDT us Elvis Herman DO LAB - BLOOD ORDERABLES Final R esult LABORATORY [facility] Acute [facility] Lab [address] Lab (1st floor, no room number) [place] [address] * (ABNORMAL) Glucose by meter (06/18/2024 2:31 PM CDT) GLUCOSE BY METER POCT 142(H) 70 - 99 mg/dL 06/18/2024 2:37 PM CDT LABORATORY POC Blood, Capillary BLOOD SPECIMEN / Unknown 06/18/2024 2:31 PM CDT 06/18/2024 2:37 PM CDT us Ge Bowman MD LAB - BEAKER POCT Final Result Performing Organization Address City/[facility]/ZIP Co de Phone Number LABORATORY POC [facility] Lab [address] Lab (1st floor, no room number) [place] [address] * Surgical Pathology Exam (06/18/2024 1:27 PM CDT) Case Report Surgical Pathology Report ? Case: [id number] ? Authorizing Provider: ??Kiet Brown MD ? Collected: ? 06/18/2024 01:27 PM ? Ordering Location: ? [facility] ?Received: ?06/18/2024 01:58 PM ? [facility] [place] ? Pathologist: ? Nicole Parham MD ? [...] Microscopic examination was performed. 06/19/2024 12:[address] [facility] Performing Labs The technical component of this testing was completed at [facility]. Stain controls for all stains resulted within this report have been reviewed and show appropriate reactivity. 06/19/2024 12:49 PM CDT LABORATORY Case Images 06/19/2024 12:49 PM CDT LABORATORY Biopsy STOMACH STRUCTURE / Unknown 06/18/2024 1:27 PM CDT 06/18/2024 1:58 PM CDT us Kiet VENTURA - NORMA AP Final Resul t [facility] Lab [address] Lab (1st floor, no room number) [place] [address] * (ABNORMAL) Glucose by meter (06/18/2024 12:35 PM CDT) GLUCOSE BY METER POCT 136(H) 70 - 99 mg/dL 06/18/2024 12:42 PM CDT LABORATORY POC Blood, venous BLOOD SPECIMEN / Unknown 06/18/2024 12:35 PM CDT 06/18/2024 12:42 PM CDT us Ge VENTURA - NORMA POCT Final Result Performing Organization Address City/[facility]/ZIP Co de Phone Number LABORATORY [facility] Lab [address] Lab (1st floor, no room number) [place] [address] * UPPER GI ENDOSCOPY (06/18/2024 12:29 PM CDT) Upper GI Endoscopy [facility] Patient Name: Dustin Carrera ?Procedure Date: 06/18/2024 12:29 PM ? Date of : 1960 ? Admit Type: Inpatient Age: 63 ? Gender: Male Attending MD: KIET BROWN MD, ??Total Sedation Time: Minutes of continuous bedside 1:1: 15 minutes Instrument Name: [id number] Gastroscope Procedure: ?Upper GI endoscopy Indications: ?Melena, [...] The ?Olympus Gasrointestinal Videoscope, Model# ?GIF-1100, Censitrac# [id number], SN# [id number] ?was introduced through the mouth, and advanced [...] Procedure Code(s): ? --- Professional --- ? 94703, Esophagogastroduod enoscopy, flexible, transoral; with biopsy, ? single or multiple Diagnosis Code(s): ? --- Professional --- ? D64.9, Anemia, unspecified ? K92.1, Melena (includes Hematochezia) ? K29.80, Duodenitis without bleeding CPT copyright 2021 [employer]. All rights reserved. The codes documented in this report are preliminary and upon v belt inspector review may be revised to meet current compliance requirements. Kiet Brown M.D. ___ KIET BROWN MD 06/18/2024 1:38:23 PM Number of Addenda: 0 Note Initiated On: 06/18/2024 12:29 PM MRN: ?[id number] Procedure Date: ? 06/18/2024 12:29:49 PM Total [...] BEAKER POCT Final Result RH LABORATORY POC [facility] Lab [address] Lab (1st floor, no room number) [place] [address], [facility] * (ABNORMAL) CBC with platelets (06/18/2024 [...] BLOOD ORDERABLES Final Re sult RH LABORATORY [facility] [address] [facility] (1st floor, no room number) [place] [address], [facility] * (ABNORMAL) Basic metabolic panel (06/18/2024 6:43 AM CDT) Pathologist [facility] Sodium 141 135 - 145 mmol/L 06/18/2024 [...] - BLOOD ORDERABLES Final Re sult LABORATORY [facility] [address] [facility] Lab (1st floor, no room number) [place] [address], [facility] * (ABNORMAL) Glucose by meter (06/18/2024 5:30 AM CDT) Pathologist [facility] GLUCOSE BY METER POCT 120(H) 70 - 99 mg/dL 06/18/2024 5:37 AM CDT LABORATORY POC Blood, Capillary BLOOD SPECIMEN / Unknown 06/18/2024 5:30 AM CDT 06/18/2024 5:37 AM CDT Ge Bowman MD LAB - BEAKER POCT Final Result LABORATORY [facility] Lab [address] Lab (1st floor, no room number) [place] [id number] [place] [address] * (ABNORMAL) Glucose by meter (06/18/2024 1:24 AM CDT) GLUCOSE BY METER POCT 159(H) 70 - 99 mg/dL 06/18/2024 1:31 AM CDT LABORATORY POC Blood, Capillary BLOOD SPECIMEN / Unknown 06/18/2024 1:24 AM CDT 06/18/2024 1:31 AM CDT Ge Bowman MD LAB - BEAKER POCT Final Result Performing Organization Address City/[facility]/ZIP Co de Phone Number [facility] Lab [email or web address] Lab (1st floor, no room number) [place] [id number] [place] [address] * (ABNORMAL) Occult blood stool (06/17/2024 8:10 PM CDT) Occult Blood Positive(A ) Negative ANAHI 06/17/2024 8:20 PM CDT LABORATORY Stool RECTAL CONTENTS / Unknown Non-blood Collection / Unknown 06/17/2024 8:10 PM CDT 06/17/2024 8:19 PM CDT Kushal Portillo MD LAB - STOOLS ORDERABLES Shantel l Result [facility] [address] Lab (1st floor, no room number) [place] [id number] [place] [facility] * (ABNORMAL) Hemoglobin A1c (06/17/2024 7:48 [...] LAB - BLOOD ORDERABLES Final Re sult [facility] [address] Lab (1st floor, no room number) [place] [id number] * Extra Red Top Tube (06/17/2024 7:48 PM CDT) Pathologist [facility] Hold Specimen JIC 06/17/2024 9:02 PM CDT RH LABORATORY Blood BLOOD SPECIMEN / Unknown Venipuncture / Unknown 06/17/2024 7:48 PM CDT 06/17/2024 7:55 PM CDT us Kushal Portillo MD LAB - BLOOD ORDERABLES Final Result [facility] [address] Lab (1st floor, no room number) [place] [id number] [place] [address] * Adult Type and Screen (06/17/2024 7:48 PM CDT) Pathologist [facility] ABO/RH(D) O POS 06/17/2024 7:31 PM CDT RH BLOOD BANK Antibody Screen Negative Negative 06/17/2024 7:31 PM CDT RH BLOOD BANK SPECIMEN EXPIRATION DATE [id number] 06/17/2024 7:31 PM CDT RH BLOOD BANK Blood BLOOD SPECIMEN / Unknown Venipuncture / Unknown 06/17/2024 7:48 PM CDT 06/17/2024 7:55 PM CDT Kushal Portillo MD LAB - BLOOD BANK TEST ORDER Final Result BLOOD BANK [place] [address], [facility] * (ABNORMAL) CBC with platelets and [...] MD LAB - BLOOD ORDERABLES Final Result [facility] [address] Lab (1st floor, no room number) [place] [address] * Ethyl Alcohol Level (06/17/2024 7:48 PM CDT) Alcohol ethyl <0.01 <=0.01 g/dL 06/17/2024 8:15 PM CDT RH LABORATORY Blood BLOOD SPECIMEN / Unknown Venipuncture / Unknown 06/17/2024 7:48 PM CDT 06/17/2024 7:55 PM CDT Kushal Portillo MD LAB - BLOOD ORDERABLES Final Result [facility] [address] Lab (1st floor, no room number) [place] [address], [facility] * (ABNORMAL) Comprehensive metabolic panel (06/17/2024 [...] MD LAB - BLOOD ORDERABLES Final Result [facility] [address] Lab (1st floor, no room number) [place] [id number] * INR (06/17/2024 7:48 PM CDT) INR 0.95 0.85 - 1.15 06/17/2024 8:10 PM CDT RH LABORATORY Blood BLOOD SPECIMEN / Unknown Venipuncture / Unknown 06/17/2024 7:48 PM CDT 06/17/2024 7:55 PM CDT Kushal Portillo MD LAB - BLOOD ORDERABLES Final Result [facility] [address] [email or web address] Lab (1st floor, no room number) [place] [id number] documented in this encounter Visit Diagnoses [...] not met)1844 ($Given - Provider: Sven William, YONATAHN)2207 ($Given - Provider: Sven William, YONATHAN) insulin [...] stools. documented in this encounter Care Teams Quality Systems Specialist Relationship Specialty Start Date End Date Shona Vásquez MD [facility] [address] [place] [address] PCP - General Family Medicine 12/30/22 Kiet Arias MD [address] [place] [address] Assigned Heart and Vascular Provider 06/24/23 documented as of this encounter
--- OUTSIDE RECORDS SUMMARY | 2024-07-18 18:20 | XMS_ITS | Encounter Summary ---
Author Organization [facility] Address [address] [place] [address]. 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
--- OUTSIDE RECORDS SUMMARY | 2024-07-18 18:20 | XMS_ITS | Encounter Summary ---
Author Organization [place] Address [address] [place] [address] Care Team Providers Care Hse Advisor Name Role Phone Shona Vásquez MD Primary Care Provider [phone] Zofia Hager APRN STEEL POURER HELPER Unavailable Unavaila Kiet Reyna MD Unavailable [phone] Encounter Details Date Type Department Care Team (Late st Contact Info) Description 05/25/2023 External Order Results [facility] [address] [place] [address] Outside, Provider Social History Tobacco Use Types Packs/Day Years Used Date Smoking Tobacco: Every Day Cigarettes Smokeless Tobacco: Never Alcohol Use Standard Drinks/Week Comments No 0 (1 standard drink = 0.6 oz pur e alcohol) PHQ-2 Answer Date Recorded PHQ-2 Score 2 12/30/2022 Sex and Gender Information Value Date Recorded Sex Assigned at Not on file 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 us Provider Outside LAB - BLOOD ORDERABLES Edited R [facility] BREEZE PFT NON-INTERFACED (ONBASE SCANS) * Chloride (05/25/2023 10:15 AM CDT) Chloride (External) 101 98 - 109 mmol/l NON-INTERFACED (ONBASE SCANS) Blood BLOOD SPECIMEN / Unknown 05/25/2023 10:15 AM CDT Narrative BREEZE PFT - 06/15/2023 7:54 AM CDT Verified by Rc Corbin on 06/15/2023. Provider Outside LAB - BLOOD ORDERABLES Edited [employer] BREEZE PFT NON-INTERFACED (ONBASE SCANS) * Co2 Total (05/25/2023 10:15 AM CDT) CO2 (External) 29 20 - 32 mmol/L NON-INTERFACED (ONBASE SCANS) Blood BLOOD SPECIMEN / Unknown 05/25/2023 10:15 AM CDT Narrative BREEZE PFT - 06/15/2023 7:53 AM CDT Verified by Rc Corbin on 06/15/2023. Provider Outside LAB - BLOOD ORDERABLES Edited Zub[employer] Performing Organization Address [facility]/ZIP Co de Phone Number BREEZE PFT NON-INTERFACED (ONBASE SCANS) * Creatinine (05/25/2023 10:15 AM CDT) Creatinine (External) 1.2 0.6 - 1.3 mg/dl NON-INTERFACED (ONBASE SCANS) Blood BLOOD SPECIMEN / Unknown 05/25/2023 10:15 AM CDT Narrative BREEZE PFT - 06/15/2023 7:53 AM CDT Verified by Rc Corbin on 06/15/2023. Provider Outside LAB - BLOOD ORDERABLES Edited myContactCard Performing Organization Address City/[facility] Co de Phone Number BREEZE PFT NON-INTERFACED (ONBASE SCANS) * (ABNORMAL) Glucose (05/25/2023 10:15 AM CDT) Glucose (External) 245(H) 60 - 115 mg/dl NON-INTERFACED (ONBASE SCANS) Blood BLOOD SPECIMEN / Unknown 05/25/2023 10:15 AM CDT Narrative BREEZE PFT - 06/15/2023 7:53 AM CDT Verified by Rc Corbin on 06/15/2023. Provider Outside LAB - BLOOD ORDERABLES Edited [employer] Performing Organization Address City/[facility]/ZIP Co de Phone Number BREEZE PFT NON-INTERFACED (ONBASE SCANS) * (ABNORMAL) Ionized Calcium (05/25/2023 10:15 AM CDT) Calcium Ionized (External) 1.05(L) 1.11 - 1.33 mmol/L NON-INTERFACED (ONBASE SCANS) Blood BLOOD SPECIMEN / Unknown 05/25/2023 10:15 AM CDT Narrative BREEZE PFT - 06/15/2023 7:53 AM CDT Verified by Rc Corbin on 06/15/2023. Provider Outside LAB - BLOOD ORDERABLES Edited [employer] Performing Organization Address [facility] de Phone Number BREEZE PFT NON-INTERFACED (ONBASE SCANS) * (ABNORMAL) Hemoglobin A1c (05/25/2023 10:15 AM CDT) Hemoglobin A1C (External) 14.9(H) 0 - 5.6 % NON-INTERFACE D (ONBASE SCANS) Blood BLOOD SPECIMEN / Unknown 05/25/2023 10:15 AM CDT Narrative BREEZE PFT - 06/15/2023 7:53 AM CDT Verified by Rc Corbin on 06/15/2023. Provider Outside LAB - BLOOD ORDERABLES Edited myContactCard Performing Organization Address City/[facility]/ZIP Co de Phone Number BREEZE PFT NON-INTERFACED (ONBASE SCANS) documented in this encounter Visit Diagnoses Not on filedocumented in this encounter Care Teams Hse Advisor Relationship Specialty Start Date End Date Shona Vásquez MD [facility] [address] [place] [address] PCP - General Family Medicine 12/30/22 Zofia Hager APRN STEEL POURER HELPER Assigned Heart and Vascular Provider 02/11/23 06/23/23 Kiet Arias MD [address] [place] [address] Assigned Heart and Vascular Provider 06/24/23 documented as of this encounter
--- OUTSIDE RECORDS SUMMARY | 2024-07-18 18:20 | XMS_ITS | Clinical Summary ---
Author Organization [place] Address [address] [place] [address] Care Team Providers Care Credit Controller Name Role Phone Shona Vásquez MD Primary Care Provider [phone]- [phone] Kiet Arias MD Unavailable [phone] Allergies Active Allergy Reactions Criticality Noted Date [...] 2 times daily. 60 tablet 024 Active amLODIPine (NORVASC) 10 MG tablet Take [...] 0 03/21/2015 Coronary artery disease invo lving makah coronary artery of makah heart without angina pectoris Mixed hyperlipidemia Essential hypertension DM (diabetes mellitus), type 2 Tobacco abuse Hypercholesterolemia Resolved Problems Problem Noted Date Diagnosed Date Resolved Date Chest pain 06/05/2012 04/06/2015 ASCVD (arteriosclerotic card iovascular disease) 06/05/2012 04/06/2015 Encounters Date Type Department Care Team Description 06/18/2024 1:00 PM CDT - 06/18/2024 1:30 PM CDT Surgery [facility] [place] [address] [place] [address] Kiet Blevins MD ESOPHAGOGASTRODUODENOSCOP Y, WITH BIOPSies using cold biopsy forceps 06/17/2024 7:24 PM CDT - 06/19/2024 12:11 PM CDT Emergency [place] [address] [facility] [address] [place] [address] Kushal Portillo MD Amdahl, John, MD Parens, Karl R, MD Baxa, Alexander, UGIB (upper [...] on file 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 Gender Identity Not on file Sexual Orientation [...] per calendar year) 2023 12/30/2022 COVID-19 Vaccine ( season) 2024 05/26/2021, 05/03/2021 INFLUENZA VACCINE (#1) 2024 , 08/18/2020, 07/31/2018, Additional history exists LIPID 06/19/2024 06/19/2023, 050 09/2022, 02/10/2017, Additional history exists A1C 09/17/2024 [...] this topic Medical Devices Implanted 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 [facility] GLUCOSE BY METER POCT 179(H) 70 - 99 mg/dL 06/19/2024 8:33 AM CDT [facility] POC Blood, Capillary BLOOD SPECIMEN / Unknown 06/19/2024 8:26 AM CDT 06/19/2024 8:33 AM CDT Ge Bowman MD LAB - BEAKER POCT Final Result LABORATORY [facility] [address] Lab (1st floor, no room number) [place] [address] * Extra Green Top Tube (LAB USE ONLY) (06/19/2024 7:37 AM CDT) Hold Specimen JIC 06/19/2024 9:02 AM CDT [facility] Blood STRUCTURE OF RIGHT HAND / Unknown Venipuncture / Unknown 06/19/2024 7:37 AM CDT 06/19/2024 7:48 AM CDT Jassi Felix MD LAB - BLOOD ORDERABLES Final Result [facility] [address] Lab (1st floor, no room number) [place] [address] * (ABNORMAL) Hemoglobin (06/19/2024 7:37 AM CDT) Only the most recent of2 resultswithin the time period is included. Hemoglobin 8.2(L) 13.3 - 17.7 g/dL 06/19/2024 7:53 AM CDT [facility] Blood STRUCTURE OF RIGHT HAND / Unknown Venipuncture / Unknown 06/19/2024 7:37 AM CDT 06/19/2024 7:48 AM CDT Elvis Herman DO LAB - BLOOD ORDERABLES Final R esult [facility] [address] Lab (1st floor, no room number) [place] [address] * Surgical Pathology Exam (06/18/2024 1:27 PM CDT) Case Report Surgical Pathology Report ? Case: [id number] ? Authorizing Provider: ??Kiet Blevins MD ? Collected: ? 06/18/2024 01:27 PM ? Ordering Location: ? [facility] ?Received: ?06/18/2024 01:58 PM ? [facility] [place] ? Pathologist: ? Nicole Parham MD ? Specimen: ?Stomach, gastric biopsies for h.pylori ? 06/19/2024 12:49 PM CDT [facility] Final Diagnosis A. Stomach, biopsy: - Oxyntic and antral type gastric mucosa with mild chronic inflammation. - Negative for H. Pylori organisms on routine stains. - Negative for intestinal metaplasia. -Negative for dysplasia or malignancy 06/19/2024 12:49 PM CDT [facility] Clinical Information Procedure: ESOPHAGOGASTRO DUODENOSCOPY, WITH [...] component of this testing was completed at [facility]. Stain controls for all stains resulted within this report have been reviewed and show appropriate reactivity. 06/19/2024 12:49 PM CDT LABORATORY Case Images 06/19/2024 12:49 PM CDT LABORATORY Biopsy STOMACH STRUCTURE / Unknown 06/18/2024 1:27 PM CDT 06/18/2024 1:58 PM CDT us Kiet Blevins MD LAB - NORMA AP Final Resul t LABORATORY [facility] [address] Lab (1st floor, no room number) [place] [address] * UPPER GI ENDOSCOPY (06/18/2024 12:29 PM CDT) Upper GI Endoscopy [facility] Patient Name: Dustin Carrera ?Procedure Date: 06/18/2024 12:29 PM ? Date of : 1960 ? Admit Type: Inpatient Age: 63 ? Gender: Male Attending MD: KIET BLEVINS MD, ??Total Sedation Time: Minutes of continuous bedside 1:1: 15 minutes Instrument Name: [id number] Gastroscope Procedure: ?Upper GI endoscopy Indications: ?Melena, Anemia Providers: ?KITE BLEVINS MD (Doctor) Referring MD: ? Medicines: [...] The ?Olympus Gasrointestinal Videoscope, Model# ?[id number]-1100, Censitrac# [id number], SN# [id number] ?was introduced through the mouth, and advanced [...] Procedure Code(s): ? --- Professional --- ? 82913, Esophagogastroduod enoscopy, flexible, transoral; with biopsy, ? single or multiple Diagnosis Code(s): ? --- Professional --- ? D64.9, Anemia, unspecified ? K92.1, Melena (includes Hematochezia) ? K29.80, Duodenitis without bleeding CPT copyright 2021 [employer]. All rights reserved. The codes documented in this report are preliminary and upon garden machinery mechanic review may be revised to meet current compliance requirements. Kiet Blveins M.D. ___ KIET BLEVINS MD 06/18/2024 1:38:23 PM Number of Addenda: 0 Note Initiated On: 06/18/2024 12:29 PM MRN: ?[id number] Procedure Date: ? 06/18/2024 12:29:49 PM Total [...] - BLOOD ORDERABLES Final Re sult LABORATORY [facility] [address] Lab (1st floor, no room number) [place] [address], [facility] * (ABNORMAL) CBC with platelets (06/18/2024 6:43 AM CDT) WBC Count 13.3(H) 4.0 - 11.0 10e3/uL 06/18/2024 7:03 AM CDT LABORATORY RBC Count 2.50(L) 4.40 - 5.90 10e6/uL 06/18/2024 7:03 AM CDT LABORATORY Hemoglobin 7.5(L) 13.3 - 17.7 g/dL [...] LAB - BLOOD ORDERABLES Final Re sult [facility] [address] Lab (1st floor, no room number) [place] [id number] [place] [address] * (ABNORMAL) Occult blood stool (06/17/2024 8:10 PM CDT) [facility] Occ[facility] Blood Positive(A ) Negative [facility] 06/17/2024 8:20 PM CDT LABORATORY Stool RECTAL CONTENTS / Unknown Non-blood Collection / Unknown 06/17/2024 8:10 PM CDT 06/17/2024 8:19 PM CDT us Kushal Portillo MD LAB - STOOLS ORDERABLES Shantel l Result [facility] [address] Lab (1st floor, no room number) [place] [address] * Extra Red Top Tube (06/17/2024 7:48 PM CDT) Hold Specimen JIC 06/17/2024 9:02 PM CDT [facility] LAB[facility]AT[facility] Blood BLOOD SPECIMEN / Unknown Venipuncture / Unknown 06/17/2024 7:48 PM CDT 06/17/2024 7:55 PM CDT us Kushal Portillo MD LAB - BLOOD ORDERABLES Final Result [facility] LABORATORY [facility] [address] Lab (1st floor, no room number) [place] [address], [facility] * (ABNORMAL) CBC with platelets and [...] - BLOOD ORDERABLES Final Result [facility] LABORATORY [facility] [address] Lab (1st floor, no room number) [place] [address], [facility] * Adult Type and Screen (06/17/2024 7:48 PM CDT) ABO/RH(D) O POS 06/17/2024 7:31 PM CDT RH BLOOD BANK Antibody Screen Negative Negative 06/17/2024 7:31 PM CDT RH BLOOD BANK SPECIMEN EXPIRATION DATE [id number] 06/17/2024 7:31 PM CDT BLOOD BANK Blood BLOOD SPECIMEN / Unknown Venipuncture / Unknown 06/17/2024 7:48 PM CDT 06/17/2024 7:55 PM CDT Kushal Portillo MD LAB - BLOOD BANK TEST ORDER Final Result BLOOD BANK [address] [place] [id number] * INR (06/17/2024 7:48 PM CDT) INR 0.95 0.85 - 1.15 06/17/2024 8:10 PM CDT LABORATORY Blood BLOOD SPECIMEN / Unknown Venipuncture / Unknown 06/17/2024 7:48 PM CDT 06/17/2024 7:55 PM CDT Result [facility] Kushal Portillo MD LAB - BLOOD ORDERABLES Final Result Performing Organization Address City/[facility]/ZIP Co de Phone Number [facility] [address] [facility] Lab (1st floor, no room number) [address] * (ABNORMAL) Hemoglobin A1c (06/17/2024 7:48 PM [...] LAB - BLOOD ORDERABLES Final Re sult [facility] [address] Lab (1st floor, no room number) [place] [address], [facility] * (ABNORMAL) Comprehensive metabolic panel [...] LAB - BLOOD ORDERABLES Final Result LABORATORY [facility] [address] Lab (1st floor, no room number) [place] [id number] * Ethyl Alcohol Level (06/17/2024 7:48 PM CDT) Alcohol ethyl <0.01 <=0.01 g/dL 06/17/2024 8:15 PM CDT [facility] LABORATORY Blood BLOOD SPECIMEN / Unknown Venipuncture / Unknown 06/17/2024 7:48 PM CDT 06/17/2024 7:55 PM CDT Kushal Portillo MD LAB - BLOOD ORDERABLES Final Result [facility] [address] Lab (1st floor, no room number) [place] [address] * Lab Result - HIM Scan [...] mg/dL Kiet Arias MD LAB - BLOOD ORDERABLES Fin al Result [facility] LABORATORY [facility] [address] [facility] [address] [facility], [address] [place] [address], [place] [phone] from Last 3 Months or Most Recently Relevant to Health Maintenance Insurance [employer] Advance Directives For more information, please contact: [phone] * Full Code (Latest Code Status on [...] 2:20 PM 06/05/2012 5:52 PM Care Teams Credit Controller Relationship Specialty Start Date End Date Shona Vásquez MD [facility] [address] [place] [address] PCP - General Family Medicine 12/30/22 Kiet Arias MD [address] [place] [address] Assigned Heart and Vascular Provider 06/24/23
--- OUTSIDE RECORDS SUMMARY | 2024-07-18 18:21 | XMS_ITS | Clinical Summary ---
Author Organization [facility] Address [place], [place] [address] Care Team Providers Care Ranch Hand Supervisor Name Role Phone Shona Chowdhury MD Primary Care Provider [phone] Allergies Active Allergy Reactions Criticality Noted Date Comments Amoxicillin *Unknown 04/17/2016 Medications Medication Sig Dispensed Refills Start Date End Date Status amLODIPine (NORVASC) 5 mg tablet Take 5 mg by mouth once daily. 0 7 Active atorvastatin (LIPITOR) 80 mg tabletIndications:H yperlipidemia, unspecified hyperlipidemia type Take 1 tablet by mouth at bedtime. 31 tablet 2 7 Active aspirin chewable 81 mg chewable tabletIndications:A SHD (arteriosclerotic heart disease) Take 1 tablet by mouth once daily with a meal. 0 7 Active nitroglycerin (NITROSTAT) 0.4 mg sublingual tabletIndications:A SHD (arteriosclerotic heart disease) Place 1 tablet under the tongue every 5 minutes if needed for Chest Pain (first choice for chest pain). 25 tablet 7 Active metoprolol tartrate (LOPRESSOR) 100 mg tablet Take 0.5 Tablets (50 mg) by mouth two times daily. 4 Active NovoLOG Flexpen U-100 Insulin 100 unit/mL (3 mL) pen Inject 20 units subcutaneous three times daily before meals. 4 Active albuterol HFA (PRO-AIR; VENTOLIN; PROVENTIL) 90 mcg/actuation inhaler Inhale 2 Puffs by mouth every 4 hours if needed. Active Jardiance 10 mg tablet Take 10 mg by mouth once daily. Active pantoprazole (PROTONIX) 40 mg delayed-release tablet Take 40 mg by mouth two times daily before meals. 4 Active potassium chloride (K-TAB) 20 mEq extended-release tablet Take 20 mEq by mouth once daily with a meal. 4 Active Coenzyme Q10 200 mg capsule Take 200 mg by mouth once daily. 3 Active Lantus Solostar U-100 Insulin 100 unit/mL (3 mL) pen Inject 28 units subcutaneous. Pt injects 28 units twice daily 4 Active lisinopriL (PRINIVIL; ZESTRIL) 20 mg tablet Take 1 Tablet (20 mg) by mouth once daily. 4 Active torsemide 40 mg tab Take 40 mg by mouth once daily. Active INSULIN ASPART (NOVOLOG SUBQ) Inject subcutaneous. 07/11/20 24 Discontinue d(Duplicate therapy (E-cancel not sent)) ALPRAZolam (XANAX) 0.5 mg tablet Take 1 tablet by mouth 3 times daily if needed. 4 7 07/11/20 24 Discontinue d(*Patient states no longer taking) metoprolol (LOPRESSOR) 100 mg tablet Take 100 mg by mouth 2 times daily. 10 7 07/11/20 24 Discontinue d(Other - add note to specify (E-cancel not sent)) lisinopril (PRINIVIL; ZESTRIL) 20 mg tablet Take 20 mg by mouth once daily. 10 7 07/11/20 24 Discontinue d(Duplicate therapy (E-cancel not sent)) BASAGLAR KWIKPEN 100 unit/mL (3 mL) pen Inject 50 Units subcutaneous at bedtime. 11 7 07/11/20 24 Discontinue d(*Patient states no longer taking) NOVOLOG FLEXPEN 100 unit/mL solution for injection Inject 15 Units subcutaneous 3 times daily before meals. 10 7 07/11/20 24 Discontinue d(Other - add note to specify (E-cancel not sent)) CONTOUR NEXT STRIPS strip 1 Strip 2 times daily before meals. 98 7 07/11/20 24 Discontinue d(*Patient states no longer taking) acetaminophen (TYLENOL EXTRA STRENGTH) 500 mg tablet Take 500-1,000 mg by mouth every 6 hours if needed. Max acetaminophen dose: 4000mg in 24 hrs. 07/11/20 24 Discontinue d(*Patient states no longer taking) clopidogreL (PLAVIX) 75 mg tablet 0 07/11/20 24 Discontinue d(*Patient states no longer taking) furosemide (LASIX) 20 mg tablet Take 20 mg by mouth once daily. 0 07/11/20 24 Discontinue d(*Patient states no longer taking) lisinopril-hydrochl orothiazide 20-12.5 mg tablet (PRINZIDE) Take 1 Tablet by mouth once daily. 4 07/11/20 24 Discontinue d(Duplicate therapy (E-cancel not sent)) Active Problems Problem Noted Date Diagnosed Date Angina pectoris ASHD (arteriosclerotic heart disease) Hypertension Hyperlipidemia Diabetes mellitus GERD (gastroesophageal reflux disease) Renal cell carcinoma Overview (08/22/2017): -s/p resection Tobacco abuse NSTEMI (non-ST elevated myocardial infarction) Encounters Date Type Department Care Team Description 07/11/2024 1:00 PM CDT Office Visit [facility] [id number] [place] [address] [address] [place] [address] Dennis Portillo MD Consult (Initial office visit. referred to cardiology by Dr Barreto , [facility] - pt d/c 07/10 hospitalized for Anemia. Pt last seen by I EKG and other cardiac testing in care everywhere./Pt states he is doing okay today. ) 07/11/2024 Travel 07/09/2024 4:00 PM CDT Ancillary Procedure [facility] [address] [place] [address] 04/24/2024 Lab Requisition [facility] [phone] Shona Vásquez MD from Last 3 Months [...] uit: Not Asked; Counseling Given: Not Answered Comments:Smoker since age 10 Alcohol Use Standard Drinks/Week Comments No 0 [...] Sign Reading Time Taken Comments Blood Pressure 122/62 07/11/2024 1:14 PM CDT Pulse 83 07/11/2024 1:14 PM CDT Temperature 37.1 ??C (98.7 ??F) 09/26/2020 2:46 PM CS T Respiratory Rate 18 08/23/2017 8:44 AM AIRPLANE AND ENGINE 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 Oxygen Saturation 94% 07/11/2024 1:14 PM CDT Inhaled Oxygen Concentration - - Weight 121.6 kg (268 lb) 07/11/2024 1:14 PM CDT Height 177.8 cm (5' 10) 07/11/2024 1:14 PM CDT Body Mass Index 38.45 07/11/2024 1:14 PM CDT Plan of Treatment Upcoming Encounters Date Type Department Care Team (Late st Contact Info) Description 09/26/2024 1:40 PM [employer]PLANE AND ENGINE INSPECTOR Orders Only [facility] [address] [facility] [address] [place] [address] 09/26/2024 2:00 PM AIRPLANE AND ENGINE INSPECTOR Ancillary Procedure [facility] [address] [facility] [address] [place] [address] 09/30/2024 10:00 AM AIRPLANE AND ENGINE INSPECTOR Office Visit [facility] [address] [facility] [address] [place] [address] William Mckeon MD [address] [place] [address] [place] [id number] Health Maintenance Due Date Last Done Comments Depression screening for age 12+ 1970 HIV for age 15-65 1973 Hepatitis C screening for age 18-79 1976 Colonoscopy through age 75 2003 Zoster (shingles) series for age 50+ (1 of 2) 2008 Pneumococcal series for age 65+ (2 of 2 - PCV) 05/10/2012 05/10/2011 Tetanus booster 05/03/2016 05/03/2006 Lipids for age 45-75 08/23/2022 08/23/2017, 08/22/20 17 AAA screening age 65-74 2023 COVID-19 vaccine series ( season) 2024 05/26/2021, 05/03/2021 Influenza for age 65+ 05/12/2024 08/22/2017 , 07/15/2016, 07/30/2014 BMI (ht and wt on same day) for age 18+ 07/11/2025 07/11/2024 Tdap Completed 05/03/2006 Procedures Procedure Name Priority Date/Time Associated Diagnosis Comments ECHO TTE COMPLETE WO CONTRAST Routine 07/09/2024 1:24 PM CDT Elevated troponin History of CAD (coronary artery disease) LAB TRACKING EVENT Routine 04/23/2024 12 :30 PM CDT PATH TISSUE EXAM Routine 04/23/2024 12:3 0 PM CDT LIPID PANEL Routine 08/23/2017 ASHD (arteriosclerotic heart disease) Hypertension NSTEMI (non-ST elevated myocardial infarction) (HC) from Last 3 Months or Most Recently Relevant to Health Maintenance Results * ECHO TTE COMPLETE WO CONTRAST (07/09/2024 1:24 PM CDT) AORTIC VALVE MEAN PG 3 mmHg EJECTION FRACTION 62 % PEAK TR VELOCITY 2.9 m/s LVEDD 4.5 cm EJECTION FRACTION 55 - 60% Anatomical Region Laterality Modality Ultrasound 07/09/2024 12:3 4 PM CDT Narrative 07/09/2024 1:50 PM CDT ECHOCARDIOGRAM ALIZA CARRERA ?Accession#: ?? [id number] : ?1960 63 years Study Date: ?? 07/09/2024 12:34:50 PM Gender: M ? BP: ? 115/71 mmHg Height: 178.00 cm ? BSA: ?2.36 m? ? ? Weight: 121.00 kg ? Tech: ? MJW ?Referring MD: DEJA MARAVILLA Site: ? [facility] Reading Location: [facility] Patient Location: Inpatient. Procedure: 2D, Color Doppler and Spectral Doppler. Indication for study: Elevated troponin History of CAD (coronary artery disease) Cardiac Rhythm: Regular.Study quality: Fair. Final Impressions: 1. Normal LV size, mildly increased wall thickness, normal global systolic function with an estimated EF of 55 - 60%. 2. Right ventricular cavity size is normal, global systolic RV function is normal. 3. Mildly enlarged left atrium. 4. The inferior vena cava is dilated, respiratory size variation less than 50%. 5. Trivial pericardial effusion. 6. Mildly increased estimated pulmonary pressures by tricuspid regurgitation velocity and right atrial pressure (33 mmHg plus RAP). Chamber Sizes and Function Normal left ventricular size, mildly increased wall thickness, normal global systolic function with an estimated EF of 55 - 60%. No resting regional wall motion abnormality visualized. Left atrial size is mildly enlarged. Right ventricular cavity size is normal, global systolic RV function is normal. The right atrium is normal. Right atrial volume index is 18 ml/m? ? ?. Right atrial area is 16 cm? ? ?. The pulmonary artery is not well visualized. The sinus of Valsalva is normal sized. The ascending aorta is normal for age/sex/bsa. Valves, RV Pressures and Diastolic Function The aortic valve is trileaflet and sclerotic, no stenosis and no regurgitation. The mitral valve is normal in structure, trace mitral regurgitation. Indeterminate pattern of LV diastolic filling. The tricuspid valve is normal in structure. Tricuspid regurgitation is trace regurgitation. The tricuspid regurgitant velocity is 2.9 m/s, the estimated right ventricular systolic pressure is 33 mmHg plus right atrial pressure. There is mildly increased estimated pulmonary pressure by tricuspid regurgitation velocity and right atrial pressure. The pulmonic valve is not well visualized. Trace pulmonary regurgitation. Masses, Effusion, Shunts There is trivial pericardial effusion. The inferior vena cava is dilated, respiratory size variation less than 50%. Interatrial septum is not well visualized. MEASUREMENTS AND CALCULATIONS 2-D Measurements and LV Function: LVID (d) 4.5 cm LV FS% (2D) ?? 43 % LVID (s) 2.6 cm LVOT diameter 2.3 cm IVS (d) ??1.3 cm HR ?78 bpm LVPW (d) 1.4 cm LA Vol index ??32 ml/m2 Ao Sinus 3.7 cm RA Vol index ??18 ml/m2 Asc Ao ?? 4.1 cm RA area ? 16 cm? ? ? LA ? 4.5 cm RV Max 4C (d) 3.6 cm Diastology: Mitral ?Tissue Doppler E Peak 1.4 m/s ??e', Septum ? 0.06 m/s A Peak 0.5 m/s ??e', Lateral ?0.07 m/s E/A ?2.5 ?E/e' Average ?? 19.85 DT ? 162 msec Aortic Valve: Vmax ? 1.2 m/s ??QUENTIN (V) ?? 4.30 cm? ? ? VTI ?0.25 m ?? QUENTIN (I) ?? 4.32 cm? ? ? LVOT V max ? 1.2 m/s ??Max PG ?6 mmHg LVOT VTI ? 0.25 m ?? Mean PG ?? 3 mmHg SV ? 107 ml ?? Dim Index 1.00 SV index ? 45 ml/m? ? ? CO ?8.3 l/min AV Ejection Time 0.28 sec CI ?3.5 l/min/m? ? ? AV Flow Rate ? 378 ml/s Mitral Valve: MVA ?4.7 cm? ? ? MV P 1/2 47 msec Tricuspid Valve and estimated PA pressures: TR Vmax 2.9 m/s TAPSE 1.8 cm TR maxG 33 mmHg . This study was interpreted by an [facility] accredited facility. CC: Med/Surg - IP [facility] (med records) [facility]. ??Final ?? Procedure Note Kenney Cote MD - 07/09/2024 ECHOCARDIOGRAM ALIZA CARRERA : 1960 63 years Study Date: 07/09/2024 12:34:50 PM Gender: M BP: 115/71 mmHg Height: 178.00 cm BSA: 2.36 m? ? ? Weight: 121.00 kg Tech: JR Referring MD: DEJA MARAVILLA Site: [facility] Reading Location: [facility] Patient Location: Inpatient. Procedure: 2D, Color Doppler and Spectral Doppler. Indication for study: Elevated troponin History of CAD (coronary artery disease) Cardiac Rhythm: Regular.Study quality: Fair. Final Impressions: 1. Normal LV size, mildly increased wall thickness, normal globalsystolic function with an estimated EF of 55 - 60%. 2. Right ventricular cavity size is normal, global systolic RV functionis normal. 3. Mildly enlarged left atrium. 4. The inferior vena cava is dilated, respiratory size variation lessthan 50%. 5. Trivial pericardial effusion. 6. Mildly increased estimated pulmonary pressures by tricuspidregurgitation velocity and right atrial pressure (33 mmHg plus RAP). Chamber Sizes and Function Normal left ventricular size, mildly increased wall thickness, normalglobal systolic function with an estimated EF of 55 - 60%. No restingregional wall motion abnormality visualized. Left atrial size is mildlyenlarged. Right ventricular cavity size is normal, global systolic RVfunction is normal. The right atrium is normal. Right atrial volume indexis 18 ml/m? ? ?. Right atrial area is 16 cm? ? ?. The pulmonary artery is notwell visualized. The sinus of Valsalva is normal sized. The ascendingaorta is normal for age/sex/bsa. Valves, RV Pressures and Diastolic Function The aortic valve is trileaflet and sclerotic, no stenosis and noregurgitation. The mitral valve is normal in structure, trace mitralregurgitation. Indeterminate pattern of LV diastolic filling. Thetricuspid valve is normal in structure. Tricuspid regurgitation is traceregurgitation. The tricuspid regurgitant velocity is 2.9 m/s, theestimated right ventricular systolic pressure is 33 mmHg plus right atrialpressure. There is mildly increased estimated pulmonary pressure bytricuspid regurgitation velocity and right atrial pressure. The pulmonicvalve is not well visualized. Trace pulmonary regurgitation. Masses, Effusion, Shunts There is trivial pericardial effusion. The inferior vena cava is dilated,respiratory size variation less than 50%. Interatrial septum is not wellvisualized. MEASUREMENTS AND CALCULATIONS 2-D Measurements and LV Function: LVID (d) 4.5 cm LV FS% (2D) 43 % LVID (s) 2.6 cm LVOT diameter 2.3 cm IVS (d) 1.3 cm HR 78 bpm LVPW (d) 1.4 cm LA Vol index 32 ml/m2 Ao Sinus 3.7 cm RA Vol index 18 ml/m2 Asc Ao 4.1 cm RA area 16 cm? ? ? LA 4.5 cm RV Max 4C (d) 3.6 cm Diastology: Mitral Tissue Doppler E Peak 1.4 m/s e', Septum 0.06 m/s A Peak 0.5 m/s e', Lateral 0.07 m/s E/A 2.5 E/e' Average 19.85 DT 162 msec Aortic Valve: Vmax 1.2 m/s QUENTIN (V) 4.30 cm? ? ? VTI 0.25 m QUENTIN (I) 4.32 cm? ? ? LVOT V max 1.2 m/s Max PG 6 mmHg LVOT VTI 0.25 m Mean PG 3 mmHg SV 107 ml Dim Index 1.00 SV index 45 ml/m? ? ? CO 8.3 l/min AV Ejection Time 0.28 sec CI 3.5 l/min/m? ? ? AV Flow Rate 378 ml/s Mitral Valve: MVA 4.7 cm? ? ? MV P 1/2 47 msec Tricuspid Valve and estimated PA pressures: TR Vmax 2.9 m/s TAPSE 1.8 cm TR maxG 33 mmHg . This study was interpreted by an [facility] accredited facility. CC: Med/Surg - IP [facility] (med records) [facility]. Final Deja Maravilla MD ECHO ORD * LAB TRACKING EVENT (04/23/2024 12:30 PM CDT) Other (Other) Client Collect / Unknown 04/23/2024 12:30 PM CDT 04/24/2024 4:32 PM CDT Shona Vásquez MD LAB BILL ONLY [facility] [address] [place] [address], * PATH TISSUE EXAM (04/23/2024 12:30 PM CDT) Case Report Pathology Report ?Case: [id number] ? Authorizing Provider: ??Shona Vásquez MD ?Collected: ? 04/23/2024 1230 ? Ordering Location: ? [facility] ?Received: ?04/24/2024 1746 ? Pathologist: ? Erick Castorena MD ? Specimens: ?? A) - Right John ? B) - Right Forearm ? 04/26/2024 10:17 AM [facility] [employer] [facility]AL LABORATORY Final Diagnosis A) SKIN, RIGHT JOHN, BIOPSY: 1. Dermatofibroma 2. No evidence of malignancy B) SKIN, RIGHT FOREARM, BIOPSY: 1. Verruca vulgaris 2. No evidence of malignancy 04/26/2024 10:17 AM [facility] [employer] [facility] Clinical Information Skin cancer. 04/26/2024 10:17 AM [facility] [employer] [facility] Gross Description A) Received in formalin, labeled with the patient's name and R john, is a 0.9 x 0.7 cm skin [...] trisected and entirely submitted in one cassette. S[facility] 04/24/2024 04/26/2024 10:17 AM CDT [facility] Microscopic Description The final diagnosis [...] on tissue sections. 04/26/2024 10:17 AM CDT [facility] Additional Information Interpreted at [facility] Central Laboratory - [address] [facility] [address], [place] [address] 04/26/2024 10:17 AM CDT [facility] [employer] [facility] Other (Right John) 04/23/2024 12:30 PM CDT 04/24/2024 5:46 PM CDT Specimen (specimen) (Right Forearm) 04/23/2024 12:30 PM CDT 04/24/2024 5:46 PM CDT Shona Vásquez MD PATHOLOGY/[facility]TOLOGY [facility] [address] [place] [address], from Last 3 Months or Most Recently Relevant to Health Maintenance Care Teams Ranch Hand Supervisor Relationship Specialty [place] [address] [place] [id number] PCP - General Family Practice 07/11/24
[2024-07-18 18:22] LABS: Creatinine* 1.3 mg/dL (0.5-1.5); Est. Creatinine Clearance* 58.49; Estimated Glomerular Filt Rate 61 ml/min
[2024-07-18 18:23] LABS: Anion Gap 11 mEq/L (7-15); Blood Urea Nitrogen* 27 mg/dL (7-30); Calcium* 6.2 mg/dL (8.4-10.6); Carbon Dioxide* 26 mmol/L (20-32); Glucose* 103 mg/dL (60-115)
[2024-07-18 18:29] LABS: Magnesium* 1.8 mg/dL (1.5-2.6)
[2024-07-18 18:45] LABS: NT Pro B Type NatriureticPept* 1160 pg/mL
[2024-07-18 18:55] LABS: Hemoglobin* 9.5 gm/dL (13.5-17.5); Lymphocytes Percent Auto 16.5 % (20-44); Monocytes Percent Auto 8.6 % (0.0-11.0); Neutrophils Percent Auto 72.1 % (42.0-72.0); Platelet Count* 402 K/uL (140-440); RDW Coefficient of Variation % 21.8 % (11.5-15.5); Red Blood Count 3.93 m/uL (4.30-5.90)
[2024-07-18 18:56] LABS: Basophils Percent Auto 0.7 % (0.0-3.0); Eosinophils Percent Auto 0.9 % (0.0-7.0); Immature Granulocytes Pct Auto 1.2 %
[2024-07-18 19:37] LABS: Vitamin D 25 Hydroxy* 31 ng/mL (30-80)
[2024-07-18 19:58] LABS: Albumin* 4.1 g/dL (3.3-5.0)
[2024-07-18 20:01] LABS: Phosphorus* 5.3 mg/dL (2.5-4.5)
== END 2024-07-18 20:28 | disposition home or self-care (01) ==
PROVIDERS: Emergency Provider Student in an Organized Health Care Education/Training Program; PCP Emergency Medicine
DX: E86.0 Dehydration (principal); E83.51 Hypocalcemia
CPT/HCPCS: 36415; 80048; 82040; 82306; 83735; 83880; 83970; 84100; 84484; 85025; 93005; 99283

== ENCOUNTER 2024-08-01 16:11 | Outpatient (CLI) | payer OTHER, SELFPAY ==
--- OUTSIDE RECORDS SUMMARY | 2024-08-01 16:14 | XMS_ITS | Clinical Summary ---
Author Organization [facility] Address [address] [place] [address] Care Team Providers Care Television Audio Engineer Name Role Phone Shona Vásquez MD Primary Care Provider [phone] Kiet Arias MD Unavailable [phone] Allergies Active Allergy Reactions Criticality Noted Date [...] FOR WHEEZE OR FOR SHORTNESS OF BREATH Activ e LANTUS SOLOSTAR 100 UNIT/ML soln Inject 28 Units subcutaneously every evening. 024 Active fluticasone-salmete rol (ADVAIR) 250-50 MCG/ACT inhaler Inhale 1 puff into the lungs 2 times daily. 024 Active pantoprazole (PROTONIX) 40 MG EC tabletIndications:U GIB (upper gastrointestinal bleed) Take 1 tablet (40 mg) by mouth 2 times daily. 60 tablet 024 Active Active Problems Problem Noted Date Diagnosed Date Anemia due to blood loss, acute 06/17/2024 UGIB (upper gastrointestinal bleed) 06/17/2024 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/30/2022 Metabolic syndrome X 12/30/2022 Peripheral edema 12/30/2022 Pneumonia 03/21/2015 NSTEMI (non-ST elevated myocardial infarction) 0 03/21/2015 Coronary artery disease invo lving little traverse coronary artery of little traverse heart without angina pectoris Mixed hyperlipidemia Essential hypertension DM (diabetes mellitus), type 2 Tobacco abuse Hypercholesterolemia Resolved Problems Problem Noted Date Diagnosed Date Resolved Date Chest pain 06/05/2012 04/06/2015 ASCVD (arteriosclerotic card iovascular disease) 06/05/2012 04/06/2015 Encounters Date Type Department Care Team Description 06/18/2024 1:00 PM CDT - 06/18/2024 1:30 PM CDT Surgery [facility] [address] [place] [phone] Kiet Brown MD ESOPHAGOGASTRODUODENOSCOP Y, WITH BIOPSies using cold biopsy forceps 06/17/2024 7:24 PM CDT - 06/19/2024 12:11 PM CDT Emergency [place] [address] Medical Surgical [address] [place] [address] Kushal Portillo MD Amdahl, MD [place] [...] you bought just not last and you didn t have money to get more? No 06/18/2024 Housing Stability Answer Date Recorded Do you have housing? 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 Gender Identity Not on file Sexual Orientation Not on file Last Filed Vital Signs Vital Sign Reading Time Taken Comments Blood Pressure 119/72 06/19/2024 7:18 AM CDT Pulse 83 06/19/2024 7:18 AM CDT Temperature 36.7 C (98 F) 06/19/2024 7:18 AM CDT Respiratory Rate 16 [...] 06/17/2025 FIT 06/17/2025 06/17/2024 BMP 06/18/2025 06/18/2024, 03/2024, 06/19/2023, Additional history exists HPV IMMUNIZATION Aged Out No longer e ligible based on patient's age to complete this topic MENINGITIS IMMUNIZATION Aged Out No l onger eligible based on patient's age to complete this topic RSV MONOCLONAL ANTIBODY Aged Out No l onger eligible based on patient's age to complete this topic Medical Devices Implanted Type Area Network Systems Integrator Device Identifier Shelf Expiration Date Model / Serial / Lot Clip Ligating Hem-O-Lock 10mm [id number] Implanted:Qty : 4 on 08/22/2016 Metallic Hardware/Anc hor Right: Abdomen PILLING WECK 06/14/2021 [id number] / / [id number] Cardiac Stents Procedures Procedure Name Priority [...] 7:58 AM CDT Coronary artery disease involving little traverse coronary artery of little traverse heart without angina pectoris from Last 3 Months or Most Recently Relevant to Health Maintenance Results * (ABNORMAL) Glucose by meter (06/19/2024 8:26 AM CDT) Only the most recent of9 resultswithin the time period is included. [facility] GLUCOSE BY METER POCT 179(H) 70 - 99 mg/dL 06/19/2024 8:33 AM CDT LABORATORY POC Blood, Capillary BLOOD SPECIMEN / Unknown 06/19/2024 8:26 AM CDT 06/19/2024 8:33 AM CDT us Ge VENTURA - BEAKER POCT Final Result RH LABORATORY [facility] Acute [facility] Lab [address] [facility] Lab (1st floor, no room number) [place] [address], [facility] * Extra Green Top Tube (LAB USE ONLY) (06/19/2024 7:37 AM CDT) Hold Specimen JIC 06/19/2024 9:02 AM CDT LABORATORY Blood STRUCTURE OF RIGHT HAND / Unknown Venipuncture / Unknown 06/19/2024 7:37 AM CDT 06/19/2024 7:48 AM CDT us Jassi Felix MD LAB - BLOOD ORDERABLES Final Result [facility] Lab [address] Lab (1st floor, no room number) [address] * (ABNORMAL) Hemoglobin (06/19/2024 7:37 AM CDT) Only the most recent of2 resultswithin the time period is included. Hemoglobin 8.2(L) 13.3 - 17.7 g/dL 06/19/2024 7:53 AM CDT LABORATORY Blood STRUCTURE OF RIGHT HAND / Unknown Venipuncture / Unknown 06/19/2024 7:37 AM CDT 06/19/2024 7:48 AM CDT us Elvis Herman DO LAB - BLOOD ORDERABLES Final R esult Performing Organization Address City/[facility]/ZIP Co de Phone Number [facility] Care Lab [address] Lab (1st floor, no room number) [place] [id number] * Surgical Pathology Exam (06/18/2024 1:27 PM CDT) Case Report Surgical Pathology Report Case: [id number] Authorizing Provider: Kiet Brown MD Collected: 06/18/2024 01:27 PM Ordering Location: [facility] Received: 06/18/2024 01:58 PM Endoscopy [facility] Pathologist: Nicole Parham MD Specimen: Stomach, gastric biopsies for h.pylori 06/19/2024 12:49 PM CDT LABORATORY Final Diagnosis [...] number and other identifying information and designated g astric biopsies . It consists of 4 crawford soft tissue fragments ranging from 0.2-0.3 cm. Entirely submitted in one cassette. (JU Silva)06/18/2024 2:01 PM 06/19/2024 12:49 PM CDT LABORATORY Microscopic Description Microscopic examination was performed. 06/19/2024 12:49 PM CDT LABORATORY Performing Labs The technical component of this testing was completed at [facility]. Stain controls for all stains resulted within this report have been reviewed and show appropriate reactivity. 06/19/2024 12:49 PM CDT LABORATORY Case Images 06/19/2024 12:49 PM CDT LABORATORY Biopsy STOMACH STRUCTURE / Unknown 06/18/2024 1:27 PM CDT 06/18/2024 1:58 PM CDT us Kiet VENTURA - NORMA FLORES Final Resul t LABORATORY [facility] Acute Care Lab [address] Lab (1st floor, no room number) [place] [address], [facility] * UPPER GI ENDOSCOPY (06/18/2024 12:29 PM CDT) Pathologist [facility] Upper GI Endoscopy [facility] Patient Name: Dustin Carrera Procedure Date: 06/18/2024 12:29 PM Date of : 1960 Admit Type: Inpatient Age: 63 Gender: Male Attending MD: KIET BROWN MD, Total Sedation Time: Minutes of continuous bedside 1:1: 15 minutes Instrument Name: [id number] Gastroscope Procedure: Upper GI endoscopy Indications: Melena, Anemia Providers: KIET BROWN MD (Doctor) Referring MD: Medicines: Midazolam 2 mg IV, Fentanyl 100 micrograms IV, Cetacaine spray Complications: No immediate complications. Procedure: Pre-Anesthesia Assessment: - Prior to the procedure, a History and Physical was performed, and patient medications and allergies were reviewed. The patient is competent. The risks and benefits of the procedure and the sedation options and risks were discussed with the patient. All questions were answered and informed consent was obtained. Patient identification and proposed procedure were verified by the physician in the pre-procedure area. Mental Status Examination: alert and oriented. Airway Examination: normal oropharyngeal airway and neck mobility. Respiratory Examination: clear to auscultation. CV Examination: normal. Prophylactic Antibiotics: The patient does not require prophylactic antibiotics. Prior Anticoagulants: The patient has taken no anticoagulant or antiplatelet agents. ASA Grade Assessment: II - A patient with mild systemic disease. After reviewing the risks and benefits, the patient was deemed in satisfactory condition to undergo the procedure. The anesthesia plan was to use moderate sedation / analgesia (conscious sedation). Immediately prior to administration of medications, the patient was re-assessed for adequacy to receive sedatives. The heart rate, respiratory rate, oxygen saturations, blood pressure, adequacy of pulmonary ventilation, and response to care were monitored throughout the procedure. The physical status of the patient was re-assessed after the procedure. After obtaining informed consent, the endoscope was passed under direct vision. Throughout the procedure, the patient's blood pressure, pulse, and oxygen saturations were monitored continuously. The Olympus Gasrointestinal Videoscope, Model# GIF-1100, Censitrac# [id number], SN# [id number] was introduced through the mouth, and advanced to the second part of duodenum. The upper GI endoscopy was accomplished without difficulty. The patient tolerated the procedure well. Findings: The Z-line was regular and was found 45 cm from the incisors. The esophagus was normal. The entire examined stomach was normal. Biopsies were taken with a cold forceps for histology. Localized moderate inflammation characterized by congestion (edema) and erythema was found in the duodenal bulb. Impression: - Z-line regular, 45 cm from the incisors. - Normal esophagus. - Normal stomach. Biopsied to evaluate for H. pylori. - Duodenitis without overt ulceration or bleeding. Recommendation: - Await pathology results. - Continue empiric PPI antacid (omeprazole 40mg once daily or equivalent x1 month). - We will contact patient for colonoscopy which will be arranged within 1-2 weeks. - Discharge planning per hospital service. Procedure Code(s): --- Professional --- 69129, Esophagogastroduod enoscopy, flexible, transoral; with biopsy, single or multiple Diagnosis Code(s): --- Professional --- D64.9, Anemia, unspecified K92.1, Melena (includes Hematochezia) K29.80, Duodenitis without bleeding CPT copyright 2021 [employer]. All rights reserved. The codes documented in this report are preliminary and upon german teacher review may be revised to meet current compliance requirements. Kiet Kevin, M.D. ___ KIET BROWN MD 06/18/2024 1:38:23 PM Number of Addenda: 0 Note Initiated On: 06/18/2024 12:29 PM Procedure Date: 06/18/2024 12:29:49 PM Total Procedure Duration: 0 hours 11 minutes 0 seconds Estimated Blood Loss: Scope In: 1:17:45 PM Scope Out: 1:28:45 [...] BLOOD ORDERABLES Final Re sult RH LABORATORY [facility] Acute Care Lab [address] [facility] Lab (1st floor, no room number) [place] [address] * (ABNORMAL) CBC with platelets [...] 6:43 AM CDT 06/18/2024 6:58 AM CDT Kings Larson MD LAB - BLOOD ORDERABLES Final Re sult [facility] Acute Care Lab [address] Lab (1st floor, no room number) [place] [address] * (ABNORMAL) Occult blood stool (06/17/2024 8:10 PM CDT) Occult Blood Positive(A ) Negative ANAHI 06/17/2024 8:20 PM CDT LABORATORY Stool RECTAL CONTENTS / Unknown Non-blood Collection / Unknown 06/17/2024 8:10 PM CDT 06/17/2024 8:19 PM CDT Kushal Poritllo MD LAB - STOOLS ORDERABLES Shantel l Result [facility] Care Lab [address] [employer] Lab (1st floor, no room number) [place] [address] * Extra Red Top Tube (06/17/2024 7:48 PM CDT) Hold Specimen JIC 06/17/2024 9:02 PM CDT LABORATORY Blood BLOOD SPECIMEN / Unknown Venipuncture / Unknown 06/17/2024 7:48 PM CDT 06/17/2024 7:55 PM CDT Kushal Portillo MD LAB - BLOOD ORDERABLES Final Result [facility] Lab [address] Lab (1st floor, no room number) [place] [address] * (ABNORMAL) CBC with platelets and [...] LAB - BLOOD ORDERABLES Final Result LABORATORY [facility] [address] [facility], no room number) [place] [address] * Adult Type and Screen (06/17/2024 7:48 PM CDT) ABO/RH(D) O POS 06/17/2024 7:31 PM CDT RH BLOOD BANK Antibody Screen Negative Negative 06/17/2024 7:31 PM CDT RH BLOOD BANK SPECIMEN EXPIRATION DATE [id number] 06/17/2024 7:31 PM CDT RH BLOOD BANK Blood BLOOD SPECIMEN / Unknown Venipuncture / Unknown 06/17/2024 7:48 PM CDT 06/17/2024 7:55 PM CDT Kushal Portillo MD LAB - BLOOD BANK TEST ORDER Final Result RH BLOOD BANK [address] [place] [address] * INR (06/17/2024 7:48 PM CDT) INR 0.95 0.85 - 1.15 06/17/2024 8:10 PM CDT RH LABORATORY Blood BLOOD SPECIMEN / Unknown Venipuncture / Unknown 06/17/2024 7:48 PM CDT 06/17/2024 7:55 PM CDT us Kushal Portillo MD LAB - BLOOD ORDERABLES Final Result LABORATORY [facility] [address] Lab (1st floor, no room number) [place] [address], [facility] * (ABNORMAL) Hemoglobin A1c (06/17/2024 7:48 PM CDT) Pathologist [facility] Estimated Average Glucose 203(H) <117 mg/dL 06/17/2024 11:30 PM CDT RH LABORATORY Hemoglobin A1C 8.7(H) <5.7 % 06/17/2024 11:30 PM CDT LABORATORY Comment: Normal <5.7% Prediabetes 5.7-6.4% Diabetes 6.5% or higher Note: Adopted from ADA consensus guidelines. Blood BLOOD SPECIMEN / Unknown Venipuncture / Unknown 06/17/2024 7:48 PM CDT 06/17/2024 7:55 PM CDT us Kings Larson MD LAB - BLOOD ORDERABLES Final Re sult LABORATORY [facility] [address] Lab (1st floor, no room number) [place] [address], [facility] * (ABNORMAL) Comprehensive metabolic panel (06/17/2024 7:48 PM CDT) Pathologist [facility] Sodium 140 135 - 145 mmol/L 06/17/2024 [...] - 107 mmol/L 06/17/2024 8:15 PM CDT LABORATORY Glucose 221(H) 70 - 99 mg/dL 06/17/2024 8:15 PM CDT RH LABORATORY Alkaline Phosphatase 84 40 - 150 U/L 06/17/2024 8:15 PM CDT LABORATORY AST 17 0 - 45 U/L 06/17/2024 8:15 PM CDT RH LABORATORY ALT 17 0 - 70 U/L 06/17/2024 8:15 PM CDT RH LABORATORY Protein Total 5.7(L) 6.4 - 8.3 g/dL 06/17/2024 8:15 PM CDT RH LABORATORY Albumin 3.8 3.5 - 5.2 g/dL 06/17/2024 8:15 PM CDT LABORATORY Bilirubin Total 0.2 <=1.2 mg/dL 06/17/2024 8:15 PM CDT LABORATORY Blood BLOOD SPECIMEN / Unknown Venipuncture / Unknown 06/17/2024 7:48 PM CDT 06/17/2024 7:55 PM CDT Kushal Portillo MD LAB - BLOOD ORDERABLES Final Result LABORATORY [facility] [address] Lab (1st floor, no room number) [place] [address], [facility] * Ethyl Alcohol Level (06/17/2024 7:48 PM CDT) Alcohol ethyl <0.01 <=0.01 g/dL 06/17/2024 8:15 PM CDT RH LABORATORY Blood BLOOD SPECIMEN / Unknown Venipuncture / Unknown 06/17/2024 7:48 PM CDT 06/17/2024 7:55 PM CDT us Kushal Portillo MD LAB - BLOOD ORDERABLES Final Result LABORATORY [facility] [address] Lab (1st floor, no room number) [place] [address], [facility] * Lab Result - HIM Scan [...] - 06/19/2023 12:21 PM CDT Cholesterol Desirable: <200 mg/dL Triglycerides Normal: Less than 150 mg/dL Borderline High: 150-199 mg/dL High: 200-499 mg/dL Very High: Greater than or equal to 500 mg/dL Direct Measure HDL Female: Greater than or equal to 50 mg/dL Male: Greater than or equal to 40 mg/dL LDL Cholesterol Desirable: <100mg/dL Above Desirable: 100-129 mg/dL Borderline High: 130-159 mg/dL High: 160-189 mg/dL Very High: >= 190 mg/dL Non HDL Cholesterol Desirable: 130 mg/dL Above Desirable: 130-159 mg/dL Borderline High: 160-189 mg/dL High: 190-219 mg/dL Very High: Greater than or equal to 220 mg/dL Kiet Arias MD LAB - BLOOD ORDERABLES Fin al Result U LABORATORY [facility] [place] [facility] [address] [facility], [address] [place] [address], [facility] [phone] from Last 3 Months or Most Recently Relevant to Health Maintenance Insurance none (Work) [id number] [place] [id number] [facility] Advance Directives For more information, please contact: [phone] * Full Code (Latest Code Status on [...] 2:20 PM 06/05/2012 5:52 PM Care Teams Television Audio Engineer Relationship Specialty Start Date End Date Shona Vásquez MD FOR[facility] NAMED [facility] [address] [place] [address] PCP - General Family Medicine 12/30/22 Kiet Arias MD [address] [place] [address] Assigned Heart and Vascular Provider 06/24/23
--- OUTSIDE RECORDS SUMMARY | 2024-08-01 16:15 | XMS_ITS | Encounter Summary ---
Author Organization [place] Address [address] [place] [address] Care Team Providers Care Director Employment Name Role Phone Shona Vásquez MD Primary Care Provider [phone] Zofia Hager APRN WORLD RENOWNED CHEF AND RESTAURANT OWNER Unavailable Unavaila Kiet Reyna MD Unavailable [phone] Encounter Details Date Type Department Care Team (Late st Contact Info) Description 05/25/2023 External Order Results [facility] [address] [place] [address] Outside, Provider Social History Tobacco Use Types Packs/Day Years Used Date Smoking Tobacco: Every Day Cigarettes Smokeless Tobacco: Never Alcohol Use Standard Drinks/Week Comments No 0 (1 standard drink = 0.6 oz pur e alcohol) PHQ-2 Answer Date Recorded PHQ-2 Score 2 12/30/2022 Sex and Gender Information Value Date Recorded Sex Assigned at Not on file 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 us Provider Outside LAB - BLOOD ORDERABLES Edited R [facility] BREEZE PFT NON-INTERFACED (ONBASE SCANS) * Chloride (05/25/2023 10:15 AM CDT) Chloride (External) 101 98 - 109 mmol/l NON-INTERFACED (ONBASE SCANS) Blood BLOOD SPECIMEN / Unknown 05/25/2023 10:15 AM CDT Narrative BREEZE PFT - 06/15/2023 7:54 AM CDT Verified by Rc Corbin on 06/15/2023. Provider Outside LAB - BLOOD ORDERABLES Edited [employer] BREEZE PFT NON-INTERFACED (ONBASE SCANS) * Co2 Total (05/25/2023 10:15 AM CDT) CO2 (External) 29 20 - 32 mmol/L NON-INTERFACED (ONBASE SCANS) Blood BLOOD SPECIMEN / Unknown 05/25/2023 10:15 AM CDT Narrative BREEZE PFT - 06/15/2023 7:53 AM CDT Verified by Rc Corbin on 06/15/2023. Provider Outside LAB - BLOOD ORDERABLES Edited [employer] Performing Organization Address [facility]/ZIP Co de Phone Number BREEZE PFT NON-INTERFACED (ONBASE SCANS) * Creatinine (05/25/2023 10:15 AM CDT) Creatinine (External) 1.2 0.6 - 1.3 mg/dl NON-INTERFACED (ONBASE SCANS) Blood BLOOD SPECIMEN / Unknown 05/25/2023 10:15 AM CDT Narrative BREEZE PFT - 06/15/2023 7:53 AM CDT Verified by Rc Corbin on 06/15/2023. Provider Outside LAB - BLOOD ORDERABLES Edited [employer] Performing Organization Address City/[facility] Co de Phone Number BREEZE PFT NON-INTERFACED (ONBASE SCANS) * (ABNORMAL) Glucose (05/25/2023 10:15 AM CDT) Glucose (External) 245(H) 60 - 115 mg/dl NON-INTERFACED (ONBASE SCANS) Blood BLOOD SPECIMEN / Unknown 05/25/2023 10:15 AM CDT Narrative BREEZE PFT - 06/15/2023 7:53 AM CDT Verified by Rc Corbin on 06/15/2023. Provider Outside LAB - BLOOD ORDERABLES Edited [employer] Performing Organization Address City/[facility]/ZIP Co de Phone Number BREEZE PFT NON-INTERFACED (ONBASE SCANS) * (ABNORMAL) Ionized Calcium (05/25/2023 10:15 AM CDT) Calcium Ionized (External) 1.05(L) 1.11 - 1.33 mmol/L NON-INTERFACED (ONBASE SCANS) Blood BLOOD SPECIMEN / Unknown 05/25/2023 10:15 AM CDT Narrative BREEZE PFT - 06/15/2023 7:53 AM CDT Verified by Rc Corbin on 06/15/2023. Provider Outside LAB - BLOOD ORDERABLES Edited [employer] Performing Organization Address [facility] de Phone Number BREEZE PFT NON-INTERFACED (ONBASE SCANS) * (ABNORMAL) Hemoglobin A1c (05/25/2023 10:15 AM CDT) Hemoglobin A1C (External) 14.9(H) 0 - 5.6 % NON-INTERFACE D (ONBASE SCANS) Blood BLOOD SPECIMEN / Unknown 05/25/2023 10:15 AM CDT Narrative BREEZE PFT - 06/15/2023 7:53 AM CDT Verified by Rc Corbin on 06/15/2023. Provider Outside LAB - BLOOD ORDERABLES Edited [employer] Performing Organization Address City/[facility]/ZIP Co de Phone Number BREEZE PFT NON-INTERFACED (ONBASE SCANS) documented in this encounter Visit Diagnoses Not on filedocumented in this encounter Care Teams Director Employment Relationship Specialty Start Date End Date Shona Vásquez MD [facility] [address] [place] [address] PCP - General Family Medicine 12/30/22 Zofia Hager APRN WORLD RENOWNED CHEF AND RESTAURANT OWNER Assigned Heart and Vascular Provider 02/11/23 06/23/23 Kiet Arias MD [address] [place] [address] Assigned Heart and Vascular Provider 06/24/23 documented as of this encounter
--- OUTSIDE RECORDS SUMMARY | 2024-08-01 16:15 | XMS_ITS | Encounter Summary ---
Author Organization [place] Address [address] [place] [address] Care Team Providers Care Neonatologist Name Role Phone Sangeetha Gonzales MD Primary Care Provider + Shona Vásquez MD Primary Care Provider [phone] Kiet Arias MD Unavailable [phone] Zofia Hager APRN DIRECTOR BUSINESS DEVELOPMENT Unavailable Unavaila ble Kiet Arias MD Unavailable [phone] Encounter Details Date Type Department Care Team (Late st Contact Info) Description 07/05/2012 Office Visit-[facility] [address] [id number] Wilian Epps MD Social History Tobacco Use Types Packs/Day Years Used Date Smoking Tobacco: Never Assessed Sex and Gender Information Value Date Recorded Sex Assigned at Not on file 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 DATE: 07/05/2012 ALIZA RAMIERZ [id number] DATE OF : 1960 AGE: [age] years old Referring Physician: SANGEEHTA GONZALES Referring Clinic: [facility] CURRENT DIAGNOSES 1. - CAD, [...] he was admitted for observation overnight at [facility] because of vague intermittent across the chest feelings that he described to me in retrospect as soreness in the nipples and a vague tightness that comes and goes fleetingly. It worried him enough that he went to the ER. 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 [address] [place] [address] PCP - General Family Medicine 12/30/22 Kiet Arias MD [address] [place] [id number] Assigned Heart and Vascular Provider 12/31/22 02/10/23 Zofia Hager, TELETRAY OPERATOR DIRECTOR BUSINESS DEVELOPMENT Assigned Heart and Vascular Provider 02/11/23 06/23/23 Kiet Arias MD [address] [place] [address] Assigned Heart and Vascular Provider 06/24/23 documented as of this encounter
--- OUTSIDE RECORDS SUMMARY | 2024-08-01 16:15 | XMS_ITS | Encounter Summary ---
Author Organization [place] Address [address] [place] [address] Care Team Providers Care Supervisor Coke Handling Name Role Phone System, Provider Not In Primary Care Provider Un available Sangeetha Gonzales MD Primary Care Provider + Shona Vásquez MD Primary Care Provider + [phone] Kiet Arias MD Unavailable [phone] Zofia Hager APRN POWER ORIGINATOR Unavailable Unavaila ble Kiet Arias MD Unavailable [phone] Encounter Details Date Type Department Care Team (Late st Contact Info) Description 08/29/2011 Office Visit-[facility] [address] [address] Wilian Epps MD Social History Tobacco Use Types Packs/Day Years Used Date Smoking Tobacco: Never Assessed Sex and Gender Information Value Date Recorded Sex Assigned at Not on file 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 DATE: 08/29/2011 ALIZA RAMIREZ [id number] DATE OF : 1960 AGE: [age] years old Referring Physician: SANGEETHA GONZALES Referring Clinic: [facility] CURRENT DIAGNOSES 1. 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; Residence - lives with and children; [...] on filedocumented in this encounter Care Teams Supervisor Coke Handling Relationship Specialty Start Date End Date System, Provider Not In PCP - General 08/19/11 06/03/12 Sangeetha Gonzales MD PCP - General 06/04/12 12/29/22 Shona Vásquez MD [facility] [address] [place] [address] PCP - General Family Medicine 12/30/22 Kiet Arias MD [address] [place] [address] Assigned Heart and Vascular Provider 12/31/22 02/10/23 Zofia Hager APRN POWER ORIGINATOR Assigned Heart and Vascular Provider 02/11/23 06/23/23 Kiet Arias MD [address] [place] [address] Assigned Heart and Vascular Provider 06/24/23 documented as of this encounter
--- OUTSIDE RECORDS SUMMARY | 2024-08-01 16:15 | XMS_ITS | Encounter Summary ---
Author Organization [place] Address [address] [place] [address] Care Team Providers Care Radar Tester Name Role Phone Shona Vásquez MD Primary Care Provider [phone] Kiet Arias MD Unavailable [phone] Zofia Hager APRN MANAGER ACQUISITION Unavailable Unavaila ble Kiet Arias MD Unavailable [phone] Encounter Details Date Type Department Care Team (Late st Contact Info) Description 01/10/2023 [facility] Medical Advice [facility] [address] [place] [address] Amna Rodriguez, RN Social History [...] on file 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 Gender Identity Not on file Sexual [...] on filedocumented in this encounter Care Teams Radar Tester Relationship Specialty Start Date End Date Shona Vásquez MD [facility] [address] [place] [address] PCP - General Family Medicine 12/30/22 Kiet Arias MD [address] [place] [address] Assigned Heart and Vascular Provider 12/31/22 02/10/23 Zofia Hager APRN [facility] Assigned Heart and Vascular Provider 02/11/23 06/23/23 Kiet Arias MD [address] [place] [address] Assigned Heart and Vascular Provider 06/24/23 documented as of this encounter
--- OUTSIDE RECORDS SUMMARY | 2024-08-01 16:15 | XMS_ITS | Encounter Summary ---
Author Organization [place] Address [address] [place] [address]. [place] [address] Care Team Providers Care Bead Filler Name Role Phone System, Provider Not In Primary Care Provider Un available Sangeetha Gonzales MD Primary Care Provider + Shona Vásquez MD Primary Care Provider [phone] Kiet Arias MD Unavailable [phone] Zofia Hager OFFICE CLINICIAN ED SPECIAL EDUCATION TEACHER Unavailable Unavaila ble Kiet Arias MD Unavailable [phone] Encounter Details Date Type Department Care Team (Late st Contact Info) Description 05/30/2011 Office Visit-[facility] [place] [address] [facility] [address] [place] [id number] Sandy Briones, OFFICE CLINICIAN ED SPECIAL EDUCATION TEACHER [address] [facility] [address] [place] [address] Social History Tobacco Use Types Packs/Day Years Used Date Smoking Tobacco: Never Assessed Sex and Gender Information Value Date Recorded Sex Assigned at Not on file 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 [id number] DATE: 05/30/2011 ALIZA RAMIREZ DATE OF : 1960 AGE: [age] years old Referring Physician: SANGEETHA GONZALES Referring Clinic: [facility] CURRENT DIAGNOSES 1. 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; Residence - lives with and children; [...] on filedocumented in this encounter Care Teams Bead Filler Relationship Specialty Start Date End Date System, Provider Not In PCP - General 08/19/11 06/03/12 Sangeetha Gonzales MD PCP - General 06/04/12 12/29/22 Shona Vásquez MD [facility] [address] [place] [address] PCP - General Family Medicine 12/30/22 Kiet Arias MD [address] [facility] [place] [address] Assigned Heart and Vascular Provider 12/31/22 02/10/23 Zofia Hager, OFFICE CLINICIAN ED SPECIAL EDUCATION TEACHER Assigned Heart and Vascular Provider 02/11/23 06/23/23 Kiet Arias MD [address] [place] [address] Assigned Heart and Vascular Provider 06/24/23 documented as of this encounter
--- OUTSIDE RECORDS SUMMARY | 2024-08-01 16:15 | XMS_ITS | Encounter Summary ---
Author Organization [place] Address [address] [place] [address]. [place] [address] Care Team Providers Care Tack Puller Name Role Phone Shona Vásquez MD Primary Care Provider [phone] Kiet Arias MD Unavailable [phone] Encounter Details Date Type Department Care Team [...] Answer Date Recorded Do you have housing? 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
--- OUTSIDE RECORDS SUMMARY | 2024-08-01 16:15 | XMS_ITS | Referral Summary ---
Author Organization [place] Address [address] [place] [address] Care Team Providers Care Promos Executive Producer Name Role Phone Shoan Vásquez MD Primary Care Provider [phone] Kiet Arias MD Unavailable [phone] Encounters Date Type Department Care Team Description 06/17/2024 7:24 PM CDT - 06/19/2024 12:11 PM CDT Emergency [place] [address] Medical Surgical [address] [place] [address] Kushal Portillo MD Amdahl, John, MD Parens, Karl R, MD Baxa, Alexander, DO UGIB (upper gastrointestinal bleed); Anemia due to blood loss, acute Discharge Disposition: Home or Self Care 06/18/2024 1:00 PM CDT - 06/18/2024 1:30 PM CDT Surgery [facility] [place] [address] [place] [address] Kiet Brown MD ESOPHAGOGASTRODUODENOSCOP Y, WITH BIOPSies [...] (100 mg) by mouth 2 times daily Active atorvastatin (LIPITOR) 80 MG tablet Take [...] soln Inject 28 Units subcutaneously every evening. Active fluticasone-salmete rol (ADVAIR) 250-50 MCG/ACT inhaler Inhale 1 puff into the lungs 2 times daily. Active pantoprazole (PROTONIX) 40 MG EC tabletIndications:U GIB (upper gastrointestinal bleed) Take 1 tablet (40 mg) by mouth 2 times daily. 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 Gender Identity Not on file Sexual [...] on file Medical Devices Implanted Type Area Stone Cleaner Device Identifier Shelf Expiration Date Model / Serial / Lot Clip Ligating Hem-O-Lock 10mm [id number] Implanted:Qty : 4 on 08/22/2016 Metallic Hardware/Anc hor Right: Abdomen PILLING WECK 06/14/2021 [id number] / / [id number] Cardiac Stents Procedures Procedure Name Priority [...] 7:58 AM CDT Coronary artery disease involving campo coronary artery of campo heart without angina pectoris from Last 3 [...] 8:33 AM CDT us Ge VENTURA - ANGELAKER POCT Final Result LABORATORY [facility] Acute Care Lab [address] [facility] Lab (1st floor, no room number) [place] [address], [facility] * Extra Green Top Tube (LAB USE ONLY) (06/19/2024 7:37 AM CDT) [facility] Hold Specimen JI 06/19/2024 9:02 AM CDT LABORATORY Blood STRUCTURE OF RIGHT HAND / Unknown Venipuncture / Unknown 06/19/2024 7:37 AM CDT 06/19/2024 7:48 AM CDT us Jassi Felix MD LAB - BLOOD ORDERABLES Final Result Performing Organization Address City/[facility]/ZIP Co de Phone Number [facility] Lab [address] Lab (1st floor, no room number) [address] * (ABNORMAL) Hemoglobin (06/19/2024 7:37 AM CDT) Only the most recent of2 resultswithin the time period is included. Hemoglobin 8.2(L) 13.3 - 17.7 g/dL 06/19/2024 7:53 AM CDT LABORATORY Blood STRUCTURE OF RIGHT HAND / Unknown Venipuncture / Unknown 06/19/2024 7:37 AM CDT 06/19/2024 7:48 AM CDT us Elvis Herman DO LAB - BLOOD ORDERABLES Final R esult Performing Organization Address [facility] Co de Phone Number [facility] Lab [address] Lab (1st floor, no room number) [address] * Surgical Pathology Exam (06/18/2024 1:27 PM CDT) Case Report Surgical Pathology Report Case: [id number] Authorizing Provider: Kiet Brown MD Collected: 06/18/2024 01:27 PM Ordering Location: [facility] Received: 06/18/2024 01:58 PM [facility] [place] Pathologist: Nicole Parham MD Specimen: Stomach, gastric [...] VENTURA - NORMA AP Final Resul t LABORATORY [facility] Acute Care Lab [address] Lab (1st floor, no room number) [place] [address] * UPPER GI ENDOSCOPY (06/18/2024 12:29 PM CDT) Upper GI Endoscopy [facility] Patient Name: Dustin Carrera Procedure Date: 06/18/2024 12:29 PM Date of : 1960 Admit Type: Inpatient Age: 63 Gender: Male Attending MD: KIET BROWN MD, Total Sedation Time: Minutes of continuous bedside 1:1: 15 minutes Instrument Name: [id number] Gastroscope Procedure: Upper GI endoscopy Indications: Melena, [...] The Olympus Gasrointestinal Videoscope, Model# GIF-1100, Censitrac# [id number], SN# [id number] was introduced through the mouth, and advanced [...] hospital service. Procedure Code(s): --- Professional --- 30430, Esophagogastroduod enoscopy, flexible, transoral; with biopsy, single or multiple Diagnosis Code(s): --- Professional --- D64.9, Anemia, unspecified K92.1, Melena (includes Hematochezia) K29.80, Duodenitis without bleeding CPT copyright 2021 [employer]. All rights reserved. The codes documented in this report are preliminary and upon pattern grader cutter review may be revised to meet current [...] BLOOD ORDERABLES Final Re sult RH LABORATORY [facility] Acute Care Lab [address] Lab (1st floor, no room number) [place] [address], [facility] * (ABNORMAL) CBC with platelets (06/18/2024 6:43 [...] LAB - BLOOD ORDERABLES Final Re sult [facility] Care Lab [address] Lab (1st floor, no room number) [place] [phone] [place] [address] * (ABNORMAL) Occult blood stool (06/17/2024 8:10 PM CDT) Occult Blood Positive(A ) Negative ANAHI 06/17/2024 8:20 PM CDT LABORATORY Stool RECTAL CONTENTS / Unknown Non-blood Collection / Unknown 06/17/2024 8:10 PM CDT 06/17/2024 8:19 PM CDT Kushal Portillo MD LAB - STOOLS ORDERABLES Shantel l Result Performing Organization Address City/[facility]/ZIP Co de Phone Number [facility] Care Lab [address] Lab (1st floor, no room number) [place] [phone] [place] [address] * Extra Red Top Tube (06/17/2024 7:48 PM CDT) Pathologist [facility] Hold Specimen JIC 06/17/2024 9:02 PM CDT LABORATORY Blood BLOOD SPECIMEN / Unknown Venipuncture / Unknown 06/17/2024 7:48 PM CDT 06/17/2024 7:55 PM CDT Kushal Portillo MD LAB - BLOOD ORDERABLES Final Result [facility] Care Lab [address] Lab (1st floor, no room number) [place] [phone] [place] [address] * (ABNORMAL) CBC with platelets and differential [...] PM CDT 06/17/2024 7:55 PM CDT Kushal Portlilo MD LAB - BLOOD ORDERABLES Final Result RH LABORATORY [facility] [address] [facility] ([facility], no room number) [place] [address] * Adult Type and Screen (06/17/2024 7:48 PM CDT) ABO/RH(D) O POS 06/17/2024 7:31 PM CDT RH BLOOD BANK Antibody Screen Negative Negative 06/17/2024 7:31 PM CDT RH BLOOD BANK SPECIMEN EXPIRATION DATE [id number] 06/17/2024 7:31 PM CDT RH BLOOD BANK Blood BLOOD SPECIMEN / Unknown Venipuncture / Unknown 06/17/2024 7:48 PM CDT 06/17/2024 7:55 PM CDT Kushal Portillo MD LAB - BLOOD BANK TEST ORDER Final Result Performing Organization Address City/[facility]/ZIP Co de Phone Number RH BLOOD BANK [address] [place] [address] * INR (06/17/2024 7:48 PM CDT) INR 0.95 0.85 - 1.15 06/17/2024 8:10 PM CDT RH LABORATORY Blood BLOOD SPECIMEN / Unknown Venipuncture / Unknown 06/17/2024 7:48 PM CDT 06/17/2024 7:55 PM CDT Kushal Portillo MD LAB - BLOOD ORDERABLES Final Result LABORATORY [facility] Care Lab [address] Lab (1st floor, no room number) [place] [address] * (ABNORMAL) Hemoglobin A1c (06/17/2024 7:48 PM CDT) Pathologist [facility] Estimated Average Glucose 203(H) <117 mg/dL 06/17/2024 11:30 PM CDT RH LABORATORY Hemoglobin A1C 8.7(H) <5.7 % 06/17/2024 11:30 PM CDT RH LABORATORY Comment: Normal <5.7% Prediabetes 5.7-6.4% Diabetes 6.5% or higher Note: Adopted from ADA consensus guidelines. Blood BLOOD SPECIMEN / Unknown Venipuncture / Unknown 06/17/2024 7:48 PM CDT 06/17/2024 7:55 PM CDT Kings Larson MD LAB - BLOOD ORDERABLES Final Re sult Performing Organization Address [facility]/ZIP Co de Phone Number LABORATORY [facility] Acute Care Lab [address] Lab (1st floor, no room number) [place] [address] * (ABNORMAL) Comprehensive metabolic panel (06/17/2024 7:48 PM CDT) [facility] Sodium 140 135 - 145 mmol/L 06/17/2024 [...] 8:15 PM CDT RH LABORATORY Comment:eGFR calculated us2020 CKD-EPI equation. Calcium 7.5(L) 8.8 - 10.4 [...] - BLOOD ORDERABLES Final Result RH LABORATORY [facility] Acute Care Lab [address] Lab (1st floor, no room number) [place] [address], [facility] * Ethyl Alcohol Level (06/17/2024 7:48 PM CDT) Alcohol ethyl <0.01 <=0.01 g/dL 06/17/2024 8:15 PM CDT RH LABORATORY Blood BLOOD SPECIMEN / Unknown Venipuncture / Unknown 06/17/2024 7:48 PM CDT 06/17/2024 7:55 PM CDT Kushal Portillo MD LAB - BLOOD ORDERABLES Final Result [facility] Acute Care Lab [address] Lab (1st floor, no room number) [place] [address], [facility] * Lab Result - HIM Scan (06/17/2024 [...] Greater than or equal to 220 mg/dL us Kiet Arias MD LAB - BLOOD ORDERABLES Fin al Result LABORATORY [facility] [place] [facility] [address] [facility], [address] [address], [facility] [phone] from Last 3 Months or Most Recently Relevant to Health Maintenance Insurance none (Work) [id number] [place] [address] [employer] Advance Directives For more information, please contact: [phone] * Full Code (Latest Code Status on [...] 2:20 PM 06/05/2012 5:52 PM Care Teams Promos Executive Producer Relationship Specialty Start Date End Date Shona Vásquez MD [facility] [address] [place] [address] PCP - General Family Medicine 12/30/22 Kiet Arias MD [address] [place] [address] Assigned Heart and Vascular Provider 06/24/23
--- OUTSIDE RECORDS SUMMARY | 2024-08-01 16:15 | XMS_ITS | Encounter Summary ---
Author Organization [facility] Address [address] [place] [address] Care Team Providers Care Track Equipment Operator Name Role Phone Shona Vásquez MD Primary Care Provider [phone] Kiet Arias MD Unavailable [phone] Reason for Visit * Reason Comments Abnormal Labs * Auth/Cert (Routine) Specialty Diagnoses / Procedures Referred By Contcesar t Referred To Contact Med Surg Diagnoses Anemia due to blood loss, acute UGIB (upper gastrointestinal bleed) UGIB (upper gastrointestinal bleed) Anemia due to blood loss, acute [place] [address] Medical Surgical [address] [place] [address] Phone: tel: fax: Referral ID Status Reason Start Date Expiration Date Visits Re quested Visits Authorized [id number] 1 1 Encounter Details Date Type Department Care Team (Late st Contact Info) Description 06/18/2024 1:00 PM CDT - 06/18/2024 1:30 PM CDT Surgery [facility] [place] [address] [place] [address] Kiet Brown MD [facility] [address] [facility] [place] [address] ESOPHAGOGASTRODUODENOS COPY, WITH BIOPSies using cold biopsy [...] in an abandoned building, in an overnight penitentiary, or couch-surfing.) Yes 06/18/2024 Are you worried [...] on file 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 Insulin dependent T2DM: MARBLE MASON Lantus, aspart, Jardiance on discharge. HTN CAD s/p stenting: Discontinue MARBLE MASON lisinopril/hydrochlorothiazide, amlodipine on discharge given normal blood pressureand dizziness on admission. Will continue MARBLE MASON metoprolol. He should have follow-up with his primarydoctor in approximately 1 to 2 weeks for repeat blood pressure check. He may need to restart antihypertensives at that time. This was discussed with the patient. COPD: MARBLE MASON Advair Clinically Significant Risk Factors # DMII: [...] minutes discharging this patient. Elvis Herman DO [place] [address] MEDICAL SURGICAL [address] [facility] [address] Physical Exam Vital Signs: Temp: 98 ??F [...] Care Everywhere. * Infection: H. Pylori Bacterial ([place]omean) documented in this encounter Medications at Time [...] Herman DO - 06/18/2024 11:36 AM CDT [facility] Medicine Progress Note - Hospitalist Service [...] ordered on admission -N.p.o. sliding scale ordered -MARBLE MASON Jardiance CAD s/p stenting: -Hold MARBLE MASON lisinopril/hydrochlorothiazide, amlodipine, aspirin in the setting of suspected upper GI bleed -Continue MARBLE MASON metoprolol with hold parameters COPD: MARBLE MASON Advair Diet: NPO per Anesthesia Guidelines for [...] Anticipated Tomorrow Elvis Herman DO Hospitalist Service [facility] Securely message with Caden (more info) Text page via [facility] Paging/Directory Interval History NAEO. Patient with no [...] RN full skin assessment completed by Riya Acosta RN and Anabell Solis, YONATHAN. Skin assessment finding: other Bruises, scabs, scratches to abdomen & RACHAEL UE Interventions/actions: other Lotion to dry areas Will continue to monitor. documented in this encounter H&P Notes * Kings Larson MD - 06/17/2024 7:18 PM CDT [facility] History and Physical Dusitn Carrera Age: [age] year old Date of : 1960 Date of Admission: 06/17/2024 Home clinic: [facility] Primary care provider: Shona Vásquez Assessment and Plan: Assessment: Dustin Carrera is a 63 year old man with history of CAD, Obesity, COPD, tobacco abuse and IDDM, type 2 who initially presented to an outside UC for dizziness and epigastric pain. He came to attention tonight in [facility] ED after having been found to [...] 2. N.p.o. for possible EGD tomorrow. 3. [facility] is consulted. 4. The patient was [...] ANGIOGRAM 03-21-15 2 vessel coronary artery disease (diagonal-PROJECT MANAGER SENIOR, apical LAD, and culprit mid to distal [...] OPERATIVE ULTRASOUND; Surgeon: Shila Núñez MD; Location: [facility]; Service: Social History: Social History Tobacco Use [...] Status --------- ------ CBC with platelets and d...[[id number]] Abnormal Final result Please view results for [...] Abnormality Status --------- ------ Adult Type and Screen[[id number]] Final result Please view results for these tests on the individual orders. [place] Draw Narrative The following orders were created for panel order [place] [facility]. Procedure Abnormality Status --------- ------ Extra Red Top Tube[[id number]] Final result Please view results for these [...] Antibody Screen Negative Negative SPECIMEN EXPIRATION DATE [id number] Extra Red Top Tube Result Value Ref Range Hold Specimen [facility] Hemoglobin A1c Result Value Ref [...] Brown MD - 06/18/2024 2:05 PM CDT [facility] Chart Update 63 yo with 1 week dark stool, anemia, epigastric pain. EGD today with mild duodenitis, otherwise normal. No prior colonoscopy. Will arrange for outpatient colonoscopy within 2 weeks. Will follow up on H. Pylori biopsies taken today. Suggest continued empiric PPI x1 month. Resume regular diet. Discharge planning per hospital service. Kiet Brown MD [facility] documented in this encounter ED Notes * Riya Acosta RN - 06/17/2024 11:04 PM CDT [facility] ED Nurse Handoff Report ED Chief complaint: Abnormal Labs . ED Diagnosis: Final diagnoses: UGIB (upper gastrointestinal bleed) Anemia due to blood loss, acute Allergies: Allergies Allergen Reactions Amoxicillin Code Status: Full Code Activity level - Baseline/Home: independent. Activity Level - Current: independent. Lift room needed: No. Bariatric: No Seed Laboratory Assistant Needed: No Isolation: No. Infection: Not Applicable. [...] POS Antibody Screen Negative SPECIMEN EXPIRATION DATE [id number] ABO/RH TYPE AND SCREEN No orders to [...] of External Notes I reviewed paperwork from [facility]. This is not appearing in [...] ANGIOGRAM 03-21-15 2 vessel coronary artery disease (diagonal-PROJECT MANAGER SENIOR, apical LAD, and culprit mid to distal [...] OPERATIVE ULTRASOUND; Surgeon: Shila Núñez MD; Location: [facility]; Service: Physical Exam Patient Vitals for the [...] POS Antibody Screen Negative SPECIMEN EXPIRATION DATE [id number] ABO/RH TYPE AND SCREEN Imaging No orders [...] Documentation None Medical Decision Making / Diagnosis [facility] Diagnoses: None MIPS None MDM Dustin Carrera [...] file MD Lindsey Orozco Brian A, MD 06/17/24 2211 * Nita Franks RN - 06/17/2024 7:20 [...] your shift note. Outcome: Progressing Flowsheets (Taken 06/18/20242231) Outcome Evaluation: no s/s of bleeding, VSS [...] Scripts Pertinent Information: - Changes made to MARBLE MASON medication list: Added: Advair, insulin Lantus Deleted: insulin Levemir, bupropion, furosemide Changed: None Allergies reviewed with patient and updates made in EHR: unable to assess Medication History Completed By: Linda Chery RPH 06/18/2024 10:36 AM MARBLE MASON Med List Medication Sig Last Dose albuterol [...] 28 Units subcutaneously every evening. 06/17/2024 at [facility] lisinopril-hydrochlorothiazide (ZESTORETIC) 20-12.5 MG tablet Take 1 [...] Glucose by meter (06/19/2024 8:26 AM CDT) [facility] GLUCOSE BY METER POCT 179(H) 70 - 99 mg/dL 06/19/2024 8:33 AM CDT [facility] LABORATORY POC Blood, Capillary BLOOD SPECIMEN / Unknown 06/19/2024 8:26 AM CDT 06/19/2024 8:33 AM CDT Ge GREEN POCT Final Result [facility] LABORATORY POC [facility] Lab [address] Lab (1st floor, no room number) [place] [address], [facility] * Extra Green Top Tube (LAB USE ONLY) (06/19/2024 7:37 AM CDT) Hold Specimen JIC 06/19/2024 9:02 AM CDT LABORATORY Blood STRUCTURE OF RIGHT HAND / Unknown Venipuncture / Unknown 06/19/2024 7:37 AM CDT 06/19/2024 7:48 AM CDT us Jassi Felix MD LAB - BLOOD ORDERABLES Final Result LABORATORY [facility] Care Lab [address] Lab (1st floor, no room number) [place] [address], [facility] * (ABNORMAL) Hemoglobin (06/19/2024 7:37 AM CDT) Pathologist [facility] Hemoglobin 8.2(L) 13.3 - 17.7 g/dL 06/19/2024 7:53 AM CDT LABORATORY Blood STRUCTURE OF RIGHT HAND / Unknown Venipuncture / Unknown 06/19/2024 7:37 AM CDT 06/19/2024 7:48 AM CDT us Elvis Herman DO LAB - BLOOD ORDERABLES Final R esult LABORATORY [facility] Care Lab [address] Lab (1st floor, no room number) [place] [address], [facility] * (ABNORMAL) Glucose by meter (06/19/2024 1:09 AM CDT) [facility] GLUCOSE BY METER POCT 146(H) 70 - 99 mg/dL 06/19/2024 1:15 AM CDT LABORATORY POC Blood, Capillary BLOOD SPECIMEN / Unknown 06/19/2024 1:09 AM CDT 06/19/2024 1:15 AM CDT us Ge Bowman MD LAB - BEAKER POCT Final Result LABORATORY POC [facility] [address] Lab (1st floor, no room number) [place] [phone] [place] [address] * (ABNORMAL) Glucose by meter (06/18/2024 9:31 PM CDT) GLUCOSE BY METER POCT 169(H) 70 - 99 mg/dL 06/18/2024 9:38 PM CDT RH LABORATORY POC Blood, Capillary BLOOD SPECIMEN / Unknown 06/18/2024 9:31 PM CDT 06/18/2024 9:38 PM CDT Ge Bowman MD LAB - BEAKER POCT Final Result LABORATORY [facility] Lab [address] Lab (1st floor, no room number) [place] [phone] [place] [address] * (ABNORMAL) Glucose by meter (06/18/2024 5:50 PM CDT) GLUCOSE BY METER POCT 164(H) 70 - 99 mg/dL 06/18/2024 5:56 PM CDT LABORATORY POC Blood, Capillary BLOOD SPECIMEN / Unknown 06/18/2024 5:50 PM CDT 06/18/2024 5:56 PM CDT Ge Bowman MD LAB - BEAKER POCT Final Result LABORATORY [facility] Lab [address] Lab (1st floor, no room number) [place] [phone] [place] [address] * (ABNORMAL) Hemoglobin (06/18/2024 3:14 PM CDT) Hemoglobin 7.8(L) 13.3 - 17.7 g/dL 06/18/2024 3:28 PM CDT LABORATORY Blood STRUCTURE OF RIGHT UPPER LIMB / Unknown Venipuncture / Unknown 06/18/2024 3:14 PM CDT 06/18/2024 3:25 PM CDT us Elvis Herman DO LAB - BLOOD ORDERABLES Final R esult LABORATORY [facility] Care Lab [address] Lab (1st floor, no room number) [place] [address] * (ABNORMAL) Glucose by meter (06/18/2024 2:31 PM CDT) GLUCOSE BY METER POCT 142(H) 70 - 99 mg/dL 06/18/2024 2:37 PM CDT LABORATORY POC Blood, Capillary BLOOD SPECIMEN / Unknown 06/18/2024 2:31 PM CDT 06/18/2024 2:37 PM CDT us Ge Bowman MD LAB - BEAKER POCT Final Result Performing Organization Address City/Va Hospital/ZIP Co de Phone Number LABORATORY POC [facility] Lab [address] Lab (1st floor, no room number) [place] [address] * Surgical Pathology Exam (06/18/2024 1:27 PM CDT) Case Report Surgical Pathology Report Case: [id number] Authorizing Provider: Kiet Brown MD Collected: 06/18/2024 01:27 PM Ordering Location: [facility] Received: 06/18/2024 01:58 PM [facility] [place] Pathologist: Nicole Parham MD Specimen: Stomach, gastric [...] component of this testing was completed at [facility]. Stain controls for all stains resulted within this report have been reviewed and show appropriate reactivity. 06/19/2024 12:49 PM CDT LABORATORY Case Images 06/19/2024 12:49 PM CDT LABORATORY Biopsy STOMACH STRUCTURE / Unknown 06/18/2024 1:27 PM CDT 06/18/2024 1:58 PM CDT Kiet VENTURA - NORMA AP Final Resul t [facility] Lab [address] Lab (1st floor, no room number) [place] [address], [facility] * (ABNORMAL) Glucose by meter (06/18/2024 12:35 PM CDT) GLUCOSE BY METER POCT 136(H) 70 - 99 mg/dL 06/18/2024 12:42 PM CDT LABORATORY POC Blood, venous BLOOD SPECIMEN / Unknown 06/18/2024 12:35 PM CDT 06/18/2024 12:42 PM CDT us Ge VENTURA - BEZA POCT Final Result LABORATORY [facility] Care Lab [address] Lab (1st floor, no room number) [place] [address], [facility] * UPPER GI ENDOSCOPY (06/18/2024 12:29 PM CDT) [facility] Upper GI Endoscopy [facility] Patient Name: Dustin Carrera Procedure Date: 06/18/2024 12:29 PM Date of : 1960 Admit Type: Inpatient Age: 63 Gender: Male Attending MD: KIET BROWN MD, Total Sedation Time: Minutes of continuous bedside 1:1: 15 minutes Instrument Name: [id number] Gastroscope Procedure: Upper GI endoscopy Indications: Melena, [...] The Olympus Gasrointestinal Videoscope, Model# GIF-1100, Censitrac# [id number], SN# [id number] was introduced through the mouth, and advanced [...] hospital service. Procedure Code(s): --- Professional --- 74487, Esophagogastroduod enoscopy, flexible, transoral; with biopsy, single or multiple Diagnosis Code(s): --- Professional --- D64.9, Anemia, unspecified K92.1, Melena (includes Hematochezia) K29.80, Duodenitis without bleeding CPT copyright 2021 [employer]. All rights reserved. The codes documented in this report are preliminary and upon death surveys coder review may be revised to meet current compliance requirements. Kiet Brown M.D. ___ KIET BROWN MD 06/18/2024 1:38:23 PM Number of Addenda: 0 Note Initiated On: 06/18/2024 12:29 PM Procedure Date: 06/18/2024 12:29:49 PM Total Procedure Duration: 0 hours 11 minutes 0 seconds Estimated Blood Loss: Scope In: 1:17:45 PM Scope Out: 1:28:45 PM RADIOLOGY RESULTS 06/18/2024 12:2 9 PM CDT Kiet Brown MD PROCEDURES Final Resul t RADIOLOGY RESULTS * (ABNORMAL) Glucose by meter (06/18/2024 10:18 AM CDT) GLUCOSE BY METER POCT 130(H) 70 - 99 mg/dL 06/18/2024 10:25 AM CDT RH LABORATORY POC Blood, Capillary BLOOD SPECIMEN / Unknown 06/18/2024 10:18 AM CDT 06/18/2024 10:25 AM CDT Ge Bowman MD LAB - BEAKER POCT Final Result [facility] LABORATORY POC [facility] [address] Lab (1st floor, no room number) [place] [address], [facility] * (ABNORMAL) CBC with platelets (06/18/2024 6:43 [...] - BLOOD ORDERABLES Final Re sult LABORATORY [facility] [address] [facility] Lab (1st floor, no room number) [place] [address], [facility] * (ABNORMAL) Basic metabolic panel (06/18/2024 6:43 [...] - BLOOD ORDERABLES Final Re sult LABORATORY [facility] Care Lab [address] Lab (1st floor, no room number) [place] [address], [facility] * (ABNORMAL) Glucose by meter (06/18/2024 5:30 AM CDT) [facility] GLUCOSE BY METER POCT 120(H) 70 - 99 mg/dL 06/18/2024 5:37 AM CDT LABORATORY POC Blood, Capillary BLOOD SPECIMEN / Unknown 06/18/2024 5:30 AM CDT 06/18/2024 5:37 AM CDT us Ge Bowman MD LAB - BEAKER POCT Final Result LABORATORY POC [facility] [address] Lab (1st floor, no room number) [place] [phone] [place] [address] * (ABNORMAL) Glucose by meter (06/18/2024 1:24 AM CDT) Pathologist [facility] GLUCOSE BY METER POCT 159(H) 70 - 99 mg/dL 06/18/2024 1:31 AM CDT LABORATORY POC Blood, Capillary BLOOD SPECIMEN / Unknown 06/18/2024 1:24 AM CDT 06/18/2024 1:31 AM CDT us Ge Bowman MD LAB - BEAKER POCT Final Result LABORATORY POC [facility] Lab [address] Lab (1st floor, no room number) [place] [phone] [place] [address] * (ABNORMAL) Occult blood stool (06/17/2024 8:10 PM CDT) Pathologist [facility] Occult Blood Positive(A ) Negative ANAHI 06/17/2024 8:20 PM CDT LABORATORY Stool RECTAL CONTENTS / Unknown Non-blood Collection / Unknown 06/17/2024 8:10 PM CDT 06/17/2024 8:19 PM CDT us Kushal Portillo MD LAB - STOOLS ORDERABLES Shantel l Result LABORATORY [facility] Lab [address] Lab (1st floor, no room number) [place] [phone] [place] [address] * (ABNORMAL) Hemoglobin A1c (06/17/2024 7:48 PM [...] LAB - BLOOD ORDERABLES Final Re sult [facility] Lab [address] [employer] [address] Lab (1st floor, no room number) [place] [phone] [place] [address] * Extra Red Top Tube (06/17/2024 7:48 PM CDT) Hold Specimen JIC 06/17/2024 9:02 PM CDT RH LABORATORY Blood BLOOD SPECIMEN / Unknown Venipuncture / Unknown 06/17/2024 7:48 PM CDT 06/17/2024 7:55 PM CDT Kushal Portillo MD LAB - BLOOD ORDERABLES Final Result Performing Organization Address [facility]/Va Hospital/ZIP Co de Phone Number [facility] Lab [address] Lab (1st floor, no room number) [address] [place] [address] * Adult Type and Screen (06/17/2024 7:48 PM CDT) ABO/RH(D) O POS 06/17/2024 7:31 PM CDT RH BLOOD BANK Antibody Screen Negative Negative 06/17/2024 7:31 PM CDT RH BLOOD BANK SPECIMEN EXPIRATION DATE [id number] 06/17/2024 7:31 PM CDT RH BLOOD BANK Blood BLOOD SPECIMEN / Unknown Venipuncture / Unknown 06/17/2024 7:48 PM CDT 06/17/2024 7:55 PM CDT Kushal Portillo MD LAB - BLOOD BANK TEST ORDER Final Result Performing Organization Address City/Va Hospital/ZIP Co de Phone Number BLOOD BANK [address] [employer] [place] [phone] [place] [address] * (ABNORMAL) CBC with platelets and differential [...] LAB - BLOOD ORDERABLES Final Result LABORATORY [facility] Lab [address] Lab (1st floor, no room number) [address] * Ethyl Alcohol Level (06/17/2024 7:48 PM CDT) Alcohol ethyl <0.01 <=0.01 g/dL 06/17/2024 8:15 PM CDT RH LABORATORY Blood BLOOD SPECIMEN / Unknown Venipuncture / Unknown 06/17/2024 7:48 PM CDT 06/17/2024 7:55 PM CDT Kushal Portillo MD LAB - BLOOD ORDERABLES Final Result LABORATORY [facility] Care Lab [address] Lab (1st floor, no room number) [address] * (ABNORMAL) Comprehensive metabolic panel (06/17/2024 7:48 [...] MD LAB - BLOOD ORDERABLES Final Result [facility] Care Lab [address] Lab (1st floor, no room number) [place] [address] * INR (06/17/2024 7:48 PM CDT) INR 0.95 0.85 - 1.15 06/17/2024 8:10 PM CDT LABORATORY Blood BLOOD SPECIMEN / Unknown Venipuncture / Unknown 06/17/2024 7:48 PM CDT 06/17/2024 7:55 PM CDT Kushal Portillo MD LAB - BLOOD ORDERABLES Final Result Performing Organization Address City/Va Hospital/ZIP Co de Phone Number [facility] Lab [address] Lab (1st floor, no room number) [place] [address] documented in this encounter Visit Diagnoses [...] pain or per patient request, Starting on 06/17/24 at 2314, Alternate with ibuprofen if ordered. [...] 2320, Correction Scale - HIGH INSULIN RESISTANCE DOSING Do Not give Correction Insulin if BG [...] - 339 give 8 units For BG 340 - 364 give 9 units For BG 365 [...] 0000, Correction Scale - HIGH INSULIN RESISTANCE DOSING Do Not give Correction Insulin if BG [...] - 339 give 8 units For BG 340 - 364 give 9 units For BG 365 [...] 2320, Correction Scale - HIGH INSULIN RESISTANCE DOSING Do Not give Correction Insulin if BG [...] - 339 give 8 units For BG 340 - 364 give 9 units For BG 365 [...] William, YONATHAN)2207 ($Given - Provider: Sven William, RN) insulin aspart (NovoLOG) injection (RAPID ACTING) 1-12 Units, Subcutaneous, 4 TIMES DAILY BEFORE MEALS & NIGHTLY, First dose (after last reorder) on Mon06/19/24 at 0000, Correction Scale - HIGH INSULIN RESISTANCE DOSING Do Not give Correction Insulin if BG [...] - 339 give 8 units For BG 340 - 364 give 9 units For BG 365 [...] [phone] ($New Bag - Provider: Riya Acosta, YONATHAN) PRN Medication Order 06/17/2024 06/18/2024 06/19/2024 acetaminophen [...] site for insertion. MAX Dose: 2.5 g ( of 5 g tube) Do NOT give [...] 2 TIMES DAILY PRN, constipation, Starting on 06/17/24 at 2314, IF more than 1 constipation PRN medication is ordered, administer step-chandra as indicated, moving to the next step ONLY if prior step ineffective. Step 1: senna-docusate (SENOKOT-S; PERICOLACE) OR bisacodyl (DULCOLAX) EC tablet Step 2: polyethylene glycol (MIRALAX/GLYCOLAX) Step 3: bisacodyl (DULCOLAX) suppository Step 4: enema Hold for loose stools. documented in this encounter Care Teams Track Equipment Operator Relationship Specialty Start Date End Date Shona Vásquez MD [facility] [address] [place] [address] PCP - General Family Medicine 12/30/22 Kiet Arias MD [address] [place] [address] Assigned Heart and Vascular Provider 06/24/23 documented as of this encounter
--- OUTSIDE RECORDS SUMMARY | 2024-08-01 16:15 | XMS_ITS | Encounter Summary ---
Author Organization [facility] Address [address] [place] [address] Care Team Providers Care Advertising Columnist Name Role Phone Shona Vásquez MD Primary Care Provider [phone] Kiet Arias MD Unavailable [phone] Reason for Visit * Reason Comments Abnormal Labs * Auth/Cert (Routine) Specialty Diagnoses / Procedures Referred By Contac t Referred To Contact Med Surg Diagnoses Anemia due to blood loss, acute UGIB (upper gastrointestinal bleed) UGIB (upper gastrointestinal bleed) Anemia due to blood loss, acute [place] [address] [facility] [address] [place] [address] Phone: tel: fax: Referral ID Status Reason Start Date Expiration Date Visits Re quested Visits Authorized [id number] 1 1 Encounter Details Date Type Department Care Team (Late st Contact Info) Description 06/17/2024 7:24 PM CDT - 06/19/2024 12:11 PM CDT Emergency [place] [address] [facility] [address] [place] [address] Kushal Portillo MD [facility] [address] [facility] [address] [place] [phone] Ge Bowman MD [facility] [address] [place] [address] Kings Larson MD [address] [place], [place] [id number] Elvis Herman DO [address] [place] [address] UGIB (upper gastrointestinal bleed); Anemia [...] Date Recorded Do you have housing? 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 Insulin dependent T2DM: FAMILY WORKER Lantus, aspart, Jardiance on discharge. HTN CAD s/p stenting: Discontinue FAMILY WORKER lisinopril/hydrochlorothiazide, amlodipine on discharge given normal blood pressureand dizziness on admission. Will continue FAMILY WORKER metoprolol. He should have follow-up with his primarydoctor in approximately 1 to 2 weeks for repeat blood pressure check. He may need to restart antihypertensives at that time. This was discussed with the patient. COPD: FAMILY WORKER Advair Clinically Significant Risk Factors # DMII: [...] minutes discharging this patient. Elvis Herman DO [place] [address] [facility] [address] [facility] [address] Physical Exam Vital Signs: Temp: 98 ??F [...] 06/18/24 1018 06/18/24 0643 06/18/24 0124 06/17/24 19406/19/23 0758 NA -- -- -- -- 141 [...] Care Everywhere. * Infection: H. Pylori Bacterial (Venezuelan) documented in this encounter Medications at Time [...] Herman DO - 06/18/2024 11:36 AM CDT [facility] Medicine Progress Note - Hospitalist [...] ordered on admission -N.p.o. sliding scale ordered -FAMILY WORKER Jardiance CAD s/p stenting: -Hold FAMILY WORKER lisinopril/hydrochlorothiazide, amlodipine, aspirin in the setting of suspected upper GI bleed -Continue FAMILY WORKER metoprolol with hold parameters COPD: FAMILY WORKER Advair Diet: NPO per Anesthesia Guidelines for [...] Anticipated Tomorrow Elvis Herman DO Hospitalist Service [facility] Securely message with Caden (more info) Text page via [facility] Paging/Directory Interval History NAEO. Patient with no [...] completed by Riya Acosta RN and Anabell Solis RN. Skin assessment finding: other Bruises, scabs, scratches to abdomen & RACHAEL UE Interventions/actions: other Lotion to dry areas Will continue to monitor. documented in this encounter H&P Notes * Kings Larson MD - 06/17/2024 7:18 PM CDT [facility] History and Physical Dustin Carrera Age: [age] year old Date of : 1960 Date of Admission: 06/17/2024 Home clinic: [facility] Primary care provider: Shona Vásquez Assessment and Plan: Assessment: Dustin Carrera is a 63 year old man with history of CAD, Obesity, COPD, tobacco abuse and IDDM, type 2 who initially presented to an outside UC for dizziness and epigastric pain. He came to attention tonight in [facility] ED after having been found to have [...] N.p.o. for possible EGD tomorrow. 3. [facility] is consulted. 4. The patient was [...] ANGIOGRAM 03-21-15 2 vessel coronary artery disease (diagonal-MAINTENANCE SCHEDULER, apical LAD, and culprit mid to distal [...] OPERATIVE ULTRASOUND; Surgeon: Shila Núñez MD; Location: [facility]; Service: Social History: Social History Tobacco Use [...] Status --------- ------ CBC with platelets and d...[[id number]] Abnormal Final result Please view results for [...] Abnormality Status --------- ------ Adult Type and Screen[[id number]] Final result Please view results for these tests on the individual orders. [place] [facility] Narrative The following orders were created for panel order [place] [facility]. Procedure Abnormality Status --------- ------ Extra Red Top Tube[[id number]] Final result Please view results for these [...] Antibody Screen Negative Negative SPECIMEN EXPIRATION DATE [id number] Extra Red Top Tube Result Value Ref Range Hold Specimen [facility] Hemoglobin A1c Result Value Ref Range [...] Brown MD - 06/18/2024 2:05 PM CDT [facility] Chart Update 63 yo with 1 week dark stool, anemia, epigastric pain. EGD today with mild duodenitis, otherwise normal. No prior colonoscopy. Will arrange for outpatient colonoscopy within 2 weeks. Will follow up on H. Pylori biopsies taken today. Suggest continued empiric PPI x1 month. Resume regular diet. Discharge planning per hospital service. Kiet Brown MD [facility] Digestive Health documented in this encounter ED Notes * Riya Acosta RN - 06/17/2024 11:04 PM CDT [facility] ED Nurse Handoff Report ED Chief complaint: Abnormal Labs . ED Diagnosis: Final diagnoses: UGIB (upper gastrointestinal bleed) Anemia due to blood loss, acute Allergies: Allergies Allergen Reactions Amoxicillin Code Status: Full Code Activity level - Baseline/Home: independent. Activity Level - Current: independent. Lift room needed: No. Bariatric: No Shade Bander Needed: No Isolation: No. Infection: Not Applicable. [...] POS Antibody Screen Negative SPECIMEN EXPIRATION DATE [id number] ABO/RH TYPE AND SCREEN No orders to [...] of External Notes I reviewed paperwork from [facility]. This is not appearing in [...] ANGIOGRAM 03-21-15 2 vessel coronary artery disease (diagonal-MAINTENANCE SCHEDULER, apical LAD, and culprit mid to distal [...] OPERATIVE ULTRASOUND; Surgeon: Shila Núñez MD; Location: [facility]; Service: Physical Exam Patient Vitals for the [...] POS Antibody Screen Negative SPECIMEN EXPIRATION DATE [id number] ABO/RH TYPE AND SCREEN Imaging No orders [...] Documentation None Medical Decision Making / Diagnosis [facility] Diagnoses: None MIPS None MDM [...] Taken 06/19/2024 0000 by Riya Acosta RN Safety Promotion/Fall Prevention: [...] * Pharmacy-Admission Medication History - Linda Chery [facility] - 06/18/2024 10:36 AM CDT Pharmacist Admission Medication History Admission medication history is complete. The information provided in this note is only as accurateas the sources available at the time of the update. Information Source(s): Patient via in-person, Sure Scripts Pertinent Information: - Changes made to FAMILY WORKER medication list: Added: Advair, insulin Lantus Deleted: insulin Levemir, bupropion, furosemide Changed: None Allergies reviewed with patient and updates made in EHR: unable to assess Medication History Completed By: Linda Chery RPH 06/18/2024 10:36 AM FAMILY WORKER Med List Medication Sig Last Dose albuterol [...] 28 Units subcutaneously every evening. 06/17/2024 at [facility] lisinopril-hydrochlorothiazide (ZESTORETIC) 20-12.5 MG tablet Take 1 [...] Glucose by meter (06/19/2024 8:26 AM CDT) [facility] GLUCOSE BY METER POCT 179(H) 70 - 99 mg/dL 06/19/2024 8:33 AM CDT [facility] LABORATORY POC Blood, Capillary BLOOD SPECIMEN / Unknown 06/19/2024 8:26 AM CDT 06/19/2024 8:33 AM CDT us Ge VENTURA - ANEGLAKER POCT Final Result [facility] LABORATORY [facility] [address] Lab (1st floor, no room number) [place] [phone] * Extra Green Top Tube (LAB USE ONLY) (06/19/2024 7:37 AM CDT) Hold Specimen JIC 06/19/2024 9:02 AM CDT LABORATORY Blood STRUCTURE OF RIGHT HAND / Unknown Venipuncture / Unknown 06/19/2024 7:37 AM CDT 06/19/2024 7:48 AM CDT Jassi Felix MD LAB - BLOOD ORDERABLES Final Result LABORATORY [facility] [address] Lab (1st floor, no room number) [address] * (ABNORMAL) Hemoglobin (06/19/2024 7:37 AM CDT) Hemoglobin 8.2(L) 13.3 - 17.7 g/dL 06/19/2024 7:53 AM CDT LABORATORY Blood STRUCTURE OF RIGHT HAND / Unknown Venipuncture / Unknown 06/19/2024 7:37 AM CDT 06/19/2024 7:48 AM CDT us Elvis Herman DO LAB - BLOOD ORDERABLES Final R esult LABORATORY [facility] [address] Lab (1st floor, no room number) [address] * (ABNORMAL) Glucose by meter (06/19/2024 1:09 AM CDT) GLUCOSE BY METER POCT 146(H) 70 - 99 mg/dL 06/19/2024 1:15 AM CDT LABORATORY POC Blood, Capillary BLOOD SPECIMEN / Unknown 06/19/2024 1:09 AM CDT 06/19/2024 1:15 AM CDT Ge Bowman MD LAB - BEAKER POCT Final Result LABORATORY [facility] Lab [address] Lab (1st floor, no room number) [address] * (ABNORMAL) Glucose by meter (06/18/2024 9:31 PM CDT) GLUCOSE BY METER POCT 169(H) 70 - 99 mg/dL 06/18/2024 9:38 PM CDT RH LABORATORY POC Blood, Capillary BLOOD SPECIMEN / Unknown 06/18/2024 9:31 PM CDT 06/18/2024 9:38 PM CDT Ge Bowman MD LAB - BEAKER POCT Final Result Performing Organization Address [facility]/ZIP Co de Phone Number LABORATORY [facility] Lab [address] Lab (1st floor, no room number) [address] * (ABNORMAL) Glucose by meter (06/18/2024 5:50 PM CDT) GLUCOSE BY METER POCT 164(H) 70 - 99 mg/dL 06/18/2024 5:56 PM CDT LABORATORY POC Blood, Capillary BLOOD SPECIMEN / Unknown 06/18/2024 5:50 PM CDT 06/18/2024 5:56 PM CDT Ge Bowman MD LAB - BEAKER POCT Final Result LABORATORY [facility] [address] Lab (1st floor, no room number) [address] * (ABNORMAL) Hemoglobin (06/18/2024 3:14 PM CDT) Hemoglobin 7.8(L) 13.3 - 17.7 g/dL 06/18/2024 3:28 PM CDT RH LABORATORY Blood STRUCTURE OF RIGHT UPPER LIMB / Unknown Venipuncture / Unknown 06/18/2024 3:14 PM CDT 06/18/2024 3:25 PM CDT Elvis Herman DO LAB - BLOOD ORDERABLES Final R esult LABORATORY [facility] [address] Lab (1st floor, no room number) [place] [address] * (ABNORMAL) Glucose by meter (06/18/2024 2:31 PM CDT) GLUCOSE BY METER POCT 142(H) 70 - 99 mg/dL 06/18/2024 2:37 PM CDT LABORATORY POC Blood, Capillary BLOOD SPECIMEN / Unknown 06/18/2024 2:31 PM CDT 06/18/2024 2:37 PM CDT Ge Bowman MD LAB - BEAKER POCT Final Result LABORATORY POC [facility] [address] Lab (1st floor, no room number) [place] [phone] [place] [address] * Surgical Pathology Exam (06/18/2024 1:27 PM CDT) Case Report Surgical Pathology Report Case: [id number] Authorizing Provider: Kiet Brown MD Collected: 06/18/2024 01:27 PM Ordering Location: [facility] Received: 06/18/2024 01:58 PM Endoscopy [place] Pathologist: Nicole Parham MD Specimen: Stomach, gastric [...] component of this testing was completed at [facility]. Stain controls for all stains resulted within this report have been reviewed and show appropriate reactivity. 06/19/2024 12:49 PM CDT LABORATORY Case Images 06/19/2024 12:49 PM CDT LABORATORY Biopsy STOMACH STRUCTURE / Unknown 06/18/2024 1:27 PM CDT 06/18/2024 1:58 PM CDT us Kiet Brown MD LAB - NORMA AP Final Resul t LABORATORY [facility] [address] [facility] Lab (1st floor, no room number) [place] [address] * (ABNORMAL) Glucose by meter (06/18/2024 12:35 PM CDT) GLUCOSE BY METER POCT 136(H) 70 - 99 mg/dL 06/18/2024 12:42 PM CDT LABORATORY POC Blood, venous BLOOD SPECIMEN / Unknown 06/18/2024 12:35 PM CDT 06/18/2024 12:42 PM CDT us Ge Bowman MD LAB - BEAKER POCT Final Result RH LABORATORY [facility] [address] Lab (1st floor, no room number) [place] [address], [facility] * UPPER GI ENDOSCOPY (06/18/2024 12:29 PM CDT) [facility] Upper GI Endoscopy [facility] Patient Name: Dustin Carrera Procedure Date: 06/18/2024 12:29 PM Date of : 1960 Admit Type: Inpatient Age: 63 Gender: Male Attending MD: KIET BROWN MD, Total Sedation Time: Minutes of continuous bedside 1:1: 15 minutes Instrument Name: [id number] Gastroscope Procedure: Upper GI endoscopy Indications: Melena, [...] The Olympus Gasrointestinal Videoscope, Model# GIF-1100, Censitrac# [id number], SN# [id number] was introduced through the mouth, and advanced [...] hospital service. Procedure Code(s): --- Professional --- 90360, Esophagogastroduod enoscopy, flexible, transoral; with biopsy, single or multiple Diagnosis Code(s): --- Professional --- D64.9, Anemia, unspecified K92.1, Melena (includes Hematochezia) K29.80, Duodenitis without bleeding CPT copyright 2021 [employer]. All rights reserved. The codes documented in this report are preliminary and upon senior power scheduler review may be revised to meet current [...] LAB - BEAKER POCT Final Result LABORATORY [facility] [address] [facility] Lab (1st floor, no room number) [place] [address], [facility] * (ABNORMAL) CBC with platelets (06/18/2024 [...] - BLOOD ORDERABLES Final Re sult LABORATORY [facility] [address] Lab (1st floor, no room number) [place] [address] * (ABNORMAL) Basic metabolic [...] - BLOOD ORDERABLES Final Re sult LABORATORY [facility] [address] [facility] Lab (1st floor, no room number) [place] [address] * (ABNORMAL) Glucose by meter (06/18/2024 5:30 AM CDT) [facility] GLUCOSE BY METER POCT 120(H) 70 - 99 mg/dL 06/18/2024 5:37 AM CDT LABORATORY POC Blood, Capillary BLOOD SPECIMEN / Unknown 06/18/2024 5:30 AM CDT 06/18/2024 5:37 AM CDT us Ge VENTURA - BEAKER POCT Final Result LABORATORY POC [facility] [address] Lab (1st floor, no room number) [place] [phone] [place] [address] * (ABNORMAL) Glucose by meter (06/18/2024 1:24 AM CDT) GLUCOSE BY METER POCT 159(H) 70 - 99 mg/dL 06/18/2024 1:31 AM CDT LABORATORY POC Blood, Capillary BLOOD SPECIMEN / Unknown 06/18/2024 1:24 AM CDT 06/18/2024 1:31 AM CDT us Ge Bowman MD LAB - BEAKER POCT Final Result Performing Organization Address City/[facility]/ZIP Co de Phone Number LABORATORY [facility] [address] Lab (1st floor, no room number) [address] [place] [address] * (ABNORMAL) Occult blood stool (06/17/2024 8:10 PM CDT) Occult Blood Positive(A ) Negative ANAHI 06/17/2024 8:20 PM CDT LABORATORY Stool RECTAL CONTENTS / Unknown Non-blood Collection / Unknown 06/17/2024 8:10 PM CDT 06/17/2024 8:19 PM CDT us Kushal Portillo MD LAB - STOOLS ORDERABLES Shantel l Result LABORATORY [facility] [address] Lab (1st floor, no room number) [place] [phone] [place] [address] * (ABNORMAL) Hemoglobin A1c (06/17/2024 7:48 PM [...] ORDERABLES Final Re sult Performing Organization Address City/[facility]/ZIP Co de Phone Number [facility] [address] Lab (1st floor, no room number) [address] [place] [address] * Extra Red Top Tube (06/17/2024 7:48 PM CDT) Hold Specimen JIC 06/17/2024 9:02 PM CDT RH LABORATORY Blood BLOOD SPECIMEN / Unknown Venipuncture / Unknown 06/17/2024 7:48 PM CDT 06/17/2024 7:55 PM CDT Kushal Portillo MD LAB - BLOOD ORDERABLES Final Result Performing Organization Address [facility] Co de Phone Number [facility] [address] Lab (1st floor, no room number) [place] [phone] * Adult Type and Screen (06/17/2024 7:48 PM CDT) ABO/RH(D) O POS 06/17/2024 7:31 PM CDT RH BLOOD BANK Antibody Screen Negative Negative 06/17/2024 7:31 PM CDT RH BLOOD BANK SPECIMEN EXPIRATION DATE [id number] 06/17/2024 7:31 PM CDT RH BLOOD BANK Blood BLOOD SPECIMEN / Unknown Venipuncture / Unknown 06/17/2024 7:48 PM CDT 06/17/2024 7:55 PM CDT Kushal Portillo MD LAB - BLOOD BANK TEST ORDER Final Result RH BLOOD [place] [address], [facility] * (ABNORMAL) CBC with platelets and [...] MD LAB - BLOOD ORDERABLES Final Result [facility] [address] Lab (1st floor, no room number) [address] [place] [address] * Ethyl Alcohol Level (06/17/2024 7:48 PM CDT) [facility] Alcohol ethyl <0.01 <=0.01 g/dL 06/17/2024 8:15 PM CDT LABORATORY Blood BLOOD SPECIMEN / Unknown Venipuncture / Unknown 06/17/2024 7:48 PM CDT 06/17/2024 7:55 PM CDT Kushal Portillo MD LAB - BLOOD ORDERABLES Final Result [facility] [address] Lab (1st floor, no room number) [place] [address] * (ABNORMAL) Comprehensive metabolic panel (06/17/2024 7:48 PM CDT) [facility] Sodium 140 135 - 145 mmol/L 06/17/2024 [...] MD LAB - BLOOD ORDERABLES Final Result [facility] [address] Lab (1st floor, no room number) [place] [address] * INR (06/17/2024 7:48 PM CDT) INR 0.95 0.85 - 1.15 06/17/2024 8:10 PM CDT LABORATORY Blood BLOOD SPECIMEN / Unknown Venipuncture / Unknown 06/17/2024 7:48 PM CDT 06/17/2024 7:55 PM CDT us Kushal Portillo MD LAB - BLOOD ORDERABLES Final Result [facility] [address] Lab (1st floor, no room number) [place] [phone] documented in this encounter Visit [...] Dominik Serrano RN)2203 ($Given - Provider: Sven William, YONATHAN) 0804 ($Given - Provider: Jude Lynn RN) [...] Riya Acosta RN) PRN Medication Order 06/17/2024 06/18/202406/19/2024 acetaminophen (TYLENOL) Suppository 650 mg(Linked Group 1) [...] grapefruit juice 0158 ($Given - Provider: Riya Acosta, YONATHAN)2259 ($Given - Provider: Sven William, YONATHAN) calcium [...] stools. documented in this encounter Care Teams Advertising Columnist Relationship Specialty Start Date End Date Shona Vásquez MD [facility] [address] [place] [address] PCP - General Family Medicine 12/30/22 Kiet Arias MD [address] [place] [address] Assigned Heart and Vascular Provider 06/24/23 documented as of this encounter
--- OUTSIDE RECORDS SUMMARY | 2024-08-01 16:15 | XMS_ITS | Clinical Summary ---
Author Organization [employer] Address [place], [place] [address] Care Team Providers Care Roof Slater Name Role Phone Shona Chowdhury MD Primary Care Provider [phone] Allergies Active Allergy Reactions Criticality Noted Date [...] by mouth once daily. 10 7 07/11/20 Discontinue d(Duplicate therapy (E-cancel not sent)) BASAGLAR [...] acetaminophen dose: 4000mg in 24 hrs. 07/11/20 Discontinue d(*Patient states no longer taking) clopidogreL (PLAVIX) 75 mg tablet 0 07/11/20 24 Discontinue d(*Patient states no longer taking) furosemide (LASIX) 20 mg tablet Take 20 mg by mouth once daily. 0 07/11/20 24 Discontinue d(*Patient states no longer taking) lisinopril-hydrochl orothiazide 20-12.5 mg tablet (PRINZIDE) Take 1 Tablet by mouth once daily. 4 07/11/20 Discontinue d(Duplicate therapy (E-cancel not sent)) Active Problems Problem Noted Date Diagnosed Date Angina pectoris ASHD (arteriosclerotic heart disease) Hypertension Hyperlipidemia Diabetes mellitus GERD (gastroesophageal reflux disease) Renal cell carcinoma Overview (08/22/2017): -s/p resection Tobacco abuse NSTEMI (non-ST elevated myocardial infarction) Encounters Date Type Department Care Team Description 07/11/2024 1:00 PM CDT Office Visit [address] [address] Dennis Portillo MD Consult (Initial office visit. referred to cardiology by Dr Barreto , [facility] - pt d/c 07/10 hospitalized for Anemia. Pt last seen by [facility] EKG and other cardiac testing in care everywhere./Pt states he is doing okay today. ) 07/11/2024 Travel 07/09/2024 4:00 PM CDT Ancillary Procedure [facility] [place] [facility] [address] [id number] from Last 3 Months Immunizations Name Administration [...] 83 07/11/2024 1:14 PM CDT Temperature 37.1 C (98.7 F) 09/26/2020 2:46 PM EXECUTIVE ASSOCIATE Respiratory Rate 18 08/23/2017 8:44 AM EXECUTIVE ASSOCIATE Oxygen Saturation 94% 07/11/2024 1:14 PM CDT Inhaled Oxygen Concentration - - Weight 121.6 kg (268 lb) 07/11/2024 1:14 PM CDT Height 177.8 cm (5' 10) 07/11/2024 1:14 PM CDT Body Mass Index 38.45 07/11/2024 1:14 PM CDT Plan of Treatment Upcoming Encounters Date Type Department Care Team (Late st Contact Info) Description 09/26/2024 1:40 PM EXECUTIVE ASSOCIATE Orders Only [facility] [address] [facility] [address] [place] [address] 09/26/2024 2:00 PM EXECUTIVE ASSOCIATE Ancillary Procedure [facility] [address] [facility] [address] [place] [address] 09/30/2024 10:00 AM EXECUTIVE ASSOCIATE Office Visit [facility] [address] [facility] [address] [place] [address] William Mckeon MD [address] [place] [address] Health Maintenance Due Date Last Done Comments [...] troponin History of CAD (coronary artery disease) LIPID PANEL Routine 08/23/2017 ASHD (arteriosclerotic heart [...] Narrative 07/09/2024 1:50 PM CDT ECHOCARDIOGRAM ALIZA RAMIREZ : 1960 63 years Study Date: 07/09/2024 12:34:50 PM Gender: M BP: 115/71 mmHg Height: 178.00 cm BSA: 2.36 m Weight: 121.00 kg Tech: JR Referring MD: SIM MARAVILLA Site: [facility] Reading Location: [facility] Patient Location: Inpatient. Procedure: 2D, Color Doppler [...] normal. Right atrial volume index is 18 ml/m . Right atrial area is 16 cm . The pulmonary artery is not well visualized. [...] Asc Ao 4.1 cm RA area 16 cm LA 4.5 cm RV Max 4C (d) 3.6 cm Diastology: Mitral Tissue Doppler E Peak 1.4 m/s e', Septum 0.06 m/s A Peak 0.5 m/s e', Lateral 0.07 m/s E/A 2.5 E/e' Average 19.85 DT 162 msec Aortic Valve: Vmax 1.2 m/s QUENTIN (V) 4.30 cm VTI 0.25 m QUENTIN (I) 4.32 cm LVOT V max 1.2 m/s Max PG 6 mmHg LVOT VTI 0.25 m Mean PG 3 mmHg SV 107 ml Dim Index 1.00 SV index 45 ml/m CO 8.3 l/min AV Ejection Time 0.28 sec CI 3.5 l/min/m AV Flow Rate 378 ml/s Mitral Valve: MVA 4.7 cm MV P 1/2 47 msec Tricuspid Valve and estimated PA pressures: TR Vmax 2.9 m/s TAPSE 1.8 cm TR maxG 33 mmHg . This study was interpreted by an [facility] accredited facility. CC: Med/Surg - IP [facility], [facility] (med records) [facility]. Final Procedure Note Kenney Cote MD - 07/09/2024 ECHOCARDIOGRAM ALIZA RAMIREZ : 1960 63 years Study Date: 07/09/2024 12:34:50 PM Gender: M BP: 115/71 mmHg Height: 178.00 cm BSA: 2.36 m Weight: 121.00 kg Tech: JR Referring MD: SIM MARAVILLA Site: [facility] Reading Location: [facility] Patient Location: Inpatient. Procedure: 2D, Color Doppler [...] is normal. Right atrial volume indexis 18 ml/m . Right atrial area is 16 cm . The pulmonary artery is notwell visualized. The [...] Asc Ao 4.1 cm RA area 16 cm LA 4.5 cm RV Max 4C (d) 3.6 cm Diastology: Mitral Tissue Doppler E Peak 1.4 m/s e', Septum 0.06 m/s A Peak 0.5 m/s e', Lateral 0.07 m/s E/A 2.5 E/e' Average 19.85 DT 162 msec Aortic Valve: Vmax 1.2 m/s QUENTIN (V) 4.30 cm VTI 0.25 m QUENTIN (I) 4.32 cm LVOT V max 1.2 m/s Max PG 6 mmHg LVOT VTI 0.25 m Mean PG 3 mmHg SV 107 ml Dim Index 1.00 SV index 45 ml/m CO 8.3 l/min AV Ejection Time 0.28 sec CI 3.5 l/min/m AV Flow Rate 378 ml/s Mitral Valve: MVA 4.7 cm MV P 1/2 47 msec Tricuspid Valve and estimated PA pressures: TR Vmax 2.9 m/s TAPSE 1.8 cm TR maxG 33 mmHg . This study was interpreted by an [facility] accredited facility. CC: Med/Surg - IP [facility], [facility] (med records) [facility]. Final Sim Maravilla MD ECHO ORD from Last 3 Months or Most Recently Relevant to Health Maintenance Care Teams Roof Slater Relationship Specialty [place] [address] [phone] PCP - General Family Practice 07/11/24
== END 2024-08-01 16:12 | disposition home or self-care (01) ==
LOC: LKVREF 16:12
PROVIDERS: PCP Emergency Medicine; Visit Provider Emergency Medicine
DX: E83.51 Hypocalcemia (principal); E86.0 Dehydration; D50.0 Iron deficiency anemia secondary to blood loss (chronic); I50.9 Heart failure, unspecified; R42 Dizziness and giddiness
CPT/HCPCS: 83880

== ENCOUNTER 2024-08-09 08:39 | Outpatient (CLI) | payer OTHER, SELFPAY ==
--- OUTSIDE RECORDS SUMMARY | 2024-08-09 08:47 | XMS_ITS | Clinical Summary ---
Author Organization [place] Address [address] [place] [address] Care Team Providers Care Exercise Physiology Professor Name Role Phone Shona Vásquez MD Primary Care Provider [phone] Kiet Arias MD Unavailable [phone] Allergies Active Allergy Reactions Criticality Noted Date [...] 0 03/21/2015 Coronary artery disease invo lving [place] coronary artery of [place] heart without angina pectoris Mixed hyperlipidemia Essential hypertension DM (diabetes mellitus), type 2 Tobacco abuse Hypercholesterolemia Resolved Problems Problem Noted Date Diagnosed Date Resolved Date Chest pain 06/05/2012 04/06/2015 ASCVD (arteriosclerotic card iovascular disease) 06/05/2012 04/06/2015 Encounters Date Type Department Care Team Description 08/06/2024 Telephone [facility] [address] [place] [address] [facility] [address] [place] [address] Kiet Arias MD Appointment (Urgent 3-5 day referral new heart failure dx. ) 08/05/2024 Transcribe Orders GENERIC EXTERNAL DATA DEPARTMENT Shona Vásquez MD Heart failure, unspecified (H) (Primary Dx) 08/01/2024 Medical Correspondence [facility] Information Management [address] [facility] [place] [address] Scan, Non-Provider 06/18/2024 1:00 PM CDT - 06/18/2024 1:30 PM CDT Surgery [facility] [place] [address] [place] [address] Kiet Blevins MD ESOPHAGOGASTRODUODENOS COPY, WITH BIOPSies using cold biopsy forceps 06/17/2024 7:24 PM CDT - 06/19/2024 12:11 PM CDT Emergency [facility] 5 Medical Surgical [address] [place] [address] Kushal Portillo MD Amdahl, John, MD [place], [...] in an abandoned building, in an overnight usp, or couch-surfing.) Yes 06/18/2024 Are you worried [...] on file Legal Sex Male 3:08 AM FORENSIC TECHNICIAN Gender Identity Not on file Sexual Orientation [...] 06/17/2024 7:22 PM CDT Plan of Treatment Upcoming Encounters Date Type Department Care Team (Late st Contact Info) Description 08/23/2024 1:00 PM FORENSIC TECHNICIAN Office Visit [facility] [address] [facility] [address] [place] [address] Kiet Arias MD [address] [place] [address] Health Maintenance Due Date Last Done Comments ADVANCE CARE PLANNING 1960 ANNUAL REVIEW OF HM ORDERS 1960 CT COLONOGRAPHY 1960 DIABETIC FOOT EXAM 1960 EYE EXAM 1960 FLEX SIG 1960 HF ACTION PLAN 1960 MICROALBUMIN 1960 NICOTINE/TOBACCO CESSATION COUNSELING Q 1 YR 1960 TSH W/FREE T4 REFLEX 1960 sDNA (Cologuard) 1960 COLONOSCOPY 1968 HIV SCREENING 1973 HEPATITIS C SCREENING 1976 LUNG CANCER SCREENING 2008 ZOSTER IMMUNIZATION (1 of 2) 2008 RSV VACCINE (1 - Risk 60-74 years [...] 09/17/2024 06/17/2024, 05/12, 08/23/2016, Additional history exists BMP 12/17/2024 06/18/2024, 100 03/2024, 06/19/2023, Additional history exists ALT 06/17/2025 06/17/2024, 100 05/2023, 01/09/2023, Additional history exists COLORECTAL CANCER SCREENING 06/17/2025 FIT 06/17/2025 06/17/2024 CBC 06/18/2025 06/18/2024, 10/0 03/2024, 03/23/2015, Additional history exists DTAP/TDAP/TD IMMUNIZATION (3 - Td or Tdap) 04/09/2034 04/09/2024, 05/03/2006 Pneumococcal Vaccine: 65+ Years Completed 04/09/2024, 05/10/2011 HPV IMMUNIZATION Aged Out No longer e ligible based on patient's age to complete this topic MENINGITIS IMMUNIZATION Aged Out No l onger eligible based on patient's age to complete this topic RSV MONOCLONAL ANTIBODY Aged Out No l onger eligible based on patient's age to complete this topic Medical Devices Implanted Type Area Electric Motor Assembler Device Identifier Shelf Expiration Date Model / Serial / Lot Clip Ligating Hem-O-Lock 10mm [id number] Implanted:Qty : 4 on 08/22/2016 Metallic Hardware/Anc hor Right: Abdomen PILLING WECK 06/14/2021 [id number] / / [id number] Cardiac Stents Procedures Procedure Name Priority Date/Time Associated Diagnosis Comments POTASSIUM (EXTERNAL RESULT) Routine 08/01/2024 5:10 PM FORENSIC TECHNICIAN GLUCOSE (EXTERNAL RESULT) Routine 08/01/2024 5:10 PM FORENSIC TECHNICIAN CREATININE (EXTERNAL RESULT) Routine 08/01/2024 5:10 PM FORENSIC TECHNICIAN LAB RESULT - HIM SCAN 08/01/2024 12:[address] VASCULAR - HIM SCAN 4 12:00 AM CDT XRAY IMAGING - HIM SCAN 07/08/2024 12:00 AM CDT EKG CARDIAC - HIM SCAN 12:00 AM CDT EKG CARDIAC - HIM SCAN 4 12:00 AM CDT GLUCOSE BY METER Routine 06/19/2024 8:26 AM [...] CARDIAC - HIM SCAN 12:00 AM CDT EKG CARDIAC - HIM SCAN 12:00 AM CDT LIPID PROFILE Routine 06/19/2023 7:58 AM CDT Coronary artery disease involving [place] coronary artery of [place] heart without angina pectoris from Last 3 Months or Most Recently Relevant to Health Maintenance Results * Potassium (External Result) (08/01/2024 5:10 PM FORENSIC TECHNICIAN) [facility] Potassium (External) 3.7 3.6 - 5.1 mmol/L [facility] Blood 08/01/2024 5:10 PM FORENSIC TECHNICIAN Narrative [facility] - 08/01/2024 5:10 PM FORENSIC TECHNICIAN [facility]-External Lab Results us Provider Outside LAB - HIM EXTERNAL RESULT Edite d Result - Final [facility] [address] [place] [address], [facility] [phone] * (ABNORMAL) Glucose (External Result) (08/01/2024 5:10 PM FORENSIC TECHNICIAN) Glucose (External) 103(A) 60 - 115 mg/dL [facility] Blood 08/01/2024 5:10 PM FORENSIC TECHNICIAN [facility] - 08/01/2024 5:10 PM FORENSIC TECHNICIAN [facility]-External Lab Results us Provider Outside LAB - HIM EXTERNAL RESULT Edite d Result - Final [address] [address], [facility] [phone] * Creatinine (External Result) (08/01/2024 5:10 PM FORENSIC TECHNICIAN) Creatinine (External) 1.3 0.5 - 1.5 mg/dL [facility] Blood 08/01/2024 5:10 PM [facility] - 08/01/2024 5:10 PM [facility]-External Lab Results us Provider Outside LAB - HIM EXTERNAL RESULT Edite d Result - Final Performing Organization Address City/[facility] Co de Phone Number [address] [address], [facility] [phone] * Lab Result - HIM Scan (08/01/2024 12:00 AM FORENSIC TECHNICIAN) Only the most recent of2 resultswithin the time period is included. 08/01/2024 us Provider Outside MH NON-BEAKER LAB TESTING Final Result * Xray Imaging - HIM Scan (07/08/2024 12:00 AM CDT) Anatomical Region Laterality Modality Other 07/08/2024 us Provider Outside IMG DIAGNOSTIC IMAGING ORDERABL ES Final Result * CT Vascular - HIM Scan (07/08/2024 12:00 AM CDT) Anatomical Region Laterality Modality Computed Tomogra phy 07/08/2024 us Provider Outside IMG CT ORDERABLES Final Result * EKG Cardiac - HIM Scan (06/24/2024 12:00 AM CDT) Only the most recent of4 resultswithin the time period is included. 06/24/2024 us Provider Outside ECG ORDERABLES Final Result * (ABNORMAL) Glucose by meter (06/19/2024 8:26 AM CDT) Only the most recent of9 resultswithin the time period is included. GLUCOSE BY METER POCT 179(H) 70 - 99 mg/dL 06/19/2024 8:33 AM CDT LABORATORY POC Blood, Capillary BLOOD SPECIMEN / Unknown 06/19/2024 8:26 AM CDT 06/19/2024 8:33 AM CDT Ge Bowman MD LAB - BEAKER POCT Final Result LABORATORY [facility] Lab [address] Lab (1st floor, no room number) [place] [address] * Extra Green Top Tube (LAB USE ONLY) (06/19/2024 7:37 AM CDT) Hold Specimen JIC 06/19/2024 9:02 AM CDT LABORATORY Blood STRUCTURE OF RIGHT HAND / Unknown Venipuncture / Unknown 06/19/2024 7:37 AM CDT 06/19/2024 7:48 AM CDT Jassi Felix MD LAB - BLOOD ORDERABLES Final Result [facility] Lab [address] Lab (1st floor, no room number) [place] [phone] [place] [address] * (ABNORMAL) Hemoglobin (06/19/2024 7:37 AM CDT) Only the most recent of2 resultswithin the time period is included. Hemoglobin 8.2(L) 13.3 - 17.7 g/dL 06/19/2024 7:53 AM CDT LABORATORY Blood STRUCTURE OF RIGHT HAND / Unknown Venipuncture / Unknown 06/19/2024 7:37 AM CDT 06/19/2024 7:48 AM CDT us Elvis Zaragozachloe DO LAB - BLOOD ORDERABLES Final R esult LABORATORY [facility] Acute Care Lab [address] [facility] Lab (1st floor, no room number) [address] * Surgical Pathology Exam (06/18/2024 1:27 PM CDT) Case Report Surgical Pathology Report Case: [id number] Authorizing Provider: Kiet Blevins MD Collected: 06/18/2024 01:27 PM Ordering Location: [facility] Received: 06/18/2024 01:58 PM [facility] [place] Pathologist: Nicole Parham MD Specimen: Stomach, gastric biopsies for h.pylori 06/19/2024 12:49 PM CDT [facility] LABORATORY Final [...] unspecified type [ICD-10-CM] 06/19/2024 12:49 PM CDT [facility] LABORATORY Gross Description A(1). Stomach, gastric biopsies [...] of this testing was completed at [facility]. Stain controls for all stains resulted within this report have been reviewed and show appropriate reactivity. 06/19/2024 12:49 PM CDT LABORATORY Case Images 06/19/2024 12:49 PM CDT LABORATORY Biopsy STOMACH STRUCTURE / Unknown 06/18/2024 1:27 PM CDT 06/18/2024 1:58 PM CDT us Kiet Blevins MD [facility] AP Final Resul t LABORATORY [facility] Lab [address] [facility] Lab (1st floor, no room number) [place] [address] * UPPER GI ENDOSCOPY (06/18/2024 12:29 PM CDT) Upper GI Endoscopy [facility] Patient Name: Dustin Carrera Procedure Date: 06/18/2024 12:29 PM Date of : 1960 Admit Type: Inpatient Age: 63 Gender: Male Attending MD: KIET BLEVINS MD, Total Sedation Time: Minutes of continuous bedside 1:1: 15 minutes Instrument Name: [id number] Gastroscope Procedure: Upper GI endoscopy Indications: Melena, Anemia Providers: KIET BLEVINS MD (Doctor) Referring MD: Medicines: Midazolam 2 [...] The Olympus Gasrointestinal Videoscope, Model# GIF-1100, Censitrac# [id number], SN# [id number] was introduced through the mouth, and advanced [...] hospital service. Procedure Code(s): --- Professional --- 61124, Esophagogastroduod enoscopy, flexible, transoral; with biopsy, single or multiple Diagnosis Code(s): --- Professional --- D64.9, Anemia, unspecified K92.1, Melena (includes Hematochezia) K29.80, Duodenitis without bleeding CPT copyright 2021 [employer]. All rights reserved. The codes documented in this report are preliminary and upon stem processing machine operator review may be revised to meet current [...] Kiet Blevins MD PROCEDURES Final Resul t Performing Organization Address City/[facility]/ZIP Co de Phone Number RADIOLOGY RESULTS * (ABNORMAL) Basic metabolic panel [...] 7:24 AM CDT LABORATORY Comment:eGFR calculated usin g 2020 CKD-EPI [...] - BLOOD ORDERABLES Final Re sult LABORATORY [facility] Lab [address] Lab (1st floor, no room number) [place] [address] * (ABNORMAL) CBC with platelets (06/18/2024 [...] BLOOD ORDERABLES Final Re sult RH LABORATORY [facility] Lab [address] Lab (1st floor, no room number) [place] [address] * (ABNORMAL) Occult blood stool (06/17/2024 8:10 PM CDT) Occult Blood Positive(A ) Negative ANAHI 06/17/2024 8:20 PM CDT RH LABORATORY Stool RECTAL CONTENTS / Unknown Non-blood Collection / Unknown 06/17/2024 8:10 PM CDT 06/17/2024 8:19 PM CDT Kushal Portillo MD LAB - STOOLS ORDERABLES Shantel l Result [facility] Care Lab [address] Lab (1st floor, no room number) [place] [phone] * Extra Red Top Tube (06/17/2024 7:48 PM CDT) Hold Specimen JI 06/17/2024 9:02 PM CDT LABORATORY Blood BLOOD SPECIMEN / Unknown Venipuncture / Unknown 06/17/2024 7:48 PM CDT 06/17/2024 7:55 PM CDT Kushal Portillo MD LAB - BLOOD ORDERABLES Final Result Performing Organization Address City/[facility]/ZIP Co de Phone Number [facility] Lab [address] Lab (1st floor, no room number) [place] [phone] [place] [address] * (ABNORMAL) CBC with platelets and differential [...] - BLOOD ORDERABLES Final Result RH LABORATORY [facility] Acute Care Lab [address] Lab (1st floor, no room number) [place] [address] * Adult Type and Screen (06/17/2024 7:48 PM CDT) Pathologist [facility] ABO/RH(D) O POS 06/17/2024 7:31 PM CDT RH BLOOD BANK Antibody Screen Negative Negative 06/17/2024 7:31 PM CDT RH BLOOD BANK SPECIMEN EXPIRATION DATE [id number] 06/17/2024 7:31 PM CDT RH BLOOD BANK Blood BLOOD SPECIMEN / Unknown Venipuncture / Unknown 06/17/2024 7:48 PM CDT 06/17/2024 7:55 PM CDT Kushal Portillo MD LAB - BLOOD BANK TEST ORDER Final Result Performing Organization Address City/[facility]/ZIP Co de Phone Number BLOOD BANK [address] [place] [phone] * INR (06/17/2024 7:48 PM CDT) [facility] INR 0.95 0.85 - 1.15 06/17/2024 8:10 PM CDT RH LABORATORY Blood BLOOD SPECIMEN / Unknown Venipuncture / Unknown 06/17/2024 7:48 PM CDT 06/17/2024 7:55 PM CDT Kushal Portillo MD LAB - BLOOD ORDERABLES Final Result LABORATORY [facility] Lab [address] Lab (1st floor, no room number) [place] [address] * (ABNORMAL) Hemoglobin A1c (06/17/2024 7:48 [...] BLOOD ORDERABLES Final Re sult RH LABORATORY [facility] Lab [address] Lab (1st floor, no room number) [place] [address], [facility] * (ABNORMAL) Comprehensive metabolic [...] MD LAB - BLOOD ORDERABLES Final Result [facility] Care Lab [address] Lab (1st floor, no room number) [place] [phone] [place] [address] * Ethyl Alcohol Level (06/17/2024 7:48 PM CDT) Alcohol ethyl <0.01 <=0.01 g/dL 06/17/2024 8:15 PM CDT LABORATORY Blood BLOOD SPECIMEN / Unknown Venipuncture / Unknown 06/17/2024 7:48 PM CDT 06/17/2024 7:55 PM CDT Kushal Portillo MD LAB - BLOOD ORDERABLES Final Result [facility] Lab [address] Lab (1st floor, no room number) [place] [address] * (ABNORMAL) Lipid Profile (06/19/2023 7:58 AM [...] BLOOD ORDERABLES Fin al Result [facility] LABORATORY [facility] [address] [facility], [address] [place] [address], [facility] [phone] from Last 3 Months or Most Recently Relevant to Health Maintenance Insurance [employer] Advance Directives For more information, please contact: [phone] * Full Code (Latest Code Status on [...] 2:20 PM 06/05/2012 5:52 PM Care Teams Exercise Physiology Professor Relationship Specialty Start Date End Date Shona Vásquez MD [facility] [address] [place] [address] PCP - General Family Medicine 12/30/22 Kiet Arias MD [address] [place] [address] Assigned Heart and Vascular Provider 06/24/23
--- OUTSIDE RECORDS SUMMARY | 2024-08-09 08:48 | XMS_ITS | Encounter Summary ---
Author Organization [place] Address [address] [place] [address] Care Team Providers Care Ghost Writer Name Role Phone Shona Vásquez MD Primary Care Provider [phone] Kiet Arias MD Unavailable [phone] Reason for Visit * Reason Comments Abnormal Labs * Auth/Cert (Routine) Specialty Diagnoses / Procedures Referred By Contcesar t Referred To Contact Med Surg Diagnoses Anemia due to blood loss, acute UGIB (upper gastrointestinal bleed) UGIB (upper gastrointestinal bleed) Anemia due to blood loss, acute [place] [address] [facility] Surgical [address] [place] [address] Phone: tel: fax: Referral ID Status Reason Start Date Expiration Date Visits Re quested Visits Authorized [id number] 1 1 Encounter Details Date Type Department Care Team (Late st Contact Info) Description 06/18/2024 1:00 PM CDT - 06/18/2024 1:30 PM CDT Surgery [facility] Endoscopy [place] [address] [place] [address] Kiet Brown MD [facility] [address] 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 Insulin dependent T2DM: MANAGER [place]INA Lantus, aspart, Jardiance on discharge. HTN CAD s/p stenting: Discontinue MANAGER [place]INA lisinopril/hydrochlorothiazide, amlodipine on discharge given normal blood pressureand dizziness on admission. Will continue MANAGER CHINA metoprolol. He should have follow-up with his primarydoctor in approximately 1 to 2 weeks for repeat blood pressure check. He may need to restart antihypertensives at that time. This was discussed with the patient. COPD: MANAGER CHINA Advair Clinically Significant Risk Factors # DMII: [...] minutes discharging this patient. Elvis Herman DO [place] [address] MEDICAL SURGICAL [address] [facility] [address] Physical Exam Vital Signs: Temp: 98 ??F [...] Care Everywhere. * Infection: H. Pylori Bacterial (Monegasque) documented in this encounter Medications at Time of Discharge albuterol (PROAIR HFA/PROVENTIL HFA/VENTOLIN HFA) 108 (90 Base) MCG/ACT inhaler INHALE 2 PUFFS EVERY 4 HOURS NEEDED FOR WHEEZE OR FOR SHORTNESS OF BREATH ALPRAZolam (XANAX) 0.5 MG tablet Take 0.5 mg by mouth daily as needed aspirin EC 81 MG EC tabletIndications:NS GÉNESIS [...] mouth 2 times daily. 60 tablet 4 documented as of this encounter Progress Notes * Elvis Herman DO - 06/18/2024 11:36 AM CDT [facility] Medicine Progress Note - Hospitalist [...] ordered on admission -N.p.o. sliding scale ordered -MANAGER CHINA Jardiance CAD s/p stenting: -Hold MANAGER CHINA lisinopril/hydrochlorothiazide, amlodipine, aspirin in the setting of suspected upper GI bleed -Continue MANAGER CHINA metoprolol with hold parameters COPD: MANAGER CHINA Advair Diet: NPO per Anesthesia Guidelines for [...] Anticipated Tomorrow Elvis Herman DO Hospitalist Service [facility] Securely message with Caden (more info) Text page via [facility] Paging/Directory Interval History NAEO. Patient with [...] Larson MD - 06/17/2024 7:18 PM CDT [facility] History and Physical Dustin Carrera Age: [age] year old Date of : 1960 Date of Admission: 06/17/2024 Home clinic: [facility] Primary care provider: Shona Vásquez Assessment and Plan: Assessment: Dustin Carrera is a 63 year old man with history of CAD, Obesity, COPD, tobacco abuse and IDDM, type 2 who initially presented to an outside UC for dizziness and epigastric pain. He came to attention tonight in [facility] ED after having been found to have [...] 2. N.p.o. for possible EGD tomorrow. 3. [facility] is consulted. 4. 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 Dobson Draw Narrative The following orders were created for panel order Dobson Draw. Procedure Abnormality Status --------- ------ Extra Red Top Tube[[id number]] Final result Please view results for these [...] Antibody Screen Negative Negative SPECIMEN EXPIRATION DATE [id number] Extra Red Top Tube Result Value Ref Range Hold Specimen [facility] Hemoglobin A1c Result Value Ref [...] Brown MD - 06/18/2024 2:05 PM CDT [facility] Chart Update 63 yo with 1 week dark stool, anemia, epigastric pain. EGD today with mild duodenitis, otherwise normal. No prior colonoscopy. Will arrange for outpatient colonoscopy within 2 weeks. Will follow up on H. Pylori biopsies taken today. Suggest continued empiric PPI x1 month. Resume regular diet. Discharge planning per hospital service. Kiet Brown MD [facility] Digestive Health documented in this encounter ED Notes * Riya Acosta RN - 06/17/2024 11:04 PM CDT [facility] ED Nurse Handoff Report ED Chief complaint: Abnormal Labs . ED Diagnosis: Final diagnoses: UGIB (upper gastrointestinal bleed) Anemia due to blood loss, acute Allergies: Allergies Allergen Reactions Amoxicillin Code Status: Full Code Activity level - Baseline/Home: independent. Activity Level - Current: independent. Lift room needed: No. Bariatric: No Packaging Line Operator Needed: No Isolation: No. Infection: Not Applicable. [...] POS Antibody Screen Negative SPECIMEN EXPIRATION DATE [id number] ABO/RH TYPE AND SCREEN No orders to [...] of External Notes I reviewed paperwork from [place] urgent care. This is not appearing in [...] ANGIOGRAM 03-21-15 2 vessel coronary artery disease (diagonal-GRINDER SET UP OPERATOR UNIVERSAL, apical LAD, and culprit mid to distal [...] Shila Núñez MD; Location: [facility] [place]; Service: Physical Exam Patient Vitals for the [...] POS Antibody Screen Negative SPECIMEN EXPIRATION DATE [id number] ABO/RH TYPE AND SCREEN Imaging No orders [...] Documentation None Medical Decision Making / Diagnosis [facility] Diagnoses: None MIPS None MDM Dustin [...] Scripts Pertinent Information: - Changes made to MANAGER CHINA medication list: Added: Advair, insulin Lantus Deleted: insulin Levemir, bupropion, furosemide Changed: None Allergies reviewed with patient and updates made in EHR: unable to assess Medication History Completed By: Linda Chery RPH 06/18/2024 10:36 AM MANAGER CHINA Med List Medication Sig Last Dose albuterol [...] 28 Units subcutaneously every evening. 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 Office Visit [facility] [address] [facility] [address] [place] [address] Kiet Arias MD [address] [place] [address] documented as of this encounter Procedures Procedure [...] Glucose by meter (06/19/2024 8:26 AM CDT) [facility] GLUCOSE BY METER POCT 179(H) 70 - 99 mg/dL 06/19/2024 8:33 AM CDT [facility] LABORATORY POC Blood, Capillary BLOOD SPECIMEN / Unknown 06/19/2024 8:26 AM CDT 06/19/2024 8:33 AM CDT us Ge Bowman MD LAB - BEAKER POCT Final Result LABORATORY [facility] [address] Lab (1st floor, no room number) [address] * Extra Green Top Tube (LAB USE ONLY) (06/19/2024 7:37 AM CDT) Hold Specimen JIC 06/19/2024 9:02 AM CDT LABORATORY Blood STRUCTURE OF RIGHT HAND / Unknown Venipuncture / Unknown 06/19/2024 7:37 AM CDT 06/19/2024 7:48 AM CDT us Jassi Felix MD LAB - BLOOD ORDERABLES Final Result Performing Organization Address [facility]/ZIP Co de Phone Number [facility] [address] Lab (1st floor, no room number) [place] [address] [place] [address] * (ABNORMAL) Hemoglobin (06/19/2024 7:37 AM CDT) Hemoglobin 8.2(L) 13.3 - 17.7 g/dL 06/19/2024 7:53 AM CDT LABORATORY Blood STRUCTURE OF RIGHT HAND / Unknown Venipuncture / Unknown 06/19/2024 7:37 AM CDT 06/19/2024 7:48 AM CDT us Elvis Herman DO LAB - BLOOD ORDERABLES Final R esult [facility] [address] Lab (1st floor, no room number) [address] * (ABNORMAL) Glucose by meter (06/19/2024 1:09 AM CDT) GLUCOSE BY METER POCT 146(H) 70 - 99 mg/dL 06/19/2024 1:15 AM CDT RH LABORATORY POC Blood, Capillary BLOOD SPECIMEN / Unknown 06/19/2024 1:09 AM CDT 06/19/2024 1:15 AM CDT Ge VENTURA - BEAKER POCT Final Result LABORATORY [facility] [address] Lab (1st floor, no room number) [place] [address] * (ABNORMAL) Glucose by meter (06/18/2024 9:31 PM CDT) GLUCOSE BY METER POCT 169(H) 70 - 99 mg/dL 06/18/2024 9:38 PM CDT LABORATORY POC Blood, Capillary BLOOD SPECIMEN / Unknown 06/18/2024 9:31 PM CDT 06/18/2024 9:38 PM CDT Ge VENTURA - BEAKER POCT Final Result LABORATORY [facility] [address] Lab (1st floor, no room number) [place] [address] * (ABNORMAL) Glucose by meter (06/18/2024 5:50 PM CDT) GLUCOSE BY METER POCT 164(H) 70 - 99 mg/dL 06/18/2024 5:56 PM CDT LABORATORY POC Blood, Capillary BLOOD SPECIMEN / Unknown 06/18/2024 5:50 PM CDT 06/18/2024 5:56 PM CDT Ge Bowman MD LAB - BEAKER POCT Final Result LABORATORY [facility] [address] Lab (1st floor, no room number) [place] [address], [facility] * (ABNORMAL) Hemoglobin (06/18/2024 3:14 PM CDT) Hemoglobin 7.8(L) 13.3 - 17.7 g/dL 06/18/2024 3:28 PM CDT LABORATORY Blood STRUCTURE OF RIGHT UPPER LIMB / Unknown Venipuncture / Unknown 06/18/2024 3:14 PM CDT 06/18/2024 3:25 PM CDT Elvis Herman DO LAB - BLOOD ORDERABLES Final R esult LABORATORY [facility] Lab [address] Lab (1st floor, no room number) [place] [phone] [place] [address] * (ABNORMAL) Glucose by meter (06/18/2024 2:31 PM CDT) GLUCOSE BY METER POCT 142(H) 70 - 99 mg/dL 06/18/2024 2:37 PM CDT LABORATORY POC Blood, Capillary BLOOD SPECIMEN / Unknown 06/18/2024 2:31 PM CDT 06/18/2024 2:37 PM CDT Ge Bowman MD LAB - BEAKER POCT Final Result LABORATORY POC [facility] Lab [address] Lab (1st floor, no room number) [place] [phone] [place] [address] * Surgical Pathology Exam (06/18/2024 1:27 PM CDT) Case Report Surgical Pathology Report Case: [id number] Authorizing Provider: Kiet Brown MD Collected: 06/18/2024 01:27 PM Ordering Location: [facility] Received: 06/18/2024 01:58 PM Endoscopy [place] Pathologist: Nicole Parham MD Specimen: Stomach, gastric [...] and other identifying information and designated g astr biopsies . It consists of 4 crawford soft tissue fragments ranging from 0.2-0.3 cm. Entirely submitted in one cassette. (JU Silva)06/18/2024 2:01 PM 06/19/2024 12:49 PM CDT LABORATORY Microscopic Description Microscopic examination was performed. 06/19/2024 12:49 PM CDT LABORATORY Performing Labs The technical component of this testing was completed at [facility]. Stain controls for all stains resulted within this report have been reviewed and show appropriate reactivity. 06/19/2024 12:49 PM CDT LABORATORY Case Images 06/19/2024 12:49 PM CDT LABORATORY Biopsy STOMACH STRUCTURE / Unknown 06/18/2024 1:27 PM CDT 06/18/2024 1:58 PM CDT us Kiet Brown MD LAB - NORMA AP Final Resul t LABORATORY [facility] [address] [facility] Lab (1st floor, no room number) [place] [address] * (ABNORMAL) Glucose by meter (06/18/2024 12:35 PM CDT) GLUCOSE BY METER POCT 136(H) 70 - 99 mg/dL 06/18/2024 12:42 PM CDT LABORATORY POC Blood, venous BLOOD SPECIMEN / Unknown 06/18/2024 12:35 PM CDT 06/18/2024 12:42 PM CDT us Ge Bowman MD LAB - BEAKER POCT Final Result RH LABORATORY POC [facility] [address] [facility] Lab (1st floor, no room number) [place] [address] * UPPER GI ENDOSCOPY (06/18/2024 12:29 PM CDT) Pathologist [facility] Upper GI Endoscopy [facility] Patient Name: Dustin Carrera Procedure Date: 06/18/2024 12:29 PM Date of : 1960 Admit Type: Inpatient Age: 63 Gender: Male Attending MD: KIET BROWN MD, Total Sedation Time: Minutes of continuous bedside 1:1: 15 minutes Instrument Name: [id number] Gastroscope Procedure: Upper GI endoscopy Indications: Melena, [...] The Olympus Gasrointestinal Videoscope, Model# GIF-1100, Censitrac# [id number], # [id number] was introduced through the mouth, and advanced [...] hospital service. Procedure Code(s): --- Professional --- 56568, Esophagogastroduod enoscopy, flexible, transoral; with biopsy, single or multiple Diagnosis Code(s): --- Professional --- D64.9, Anemia, unspecified K92.1, Melena (includes Hematochezia) K29.80, Duodenitis without bleeding CPT copyright 2021 [employer]. All rights reserved. The codes documented in this report are preliminary and upon teachers' assistant review may be revised to meet current [...] BEAKER POCT Final Result RH LABORATORY POC [facility] [address] Lab (1st floor, no room number) [place] [address] * (ABNORMAL) CBC with [...] BLOOD ORDERABLES Final Re sult LABORATORY [facility] [address] Lab (1st floor, no room number) [place] [address] * (ABNORMAL) Basic metabolic panel (06/18/2024 6:43 AM CDT) Pathologist [facility] Sodium 141 135 - 145 mmol/L 06/18/2024 [...] BLOOD ORDERABLES Final Re sult LABORATORY [facility] [address] Lab (1st floor, no room number) [place] [address], [facility] * (ABNORMAL) Glucose by meter (06/18/2024 5:30 AM CDT) Pathologist [facility] GLUCOSE BY METER POCT 120(H) 70 - 99 mg/dL 06/18/2024 5:37 AM CDT LABORATORY POC Blood, Capillary BLOOD SPECIMEN / Unknown 06/18/2024 5:30 AM CDT 06/18/2024 5:37 AM CDT Ge Bowman MD LAB - BEAKER POCT Final Result LABORATORY [facility] [address] Lab (1st floor, no room number) [place] [phone] [place] [address] * (ABNORMAL) Glucose by meter (06/18/2024 1:24 AM CDT) GLUCOSE BY METER POCT 159(H) 70 - 99 mg/dL 06/18/2024 1:31 AM CDT LABORATORY POC Blood, Capillary BLOOD SPECIMEN / Unknown 06/18/2024 1:24 AM CDT 06/18/2024 1:31 AM CDT Ge Bowman MD LAB - BEAKER POCT Final Result Performing Organization Address City/[facility]/ZIP Co de Phone Number LABORATORY [facility] [address] Lab (1st floor, no room number) [place] [phone] [place] [address] * (ABNORMAL) Occult blood stool (06/17/2024 8:10 PM CDT) Occult Blood Positive(A ) Negative ANAHI 06/17/2024 8:20 PM CDT LABORATORY Stool RECTAL CONTENTS / Unknown Non-blood Collection / Unknown 06/17/2024 8:10 PM CDT 06/17/2024 8:19 PM CDT Kushal Portillo MD LAB - STOOLS ORDERABLES Shantel l Result [facility] [address] Lab (1st floor, no room number) [place] [phone] [place] [address] * (ABNORMAL) Hemoglobin A1c (06/17/2024 7:48 PM CDT) [facility] Estimated Average Glucose 203(H) <117 mg/dL [...] LAB - BLOOD ORDERABLES Final Re sult [facility] [address] Lab (1st floor, no room number) [address] [place] [address] * Extra Red Top Tube (06/17/2024 7:48 PM CDT) [facility] Hold Specimen JIC 06/17/2024 9:02 PM CDT RH LABORATORY Blood BLOOD SPECIMEN / Unknown Venipuncture / Unknown 06/17/2024 7:48 PM CDT 06/17/2024 7:55 PM CDT us Kushal Portillo MD LAB - BLOOD ORDERABLES Final Result [facility] [address] Lab (1st floor, no room number) [address] * Adult Type and Screen (06/17/2024 7:48 PM CDT) [facility] ABO/RH(D) O POS 06/17/2024 7:31 PM CDT RH BLOOD BANK Antibody Screen Negative Negative 06/17/2024 7:31 PM CDT RH BLOOD BANK SPECIMEN EXPIRATION DATE [id number] 06/17/2024 7:31 PM CDT RH BLOOD BANK Blood BLOOD SPECIMEN / Unknown Venipuncture / Unknown 06/17/2024 7:48 PM CDT 06/17/2024 7:55 PM CDT us Kushal Portillo MD LAB - BLOOD BANK TEST ORDER Final Result BLOOD [place] [address], [facility] * (ABNORMAL) CBC with platelets and [...] LAB - BLOOD ORDERABLES Final Result [facility] [address] [facility] Lab (1st floor, no room number) [place] [address] * Ethyl Alcohol Level (06/17/2024 7:48 PM CDT) Alcohol ethyl <0.01 <=0.01 g/dL 06/17/2024 8:15 PM CDT RH LABORATORY Blood BLOOD SPECIMEN / Unknown Venipuncture / Unknown 06/17/2024 7:48 PM CDT 06/17/2024 7:55 PM CDT Kushal Portillo MD LAB - BLOOD ORDERABLES Final Result [facility] Lab [address] [facility] Lab (1st floor, no room number) [place] [address], [facility] * (ABNORMAL) Comprehensive metabolic panel (06/17/2024 [...] BLOOD ORDERABLES Final Result [facility] [address] Lab (1st floor, no room number) [place] [phone] [place] [address] * INR (06/17/2024 7:48 PM CDT) INR 0.95 0.85 - 1.15 06/17/2024 8:10 PM CDT RH LABORATORY Blood BLOOD SPECIMEN / Unknown Venipuncture / Unknown 06/17/2024 7:48 PM CDT 06/17/2024 7:55 PM CDT Kushal Portillo MD LAB - BLOOD ORDERABLES Final Result [facility] [address] Lab (1st floor, no room number) [place] [phone] [place] [address] documented in this encounter Visit Diagnoses Diagnosis [...] Sven William RN)2207 ($Given - Provider: Sven William RN) insulin aspart (NovoLOG) injection (RAPID ACTING) [...] Provider: Dominik Serrano RN)1848 ($Given - Provider: Sevn William RN) 0949 (Canceled Entry - Provider: [...] stools. documented in this encounter Care Teams Ghost Writer Relationship Specialty Start Date End Date Shona Vásquez MD [facility] [address] [place] [address] PCP - General Family Medicine 12/30/22 Kiet Arias MD [address] [place] [address] Assigned Heart and Vascular Provider 06/24/23 documented as of this encounter
--- OUTSIDE RECORDS SUMMARY | 2024-08-09 08:48 | XMS_ITS | Encounter Summary ---
Author Organization [place] Address [facility] [place] [address] Care Team Providers Care Dust Control Engineer Name Role Phone Shona Vásquez MD Primary Care Provider [phone]- [phone] Kiet Arias MD Unavailable Reason for Visit * Reason Onset Date Comments Appointment 08/06/2024 Urgent 3-5 day r eferral new heart failure dx. Encounter Details Date Type Department Care Team (Late st Contact Info) Description 08/06/2024 Telephone [facility] [address] [place] [address] Kiet Arias MD [address] [facility] [address] [place] [address] Appointment (Urgent 3-5 day referral new heart failure dx. 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 Based on the availability of our provider(s), we are unable to accommodate this request. Were all sites offered this patient? Yes Does scheduling algorithm request to schedule next available? Patient appointment has not been scheduled. Please review the referral request for accommodation and contact the patient. If unable to accommodate, please resubmit a referral and indicate a preferredpartner or affiliate location using Provider Finder or Scheduling Instructions field. No available appts within order requested follow up of 3-5 days. Per protocols, PSYCHIATRIC does not schedule next available appt if dx on referral can be seen by established provider which [place] is listed as a provider who can see for heart failure on protocols. APPs do not have anything within 3-5 days either. Thank you! [facility] PASSER documented in this encounter Plan of Treatment Upcoming Encounters Date Type Department Care Team (Late st Contact Info) Description 08/23/2024 1:00 PM COAL PASSER Office Visit [facility] [address] [facility] [address] [place] [address] Kiet Arias MD [address] [place] [address] documented as of this encounter Visit Diagnoses Not on filedocumented in this encounter Care Teams Dust Control Engineer Relationship Specialty Start Date End Date Shona Vásquez MD [facility] [address] [place] [address] PCP - General Family Medicine 12/30/22 Kiet Arias MD [address] [place] [address] Assigned Heart and Vascular Provider 06/24/23 documented as of this encounter
--- OUTSIDE RECORDS SUMMARY | 2024-08-09 08:48 | XMS_ITS | Referral Summary ---
Author Organization [facility] Address [address] [place] [address] Care Team Providers Care Sensor Technician Name Role Phone Shona Vásquez MD Primary Care Provider [phone] Kiet Arias MD Unavailable [phone] Encounters Date Type Department Care Team Description 08/06/2024 Telephone [facility] [address] [place] [address] Kiet Arias MD Appointment (Urgent 3-5 day referral new heart failure dx. ) 08/05/2024 Transcribe Orders GENERIC EXTERNAL DATA DEPARTMENT Shona Vásquez MD Heart failure, unspecified (H) (Primary Dx) 08/01/2024 Medical Correspondence [facility] Information Management [address] [place] [address] [address] [place] [address] Scan, Non-Provider 06/17/2024 7:24 PM CDT - 06/19/2024 12:11 PM CDT Emergency [place] [address] Medical Surgical [address] [place] [address] Kushal Portillo MD Amdahl, MD Neo [place] Karl R, MD Baxa, Alexander, DO UGIB (upper gastrointestinal bleed); Anemia due to blood loss, acute Discharge Disposition: Home or Self Care 06/18/2024 1:00 PM CDT - 06/18/2024 1:30 PM CDT Surgery [facility] [place] [address] [place] [address] Kiet Brown MD ESOPHAGOGASTRODUODENOS COPY, WITH BIOPSies using cold biopsy forceps 06/17/2024 Travel from Last 3 Months Allergies Active Allergy Reactions Criticality Noted Date Comments Amoxicillin 06/04/2012 Medications nitroglycerin (NITROSTAT) 0.4 MG SL tabletIndications:A cute chest pain Place 1 tablet (0.4 mg) under the tongue every 5 minutes as needed for chest pain 25 tablet 0 015 Active insulin aspart (NOVOLOG PEN) 100 UNIT/ML solnIndications:Dorothy trice mellitus, type 2 (H) Inject 8 Units [...] 0 03/21/2015 Coronary artery disease invo lving cherokee coronary artery of cherokee heart without angina pectoris Mixed hyperlipidemia Essential [...] in an abandoned building, in an overnight skilled nursing, or couch-surfing.) Yes 06/18/2024 Are you worried [...] on file Legal 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 Gender Identity Not on file Sexual Orientation [...] st Contact Info) Description 08/23/2024 1:00 PM BOX SPRING MAKER Office Visit [address] [address] Kiet Arias MD [address] [place] [address] Medical Devices Implanted Type Area Energy Conservation Director Device Identifier Shelf Expiration Date Model / Serial / Lot Clip Ligating Hem-O-Lock 10mm [id number] Implanted:Qty : 4 on 08/22/2016 Metallic Hardware/Anc hor Right: Abdomen PILLING WECK 06/14/2021 [id number] / / [id number] Cardiac Stents Procedures Procedure Name Priority Date/Time Associated Diagnosis Comments POTASSIUM (EXTERNAL RESULT) Routine 08/01/2024 5:10 PM BOX SPRING MAKER GLUCOSE (EXTERNAL RESULT) Routine 08/01/2024 5:10 PM BOX SPRING MAKER CREATININE (EXTERNAL RESULT) Routine 08/01/2024 5:10 PM BOX SPRING MAKER LAB RESULT - HIM SCAN 08/01/2024 12:[address] VASCULAR - HIM SCAN 4 12:00 AM CDT XRAY IMAGING - HIM SCAN 07/08/2024 12:00 AM CDT EKG CARDIAC - HIM SCAN 4 12:00 AM CDT EKG CARDIAC - HIM [...] 7:58 AM CDT Coronary artery disease involving cherokee coronary artery of cherokee heart without angina pectoris from Last 3 Months or Most Recently Relevant to Health Maintenance Results * Potassium (External Result) (08/01/2024 5:10 PM BOX SPRING MAKER) Potassium (External) 3.7 3.6 - 5.1 mmol/L [facility] Blood 08/01/2024 5:10 PM BOX SPRING MAKER [facility] - 08/01/2024 5:10 PM BOX SPRING MAKER [facility]-External Lab Results Provider Outside LAB - HIM EXTERNAL RESULT Edite d Result - Final Performing Organization Address City/[facility]/ZIP Co de Phone Number [facility] [address] [place], [place] [id number] [place] [address] * (ABNORMAL) Glucose (External Result) (08/01/2024 5:10 PM BOX SPRING MAKER) Glucose (External) 103(A) 60 - 115 mg/dL [facility] Blood 08/01/2024 5:10 PM BOX SPRING MAKER [facility] - 08/01/2024 5:10 PM BOX SPRING MAKER [facility]-External Lab Results us Provider Outside LAB - HIM EXTERNAL RESULT Edite d Result - Final [facility] [address] [place], [place] [address] [phone] * Creatinine (External Result) (08/01/2024 5:10 PM BOX SPRING MAKER) Creatinine (External) 1.3 0.5 - 1.5 mg/dL [facility] Blood 08/01/2024 5:10 PM BOX SPRING MAKER Narrative [facility] - 08/01/2024 5:10 PM BOX SPRING MAKER [facility]-External Lab Results us Provider Outside LAB - HIM EXTERNAL RESULT Edite d Result - Final [facility] [address] [place], [place] [address] [phone] * Lab Result - HIM Scan (08/01/2024 12:00 AM BOX SPRING MAKER) Only the most recent of2 resultswithin the [...] LAB - BEAKER POCT Final Result LABORATORY [facility] [address] Lab (1st floor, no room number) [address] * Extra Green Top Tube (LAB USE ONLY) (06/19/2024 7:37 AM CDT) Hold Specimen JIC 06/19/2024 9:02 AM CDT LABORATORY Blood STRUCTURE OF RIGHT HAND / Unknown Venipuncture / Unknown 06/19/2024 7:37 AM CDT 06/19/2024 7:48 AM CDT Jassi Felix MD LAB - BLOOD ORDERABLES Final Result LABORATORY [facility] Lab [address] Lab (1st floor, no room number) [address] * (ABNORMAL) Hemoglobin (06/19/2024 7:37 AM CDT) Only the most recent of2 resultswithin the time period is included. Hemoglobin 8.2(L) 13.3 - 17.7 g/dL 06/19/2024 7:53 AM CDT LABORATORY Blood STRUCTURE OF RIGHT HAND / Unknown Venipuncture / Unknown 06/19/2024 7:37 AM CDT 06/19/2024 7:48 AM CDT us Elvis Herman DO LAB - BLOOD ORDERABLES Final R esult LABORATORY [facility] [address] [facility] Lab (1st floor, no room number) [place] [address], [facility] * Surgical Pathology Exam (06/18/2024 1:27 PM CDT) Case Report Surgical Pathology Report Case: [id number] Authorizing Provider: Kiet Brown MD Collected: 06/18/2024 01:27 PM Ordering Location: [facility] Received: 06/18/2024 01:58 PM [facility] [place] Pathologist: Nicole Parham MD Specimen: Stomach, gastric [...] component of this testing was completed at [facility]. Stain controls for all stains resulted within this report have been reviewed and show appropriate reactivity. 06/19/2024 12:49 PM CDT LABORATORY Case Images 06/19/2024 12:49 PM CDT LABORATORY Biopsy STOMACH STRUCTURE / Unknown 06/18/2024 1:27 PM CDT 06/18/2024 1:58 PM CDT us Kiet Brown MD LAB - NORMA AP Final Resul t LABORATORY [facility] [address] [facility] Lab (1st floor, no room number) [place] [address] * UPPER GI ENDOSCOPY (06/18/2024 12:29 PM CDT) Pathologist [facility] Upper GI Endoscopy [facility] Patient Name: Dustin Carrera Procedure Date: 06/18/2024 12:29 PM Date of : 1960 Admit Type: Inpatient Age: 63 Gender: Male Attending MD: KIET BROWN MD, Total Sedation Time: Minutes of continuous bedside 1:1: 15 minutes Instrument Name: [id number] Gastroscope Procedure: Upper GI endoscopy Indications: Melena, [...] The Olympus Gasrointestinal Videoscope, Model# GIF-1100, Censitrac# [id number], SN# [id number] was introduced through the mouth, and advanced [...] hospital service. Procedure Code(s): --- Professional --- 56734, Esophagogastroduod enoscopy, flexible, transoral; with biopsy, single or multiple Diagnosis Code(s): --- Professional --- D64.9, Anemia, unspecified K92.1, Melena (includes Hematochezia) K29.80, Duodenitis without bleeding CPT copyright 2021 [employer]. All rights reserved. The codes documented in this report are preliminary and upon medical insurance coder review may be revised to meet [...] AM CDT 06/18/2024 6:58 AM CDT us Kigns Larson MD LAB - BLOOD ORDERABLES Final Re sult LABORATORY [facility] [address] [facility] Lab (1st floor, no room number) [place] [address], [facility] * [...] LAB - BLOOD ORDERABLES Final Re sult [facility] [address] Lab (1st floor, no room number) [address] [place] [address] * (ABNORMAL) Occult blood stool (06/17/2024 8:10 PM CDT) [facility] Occult Blood Positive(A ) Negative [facility] 06/17/2024 8:20 PM CDT LABORATORY Stool RECTAL CONTENTS / Unknown Non-blood Collection / Unknown 06/17/2024 8:10 PM CDT 06/17/2024 8:19 PM CDT us Kushal Portillo MD LAB - STOOLS ORDERABLES Shantel l Result [facility] [address] [employer] Lab (1st floor, no room number) [place] [phone] * Extra Red Top Tube (06/17/2024 7:48 PM CDT) Hold Specimen JI 06/17/2024 9:02 PM CDT RH LABORATORY Blood BLOOD SPECIMEN / Unknown Venipuncture / Unknown 06/17/2024 7:48 PM CDT 06/17/2024 7:55 PM CDT us Kushal Portillo MD LAB - BLOOD ORDERABLES Final Result RH LABORATORY [facility] [address] Lab (1st floor, no room number) [place] [address], [facility] * (ABNORMAL) CBC with platelets and differential [...] - BLOOD ORDERABLES Final Result RH LABORATORY [facility] [address] Lab (1st floor, no room number) [place] [address], [facility] * Adult Type and Screen (06/17/2024 7:48 PM CDT) ABO/RH(D) O POS 06/17/2024 7:31 PM CDT RH BLOOD BANK Antibody Screen Negative Negative 06/17/2024 7:31 PM CDT RH BLOOD BANK SPECIMEN EXPIRATION DATE [id number] 06/17/2024 7:31 PM CDT RH BLOOD BANK Blood BLOOD SPECIMEN / Unknown Venipuncture / Unknown 06/17/2024 7:48 PM CDT 06/17/2024 7:55 PM CDT Kushal Portillo MD LAB - BLOOD BANK TEST ORDER Final Result Performing Organization Address City/[facility]/ZIP Co de Phone Number BLOOD BANK [address] [place] [address] [address] * INR (06/17/2024 7:48 PM CDT) INR 0.95 0.85 - 1.15 06/17/2024 8:10 PM CDT LABORATORY Blood BLOOD SPECIMEN / Unknown Venipuncture / Unknown 06/17/2024 7:48 PM CDT 06/17/2024 7:55 PM CDT Kushal Portillo MD LAB - BLOOD ORDERABLES Final Result Performing Organization Address [facility] Co de Phone Number [facility] Care Lab [address] [employer] Lab (1st floor, no room number) [place] [phone] * (ABNORMAL) Hemoglobin A1c (06/17/2024 7:48 PM [...] LAB - BLOOD ORDERABLES Final Re sult [facility] Lab [address] [employer] Lab (1st floor, no room number) [place] [address], [facility] * (ABNORMAL) Comprehensive metabolic panel (06/17/2024 7:48 [...] LAB - BLOOD ORDERABLES Final Result LABORATORY [facility] Care Lab [address] Lab (1st floor, no room number) [address] [place] [address] * Ethyl Alcohol Level (06/17/2024 7:48 PM CDT) Alcohol ethyl <0.01 <=0.01 g/dL 06/17/2024 8:15 PM CDT RH LABORATORY Blood BLOOD SPECIMEN / Unknown Venipuncture / Unknown 06/17/2024 7:48 PM CDT 06/17/2024 7:55 PM CDT Kushal Portillo MD LAB - BLOOD ORDERABLES Final Result LABORATORY [facility] [address] Lab (1st floor, no room number) [address] * (ABNORMAL) Lipid Profile (06/19/2023 7:58 AM [...] BLOOD ORDERABLES Fin al Result [facility] LABORATORY [facility] [place] [facility] [address] [facility], [address] [place] [address], [facility] [phone] from Last 3 Months or Most Recently Relevant to Health Maintenance Insurance [employer] Advance Directives For more information, please contact: [phone] * Full Code (Latest Code Status on [...] 2:20 PM 06/05/2012 5:52 PM Care Teams Sensor Technician Relationship Specialty Start Date End Date Shona Vásquez MD [facility] [place]NOTE 2] [address] [place] [address] PCP - General Family Medicine 12/30/22 Kiet Arias MD [address] [place] [address] Assigned Heart and Vascular Provider 06/24/23
--- OUTSIDE RECORDS SUMMARY | 2024-08-09 08:48 | XMS_ITS | Encounter Summary ---
Author Organization [facility] Address [address] [place] [address] Care Team Providers Care Automobile Spring Repairer Name Role Phone Shona Vásquez MD Primary Care Provider [phone] Kiet Arias MD Unavailable [phone] Reason for Referral * CV Cardio consult (Urgent: 3-5 Days) - Pending Review Specialty Diagnoses / Procedures Referred By Urvashi t Referred To Contact Cardiovascular Disease Diagnoses Heart failure, unspecified (H) Shona Vásquez MD [place] [id number] [place] [address] Phone: tel: fax: Referral ID Status Reason Start Date Expiration Date V isits Requested Visits Authorized [id number] Pending Review 08/05/2024 08/05/2025 1 1 Question Answer Reason for Consult: General Cardiology Patient Scheduling Instructions: Guicho Skritter [facility] will call you to coordinate your care as prescribed by your provider. If you don't hear from a technical account representative within 2 business days, please call [phone]. Comments Referred by: Shona Vásquez MD [facility] Please be aware that coverage of these services is subject to the terms and limitations of your health insurance plan. Call member services at your health plan with any benefit or coverage questions. Guicho Skritter [facility] will call you to coordinate your care as prescribed by your provider. If you don't hear from a technical account representative within 2 business days, please call [phone]. 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 Gender Identity Not on file Sexual Orientation Not on file documented as of this encounter Plan of Treatment Upcoming Encounters Date Type Department Care Team (Late st Contact Info) Description 08/23/2024 1:00 PM EXPERIMENTAL MECHANIC Office Visit [facility] [address] [facility] [address] [place] [address] Kiet Arias MD [address] [place] [address] Scheduled Referrals Name Type Priority Associated Diagnoses Orde r Schedule Adult Cardiology Eval Transportation Technician Referral Referral Urgent: 3-5 Days Heart failure, unspecified (H) Expected: 08/05/2024 (Approximate), Expires: 08/05/2025 documented as of this encounter Visit Diagnoses Diagnosis Heart failure, unspecified (H)- Primary Heart failure, unspecified documented in this encounter Care Teams Automobile Spring Repairer Relationship Specialty Start Date End Date Shona Vásquez MD [facility] [address] [place] [address] PCP - General Family Medicine 12/30/22 Kiet Arias MD [address] [place] [id number] Assigned Heart and Vascular Provider 06/24/23 documented as of this encounter
--- OUTSIDE RECORDS SUMMARY | 2024-08-09 08:48 | XMS_ITS | Encounter Summary ---
Author Organization [facility] Address [address] [place] [address] Care Team Providers Care [employer] Science Teacher Name Role Phone Shona Vásquez MD Primary Care Provider [phone] Kiet Arias MD Unavailable [phone] Reason for Visit * Reason Comments Abnormal Labs * Auth/Cert (Routine) Specialty Diagnoses / Procedures Referred By Contac t Referred To Contact Med Surg Diagnoses Anemia due to blood loss, acute UGIB (upper gastrointestinal bleed) UGIB (upper gastrointestinal bleed) Anemia due to blood loss, acute [place] [address] [facility] [address] [place] [address] Phone: tel: fax: Referral ID Status Reason Start Date Expiration Date Visits Re quested Visits Authorized [id number] 1 1 Encounter Details Date Type Department Care Team (Late st Contact Info) Description 06/17/2024 7:24 PM CDT - 06/19/2024 12:11 PM CDT Emergency [place] [address] [facility] [address] [place] [address] Kushal Portillo MD [facility] [address] [facility] [address] [place] [phone] Ge Bowman MD [facility] [address] [place] [address] Kings Larson MD [address] [place], [place] [id number] Elvis Herman DO [address] [place] [address] UGIB (upper gastrointestinal bleed); Anemia [...] in an abandoned building, in an overnight retirement, or couch-surfing.) Yes 06/18/2024 Are you worried [...] on file 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 Insulin dependent T2DM: SUPERVISOR STAVE CUTTING Lantus, aspart, Jardiance on discharge. HTN CAD s/p stenting: Discontinue SUPERVISOR STAVE CUTTING lisinopril/hydrochlorothiazide, amlodipine on discharge given normal blood pressureand dizziness on admission. Will continue SUPERVISOR STAVE CUTTING metoprolol. He should have follow-up with his primarydoctor in approximately 1 to 2 weeks for repeat blood pressure check. He may need to restart antihypertensives at that time. This was discussed with the patient. COPD: SUPERVISOR STAVE CUTTING Advair Clinically Significant Risk Factors # DMII: [...] minutes discharging this patient. Elvis Herman DO [place] [address] MED[facility] SURGICAL [address] [facility] [address] Physical Exam Vital Signs: Temp: 98 ??F [...] Care Everywhere. * Infection: H. Pylori Bacterial (Greenlandic) documented in this encounter Medications at Time [...] 3 nitroglycerin (NITROSTAT) 0.4 MG SL tabletIndications:Ac nan[place] chest pain Place 1 tablet (0.4 mg) under the tongue every 5 minutes as needed for chest pain 25 tablet 0 5 pantoprazole (PROTONIX) 40 MG EC tabletIndications:UG IB (upper gastrointestinal bleed) Take 1 tablet (40 mg) by mouth 2 times daily. 60 tablet 4 documented as of this encounter Progress Notes * Elvis Herman DO - 06/18/2024 11:36 AM CDT [facility] Medicine Progress Note - [...] ordered on admission -N.p.o. sliding scale ordered -SUPERVISOR STAVE CUTTING Jardiance CAD s/p stenting: -Hold SUPERVISOR STAVE CUTTING lisinopril/hydrochlorothiazide, amlodipine, aspirin in the setting of suspected upper GI bleed -Continue SUPERVISOR STAVE CUTTING metoprolol with hold parameters COPD: SUPERVISOR STAVE CUTTING Advair Diet: NPO per Anesthesia Guidelines for [...] with Caden (more info) Text page via [employer] Paging/Directory Interval History NAEO. Patient with no [...] full skin assessment completed by Riya Acosta, YONATHAN and Anabell Solis RN. Skin assessment finding: other Bruises, scabs, scratches to abdomen & RACHAEL UE Interventions/actions: other Lotion to dry areas Will continue to monitor. documented in this encounter H&P Notes * Kings Larson MD - 06/17/2024 7:18 PM CDT [facility] History and Physical Dustin Carrera Age: [age] year old Date of : 1960 Date of Admission: 06/17/2024 Home clinic: [facility] Primary care provider: Shona Vásquez Assessment and Plan: Assessment: Dustin Carrera is a 63 year old man with history of CAD, Obesity, COPD, tobacco abuse and IDDM, type 2 who initially presented to an outside UC for dizziness and epigastric pain. He came to attention tonight in [facility] ED after having been found to have [...] 2. N.p.o. for possible EGD tomorrow. 3. [facility] is consulted. 4. The patient was [...] or worsened epigastric pain with eating. He hasnot noticed that he is full faster than [...] ANGIOGRAM 03-21-15 2 vessel coronary artery disease (diagonal-PHP PROGRAMMER, apical LAD, and culprit mid to distal [...] Status --------- ------ CBC with platelets and d...[[id number]] Abnormal Final result Please view results for [...] Abnormality Status --------- ------ Adult Type and Screen[[id number]] Final result Please view results for these tests on the individual orders. [place] Draw Narrative The following orders were created for panel order [facility]. Procedure Abnormality Status --------- ------ Extra Red Top Tube[[id number]] Final result Please view results for these [...] Antibody Screen Negative Negative SPECIMEN EXPIRATION DATE [id number] Extra Red Top Tube Result Value Ref Range Hold Specimen [facility] Hemoglobin A1c Result Value Ref [...] Brown MD - 06/18/2024 2:05 PM CDT [facility] Chart Update 63 yo with 1 week dark stool, anemia, epigastric pain. EGD today with mild duodenitis, otherwise normal. No prior colonoscopy. Will arrange for outpatient colonoscopy within 2 weeks. Will follow up on H. Pylori biopsies taken today. Suggest continued empiric PPI x1 month. Resume regular diet. Discharge planning per hospital service. Kiet Brown MD [facility] Digestive Health documented in this encounter [...] independent. Lift room needed: No. Bariatric: No Teaching Associate Needed: No Isolation: No. Infection: Not Applicable. [...] POS Antibody Screen Negative SPECIMEN EXPIRATION DATE [id number] ABO/RH TYPE AND SCREEN No orders to [...] of External Notes I reviewed paperwork from [facility]. This is not appearing in [...] ANGIOGRAM 03-21-15 2 vessel coronary artery disease (diagonal-PHP PROGRAMMER, apical LAD, and culprit mid to distal [...] POS Antibody Screen Negative SPECIMEN EXPIRATION DATE [id number] ABO/RH TYPE AND SCREEN Imaging No orders [...] Documentation None Medical Decision Making / Diagnosis [facility] Diagnoses: None MIPS None MDM Dustin Carrera [...] * Pharmacy-Admission Medication History - Linda Chery [facility] - 06/18/2024 10:36 AM CDT Pharmacist Admission Medication History Admission medication history is complete. The information provided in this note is only as accurateas the sources available at the time of the update. Information Source(s): Patient via in-person, [employer]s Pertinent Information: - Changes made to SUPERVISOR STAVE CUTTING medication list: Added: Advair, insulin Lantus Deleted: insulin Levemir, bupropion, furosemide Changed: None Allergies reviewed with patient and updates made in EHR: unable to assess Medication History Completed By: Linda Chery RPH 06/18/2024 10:36 AM SUPERVISOR STAVE CUTTING Med List Medication Sig Last Dose albuterol [...] subcutaneously every evening. 06/17/2024 at [facility] lisinopril-hydrochlorothiazide (ZESTORETIC) 20-12.5 MG tablet Take 1 [...] st Contact Info) Description 08/23/2024 1:00 PM GARAGE ATTENDANT Office Visit [facility] [address] [facility] [address] [place] [phone] Kiet Arias MD [address] [place] [address] documented as of this encounter Procedures Procedure [...] Glucose by meter (06/19/2024 8:26 AM CDT) [facility] GLUCOSE BY METER POCT 179(H) 70 - 99 mg/dL 06/19/2024 8:33 AM CDT RH LABORATORY POC Blood, Capillary BLOOD SPECIMEN / Unknown 06/19/2024 8:26 AM CDT 06/19/2024 8:33 AM CDT Ge Bowman MD LAB - BEAKER POCT Final Result RH LABORATORY POC [facility] Care Lab [address] Lab (1st floor, no room number) [place] [address] * Extra Green Top Tube (LAB USE ONLY) (06/19/2024 7:37 AM CDT) Hold Specimen JIC 06/19/2024 9:02 AM CDT LABORATORY Blood STRUCTURE OF RIGHT HAND / Unknown Venipuncture / Unknown 06/19/2024 7:37 AM CDT 06/19/2024 7:48 AM CDT us Jassi Felix MD LAB - BLOOD ORDERABLES Final Result Performing Organization Address [facility]/ZIP Co de Phone Number [facility] Care Lab [address] Lab (1st floor, no room number) [place] [address], [facility] * (ABNORMAL) Hemoglobin (06/19/2024 7:37 AM CDT) Hemoglobin 8.2(L) 13.3 - 17.7 g/dL 06/19/2024 7:53 AM CDT LABORATORY Blood STRUCTURE OF RIGHT HAND / Unknown Venipuncture / Unknown 06/19/2024 7:37 AM CDT 06/19/2024 7:48 AM CDT Elvis Herman DO LAB - BLOOD ORDERABLES Final R esult [facility] Care Lab [address] Lab (1st floor, no room number) [place] [address], [facility] * (ABNORMAL) Glucose by meter (06/19/2024 1:09 AM CDT) GLUCOSE BY METER POCT 146(H) 70 - 99 mg/dL 06/19/2024 1:15 AM CDT RH LABORATORY POC Blood, Capillary BLOOD SPECIMEN / Unknown 06/19/2024 1:09 AM CDT 06/19/2024 1:15 AM CDT Ge Bowman MD LAB - BEAKER POCT Final Result LABORATORY [facility] Lab [address] Lab (1st floor, no room number) [place] [phone] * (ABNORMAL) Glucose by meter (06/18/2024 9:31 PM CDT) GLUCOSE BY METER POCT 169(H) 70 - 99 mg/dL 06/18/2024 9:38 PM CDT RH LABORATORY POC Blood, Capillary BLOOD SPECIMEN / Unknown 06/18/2024 9:31 PM CDT 06/18/2024 9:38 PM CDT Ge Bowman MD LAB - BEAKER POCT Final Result Performing Organization Address City/[facility]/ZIP Co de Phone Number [facility] Lab [address] Lab (1st floor, no room number) [place] [phone], [facility] * (ABNORMAL) Glucose by meter (06/18/2024 5:50 PM CDT) GLUCOSE BY METER POCT 164(H) 70 - 99 mg/dL 06/18/2024 5:56 PM CDT LABORATORY POC Blood, Capillary BLOOD SPECIMEN / Unknown 06/18/2024 5:50 PM CDT 06/18/2024 5:56 PM CDT Ge Bowman MD LAB - BEAKER POCT Final Result LABORATORY [facility] Lab [address] Lab (1st floor, no room number) [place] [phone] * (ABNORMAL) Hemoglobin (06/18/2024 3:14 PM CDT) Hemoglobin 7.8(L) 13.3 - 17.7 g/dL 06/18/2024 3:28 PM CDT LABORATORY Blood STRUCTURE OF RIGHT UPPER LIMB / Unknown Venipuncture / Unknown 06/18/2024 3:14 PM CDT 06/18/2024 3:25 PM CDT us Elvis Herman DO LAB - BLOOD ORDERABLES Final R esult LABORATORY [facility] [address] [facility], no room number) [place] [phone] * (ABNORMAL) Glucose by meter (06/18/2024 2:31 PM CDT) GLUCOSE BY METER POCT 142(H) 70 - 99 mg/dL 06/18/2024 2:37 PM CDT LABORATORY POC Blood, Capillary BLOOD SPECIMEN / Unknown 06/18/2024 2:31 PM CDT 06/18/2024 2:37 PM CDT us Ge Bowman MD LAB - BEAKER POCT Final Result LABORATORY [facility] Lab [address] Lab (1st floor, no room number) [place] [phone] * Surgical Pathology Exam (06/18/2024 1:27 PM CDT) Case Report Surgical Pathology Report Case: [id number] Authorizing Provider: Kiet Brown MD Collected: 06/18/2024 01:27 PM Ordering Location: [facility] Received: 06/18/2024 01:58 PM [facility] [place] Pathologist: Nicole Parham MD Specimen: Stomach, gastric [...] component of this testing was completed at [facility]. Stain controls for all stains resulted within this report have been reviewed and show appropriate reactivity. 06/19/2024 12:49 PM CDT LABORATORY Case Images 06/19/2024 12:49 PM CDT LABORATORY Biopsy STOMACH STRUCTURE / Unknown 06/18/2024 1:27 PM CDT 06/18/2024 1:58 PM CDT us Kiet VENTURA - NORMA FLORES Final Resul t LABORATORY [facility] [address] [facility] Lab (1st floor, no room number) [place] [address], [facility] * (ABNORMAL) Glucose by meter (06/18/2024 12:35 PM CDT) GLUCOSE BY METER POCT 136(H) 70 - 99 mg/dL 06/18/2024 12:42 PM CDT LABORATORY POC Blood, venous BLOOD SPECIMEN / Unknown 06/18/2024 12:35 PM CDT 06/18/2024 12:42 PM CDT Ge Bowman MD LAB - BEAKER POCT Final Result RH LABORATORY POC [facility] [address] Lab (1st floor, no room number) [place] [address] * UPPER GI ENDOSCOPY (06/18/2024 12:29 PM CDT) [facility] Upper GI Endoscopy [facility] Patient Name: Dustin Carrera Procedure Date: 06/18/2024 12:29 PM Date of : 1960 Admit Type: Inpatient Age: 63 Gender: Male Attending MD: KIET BROWN MD, Total Sedation Time: Minutes of continuous bedside 1:1: 15 minutes Instrument Name: [id number] Gastroscope Procedure: Upper GI endoscopy Indications: Melena, [...] The Olympus Gasrointestinal Videoscope, Model# GIF-1100, Censitrac# [id number], SN# [id number] was introduced through the mouth, and advanced [...] hospital service. Procedure Code(s): --- Professional --- 67621, Esophagogastroduod enoscopy, flexible, transoral; with biopsy, single or multiple Diagnosis Code(s): --- Professional --- D64.9, Anemia, unspecified K92.1, Melena (includes Hematochezia) K29.80, Duodenitis without bleeding CPT copyright 2021 [employer]. All rights reserved. The codes documented in this report are preliminary and upon stock speculator review may be revised to meet current [...] BEAKER POCT Final Result RH LABORATORY POC [facility] [address] Lab (1st floor, no room number) [place] [address] * (ABNORMAL) CBC with [...] BLOOD ORDERABLES Final Re sult RH LABORATORY [facility] [address] Lab (1st floor, no room number) [place] [address], [facility] * (ABNORMAL) Basic metabolic panel (06/18/2024 [...] - BLOOD ORDERABLES Final Re sult LABORATORY [facility] [address] Lab (1st floor, no room number) [place] [address], [facility] * (ABNORMAL) Glucose by meter (06/18/2024 5:30 AM CDT) GLUCOSE BY METER POCT 120(H) 70 - 99 mg/dL 06/18/2024 5:37 AM CDT LABORATORY POC Blood, Capillary BLOOD SPECIMEN / Unknown 06/18/2024 5:30 AM CDT 06/18/2024 5:37 AM CDT us eG Bowman MD LAB - BEAKER POCT Final Result LABORATORY [facility] Lab [address] Lab (1st floor, no room number) [place] [phone] * (ABNORMAL) Glucose by meter (06/18/2024 1:24 AM CDT) GLUCOSE BY METER POCT 159(H) 70 - 99 mg/dL 06/18/2024 1:31 AM CDT LABORATORY POC Blood, Capillary BLOOD SPECIMEN / Unknown 06/18/2024 1:24 AM CDT 06/18/2024 1:31 AM CDT us Ge Bowman MD LAB - BEAKER POCT Final Result [facility] Lab [address] Lab (1st floor, no room number) [place] [phone] * (ABNORMAL) Occult blood stool (06/17/2024 8:10 PM CDT) Occult Blood Positive(A ) Negative ANAHI 06/17/2024 8:20 PM CDT LABORATORY Stool RECTAL CONTENTS / Unknown Non-blood Collection / Unknown 06/17/2024 8:10 PM CDT 06/17/2024 8:19 PM CDT us Kushal Portillo MD LAB - STOOLS ORDERABLES Shantel l Result [facility] Lab [address] Lab (1st floor, no room number) [address] * (ABNORMAL) Hemoglobin A1c (06/17/2024 7:48 PM CDT) [facility] Estimated Average Glucose 203(H) <117 mg/dL 06/17/2024 [...] LAB - BLOOD ORDERABLES Final Re sult [facility] Acute Care Lab [address] Lab (1st floor, no room number) [address] * Extra Red Top Tube (06/17/2024 7:48 PM CDT) [facility] Hold Specimen JIC 06/17/2024 9:02 PM CDT RH LABORATORY Blood BLOOD SPECIMEN / Unknown Venipuncture / Unknown 06/17/2024 7:48 PM CDT 06/17/2024 7:55 PM CDT us Kushal Portillo MD LAB - BLOOD ORDERABLES Final Result LABORATORY [facility] [address] Lab (1st floor, no room number) [address] * Adult Type and Screen (06/17/2024 7:48 PM CDT) [facility] ABO/RH(D) O POS 06/17/2024 7:31 PM CDT RH BLOOD BANK Antibody Screen Negative Negative 06/17/2024 7:31 PM CDT RH BLOOD BANK SPECIMEN EXPIRATION DATE [id number] 06/17/2024 7:31 PM CDT RH BLOOD BANK Blood BLOOD SPECIMEN / Unknown Venipuncture / Unknown 06/17/2024 7:48 PM CDT 06/17/2024 7:55 PM CDT Kushal Portillo MD LAB - BLOOD BANK TEST ORDER Final Result RH BLOOD BANK [address] [place] [address], [facility] * (ABNORMAL) CBC with platelets and [...] - BLOOD ORDERABLES Final Result RH LABORATORY [facility] [address] Lab (1st floor, no room number) [place] [address], [facility] * Ethyl Alcohol Level (06/17/2024 7:48 PM CDT) Alcohol ethyl <0.01 <=0.01 g/dL 06/17/2024 8:15 PM CDT RH LABORATORY Blood BLOOD SPECIMEN / Unknown Venipuncture / Unknown 06/17/2024 7:48 PM CDT 06/17/2024 7:55 PM CDT us Kusahl Portillo MD LAB - BLOOD ORDERABLES Final Result RH LABORATORY [facility] [address] [facility] Lab (1st floor, no room number) [place] [address], [facility] * (ABNORMAL) Comprehensive metabolic panel (06/17/2024 [...] MD LAB - BLOOD ORDERABLES Final Result [facility] Lab [address] Lab (1st floor, no room number) [place] [address] * INR (06/17/2024 7:48 PM CDT) INR 0.95 0.85 - 1.15 06/17/2024 8:10 PM CDT RH LABORATORY Blood BLOOD SPECIMEN / Unknown Venipuncture / Unknown 06/17/2024 7:48 PM CDT 06/17/2024 7:55 PM CDT Kushal Portillo MD LAB - BLOOD ORDERABLES Final Result [facility] Lab [address] Lab (1st floor, no room number) [place] [address] documented in this encounter [...] William, YONATHAN) 0804 ($Given - Provider: Jude Lynn, RN) sodium chloride (PF) 0.9% PF flush [...] stools. documented in this encounter Care Teams [employer] Science Teacher Relationship Specialty Start Date End Date Shona Vásquez MD [facility] [address] [address] PCP - General Family Medicine 12/30/22 Kiet Arias MD [address] [place] [address] Assigned Heart and Vascular Provider 06/24/23 documented as of this encounter
--- OUTSIDE RECORDS SUMMARY | 2024-08-09 08:48 | XMS_ITS | Encounter Summary ---
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 Gender Identity Not on file Sexual Orientation Not on file documented as of this encounter Plan of Treatment Upcoming Encounters Date Type Department Care Team (Late st Contact Info) Description 08/23/2024 1:00 PM AIRPLANE PILOT CHIEF Office Visit [address] [phone] Kiet Arias MD [address] [place] [address] documented as of this encounter Visit Diagnoses Not on filedocumented in this encounter Care Teams Senior Marketing Associate Relationship Specialty Start Date End Date Shona Vásquez MD [facility] [address] [place] [address] PCP - General Family Medicine 12/30/22 Kiet Arias MD [address] [place] [address] Assigned Heart and Vascular Provider 06/24/23 documented as of this encounter
--- OUTSIDE RECORDS SUMMARY | 2024-08-09 08:49 | XMS_ITS | Clinical Summary ---
Author Organization [facility] Address [place], [place] [address] Care Team Providers Care Shortage Worker Name Role Phone Shona Chowdhury MD Primary Care Provider [phone] Allergies Active Allergy Reactions Criticality Noted Date [...] Description 07/11/2024 1:00 PM CDT Office Visit [address] [address] Dennis Portillo MD Consult (Initial office visit. referred to cardiology by Dr Barreto , [facility] - pt d/c 07/10 hospitalized for Anemia. Pt last seen by [facility] EKG and other cardiac testing in care everywhere./Pt states he is doing okay today. ) 07/11/2024 Travel 07/09/2024 4:00 PM CDT Ancillary Procedure [facility] [address] [place] [id number] from Last 3 Months Immunizations Name Administration [...] 37.1 C (98.7 F) 09/26/2020 2:46 PM FIELD CONTRACTOR Respiratory Rate 18 08/23/2017 8:44 AM FIELD CONTRACTOR Oxygen Saturation 94% 07/11/2024 1:14 PM CDT Inhaled Oxygen Concentration - - Weight 121.6 kg (268 lb) 07/11/2024 1:14 PM CDT Height 177.8 cm (5' 10) 07/11/2024 1:14 PM CDT Body Mass Index 38.45 07/11/2024 1:14 PM CDT Plan of Treatment Upcoming Encounters Date Type Department Care Team (Late st Contact Info) Description 08/09/2024 9:00 AM FIELD CONTRACTOR Ancillary Procedure [facility] [address] [place] [address] 09/26/2024 1:40 PM FIELD CONTRACTOR Orders Only [facility] [address] [facility] [address] [place] [address] 09/26/2024 2:00 PM FIELD CONTRACTOR Ancillary Procedure [facility] [address] [facility] [address] [place] [address] 09/30/2024 10:00 AM FIELD CONTRACTOR Office Visit [facility] [address] [facility] [address] [place] [address] William Mckeon MD [address] [place] [address] Health Maintenance Due Date Last Done Comments [...] Tech: JR Referring MD: SIM MARAVILLA Site: [facility] Reading Location: [facility] Patient Location: Inpatient. Procedure: 2D, Color Doppler [...] . This study was interpreted by an [facility] accredited facility. CC: Med/Surg - IP [facility] (med records) [facility]. Final Procedure Note Kenney Cote MD - 07/09/2024 ECHOCARDIOGRAM ALIZA RAMIREZ : 1960 63 years Study Date: 07/09/2024 12:34:50 PM Gender: M BP: 115/71 mmHg Height: 178.00 cm BSA: 2.36 m Weight: 121.00 kg Tech: JR Referring MD: SIM MARAVILLA Site: [facility] [place] Location: [place] Patient Location: Inpatient. Procedure: 2D, Color Doppler [...] [facility] accredited facility. CC: Med/Surg - IP [facility] (med records) [facility]. Final Sim Maravilla MD ECHO ORD from Last 3 Months or Most Recently Relevant to Health Maintenance Care Teams Shortage Worker Relationship Specialty [place] [address] [place] [address] PCP - General Family Practice 07/11/24
--- OUTSIDE RECORDS SUMMARY | 2024-08-09 08:49 | XMS_ITS | Encounter Summary ---
Author Organization [place] Address [address] [place] [address] Care Team Providers Care Electro Optical Engineer Name Role Phone Sangeetha Gonzales MD Primary Care Provider + Shona Vásquez MD Primary Care Provider [phone]- [phone] Kiet Arias MD Unavailable [phone] Zofia Hager APRN CHEESE BLENDER Unavailable Unavaila ble Kiet Arias MD Unavailable [phone] Encounter Details Date Type Department Care Team (Late st Contact Info) Description 07/05/2012 Office Visit-[facility] [address] [phone] iWlian Epps MD Social History Tobacco Use Types Packs/Day Years Used Date Smoking Tobacco: Never Assessed Sex and Gender Information Value Date Recorded Sex Assigned at Not on file 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 DATE: 07/05/2012 ALIZA RAMIREZ [id number] DATE OF : 1960 AGE: [age] years old Referring Physician: SANGEETHA GONZALES Referring Clinic: [facility] CURRENT DIAGNOSES 1. - CAD, 414.00 [...] he was admitted for observation overnight at [facility] because of vague intermittent across the chest feelings that he described to me in retrospect as soreness in the nipples and a vague tightness that comes and goes fleetingly. It worried him enough that he went to the ER. 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; Residence - lives with and children; [...] st Contact Info) Description 08/23/2024 1:00 PM JINGLE WRITER Office Visit [facility] [address] [facility] [address] [place] [phone] Kiet Arias MD [address] [place] [id number] documented as of this encounter Visit Diagnoses Not on filedocumented in this encounter Care Teams Electro Optical Engineer Relationship Specialty Start Date End Date Sangeetha Gonzales MD PCP - General 06/04/12 12/29/22 Shona Vásquez MD [facility] [address] [place] [address] PCP - General Family Medicine 12/30/22 Kiet Arias MD [address] [place] [id number] Assigned Heart and Vascular Provider 12/31/22 02/10/23 Zofia Hager APRN CHEESE BLENDER Assigned Heart and Vascular Provider 02/11/23 06/23/23 Kiet Arias MD [address] [place] [id number] Assigned Heart and Vascular Provider 06/24/23 documented as of this encounter
--- OUTSIDE RECORDS SUMMARY | 2024-08-09 08:49 | XMS_ITS | Encounter Summary ---
Author Organization [place] Address [address] [place] [address] Care Team Providers Care Court Interpreter Name Role Phone System, Provider Not In Primary Care Provider Un available Sangeetha Gonzales MD Primary Care Provider + Shona Vásquez MD Primary Care Provider + [phone] Kiet Arias MD Unavailable [phone] Zofia Hager APRN POULTRY FEED SUPERVISOR Unavailable Unavaila ble Kiet Arias MD Unavailable [phone] Encounter Details Date Type Department Care Team (Late st Contact Info) Description 08/29/2011 Office Visit-[facility] [address] [phone] Wilian Epps MD Social History Tobacco Use Types Packs/Day Years Used Date Smoking Tobacco: Never Assessed Sex and Gender Information Value Date Recorded Sex Assigned at Not on file Legal Sex Male 3:08 AM HANDBAG PARTS CUTTER Gender Identity Not on file Sexual Orientation Not on file documented as of this encounter Progress Notes * Wilian Epps MD - 09/02/2011 3:54 PM CST Progress Note Created by: Wilian Epps M.D. DATE: 08/29/2011 ALIZA RAMIREZ [id number] DATE OF : 1960 AGE: [age] years old Referring Physician: SANGEETHA GONZALES Referring Clinic: [facility] CURRENT DIAGNOSES 1. 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; Residence - lives with and children; [...] st Contact Info) Description 08/23/2024 1:00 PM HANDBAG PARTS CUTTER Office Visit [facility] [id number] [place] [address] [address] [place] [phone] Kiet Arias MD [address] [place] [id number] documented as of this encounter Visit Diagnoses Not on filedocumented in this encounter Care Teams Court Interpreter Relationship Specialty Start Date End Date System, Provider Not In PCP - General 08/19/11 06/03/12 Sangeetha Gonzales MD PCP - General 06/04/12 12/29/22 Shona Vásquez MD [facility] [address] [place] [address] PCP - General Family Medicine 12/30/22 Kiet Arias MD [address] [place] [id number] Assigned Heart and Vascular Provider 12/31/22 02/10/23 Zofia Hager APRN POULTRY FEED SUPERVISOR Assigned Heart and Vascular Provider 02/11/23 06/23/23 Kiet Arias MD [address] [place] [id number] Assigned Heart and Vascular Provider 06/24/23 documented as of this encounter
--- OUTSIDE RECORDS SUMMARY | 2024-08-09 08:49 | XMS_ITS | Encounter Summary ---
Author Organization [place] Address [address] [place] [address]. [place] [address] Care Team Providers Care Hazardous Waste Management Specialist Name Role Phone Shona Vásquez MD Primary Care Provider [phone] Zofia Hager APRN PROJECT MANAGER INTERIOR DESIGN Unavailable Unavaila ble Kiet Arias MD Unavailable Encounter Details Date Type Department Care Team (Late st Contact Info) Description 05/25/2023 External Order Results [facility] [address] [place] [address] Outside, Provider Social History Tobacco Use Types Packs/Day Years Used Date Smoking Tobacco: Every Day Cigarettes Smokeless Tobacco: Never Alcohol Use Standard Drinks/Week Comments No 0 (1 standard drink = 0.6 oz pur e alcohol) PHQ-2 Answer Date Recorded PHQ-2 Score 2 12/30/2022 Sex and Gender Information Value Date Recorded Sex Assigned at Not on file Legal Sex Male 3:08 AM UNISHEAR OPERATOR Gender Identity Not on file Sexual Orientation Not on file documented as of this encounter Plan of Treatment Upcoming Encounters Date Type Department Care Team (Late st Contact Info) Description 08/23/2024 1:00 PM UNISHEAR OPERATOR Office Visit [facility] [place] [address] [place] [address] [address] [place] [address] Kiet Arias MD [address] [facility] [address] [place] [address]20865 documented as of this encounter Procedures Procedure [...] SPECIMEN / Unknown 05/25/2023 10:15 AM CDT Keely HERNANDEZ PFT - 06/15/2023 7:54 AM CDT Verified by Rc Corbin on 06/15/2023. us Provider Outside LAB - BLOOD ORDERABLES Edited R esult - Final BREEZE PFT NON-INTERFACED (ONBASE SCANS) * Potassium (05/25/2023 10:15 AM CDT) Potassium (External) 3.9 3.5 - 4.9 mmol/l NON-INTERFACED (ONBASE SCANS) Blood BLOOD SPECIMEN / Unknown 05/25/2023 10:15 AM CDT Narrative BREEZE PFT - 06/15/2023 7:54 AM CDT Verified by Rc Corbin on 06/15/2023. Provider Outside LAB - BLOOD ORDERABLES Edited [facility] Performing Organization Address City/[facility]/ZIP Co de Phone Number BREEZE PFT NON-INTERFACED (ONBASE SCANS) * Chloride (05/25/2023 10:15 AM CDT) Chloride (External) 101 98 - 109 mmol/l NON-INTERFACED (ONBASE SCANS) Blood BLOOD SPECIMEN / Unknown 05/25/2023 10:15 AM CDT Narrative BREEZE PFT - 06/15/2023 7:54 AM CDT Verified by Rc Corbin on 06/15/2023. Provider Outside LAB - BLOOD ORDERABLES Edited [facility] Performing Organization Address [facility] Co de Phone Number BREEZE PFT NON-INTERFACED (ONBASE SCANS) * Co2 Total (05/25/2023 10:15 AM CDT) CO2 (External) 29 20 - 32 mmol/L NON-INTERFACED (ONBASE SCANS) Blood BLOOD SPECIMEN / Unknown 05/25/2023 10:15 AM CDT Narrative BREEZE PFT - 06/15/2023 7:53 AM CDT Verified by Rc Corbin on 06/15/2023. Provider Outside LAB - BLOOD ORDERABLES Edited [facility] Performing Organization Address [facility]/ZIP Co de Phone Number BREEZE PFT NON-INTERFACED (ONBASE SCANS) * Creatinine (05/25/2023 10:15 AM CDT) Creatinine (External) 1.2 0.6 - 1.3 mg/dl NON-INTERFACED (ONBASE SCANS) Blood BLOOD SPECIMEN / Unknown 05/25/2023 10:15 AM CDT Narrative BREEZE PFT - 06/15/2023 7:53 AM CDT Verified by Rc Corbin on 06/15/2023. Provider Outside LAB - BLOOD ORDERABLES Edited [facility] Performing Organization Address [facility] Co de Phone Number BREEZE PFT NON-INTERFACED (ONBASE SCANS) * (ABNORMAL) Glucose (05/25/2023 10:15 AM CDT) Glucose (External) 245(H) 60 - 115 mg/dl NON-INTERFACED (ONBASE SCANS) Blood BLOOD SPECIMEN / Unknown 05/25/2023 10:15 AM CDT Narrative BREEZE PFT - 06/15/2023 7:53 AM CDT Verified by Rc Corbin on 06/15/2023. Provider Outside LAB - BLOOD ORDERABLES Edited [facility] Per[facility] Organization Address [facility] de Phone Number BREEZE PFT NON-INTERFACED (ONBASE SCANS) * (ABNORMAL) Ionized Calcium (05/25/2023 10:15 AM CDT) Calcium Ionized (External) 1.05(L) 1.11 - 1.33 mmol/L NON-INTERFACED (ONBASE SCANS) Blood BLOOD SPECIMEN / Unknown 05/25/2023 10:15 AM CDT Narrative BREEZE PFT - 06/15/2023 7:53 AM CDT Verified by Rc Corbin on 06/15/2023. Provider Outside LAB - BLOOD ORDERABLES Edited [employer] [facility] Performing Organization Address [facility] Co de Phone Number BREEZE PFT NON-INTERFACED (ONBASE SCANS) * (ABNORMAL) Hemoglobin A1c (05/25/2023 10:15 AM CDT) Hemoglobin A1C (External) 14.9(H) 0 - 5.6 % NON-INTERFACE D (ONBASE SCANS) Blood BLOOD SPECIMEN / Unknown 05/25/2023 10:15 AM CDT Narrative BREEZE PFT - 06/15/2023 7:53 AM CDT Verified by Rc Corbin on 06/15/2023. us Provider Outside LAB - BLOOD ORDERABLES Edited R esult - Final MARY PFRadu NON-INTERFACED (ONBASE SCANS) documented in this encounter Visit Diagnoses Not on filedocumented in this encounter Care Teams Hazardous Waste Management Specialist Relationship Specialty Start Date End Date Shona Vásquez MD [facility] [address] [place] [address] PCP - General Family Medicine 12/30/22 Zofia Hager APRN PROJECT MANAGER INTERIOR DESIGN Assigned Heart and Vascular Provider 02/11/23 06/23/23 Kiet Arias MD [address] [place] [address] Assigned Heart and Vascular Provider 06/24/23 documented as of this encounter
--- OUTSIDE RECORDS SUMMARY | 2024-08-09 08:49 | XMS_ITS | Encounter Summary ---
Author Organization [facility] Address [address] [place] [address]. [place] [address] Care Team Providers Care Senior Hardware Design Engineer Name Role Phone Shona Vásquez MD Primary Care Provider [phone] Kiet Arias MD Unavailable [phone] Encounter Details Date Type Department Care Team [...] file Legal Sex Male 3:08 AM CLINICAL NUTRITION MANAGER Gender Identity Not on file Sexual Orientation Not on file documented as of this encounter Plan of Treatment Upcoming Encounters Date Type Department Care Team (Late st Contact Info) Description 08/23/2024 1:00 PM CLINICAL NUTRITION MANAGER Office Visit [facility] [address] [place] [address] [address] [place] [phone] Kiet Arias MD [address] [place] [address] documented as of this encounter Visit Diagnoses Not on filedocumented in this encounter Care Teams Senior Hardware Design Engineer Relationship Specialty Start Date End Date Shona Vásquez MD [facility] [address] [place] [address] PCP - General Family Medicine 12/30/22 Kiet Arias MD [address] [place] [address] Assigned Heart and Vascular Provider 06/24/23 documented as of this encounter
--- OUTSIDE RECORDS SUMMARY | 2024-08-09 08:49 | XMS_ITS | Encounter Summary ---
Author Organization [place] Address [address] [place] [address]. [place] [address] Care Team Providers Care Claim Trainee Name Role Phone System, Provider Not In Primary Care Provider Un available Sangeetha Gonzales MD Primary Care Provider + Shona Vásquez MD Primary Care Provider [phone]- [phone] Kiet Arias MD Unavailable [phone] Zofia Hager SALES PRODUCT MANAGER DELI COOK Unavailable Unavaila ble Keit Arias MD Unavailable [phone] Encounter Details Date Type Department Care Team (Late st Contact Info) Description 05/30/2011 Office Visit-[facility] [place] [address] [facility] [address] [place] [id number] Sandy Briones, SALES PRODUCT MANAGER DELI COOK [address] [facility] [address] [place] [id number] Social History Tobacco Use Types Packs/Day Years Used Date Smoking Tobacco: Never Assessed Sex and Gender Information Value Date Recorded Sex Assigned at Not on file Legal Sex Male 3:08 AM TRAFFIC EXPERT Gender Identity Not on file Sexual Orientation Not on file documented as of this encounter Progress Notes * Sandy Briones NP - 06/01/2011 3:04 PM CDT Progress Note Created by: Sandy Briones, N.P. [id number] DATE: 05/30/2011 ALIZA RAMIREZ DATE OF : 1960 AGE: [age] years old Referring Physician: SANGEETHA GONZALES Referring Clinic: [facility] CURRENT DIAGNOSES 1. 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; Residence - lives with and children; [...] st Contact Info) Description 08/23/2024 1:00 PM TRAFFIC EXPERT Office Visit [facility] [address] [facility] [address] [place] [address] Kiet Arias MD [address] [facility] [address] [place] [address] documented as of this encounter Visit Diagnoses Not on filedocumented in this encounter Care Teams Claim Trainee Relationship Specialty Start Date End Date System, Provider Not In PCP - General 08/19/11 06/03/12 Sangeetha Gonzales MD PCP - General 06/04/12 12/29/22 Shona Vásquez MD [facility] [address] [place] [address] PCP - General Family Medicine 12/30/22 Kiet Arias MD [address] [place] [address] Assigned Heart and Vascular Provider 12/31/22 02/10/23 Zofia Hager APRN [facility] Assigned Heart and Vascular Provider 02/11/23 06/23/23 Kiet Arias MD [address] [place] [address] Assigned Heart and Vascular Provider 06/24/23 documented as of this encounter
--- OUTSIDE RECORDS SUMMARY | 2024-08-09 08:49 | XMS_ITS | Encounter Summary ---
Author Organization [facility] Address [address] [place] [address] Care Team Providers Care Chief Maintenance Supervisor Name Role Phone Shona Vásquez MD Primary Care Provider [phone] Kiet Arias MD Unavailable [phone] Zofia Hager APRN BUCKLE GLUER Unavailable Unavaila ble Kiet Arias MD Unavailable [phone] Encounter Details Date Type Department Care Team (Late st Contact Info) Description 01/10/2023 [facility] Medical Advice [facility] [address] [place] [address] Amna Rodriguez, RN Social History [...] file Legal Sex Male 3:08 AM TECHNICAL SUPPORT SPECIALIST Gender Identity Not on file Sexual [...] st Contact Info) Description 08/23/2024 1:00 PM TECHNICAL SUPPORT SPECIALIST Office Visit [facility] [address] [facility] [address] [place] [phone] Kiet Arias MD [address] [place] [address] documented as of this encounter Visit Diagnoses Not on filedocumented in this encounter Care Teams Chief Maintenance Supervisor Relationship Specialty Start Date End Date Shona Vásquez MD [facility] [address] [place] [address] PCP - General Family Medicine 12/30/22 Kiet Arias MD [address] [place] [address] Assigned Heart and Vascular Provider 12/31/22 02/10/23 Zofia Hager APRN BUCKLE GLUER Assigned Heart and Vascular Provider 02/11/23 06/23/23 Kiet Arias MD [address] [place] [address] Assigned Heart and Vascular Provider 06/24/23 documented as of this encounter
== END 2024-08-09 08:40 | disposition home or self-care (01) ==
LOC: RAD 08:39
PROVIDERS: PCP Emergency Medicine; Visit Provider Emergency Medicine
DX: R42 Dizziness and giddiness (principal); I50.9 Heart failure, unspecified
CPT/HCPCS: 93306; Q9957

== ENCOUNTER 2024-08-20 12:00 | Inpatient (IN) | payer OTHER, SELFPAY ==
--- NOTE | 2024-08-20 11:35 | P.IMHP_ITS ---
Hospitalist- H&P: HPI History of Present Illness Date Seen: 08/20/24 Chief complaint: Observation Narrative: ADMISSION HISTORY AND PHYSICAL - HOSPITALIST Chief Complaint: Weakness, bilateral lower extremity edema, severely hypocalcemic, prolonged QT HPI: 63-year-old Roldan is a white male with a history of CHF, coronary artery disease, COPD with continued smoking, recent GI bleed, type 2 diabetes who presented for follow-up this morning at his primary care clinic in [place]. At this appointment the PCP was concerned regarding his symptoms of generalized weakness, mild shortness of breath and lightheadedness and lab abnormalities. She noted his severe hypocalcemia, prolonged QT, chronic anemia. She called for direct admission as we have cared for him before and we discussed as a team whether ED needed to be involved, and we did not think ED was necessary. Once in the room he tells me he has a weird sensation periorally; c/w paresthesias due to hypocal. No tetany. no psychiatric acute issues, negative Chvostek's sign, trousseau's sign. Quick overview: 06/17- patient admitted to [facility] for melena, found to be anemic, EGD showed duodenitis Had colonoscopy as an outpatient which showed 7 polyps which were removed 06/24 seen in the clinic for follow-up, found to be anemic, transfused as an outpatient 1 unit packed red cells 07/08-07/10 admitted for shortness of breath, anemia, acute CHF HFpEF, thought to be secondary to fluid resuscitation and blood transfusion for GI bleed. Demand ischemia elevated troponin at admission Anemia DC hgb 8.7 discharge creatinine 1.1 Seen in clinic July 16 and July 18 aug 01 Hospital Course June 2024 - [place] Dustin Carrera is a 63 year old male with a history of coronary artery disease, uncontrolled diabetes mellitus type 2, hypertension, hyperlipidemia, COPD, and tobacco abuse who came into the emergency department for persistent dizziness. He started having abdominal pain, melena, and dizziness on 06/17/2024. He was seen for this in the urgent care and transferred to [facility] where he had an EGD. He had duodenitis and no other explanation for GI bleeding. Biopsies negative for H pylori His blood pressures were low normal and so several of his antihypertensive (amlodipine 10 mg, lisinopril 20 mg, hydrochlorothiazide 12.5 mg) were stopped and metoprolol was reduced from 100 mg b.i.d. to 50 mg b.i.d.. He followed up with Dr. German for persistent dizziness and his hemoglobin at that visit was lower than the 1 at discharge from [facility]. He was given 1 unit packed red blood cells. He had a colonoscopy the next week which found 7 polyps that were removed. Outpatient with any [place] Results of biopsies are still not available at the time of admission. He has had no further melena or abdominal pain, but does have persistent dizziness. He describes is primarily as weakness and lightheadedness. No vertigo. No syncope He denies any chest pain or shortness of breath. He thought that maybe he needed another blood transfusion today, but his hemoglobin is 8.1. He was found to have an elevated troponin in the emergency department, but again is completely asymptomatic other than dizziness. He does note that his ankles have been swollen over the last few days which is new. Previous history of coronary artery disease: Stent in LAD and 2011, 2 stents in his right coronary artery in 2014. Two thousand fifteen he was noted to have CT 0 of his diagonal and a 30% in stent restenoses of his LAD an 80% apical LAD stenosis. Echocardiogram in 2017 showed ejection fraction of 65 to 70% with no focal wall motion abnormality. December 2022 he had a Lexiscan showing ejection fraction of 50% with a small area of nontransmural infarct in the mid to distal anterior wall of the LAD artery distribution with mild degree of bobbi-infarct ischemia this is consistent with his known occluded collateralized diagonal. 07/10/2024: On the day of discharge he reports feeling better. No chest pain. Dyspnea is better. Tolerating the up titration of his hypertension and heart failure medicines quite well. Echo has been updated from the one we did as an inpatient in June. What they found was now there is normal LV size, normal wall thickness, normal global sy stolic function with an EF of 65-70%. When compared to the one in June the IVC is normal dimension and there was no RVSP. Emergent EGD on 06/18/2024 at [facility]. Stomach, biopsy: - Oxyntic and antral type gastric mucosa with mild chronic inflammation. - Negative for H. Pylori organisms on routine stains. - Negative for intestinal metaplasia. -Negative for dysplasia or malignancy ER COURSE: N/A Clinic: xray, EKG, labs. sent as a direct admit CODE STATUS: FULL CODE EMERGENCY CONTACT PLAN: Marcie Carrera Rel To Pat I've updated the PFSH, medications and allergies in the Expanse tabs. INVESTIGATIONS: LABS/MICRO/ECG/IMAGING CLINIC LABS, Rads, EKG: Awaiting EKG to be scanned in from clinic, will repeat here if needed. Two view chest x-ray: By my read -- Small bilateral pleural effusions worse on the right than the left with adjacent compressive atelectasis. White count is normal at 10.7. Baseline anemia is stable at 9.7. MCV 75. Platelets are normal. Hemoglobin A1c 7.9 % (0-5.6) H 08/20/24 Hct 34.3 % (37.0-53.0) L 08/20/24 Hgb 9.7 gm/dL (13.5-17.5) L 08/20/24 Plt Count 256 K/uL (140-440) 08/20/24 RBC 4.58 m/uL (4.30-5.90) 08/20/24 WBC 10.76 K/uL (4.50-11.00) 08/20/24 POC Sodium 140 mmol/L (138-146) 08/20/24 POC Potassium 3.1 mmol/L (3.5-4.9) L 08/20/24 POC Chloride 98 mmol/L (98-109) 08/20/24 POC Total CO2 29 mmol/L (20-32) 08/20/24 POC Venous BUN 15 mg/dl (8-26) 08/20/24 POC Creatinine 1.2 mg/dl (0.6-1.3) 08/20/24 POC Ionized Calcium 0.74 mmol/L (1.11-1.33) L 08/20/24 POC Glucose 157 mg/dl (60-115) H 08/20/24 REVIEW OF SYSTEMS: 12-point ROS completed with patient and negative unless otherwise stated in HPI or below. PHYSICAL EXAM: CONSTITUTIONAL: comfortable appearing bearded man; mild tachypnea; moderate edema. can complete sentences. VITAL SIGNS: see record. HEENT: Normocephalic, atraumatic. PERRL, EOMI, conjunctivae pink, no scleral icterus. Ears and nose externally normal. Pharynx normal. NECK: No JVD. No carotid bruit, no thyromegaly, no adenopathy. CHEST: Clear to auscultation bilaterally HEART: S1 and S2 normal. No harsh murmurs. Edema 2+ MUSCULOSKELETAL: No gross joint deformity or swelling. NEURO: Cranial nerves intact. Grossly intact. No asymmetric findings. SKIN: No rashes, petechiae, concerning changes PSYCHIATRIC: Euthymic. ADMIT TO MEDSURG: FLOOR CARE DVT: Lovenox GI: PO intake Time spent: Today I spent 75 minutes seeing the patient, discussing the patient with ER staff, reviewing Expanse and EPIC notes/diagnostics, discussing the care plan with our care time that includes social work, PT/OT, pharmacy, RT, prison and documenting my impressions and plan in the medical record. [facility] Medical History (Updated 08/20/24 @ 14:36 by Susan Hui MD) History of renal cell cancer ?Z85.528 - Personal history of other malignant neoplasm of kidney (ICD-10) Ischemia due to increased oxygen demand ?I24.89 - Other forms of acute ischemic heart disease (ICD-10) Prolonged QT interval ?R94.31 - Abnormal electrocardiogram [ECG] [EKG] (ICD-10) Duodenitis ?K29.80 - Duodenitis without bleeding (ICD-10) Colon polyp ?K63.5 - Polyp of colon (ICD-10) NSTEMI (non-ST elevated myocardial infarction) ?I21.4 - Non-ST elevation (NSTEMI) myocardial infarction (ICD-10) Macular degeneration ?H35.30 - Unspecified macular degeneration (ICD-10) Gastroesophageal reflux disease ?K21.9 - Gastro-esophageal reflux disease without esophagitis (ICD-10) Ectatic aorta ?I77.819 - Aortic ectasia, unspecified site (ICD-10) Microalbuminuria ?R80.9 - Proteinuria, unspecified (ICD-10) Skin lesion of right arm ?L98.9 - Disorder of the skin and subcutaneous tissue, unspecified (ICD-10) History of renal cell carcinoma ?Z85.528 - Personal history of other malignant neoplasm of kidney (ICD-10) Anxiety and depression ?F41.9 - Anxiety disorder, unspecified (ICD-10) ?F32.A - Depression, unspecified (ICD-10) Neuropathy ?G62.9 - Polyneuropathy, unspecified (ICD-10) Abnormal nuclear stress test ?R94.39 - Abnormal result of other cardiovascular function study (ICD-10) BPH (benign prostatic hyperplasia) ?N40.0 - Benign prostatic hyperplasia without lower urinary tract symptoms (ICD-10) COPD (chronic obstructive pulmonary disease) ?J44.9 - Chronic obstructive pulmonary disease, unspecified (ICD-10) Tobacco use disorder ?F17.200 - Nicotine dependence, unspecified, uncomplicated (ICD-10) Hyperlipidemia ?E78.5 - Hyperlipidemia, unspecified (ICD-10) Coronary artery disease ?I25.10 - Atherosclerotic heart disease of [place] coronary artery without angina pectoris (ICD-10) Angina pectoris ?I20.9 - Angina pectoris, unspecified (ICD-10) Hypertension ?I10 - Essential (primary) hypertension (ICD-10) Uncontrolled type 2 diabetes mellitus Surgical History History of partial nephrectomy ?Z90.5 - Acquired absence of kidney (ICD-10) History of knee surgery ?Z98.890 - Other specified postprocedural states (ICD-10) History of hernia repair ?Z98.890 - Other specified postprocedural states (ICD-10) ?Z87.19 - Personal history of other diseases of the digestive system (ICD-10) History of coronary artery stent placement ?Z95.5 - Presence of coronary angioplasty implant and graft (ICD-10) Family History Sister Breast cancer Kidney disease Brother Diabetes Mother Non Hodgkin's lymphoma Social History Narrative: . 6 grandchildren. Does not drink alcohol Marijuana use Current Smoker- 40 pack years, 3/4 pack/day, no plans to quit or cut down. What is your current living situation?: I presently have a place to live Problems where you live: no known problems Problems where you live details: n/a In the past 12 months, utilities in danger of being shut off: no In the past 12 mos, have been you worried that your food would run out before you had money to buy more?: never true In the past 12 mos, the food you bought just didn't last and you didn't have money to buy more?: never true Smoking Status: Current every day smoker What tobacco products do you use: cigarettes How often do you have a drink containing alcohol: never AUDIT-C Alcohol total score: 0 Non-prescribed substance use: former substance user Caffeine: No How often does anyone, including family, friends and others, physically hurt you : never How often does anyone, including family, friends and others, insult or talk down to you: never How often does anyone, including family, friends and others, threaten you with harm: never How often does anyone, including family, friends and others, scream or curse at you: never service: No Meds Home Medications and Allergies Home Medications ?Medication ?Instructions ?Recorded ?Confirmed ?Type atorvastatin 80 mg tablet 80 mg PO HS 06/24/24 08/20/24 History empagliflozin 10 mg tablet 10 mg PO DAILY 07/08/24 08/20/24 History (Jardiance) fluticasone 250 mcg-salmeterol 50 1 inh inhalation DAILY PRN 07/08/24 08/20/24 History mcg/dose blistr powdr for inhalation (Advair Diskus) metoprolol tartrate 100 mg tablet 50 mg PO BID 07/08/24 08/20/24 History aspirin 81 mg tablet,delayed 81 mg PO MOWEFR 08/20/24 08/20/24 History release clonazepam 0.5 mg tablet 0.25 - 0.5 mg PO HS PRN anxiety 08/20/24 08/20/24 History coenzyme Q10 100 mg capsule (Co 100 mg PO DAILY 08/20/24 08/20/24 History Q-10) iron,carbonyl 65 mg-vitamin C 125 1 tab PO Q48H 08/20/24 08/20/24 History mg tablet,delayed release (Vitron-C) Allergies Allergy/AdvReac Type Severity Reaction Status Date / Time amoxicillin Allergy Intermediate itching Verified 08/20/24 09:24 hands and swelling in hands Assessment and Plan Assessment and plan (1) Acute diastolic heart failure, NYHA class 2: Problem comment: -Diastolic HFpEF. weight in June 120-122kg. today's weight 125.4kg and edema is 2+ in legs and RR is slightly increased. likely in mild acute excerbation. -Echocardiograms done in June, and then in July show improvement in the left ventricle wall thickness, EF. Likely the acute episode of heart failure in June was related to hypovolemia (with subsequent fluids and blood) and the holding of meds for heart failure during the GI bleed. This admission it might be just not being on diuretic and other goal directed therapies. -He has an appointment this week with Cardiology. His lisinopril and amlodipine is still on hold. He has increased his metoprolol back up to the 100 b.i.d.. He was started on Jardiance. -The question is the appropriate diuretic dosing. He previously was discharged on Torsemide 40 daily and lasix 20mg (but patient never picked up the lasix). The torsemide was discontinued on 07/16 secondary to hypovolemia/hypotension (100/59). the lisinopril and amlodipine was also held. -Goal directed therapy (after correction in electrolytes) --> jardiance, semiglutide, spironlactone, lopressor and loop diuretic. Status: Acute (2) Hypocalcemia: Problem comment: -ICal is 0.76 -EKG shows prolonged QT, QTC 490 -stat replacement magnesium, 2 g followed by calcium gluconate 1-2 g in the next few hours. -mild alkalosis -telemetry, close lab evaluation -PTH, vitamin-D levels pending Status: Acute (3) Prolonged QT interval: Problem comment: -secondary to severe hypocalcemia -stabilize cardiac membranes with magnesium, telemetry for monitoring -replace calcium Status: Acute (4) COPD (chronic obstructive pulmonary disease): Problem comment: Counseled patient to stop smoking Status: Chronic (5) Hypertension: Problem comment: - metoprolol 100mg BID Status: Chronic (6) Diabetes mellitus: Problem comment: -A1C on admission 7.9 -sliding scale insulin, continuing home meds which include 2 orals (Jardiance, metformin) and long-acting and short-acting insulins Status: Acute (7) Anemia: Problem comment: He has been transfused to hemoglobin 8.7. Continue to monitor for any evidence of GI bleeding Status: Acute (8) Coronary artery disease: Problem comment: stent LAD 2010,RCA 2014 [facility] diagonal and 30% in-stent stenosis LAD stent 80%apical LAD stenosis cardiology f/u 12/2022 and 02/2023. Discussed with [facility] cardiology. He plans to get follow-up with them as an outpatient. Further evaluation for coronary artery disease based on symptoms. If having significant ongoing cardiac symptoms despite optimal heart failure management may need re-evaluation for worsening coronary artery disease. 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 Received blood during the initial diagnosis and evaluation at [facility]. He received another unit of blood as an outpatient. Hemoglobin is stable. No obvious bleeding at this admission. Status: Acute (11) BPH (benign prostatic hyperplasia): Status: Chronic (12) Neuropathy: Status: Chronic
[2024-08-20 12:26] VITALS: BP 127/78; PULSE 97; RESP 20; TEMP 36.6; O2SAT 91; BMI 39.7
[2024-08-20 12:54] LABS: HCO3 VBG 31 mmol/L (21-28); Ionized Calcium* 0.76 mmol/L (1.11-1.30); Lactate* 1.1 mmol/L (0.5-1.9); PCO2 VBG 47 mmHG (40-50); PO2 VBG 52.4 mmHG (25-47); pH VBG 7.431 (7.32-7.43)
[2024-08-20 13:00] VITALS: O2SAT 92
[2024-08-20] MEDS: MAGNESIUM IV 2 GM/50 ML PIGGYBACK IVPB (13:29)
[2024-08-20 13:30] VITALS: PULSE 87
[2024-08-20] MEDS: CALCIUM GLUC 1,000MG/50 ML 1,000 MG/50 ML BAG 100 MG IVPB ×3 (13:48→22:43)
[2024-08-20 13:52] LABS: Albumin* 4.1 g/dL (3.3-5.0); Chloride* 98 mmol/L (96-114); Sodium* 140 mmol/L (135-149)
[2024-08-20 13:53] LABS: Potassium* 3.2 mmol/L (3.6-5.1)
[2024-08-20 13:55] LABS: Alanine Aminotransferase* 22 U/L (4-50); Alkaline Phosphatase* 131 U/L (40-150); Anion Gap 12 mEq/L (7-15); Aspartate Amino Transferase* 31 U/L (12-35); Bilirubin Direct* 0.4 mg/dL (0.0-0.5); Bilirubin Total* 0.7 mg/dL (0.1-1.5); Blood Urea Nitrogen* 17 mg/dL (7-30); Carbon Dioxide* 30 mmol/L (20-32); Creatinine* 1.2 mg/dL (0.5-1.5); Est. Creatinine Clearance* 63.37; Estimated Glomerular Filt Rate 67 ml/min; Glucose* 158 mg/dL (60-115); Phosphorus* 5.1 mg/dL (2.5-4.5); Total Protein* 6.6 g/dL (6.0-8.3)
[2024-08-20 13:59] LABS: Calcium* 5.9 mg/dL (8.4-10.6)
[2024-08-20 14:07] LABS: Troponin I* 0.01 ng/mL (0.01-0.04)
[2024-08-20 14:08] LABS: PTH Intact* 29.7 pg/mL (14.2-75.2)
[2024-08-20 14:13] LABS: Vitamin D 25 Hydroxy* 27 ng/mL (30-80)
[2024-08-20 14:30] LABS: D Dimer Quantitative* 0.63 ug/ml (0.00-0.50); INR 1.09 (0.91-1.10); Prothrombin Time 14.8 Seconds
[2024-08-20 15:00] VITALS: BP 121/77; PULSE 93; RESP 20; O2SAT 93
[2024-08-20] MEDS: SPIRONOLACTONE 25 MG TABLET PO (15:04)
[2024-08-20 16:26] LABS: Appearance Urine Clear (Clear); Bilirubin Urine Negative (Negative); Blood Urine Negative (Negative); Color Urine Yellow (Yellow); Glucose Urine 2+ (Negative); Ketones Urine Negative (Negative); Leukocyte Esterase Urine Negative (Negative); Nitrite Urine Negative (Negative); Protein Urine Negative (Negative); Specific Gravity Urine 1.015 (1.000-1.030); Urobilinogen Urine 0.2 (0.2-1.0)
[2024-08-20 17:34] LABS: Chloride* 98 mmol/L (96-114); Sodium* 141 mmol/L (135-149)
[2024-08-20 17:35] LABS: Potassium* 3.5 mmol/L (3.6-5.1)
[2024-08-20 17:37] LABS: Blood Urea Nitrogen* 17 mg/dL (7-30); Creatinine* 1.2 mg/dL (0.5-1.5); Est. Creatinine Clearance* 63.37; Estimated Glomerular Filt Rate 67 ml/min
[2024-08-20 17:38] LABS: Anion Gap 12 mEq/L (7-15); Calcium* 6.2 mg/dL (8.4-10.6); Carbon Dioxide* 31 mmol/L (20-32); Glucose* 225 mg/dL (60-115)
[2024-08-20] MEDS: INSULIN ASPART 100 UNIT/ML 20 UNIT SUBCUT (17:42)
[2024-08-20 17:51] LABS: Lipase* 80 U/L (23-300)
[2024-08-20 17:52] LABS: Magnesium* 1.8 mg/dL (1.5-2.6)
[2024-08-20 18:14] LABS: NT Pro B Type NatriureticPept* 1620 pg/mL
[2024-08-20 18:15] LABS: C Reactive Protein* < 0.5 mg/dL (0.5-1.0)
[2024-08-20 18:45] LABS: Magnesium* 2.3 mg/dL (1.5-2.6)
--- NOTE | 2024-08-20 19:00 | PC.NURSE ---
Nursing Care Hours: [id number] Pt this shift direct admit from clinic. Pt has no c/o pain. States he has shortness of breath and increased edema in LE. Denies chest pain. States he has dizziness. Pt instructed to call for SB assist with ambulation due to concerns of cardiac rhythm changes, dizziness, and weakness. Pt voided, urine sample sent to lab. Calcium and mag infused per order. Tele set up, EKG done. Pt on room air. tolerating regular diet. Insulin given per order.
[2024-08-20 20:00] VITALS: PULSE 82
[2024-08-20 22:40] VITALS: BP 136/76; PULSE 89; RESP 20; TEMP 36.1; O2SAT 93
[2024-08-20] MEDS: METOPROLOL TARTRATE 100 MG TABLET PO (22:49)
[2024-08-20] MEDS: ENOXAPARIN 40 MG/0.4 ML INJ SUBCUT (22:50)
[2024-08-20] MEDS: ATORVASTATIN CALCIUM 40 MG TABLET 80 MG PO (22:50)
[2024-08-20] MEDS: INSULIN GLARGINE,HUM.REC.ANLOG 100 UNIT/ML INSULN.PEN 28 UNIT SUBCUT (22:51)
[2024-08-20] MEDS: OMEPRAZOLE 20 MG CAPSULE DR 40 MG PO (22:52)
[2024-08-20] MEDS: SODIUM CHLORIDE 0.9 % (FLUSH) 10 ML SYRINGE 5 ML IVF (22:53)
[2024-08-20] MEDS: clonazePAM 0.5 MG TABLET PO (23:07)
[2024-08-21] VITALS (7 sets, daily range): BP systolic 123–154; BP diastolic 67–86; PULSE 75–88; RESP 16–20; TEMP 36.4–36.9; O2SAT 90–96
[2024-08-21 01:38] LABS: Calcium* 6.5 mg/dL (8.4-10.6)
[2024-08-21] MEDS: CALCIUM GLUC 1,000MG/50 ML 1,000 MG/50 ML BAG 100 MG IVPB (02:50)
[2024-08-21 07:31] LABS: HCO3 VBG 31 mmol/L (21-28); Ionized Calcium* 0.84 mmol/L (1.11-1.30); PCO2 VBG 46 mmHG (40-50); PO2 VBG 58.8 mmHG (25-47); pH VBG 7.431 (7.32-7.43)
[2024-08-21 07:35] LABS: Hematocrit 34.4 % (37.0-53.0); Hemoglobin* 9.7 gm/dL (13.5-17.5); Mean Corpuscular HGB Conc 28 gm/dL (32-36); Mean Corpuscular Hemoglobin 21 pg (26-34); Mean Corpuscular Volume 75 fL (80-100); Platelet Count* 264 K/uL (140-440); White Blood Count* 11.22 K/uL (4.50-11.00)
[2024-08-21 07:43] LABS: Slide Review Reflex No
[2024-08-21 08:05] LABS: Albumin* 4.1 g/dL (3.3-5.0); Chloride* 101 mmol/L (96-114); Potassium* 3.5 mmol/L (3.6-5.1); Sodium* 143 mmol/L (135-149)
[2024-08-21 08:08] LABS: Anion Gap 12 mEq/L (7-15); Blood Urea Nitrogen* 20 mg/dL (7-30); Calcium* 6.6 mg/dL (8.4-10.6); Carbon Dioxide* 30 mmol/L (20-32); Creatinine* 1.1 mg/dL (0.5-1.5); Est. Creatinine Clearance* 69.13; Estimated Glomerular Filt Rate 75 ml/min; Glucose* 124 mg/dL (60-115); Phosphorus* 4.6 mg/dL (2.5-4.5)
[2024-08-21 08:28] LABS: Magnesium* 2.4 mg/dL (1.5-2.6)
[2024-08-21] MEDS: INSULIN ASPART 100 UNIT/ML 20 UNIT SUBCUT ×3 (08:57→17:57)
[2024-08-21] MEDS: INSULIN GLARGINE,HUM.REC.ANLOG 100 UNIT/ML INSULN.PEN 28 UNIT SUBCUT ×2 (08:58→21:33)
[2024-08-21] MEDS: METOPROLOL TARTRATE 100 MG TABLET PO ×2 (09:01→21:25)
[2024-08-21] MEDS: ASPIRIN 81 MG TABLET EC PO (09:01)
[2024-08-21] MEDS: OMEPRAZOLE 20 MG CAPSULE DR 40 MG PO ×2 (09:01→21:25)
[2024-08-21] MEDS: EMPAGLIFLOZIN 10 MG TABLET PO (09:02)
[2024-08-21] MEDS: SODIUM CHLORIDE 0.9 % (FLUSH) 10 ML SYRINGE 5 ML IVF (09:02)
[2024-08-21] MEDS: SPIRONOLACTONE 25 MG TABLET PO (09:02)
--- NOTE | 2024-08-21 09:36 | NUTR.NU ---
Addendum entered and electronically signed by Alesha Devi RD 08/21/24 09:48: RDN offered to changed patient's diet to Heart Healthy. Patient declined. Original Note: RDN with diet education related to heart failure. Patient admitted with heart failure exacerbation and hypocalcemia. Past medical history includes but not limited to coronary artery disease, uncontrolled diabetes mellitus type 2, hypertension, hyperlipidemia, COPD, and tobacco abuse. Current weight 276 lb 9oz; height 5ft 10in; BMI 39.7 kg/m2. Weight has been stable recently. RDN visited with patient whom reports he does not follow a specific diet at home, however he tries to eat healthy and avoid processed meats. He notes he needs to start watching his sodium intake. He reports never receiving diet education related to heart failure. RDN offered Heart Healthy diet education, however he declined at this time. Patient did accept educational materials to review on his own and take home. RDN's contact information provided and encouraged patient to call with questions. RDN to follow up as needed.
[2024-08-21] MEDS: POTASSIUM CHLORIDE 10 MEQ CAPSULE ER 20 MEQ PO (09:51)
[2024-08-21] MEDS: calcitrioL 0.25 MCG CAPSULE PO ×2 (09:54→21:26)
[2024-08-21] MEDS: CALCIUM CARBONATE 500 MG TABLET PO ×4 (10:26→21:26)
--- NOTE | 2024-08-21 11:09 | RESP.RT ---
Pt sleeping in chair, SPO2 90%. BBS clear Started IS with pt. Volumes 1.5 L. Needed encouragement to do 10 breaths at 1.5L. Did coughing on demand, pt with strong dry [employer] cough. SPO2 increased to 94%
[2024-08-21 13:16] LABS: Ionized Calcium* 0.89 mmol/L (1.11-1.30)
[2024-08-21 13:38] LABS: Calcium* 7.2 mg/dL (8.4-10.6); Phosphorus* 4.6 mg/dL (2.5-4.5)
[2024-08-21 13:44] LABS: Potassium* 3.7 mmol/L (3.6-5.1)
--- NOTE | 2024-08-21 14:35 | PC.NURSE ---
End of shift [id number]: Pt AxOx4, cooperative, and pleasant. Pt SBA, continent of the bladder and bowels. 1 BM this afternoon. Pt denies pain/nausea/dizziness/SOB. Pt appears resting with call light in reach. New IV started in the L wrist. Calcium levels being monitored and evaluated. Calcium Gluconate running at 50 mL/hr. NSR on TELE.
--- NOTE | 2024-08-21 15:40 | P.IMPN_ITS ---
Progress Note: A&P Assessment and plan (1) Acute diastolic heart failure, NYHA class 2: Problem details: -Diastolic HFpEF. weight in June 120-122kg. today's weight 125.4kg and edema is 2+ in legs and RR is slightly increased. likely in mild acute excerbation. -Echocardiograms done in June, and then in July show improvement in the left ventricle wall thickness, EF. Likely the acute episode of heart failure in June was related to hypovolemia (with subsequent fluids and blood) and the holding of meds for heart failure during the GI bleed. This admission it might be just not being on diuretic and other goal directed therapies. -He has an appointment this week with Cardiology. His lisinopril and amlodipine is still on hold. He has increased his metoprolol back up to the 100 b.i.d.. He was started on Jardiance. -The question is the appropriate diuretic dosing. He previously was discharged on Torsemide 40 daily and lasix 20mg (but patient never picked up the lasix). The torsemide was discontinued on 07/16 secondary to hypovolemia/hypotension (100/59). the lisinopril and amlodipine was also held. -Goal directed therapy (after correction in electrolytes) --> jardiance, semiglutide, spironlactone, lopressor and loop diuretic. Status: Acute (2) Hypocalcemia: Problem details: -ICal is 0.76 -EKG shows prolonged QT, QTC 490 -stat replacement magnesium, 2 g followed by calcium gluconate 1-2 g in the next few hours. -mild alkalosis -telemetry, close lab evaluation -PTH, vitamin-D levels pending Status: Acute (3) Prolonged QT interval: Problem details: -secondary to severe hypocalcemia -stabilize cardiac membranes with magnesium, telemetry for monitoring -replace calcium Status: Acute (4) COPD (chronic obstructive pulmonary disease): Problem details: Counseled patient to stop smoking Status: Chronic (5) Hypertension: Problem details: - metoprolol 100mg BID Status: Chronic (6) Diabetes mellitus: Problem details: -A1C on admission 7.9 -sliding scale insulin, continuing home meds which include 2 orals (Jardiance, metformin) and long-acting and short-acting insulins Status: Acute (7) Anemia: Problem details: He has been transfused to hemoglobin 8.7. Continue to monitor for any evidence of GI bleeding Status: Acute (8) Coronary artery disease: Problem details: stent LAD 2010,RCA 2014 [employer] diagonal and 30% in-stent stenosis LAD stent 80%apical LAD stenosis cardiology f/u 12/2022 and 02/2023. Discussed with [facility] cardiology. He plans to get follow-up with them as an outpatient. Further evaluation for coronary artery disease based on symptoms. If having significant ongoing cardiac symptoms despite optimal heart failure management may need re-evaluation for worsening coronary artery disease. 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 Received blood during the initial diagnosis and evaluation at [facility]. He received another unit of blood as an outpatient. Hemoglobin is stable. No obvious bleeding at this admission. Status: Acute (11) BPH (benign prostatic hyperplasia): Status: Chronic (12) Neuropathy: Status: Chronic Plan 1. Reviewed impression, plan, recommendations with patient. Answered his questions. He is agreeable with above stated plans and recommendations. 2. Continue close monitoring with labs, telemetry, electrocardiograms. Anticipate discontinuation of the calcium IV infusion as we initiate calcium carbonate 500 mg p.o. q.i.d. as well as calcitriol 0.25 mg p.o. b.i.d. 3. Continue with monitoring and replacement of potassium and magnesium. Time Spent With Patient Total time spent: 50 minutes Subjective Date Seen: 08/21/24 Interval history: ?Chief Complaint: Weakness, bilateral lower extremity edema, severely hypocalce dre, prolonged QT ?HPI: 63-year-old Roldan is a white male with a history of CHF, coronary artery disease, COPD with continued smoking, recent GI bleed, type 2 diabetes who presented for follow-up this morning at his primary care clinic in [place]. At this appointment the PCP was concerned regarding his symptoms of generalized weakness, mild shortness of breath and lightheadedness and lab abnormalities. She noted his severe hypocalcemia, prolonged QT, chronic anemia. She called for direct admission as we have cared for him before and we discussed as a team whether ED needed to be involved, and we did not think ED was necessary. ?Once in the room he tells me he has a weird sensation periorally; c/w paresthesias due to hypocal. No tetany. no psychiatric acute issues, negative Chvostek's sign, trousseau's sign. ?Quick overview: 06/17- patient admitted to [facility] for melena, found to be anemic, EGD showed duodenitis Had colonoscopy as an outpatient which showed 7 polyps which were removed 06/24 seen in the clinic for follow-up, found to be anemic, transfused as an outpatient 1 unit packed red cells 07/08-07/10 admitted for shortness of breath, anemia, acute CHF HFpEF, thought to be secondary to fluid resuscitation and blood transfusion for GI bleed. Demand ischemia elevated troponin at admission Anemia DC hgb 8.7 discharge creatinine 1.1 Seen in clinic July 16 and July 18 aug 01 ?Hospital Course June 2024 - [place] Dustin Carrera is a 63 year old male with a history of coronary artery disease, uncontrolled diabetes mellitus type 2, hypertension, hyperlipidemia, COPD, and tobacco abuse who came into the emergency department for persistent dizziness. He started having abdominal pain, melena, and dizziness on 06/17/2024. He was seen for this in the urgent care and transferred to [facility] where he had an EGD. He had duodenitis and no other explanation for GI bleeding. Biopsies negative for H pylori His blood pressures were low normal and so several of his antihypertensive (amlodipine 10 mg, lisinopril 20 mg, hydrochlorothiazide 12.5 mg) were stopped and metoprolol was reduced from 100 mg b.i.d. to 50 mg b.i.d.. He followed up with Dr. German for persistent dizziness and his hemoglobin at that visit was lower than the 1 at discharge from [facility]. He was given 1 unit packed red blood cells. He had a colonoscopy the next week which found 7 polyps that were removed. Outpatient with any Yusuf. Results of biopsies are still not available at the time of admission. He has had no further melena or abdominal pain, but does have persistent dizziness. He describes is primarily as weakness and lightheadedness. No vertigo. No syncope He denies any chest pain or shortness of breath. He thought that maybe he needed another blood transfusion today, but his hemoglobin is 8.1. He was found to have an elevated troponin in the emergency department, but again is completely asymptomatic other than dizziness. He does note that his ankles have been swollen over the last few days which is new. Previous history of coronary artery disease: Stent in LAD and 2011, 2 stents in his right coronary artery in 2014. Two thousand fifteen he was noted to have CT 0 of his diagonal and a 30% in stent restenoses of his LAD an 80% apical LAD stenosis. Echocardiogram in 2017 showed ejection fraction of 65 to 70% with no focal wall motion abnormality. December 2022 he had a Lexiscan showing ejection fraction of 50% with a small area of nontransmural infarct in the mid to distal anterior wall of the LAD artery distribution with mild degree of bobbi-infarct ischemia this is consistent with his known occluded collateralized diagonal. 07/10/2024: On the day of discharge he reports feeling better. No chest pain. Dyspnea is better. Tolerating the up titration of his hypertension and heart failure medicines quite well. ?Echo has been updated from the one we did as an inpatient in June. What they found was now there is normal LV size, normal wall thickness, normal global systolic function with an EF of 65-70%. When compared to the one in June the IVC is normal dimension and there was no RVSP. ?Emergent EGD on 06/18/2024 at [facility]. Stomach, biopsy: - Oxyntic and antral type gastric mucosa with mild chronic inflammation. - Negative for H. Pylori organisms on routine stains. - Negative for intestinal metaplasia. -Negative for dysplasia or malignancy ?ER COURSE: N/A Clinic: xray, EKG, labs. sent as a direct admit ?CODE STATUS: FULL CODE? Hospital day 2, 08/21/2024. Perioral paresthesias have now resolved. He tells me he feels anxious to go home when it is possible. Otherwise states he feels well. Reviewing [facility] medical record, he has had calcium values ranging from 6.2-8.2 since April 2024. Exam Narrative: Exam Narrative: Patient is examined in his hospital room. Appears comfortable. No acute distress. Alert, oriented x3. Tells me he wants to be able to go home. No apparent tetany. No Chvostek or Trousseau sign. Weight is down to 123.2 kg from 125.4 kg. Lungs are clear to auscultation. Heart tones with regular rhythm. Barrel-shaped chest. Obese abdomen with active bowel sounds, soft, nontender. Moves all 4 extremities. Independent in transfer, station, and gait. Const: Vital Signs, click to edit/add: Vital Signs - 24 hr 08/20/24 20:00 08/20/24 22:40 08/20/24 22:40 Temperature 97.0 F L Pulse Rate 82 Pulse Rate [Left P ulse Oximeter] 89 89 Respiratory Rate 20 20 Blood Pressure [Le ft Arm] 136/76 Pulse Oximetry 93 Oxygen Delivery Me thod Room Air 08/21/24 02:55 08/21/24 07:00 08/21/24 07:00 Temperature 97.6 F 97.9 F Pulse Rate Pulse Rate [Left P ulse Oximeter] 83 85 Respiratory Rate 18 18 18 Blood Pressure [Le ft Arm] 131/73 143/67 H Pulse Oximetry 91 90 Oxygen Delivery Me thod Room Air Room Air 08/21/24 07:00 08/21/24 11:00 08/21/24 13:00 Temperature 97.7 F Pulse Rate 75 Pulse Rate [Left P ulse Oximeter] 77 Respiratory Rate 18 Blood Pressure [Le ft Arm] 123/76 Pulse Oximetry 91 91 Oxygen Delivery Me thod Room Air Labs Labs: Laboratory Results - last 24 hr 08/20/24 08/20/24 08/20/24 12:23 12:40 15:45 WBC RBC Hgb Hct MCV MCH MCHC Plt Count VBG pH VBG pCO2 VBG pO2 VBG HCO3 Sodium Potassium Chloride Carbon Dioxide Anion Gap BUN Creatinine Estimated Creat Clear Estimated GFR Glucose Calcium Ionized Calcium Allyson Phosphorus Magnesium 1.8 C-Reactive Protein < 0.5 L NT-Pro-B Natriuret Pep 1620 Albumin Lipase 80 TSH 2.460 Urine Color Yellow Urine Appearance Clear Urine pH 6.0 Ur Specific [place] 1.015 Urine Protein Negative Urine Glucose (UA) 2+ A Urine Ketones Negative Urine Blood Negative Urine Nitrite Negative Urine Bilirubin Negative Urine Urobilinogen 0.2 Ur Leukocyte Esterase Negative Lab Acknowledgement 08/20/24 08/21/24 08/21/24 17:09 01:05 07:12 WBC 11.22 H RBC 4.60 Hgb 9.7 L Hct 34.4 L MCV 75 L MCH 21 L MCHC 28 L Plt Count 264 VBG pH 7.431 H VBG pCO2 46 VBG pO2 58.8 H VBG HCO3 31 H Sodium 141 143 Potassium 3.5 L 3.5 L Chloride 98 101 Carbon Dioxide 31 30 Anion Gap 12 12 BUN 17 20 Creatinine 1.2 1.1 Estimated Creat Clear 63.37 69.13 Estimated GFR 67 75 Glucose 225 H 124 H Calcium 6.2 L 6.5 L 6.6 L Ionized Calcium Allyson 0.80 L 0.84 L Phosphorus 4.6 H Magnesium 2.3 2.4 C-Reactive Protein NT-Pro-B Natriuret Pep Albumin 4.1 Lipase TSH Urine Color Urine Appearance Urine pH Ur Specific [place] Urine Protein Urine Glucose (UA) Urine Ketones Urine Blood Urine Nitrite Urine Bilirubin Urine Urobilinogen Ur Leukocyte Esterase Lab Acknowledgement 08/21/24 08/21/24 08/21/24 08:30 13:00 13:08 WBC RBC Hgb Hct MCV MCH MCHC Plt Count VBG pH VBG pCO2 VBG pO2 VBG HCO3 Sodium Potassium 3.7 Chloride Carbon Dioxide Anion Gap BUN Creatinine Estimated Creat Clear Estimated GFR Glucose Calcium 7.2 L Ionized Calcium Allyson 0.89 L Phosphorus 4.6 H Magnesium C-Reactive Protein NT-Pro-B Natriuret Pep Albumin Lipase TSH Urine Color Urine Appearance Urine pH Ur Specific [place] Urine Protein Urine Glucose (UA) Urine Ketones Urine Blood Urine Nitrite Urine Bilirubin Urine Urobilinogen Ur Leukocyte Esterase Lab Acknowledgement Test Added
[2024-08-21 16:27] LABS: Calcium* 7.1 mg/dL (8.4-10.6); Magnesium* 2.4 mg/dL (1.5-2.6)
[2024-08-21 19:55] LABS: Ionized Calcium* 0.97 mmol/L (1.11-1.30)
[2024-08-21 20:14] LABS: Calcium* 7.7 mg/dL (8.4-10.6)
[2024-08-21] MEDS: ATORVASTATIN CALCIUM 40 MG TABLET 80 MG PO (21:25)
[2024-08-21] MEDS: ENOXAPARIN 40 MG/0.4 ML INJ SUBCUT (21:26)
[2024-08-21] MEDS: clonazePAM 0.5 MG TABLET PO (22:35)
--- NOTE | 2024-08-21 22:58 | PC.NURSE ---
End of Shift: Patient pleasant and cooperative. Afebrile. Denies pain. Up walking in hallway and room independently. Tolerating regular diet with no nausea. Tele showing NSR.
[2024-08-22 05:47] VITALS: BP 139/80; PULSE 81; RESP 18; O2SAT 91
--- NOTE | 2024-08-22 06:34 | PC.NURSE ---
Pt alert and oriented x3. Afebrile. Pt denies pain, SOB, chest pain, and N/V. Pt is up ad yogesh, walked halls x2. Pt slept intermittently throughout night. ?
[2024-08-22 07:00] VITALS: BP 142/89; PULSE 71; RESP 20; O2SAT 91
[2024-08-22 07:03] LABS: Lactate* 0.8 mmol/L (0.5-1.9)
[2024-08-22 07:18] LABS: Hematocrit 33.4 % (37.0-53.0); Hemoglobin* 9.5 gm/dL (13.5-17.5); Mean Corpuscular HGB Conc 28 gm/dL (32-36); Mean Corpuscular Hemoglobin 21 pg (26-34); Mean Corpuscular Volume 75 fL (80-100); Platelet Count* 292 K/uL (140-440); Red Blood Count 4.43 m/uL (4.30-5.90); White Blood Count* 13.55 K/uL (4.50-11.00)
[2024-08-22 07:26] LABS: Slide Review Reflex No
[2024-08-22 07:59] LABS: Albumin* 3.8 g/dL (3.3-5.0); Chloride* 104 mmol/L (96-114); Sodium* 142 mmol/L (135-149)
[2024-08-22 08:02] LABS: Anion Gap 8 mEq/L (7-15); Blood Urea Nitrogen* 23 mg/dL (7-30); Carbon Dioxide* 30 mmol/L (20-32); Creatinine* 0.9 mg/dL (0.5-1.5); Est. Creatinine Clearance* 76.04; Estimated Glomerular Filt Rate 95 ml/min; Phosphorus* 4.8 mg/dL (2.5-4.5)
[2024-08-22 08:03] LABS: Calcium* 7.6 mg/dL (8.4-10.6); Magnesium* 2.4 mg/dL (1.5-2.6)
[2024-08-22 08:09] LABS: Glucose* 48 mg/dL (60-115)
[2024-08-22] MEDS: CALCIUM CARBONATE 500 MG TABLET PO ×2 (08:52→12:39)
[2024-08-22] MEDS: SPIRONOLACTONE 25 MG TABLET PO (08:52)
[2024-08-22] MEDS: METOPROLOL TARTRATE 100 MG TABLET PO (08:52)
[2024-08-22] MEDS: OMEPRAZOLE 20 MG CAPSULE DR 40 MG PO (08:52)
[2024-08-22] MEDS: EMPAGLIFLOZIN 10 MG TABLET PO (08:52)
[2024-08-22] MEDS: calcitrioL 0.25 MCG CAPSULE PO (08:53)
[2024-08-22] MEDS: SODIUM CHLORIDE 0.9 % (FLUSH) 10 ML SYRINGE 5 ML IVF (08:53)
[2024-08-22 09:00] VITALS: PULSE 90
[2024-08-22] MEDS: INSULIN GLARGINE,HUM.REC.ANLOG 100 UNIT/ML INSULN.PEN 14 UNIT SUBCUT (09:53)
[2024-08-22] MEDS: ALBUTEROL INHALER 2 PUFF IH (09:57)
[2024-08-22 11:00] VITALS: BP 142/83; PULSE 70; O2SAT 94
--- NOTE | 2024-08-22 15:07 | P.DS_ITS ---
DS: Providers Provider Date Seen: 08/22/24 Date of admission: 08/20/24 12:23 Primary care physician: Shona Vásquez Admitting Clinician: Jd Hui MD Consults: 08/20/24 12:25 Consult to Respiratory Therapy [CONS] Routine Comment: Reason(s) for RT Consult:: Consult Comment: severe COPD - smoker. Heart disease. Attending Physician on discharge: Bull Jin MD Date of Discharge: 08/22/24 DS: Diagnosis Discharge Diagnosis (1) Hypocalcemia: Status: Acute Problem details: -ICal is 0.76 -EKG shows prolonged QT, QTC 490 -start replacement magnesium, 2 g followed by calcium gluconate 1-2 g in the next few hours. -mild alkalosis -telemetry, close lab evaluation -PTH 29.7 (nl 14-75), 25-OH vitamin-D level 27 (nl 30-80) -later added calcium gluconate IV drip 1100 mg per 1000 mL at 50 mL/hour, plus started oral calcium carbonate 1 g p.o. b.i.d. and calcitriol 0.25 mg p.o. b.i.d. -08/22/24: Calcium 7.6, ionized calcium 1.00 (2) Prolonged QT interval: Status: Acute Problem details: -secondary to severe hypocalcemia -stabilize cardiac membranes with magnesium, telemetry for monitoring -08/22/24 ECG: NSR, occasional VPC, [id number] (3) Acute diastolic heart failure, NYHA class 2: Status: Acute Problem details: -Diastolic HFpEF. weight in June 120-122kg. today's weight 125.4kg and edema is 2+ in legs and RR is slightly increased. likely in mild acute excerbation. -Echocardiograms done in June, and then in July show improvement in the left ventricle wall thickness, EF. Likely the acute episode of heart failure in June was related to hypovolemia (with subsequent fluids and blood) and the holding of meds for heart failure during the GI bleed. This admission it might be just not being on diuretic and other goal directed therapies. -He has an appointment this week with Cardiology. His lisinopril and amlodipine is still on hold. He has increased his metoprolol back up to the 100 b.i.d.. He was started on Jardiance. -The question is the appropriate diuretic dosing. He previously was discharged on Torsemide 40 daily and lasix 20mg (but patient never picked up the lasix). The torsemide was discontinued on 07/16 secondary to hypovolemia/hypotension (100/59). the lisinopril and amlodipine was also held. -Goal directed therapy (after correction in electrolytes) --> jardiance, semiglutide, spironlactone, lopressor and loop diuretic. (4) Diabetes mellitus: Status: Acute Problem details: -A1C on admission 7.9 -sliding scale insulin, continuing home meds which include 2 orals (Jardiance, metformin) and long-acting and short-acting insulins (5) Heart failure: Status: Acute Problem details: -Diastolic HFpEF. weight in June 120-122kg. today's weight 125.4kg and edema is 2+ in legs and RR is slightly increased. likely in mild acute excerbation. -Echocardiograms done in June, and then in July show improvement in the left ventricle wall thickness, EF. Likely the acute episode of heart failure in June was related to hypovolemia and the holding of meds for heart failure during the GI bleed. -He has an appointment this week with Cardiology. His lisinopril is still on hold. He has increased his metoprolol back up to the 100 b.i.d.. He was started on Jardiance. -The question is the appropriate diuretic dosing. He previously was discharged on Torsemide 40 daily and lasix 20mg (but patient never picked up the lasix). The torsemide was discontinued on 07/16 secondary to hypovolemia/hypotension (100/59). the lisinopril and amlodipine was also held. -Goal directed therapy (after correction in electrolytes) --> (6) Anemia: Status: Acute Problem details: He has been transfused to hemoglobin 8.7. 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 Discussed with [facility] cardiology. He plans to get follow-up with them as an outpatient. Further evaluation for coronary artery disease based on symptoms. If having significant ongoing cardiac symptoms despite optimal heart failure management may need re-evaluation for worsening coronary artery disease. 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 He started having abdominal pain, melena, and dizziness on 06/17/2024. He was seen for this in the urgent care and transferred to [facility] where he had an EGD. He had duodenitis and no other explanation for GI bleeding. Biopsies negative for H pylori His blood pressures were low normal and so several of his antihypertensive (amlodipine 10 mg, lisinopril 20 mg, hydrochlorothiazide 12.5 mg) were stopped and metoprolol was reduced from 100 mg b.i.d. to 50 mg b.i.d.. He followed up with Dr. German for persistent dizziness and his hemoglobin at that visit was lower than the 1 at discharge from [facility]. He was given 1 unit packed red blood cells. He had a colonoscopy the next week which found 7 polyps that were removed. Outpatient with any Yusuf. Results of biopsies are still not available at the time of admission. He has had no further melena or abdominal pain, but does have persistent dizziness. He describes is primarily as weakness and lightheadedness. No vertigo. No syncope He denies any chest pain or shortness of breath. He thought that maybe he needed another blood transfusion today, but his hemoglobin is 8.1. He was found to have an elevated troponin in the emergency department, but again is completely asymptomatic other than dizziness. He does note that his ankles have been swollen over the last few days which is new. ?Previous history of coronary artery disease: Stent in LAD and 2010, 2 stents in his right coronary artery in 2014. Two thousand fifteen he was noted to have CT 0 of his diagonal and a 30% in stent restenoses of his LAD an 80% apical LAD stenosis. Echocardiogram in 2017 showed ejection fraction of 65 to 70% with no focal wall motion abnormality. December 2022 he had a Lexiscan showing ejection fraction of 50% with a small area of nontransmural infarct in the mid to distal anterior wall of the LAD artery distribution with mild degree of bobbi-infarct ischemia this is consistent with his known occluded collateralized diagonal. 07/10/2024: On the day of discharge he reports feeling better. No chest pain. Dyspnea is better. Tolerating the up titration of his hypertension and heart failure medicines quite well. ?Echo has been updated from the one we did as an inpatient in June. What they found was now there is normal LV size, normal wall thickness, normal global systolic function with an EF of 65-70%. When compared to the one in June the IVC is normal dimension and there was no RVSP.? Responded well to IV and oral calcium administration and initiates some of calcitriol. As noted above at time of discharge calcium was up to 7.7, ionized calcium was up to 1.00, admission PTH was 29.7 with normal value of 14-75, and admission vitamin-D 25 hydroxy level was 27 with normal value of 30-80. Discharge plan as specified below including ongoing supplementation with calcium and calcitriol, follow-up labs with his primary care physician, referral to endocrinology. Status at Discharge Functional status at discharge: independent ambulation Overall status at discharge: patient is back to baseline Time Spent with Patient Time attestation: Total time spent providing and/or coordinating discharge services: Time spent: Greater than 30 minutes Specific discharge activities: Long conversation with patient and his . Exam Narrative: Exam Narrative: Patient is examined in his hospital room. Appears comfortable. No acute distress. Alert, oriented x3. Tells me he wants to be able to go home. No apparent tetany. No Chvostek or Trousseau sign. Weight is down to 123.2 kg from 125.4 kg. Lungs are clear to auscultation. Heart tones with regular rhythm. Barrel-shaped chest. Obese abdomen with active bowel sounds, soft, nontender. Moves all 4 extremities. Independent in transfer, station, and gait. QTC normalized Const: Vital Signs, click to edit/add: Vital Signs - 24 hr 08/21/24 19:00 08/21/24 23:36 08/21/24 23:36 Temperature 98.3 F 98.4 F Pulse Rate 78 Pulse Rate [Left P ulse Oximeter] 88 76 Respiratory Rate 16 18 Blood Pressure [Le ft Arm] 139/85 Blood Pressure [Ri ght Arm] 154/82 H Pulse Oximetry 96 94 Oxygen Delivery Me thod Room Air Room Air 08/22/24 05:47 08/22/24 07:00 08/22/24 07:00 Temperature Pulse Rate Pulse Rate [Left P ulse Oximeter] 81 71 71 Respiratory Rate 18 20 20 Blood Pressure [Le ft Arm] 142/89 H Blood Pressure [Ri ght Arm] 139/80 Pulse Oximetry 91 91 Oxygen Delivery Me thod Room Air Room Air 08/22/24 09:00 Temperature Pulse Rate 90 Pulse Rate [Left P ulse Oximeter] Respiratory Rate Blood Pressure [Le ft Arm] Blood Pressure [Ri ght Arm] Pulse Oximetry Oxygen Delivery Me thod DS: Data Data Completed and Pending Completed studies during hospitalization: Procedures Transfusion of Nonautologous Red Blood Cells into Peripheral Vein, Percutaneous Approach (07/08/24) Labs on day of discharge: Labs from last 24 hours 08/22/24 08/21/24 08/21/24 05:56 19:50 16:07 WBC 13.55 H RBC 4.43 Hgb 9.5 L Hct 33.4 L MCV 75 L MCH 21 L MCHC 28 L Plt Count 292 Sodium 142 Potassium 4.0 4.0 Chloride 104 Carbon Dioxide 30 Anion Gap 8 BUN 23 Creatinine 0.9 Estimated Creat Clear 76.04 Estimated GFR 95 Glucose 48 L* Lactate 0.8 Calcium 7.6 L 7.7 L 7.1 L Ionized Calcium Allyson 1.00 L 0.97 L Phosphorus 4.8 H Magnesium 2.4 2.4 Albumin 3.8 Discharge Plan Discharge Disposition: Home, Self-Care Date of Admission: 08/20/24 12:23 Attending Provider on Discharge: Bull Jin Primary Care Provider: Shona Vásquez Condition: Stable Anticipated Discharge Date/Time: 08/22/24 12:30 Discharge Medications: New spironolactone 25 mg Tablet 25 mg PO DAILY 30 Days Qty: 30 1RF calcium carbonate [Oyster Shell Calcium 500] 500 mg calcium (1,250 mg) Tablet 1,000 mg PO BID Qty: 120 1RF calcitriol 0.25 mcg Capsule 0.25 mcg PO BID 30 Days Qty: 60 1RF Continued pantoprazole 40 mg tablet,delayed release (DR/EC) 40 mg PO BID Qty: 180 0RF nitroglycerin 0.4 mg tablet, sublingual 0.4 mg sublingual Q5-15M PRN (Reason: chest pain) Qty: 30 0RF Rx Instructions: do not exceed 3 doses per episode insulin aspart U-100 [Novolog FlexPen U-100 Insulin] 100 unit/mL (3 mL) insulin pen 20 unit subcut TIDWMEAL Qty: 15 6RF ipratropium-albuterol 0.5 mg-3 mg(2.5 mg base)/3 mL solution for nebulization 3 ml inhalation Q6H PRN (Reason: shortness of breath or wheezing) Qty: 90 0RF atorvastatin 80 mg tablet 80 mg PO HS fluticasone propion-salmeterol [Advair Diskus] 250-50 mcg/dose blister with device 1 inh inhalation DAILY PRN metoprolol tartrate 100 mg tablet 100 mg PO BID Jardiance 10 mg tablet 10 mg PO DAILY Vitron-C 65 mg iron- 125 mg tablet,delayed release (DR/EC) 1 tab PO Q48H coenzyme Q10 [Co Q-10] 100 mg capsule 100 mg PO DAILY clonazepam 0.5 mg tablet 0.25 - 0.5 mg PO HS PRN (Reason: anxiety) aspirin 81 mg tablet,delayed release (DR/EC) 81 mg PO MOWEFR Rx Instructions: MON,WED,FRI albuterol sulfate 90 mcg/actuation HFA aerosol inhaler 2 puff inhalation Q4H PRN (Reason: shortness of breath or wheezing) Qty: 8.5 2RF Patient Comments: uses 1-2 times day in the last 3 weeks. insulin glargine [Lantus Solostar U-100 Insulin] 100 unit/mL (3 mL) insulin pen 28 unit subcut BID Qty: 15 3RF Discharge Orders: Discharge Order (Routine); Ordered 08/22/24 Ordered By: Bull Jin Patient Education: Spironolactone (By mouth), Calcitriol (By mouth), Calcium Supplement (By mouth), Hypocalcemia (DC), What to Do if Your Blood Sugar is Low (DC), Diabetes and Exercise (DC), Type 2 Diabetes Management for Adults (DC) Additional Instructions: 1. Follow-up with PCP Dr. Cole or one of her partners in 4-6 days with pre- visit Basic Metabolic Panel, magnesium, phosphorus, hemoglobin - reassess hypocalcemia, heart failure, diabetes mellitus, and make referral for endocrinology consultation; 2. Return to clinic or hospital emergency room sooner if needed. Activity Level: Activity as Tolerated Discharge Diet: Heart Healthy (2 gm sodium, low fat) Follow Up Appointments: Shona Vásquez MD [Primary Care Provider] - 08/27/24 10:45 am ([facility] for postop hospital follow-up.) Forms: [employer] Info Instructions
--- NOTE | 2024-08-22 17:08 | PC.NURSE ---
Nursing Care Hours: [id number] Pt this shift calm and cooperative, alert and oriented. No c/o pain or SOB. Audible wheeze noted while pt semi fowlers in chair. LS clear. Pt states dizziness is still present. BS low this morning so Aspart held and Glargine dose order decreased per hospitalist. Pt educated on diet at the hospital vs diet at home. IV removed for discharge. Instructions for discharge went over with patient. Discussed medication regimen for home. Also discussed weighing self every morning. Pt states he needs to get a new scale. C[employer] Insurance Claims Adjuster wrote down weight changes that would need to be reported.
== END 2024-08-22 13:54 | disposition home or self-care (01) | DRG 291 ==
PROVIDERS: Internal Medicine; Physician Assistant; Admitting Provider Family Medicine; PCP Emergency Medicine; Visit Provider Orthopaedic Surgery
DX: I11.0 Hypertensive heart disease with heart failure (principal); I50.31 Acute diastolic (congestive) heart failure; E83.51 Hypocalcemia; R94.31 Abnormal electrocardiogram [ECG] [EKG]; J44.9 Chronic obstructive pulmonary disease, unspecified; F17.200 Nicotine dependence, unspecified, uncomplicated; I25.10 Atherosclerotic heart disease of native coronary artery without angina pectoris; N40.0 Benign prostatic hyperplasia without lower urinary tract symptoms; K29.80 Duodenitis without bleeding; G62.9 Polyneuropathy, unspecified; D64.9 Anemia, unspecified; Z79.84 Long term (current) use of oral hypoglycemic drugs; Z79.4 Long term (current) use of insulin; E11.40 Type 2 diabetes mellitus with diabetic neuropathy, unspecified
CPT/HCPCS: 36415; 80048; 80069; 80076; 81003; 82306; 82310; 82330; 82803; 82962; 83605; 83690; 83735; 83880; 83970; 84100; 84132; 84443; 84484; 85027; 85379; 85610; 86140; 93005; A9270; J0612; J0613; J1650; J1815; J3475; J7030; S0169

== ENCOUNTER 2024-08-26 08:16 | Outpatient (CLI) | payer OTHER, SELFPAY | END 2024-08-26 08:17 | disposition home or self-care (01) | PROVIDERS: PCP Emergency Medicine; Visit Provider Physician Assistant Medical | DX: E83.51 Hypocalcemia (principal); E11.65 Type 2 diabetes mellitus with hyperglycemia; I50.31 Acute diastolic (congestive) heart failure; E83.30 Disorder of phosphorus metabolism, unspecified | CPT/HCPCS: 80048; 83735; 84100 ==

== ENCOUNTER 2024-09-05 08:50 | Outpatient (CLI) | payer OTHER, SELFPAY | END 2024-09-05 08:51 | disposition home or self-care (01) | PROVIDERS: PCP Emergency Medicine; Visit Provider Emergency Medicine | DX: I10 Essential (primary) hypertension (principal); E83.51 Hypocalcemia; D50.0 Iron deficiency anemia secondary to blood loss (chronic) | CPT/HCPCS: 80048; 83735; 84100 ==

== ENCOUNTER 2024-10-15 15:14 | Outpatient (CLI) | payer OTHER, SELFPAY | END 2024-10-15 15:15 | disposition home or self-care (01) | PROVIDERS: PCP Emergency Medicine; Visit Provider Emergency Medicine | DX: E83.51 Hypocalcemia (principal); I10 Essential (primary) hypertension; D50.0 Iron deficiency anemia secondary to blood loss (chronic); E11.9 Type 2 diabetes mellitus without complications; Z79.4 Long term (current) use of insulin | CPT/HCPCS: 80048; 82306; 83735; 84100 ==

== ENCOUNTER 2025-01-07 08:47 | Outpatient (CLI) | payer OTHER, SELFPAY | END 2025-01-07 08:48 | disposition home or self-care (01) | PROVIDERS: PCP Emergency Medicine; Visit Provider Emergency Medicine | DX: I50.31 Acute diastolic (congestive) heart failure (principal); E83.51 Hypocalcemia | CPT/HCPCS: 80053; 84100 ==

== ENCOUNTER 2025-07-03 15:27 | Outpatient (CLI) | payer OTHER, SELFPAY | END 2025-07-03 15:28 | disposition home or self-care (01) | PROVIDERS: PCP Nurse Practitioner Family; Visit Provider Nurse Practitioner Family | DX: I11.0 Hypertensive heart disease with heart failure (principal); I50.31 Acute diastolic (congestive) heart failure; E83.39 Other disorders of phosphorus metabolism | CPT/HCPCS: 80053; 83880; 84100; 85379 ==

== ENCOUNTER 2025-07-04 16:30 | Outpatient (CLI) | payer OTHER, SELFPAY ==
--- NOTE | 2025-07-04 16:45 | CRLHL7_ITS ---
For Patients: As a result of the Century Cures Act, medical imaging exams and procedure reports are released immediately into your electronic medical record. You may view this report before your referring provider. If you have questions, please contact your health care provider. INDICATION: pain/swelling left calf/ankle. Px heard pop in ankle near achilles. COMPARISON: None. TECHNIQUE: A compression venous ultrasound exam was performed of the left lower extremity using larsen-scale imaging, color Doppler and spectral Doppler analysis. FINDINGS: Sonographic imaging of the left lower extremity demonstrates normal compressibility and color Doppler venous blood flow within the common femoral vein, deep femoral vein, and the proximal greater saphenous vein. Within the thigh, the femoral vein is patent and compressible. At a lower level, the popliteal and posterior tibial veins also show normal compressibility and color Doppler venous blood flow. Limited imaging of the contralateral groin demonstrates a normal spectral waveform and color Doppler venous blood flow within the right common femoral vein. Achilles tendon is thickened and edematous. IMPRESSION: No evidence of deep vein thrombosis within the left lower extremity. Achilles tendon tear suspected. Dictated by Kenney Florez MD @ 07/05/2025 7:35:03 PM (Electronically Signed)
== END 2025-07-04 16:31 | disposition home or self-care (01) ==
PROVIDERS: PCP Nurse Practitioner Family; Visit Provider Nurse Practitioner Family
DX: M79.89 Other specified soft tissue disorders (principal); M25.572 Pain in left ankle and joints of left foot
CPT/HCPCS: 93971

== ENCOUNTER 2025-07-21 18:14 | Outpatient (CLI) | payer OTHER, MEDICARE, SELFPAY ==
--- NOTE | 2025-07-21 19:00 | CRLHL7_ITS ---
For Patients: As a result of the 21st Century Cures Act, medical imaging exams and procedure reports are released immediately into your electronic medical record. You may view this report before your referring provider. If you have questions, please contact your health care provider. CLINICAL INDICATION: Rupture of the left Achilles tendon COMPARISON IMAGING STUDIES: None. TECHNICAL: Non-contrast MR of the left ankle. 1.5 Sofy MR scanner. FINDINGS: OSSEOUS STRUCTURES: No acute fracture. Small enthesophyte at the posterior calcaneus with associated focal mild marrow edema. Type 2 accessory navicular ossicle. JOINT SPACES: No substantial joint effusion. There is a small amount of subchondral cystic change in the lateral malleolus with an overlying approximately 3 millimeter region of high-grade chondral fissuring (4/26) otherwise, grossly intact tibiotalar joint cartilage. No substantial degenerative change of the subtalar or talonavicular joint. Mild degenerative change at the articulation between the navicular and the medial cuneiform. LIGAMENTS: There is scarring of the deltoid ligament and a small well corticated ossicle within the deep fibers of the deltoid ligament compatible with sequela of an old sprain. Otherwise, the visualized ligaments are grossly intact. TENDONS: Flexor Tendons: The posterior tibial, flexor digitorum longus and flexor hallucis longus tendons are intact. Extensor Tendons: The anterior extensor tendons are intact. Achilles Tendon: Rupture of the Achilles tendon 5.7 centimeters superior to the insertion with 3 centimeters of retraction. Severe hypertrophic tendinopathy of the residual Achilles tendon on both sides of the rupture. Peroneal Tendons: There is a prominent peroneal tubercle. There is slight peroneus longus/brevis tendinopathy. TARSAL TUNNEL: No mass detected within the tarsal tunnel. SINUS TARSI: There is edema signal within the sinus tarsi. The fatty signal within the sinus tarsi is preserved on the T1 images. PLANTAR SOFT TISSUES: There is a small plantar calcaneal enthesophyte with associated trace marrow edema. There is mild thickening and intermediate signal in the proximal central cord of the plantar fascia compatible with fasciopathy. There is severe atrophy and fatty infiltration of the abductor digiti minimi muscle compatible with a nonacute Narvaez neuropathy. OTHER FINDINGS: There is diffuse soft tissue edema throughout the field of view including trace edema within the visualized intrinsic foot musculature. IMPRESSION: 1. Rupture of the Achilles tendon 5.7 centimeters superior to the insertion with 3 centimeters of retraction. Severe hypertrophic tendinopathy of the residual Achilles tendon on both sides of the rupture. Small enthesophyte at the posterior calcaneus with associated focal mild marrow edema. 2. Scarring of the deltoid ligament. 3. Small plantar calcaneal enthesophyte with associated trace marrow edema. Findings of plantar fasciopathy. Findings of a nonacute Narvaez neuropathy with severe atrophy/fatty infiltration of the abductor digiti minimi muscle. 4. Diffuse soft tissue edema throughout the field of view including trace edema in the visualized intrinsic foot musculature. 5. 3 millimeter focus of high-grade chondral fissuring at the lateral malleolus. Dictated by Alex Hinds MD @ 07/25/2025 7:36:30 PM (Electronically Signed)
== END 2025-07-21 18:15 | disposition home or self-care (01) ==
LOC: MRI 18:14
PROVIDERS: Visit Provider Podiatrist
DX: S86.012A Strain of left Achilles tendon, initial encounter (principal)
CPT/HCPCS: 73721

== ENCOUNTER 2025-08-04 07:29 | Day surgery (SDC) | payer MEDICARE, OTHER, SELFPAY ==
[2025-08-04] VITALS (15 sets, daily range): BP systolic 120–153; BP diastolic 73–90; PULSE 70–82; RESP 14–16; TEMP 36.4–37.1; O2SAT 89–97; BMI 39.4
[2025-08-04] MEDS: SODIUM CHLORIDE 0.9 % (FLUSH) 10 ML SYRINGE IVF (08:00)
[2025-08-04] MEDS: LACTATED RINGERS 1000 ML 1,000 ML 100 ML IV ×2 (08:00→11:49)
--- NOTE | 2025-08-04 08:37 | SUR.PREOP ---
TIME?OUT:?0840 PT/RN/MDA?VERIFICATION?OF?SURGICAL?SITE,?PROCEDURE,?AND?CONSENT OBTAINED?PRIOR?TO?INVASIVE?PROCEDURE.
[2025-08-04] MEDS: MIDAZOLAM HCL 1 MG/ML inj IVP (08:42)
--- NOTE | 2025-08-04 08:45 | W.PM.PODPROC ---
Date of Procedure: 08/04/25 Time Seen by Provider: 08:45 Surgeon: Eliza Kennedy DPM Co-Surgeon: William Rojas DPM Pre-op Diagnosis: 1. Chronic rupture left achilles Post-op Diagnosis: 1. Chronic rupture left achilles Type of Procedure: 1. Repair of left achilles tendon rupture 2. Gastroc recession left lower extremity 3. Flexor Hallucis longus tendon transfer, left foot 4. Posterior splint application Procedure Description: Patient was brought from the preoperatively holding area to the operating room and placed on the operating table in the prone position.??At this time, the time out was performed by myself and the operating room staff, who identified the proper patient, site and operation to be performed.??Well padded pneumatic thigh tourniquet was then applied to the patient's?operative lower extremity.??The lower extremity was then scrubbed, prepped and draped in the normal sterile fashion.??The?lower extremity was exsanguinated, and the pneumatic tourniquet was then inflated to a level of 325 mmHg. ? Attention was then directed to the posterior aspect of the operative lower extremity where the Achilles tendon defect was palpated, and a linear incision was placed along the central aspect of the tendon.??This was dissected through the subcutaneous tissues with care to identify, retract and protect all vital structures, to coagulate any bleeders as necessary. Achilles paratenon was incised with a linear fashion and tagged for later repair. The Achilles tendon was noted to have a 3.5cm rupture gap and was replaced with fatty infiltration.?The proximal and distal ends of the resected tendon were evaluated and trimmed of any damaged tissue back to a healthy level. Due to the large rupture gap and frail ends of the remaining viable Achilles tendon, it was then decided to proceed with a flexor hallucis longus tendon transfer and a gastroc recession.? The deep leg fascia was incised and the?flexor hallucis longus muscle and tendon were identified. The tendon was carefully?transected at the level of the tarsal tunnel while taking caution to prevent any injury to the nearby neurovascular?structures. Using the FHL tendon transfer arthrex set, a drill hole?was made within the dorsal, central, posterior aspect of the calcaneus from dorsal to plantar under intra-operative image intensification. The tendon end was tagged and was passed through the drill hole. While holding the ankle in physiologic resting tension, the interference screw was then secured within the drill hole which maintained the tendon under appropriate tension.? Using topographic landmarks the junction of the gastrocnemius aponeurosis and the Achilles tendon was identified approximately at the middle portion of the operative lower leg and central posterior incision was made. The incision was deepened through the subcutaneous tissues with care taken to identify, protect, and retract all vital structures and coagulate any bleeders as necessary. The deep fascia was incised in line with the incision and the gastrocnemius aponeurosis identified. The deep fascia and soft-tissues including the lesser saphenous vein and nerve were protected and using a sharp elias surgical scissor the aponeurosis was transected according to Ezequiel technique. The proximal stump of the achilles was pulled distal and resolution of the soft-tissue equinus contracture being appreciated and maintained integrity of the superficial posterior muscle compartment being verified. The surgical site was copiously irrigated and the deep fascia approximated with buried absorbable sutures. Skin margins were approximated with non-absorbable sutures. The proximal?and distal segments of the Achilles stumps were then secured with a?Krackow?locking suture using fiberwire.?The ends of the tendon were then mobilized to allow for an end to end repair of the achilles. The sutures were tied down while maintaining the limb in physiologic tension and?equal to that of the contralateral limb. The flexor hallucis longus muscle and tendon were then secured to the Achilles tendon repair with absorbable suture to provide additional strength and vascularity to the repair.? The surgical sites were copiously irrigated with sterile saline and hemostasis obtained with electrocautery. The peritenon and deep tissues were approximated with absorbable suture and the skin edges approximated without tension using non-absorbable sutures and evangelina. A well padded sterile dressing was then applied from toes to knee with the addition of a fiberglass posterior splint dressing maintaining the foot in gravity equinus relative to the lower leg. The patient was successfully reversed of general anesthesia and transferred to the recovery area with their vital signs stable and neurovascular status intact to their operative lower extremity. Anesthesia: GETA Hemostasis: thigh Estimated blood loss (mL): 60 Provider Operated C-arm: c arm fluro operated by myself for surgery. 3 c arm images were obtained accumulated dose was 0.178 mGy. Implants: FHL tendon transfer tenodesis screw Specimens: none sent Disposition: same day
--- NOTE | 2025-08-04 09:48 | SUR.OPER ---
PATIENT QUESTIONS ANSWERED SATISFACTORILY PREOPERATIVELY. PATIENT BROUGHT TO OR #4 PER CART. PATIENT INTUBATED SUPINE ON THE TRANSFER CART. Patient positioned prone on OR #4 bed. The perioperative team supported arms bilaterally on arm boards. Final approval of positioning by surgeon.
--- NOTE | 2025-08-04 12:44 | P.ANES_ITS ---
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
--- NOTE | 2025-08-04 12:44 | W.ANESCHARGE ---
Anesthesia Charges Start Date/Time Anesthesia Start Date: 08/04/25 Anesthesia Start Time: 09:14 Stop Date/Time Anesthesia Stop Date: 08/04/25 Anesthesia Stop Time: 12:42 Coding CPT Codes CPT Codes: ANESTH ACHILLES TENDON SURG - 20962 ([id number]) P3 - PATIENT W/SEVERE SYS DISEASE, QK - CAREER COUNSELOR 2-4 CNCRNT ANES PROC, QX - JEWELRY DIPPER SVC W/ MD MED DIRECTION
--- NOTE | 2025-08-04 13:02 | W.PM.NB ---
Nerve Block Nerve Block Time Seen by Provider: 08:40 Date Seen: 08/04/25 Type of block requested by surgeon for post-operative analgesia: popliteal Side: left Time out performed: Yes Verification of patient name: Yes Verification of date of : Yes Site marking: site marked Name of person performing procedure: Michael Continuous monitoring Was continuous monitoring of O2 sat, B/P, radiographer cardiac catheterization, recorded every 15 minutes?: Yes Procedure Checklist: sterile prep, needles and gloves Ultrasound guided. Images saved: Yes Medications given in 5ml increments after negative aspiration: Marcaine %: 0.25 mL: 13 and Exparel mL: 7 Needle gauge: 20 Patient tolerated procedure well: Yes Additional comments: Needle noted adjacent to nerve Block Charges Block Charge (with Pro Fee): Sciatic Nerve Use of Ultrasound Machine for Block: Yes- US Guidance/pain block
--- NOTE | 2025-08-04 13:03 | P.NB_ITS ---
Nerve Block Nerve Block Time Seen by Provider: 08:40 Date Seen: 08/04/25 Type of block requested by surgeon for post-operative analgesia: adductor canal Side: left Time out performed: Yes Verification of patient name: Yes Verification of date of : Yes Site marking: site marked Name of person performing procedure: Michael Continuous monitoring Was continuous monitoring of O2 sat, B/P, front desk monitor, recorded every 15 minutes?: Yes Procedure Checklist: sterile prep, needles and gloves Ultrasound guided. Images saved: Yes Medications given in 5ml increments after negative aspiration: Marcaine %: 0.25 mL: 12 Needle gauge: 20 and Exparel mL: 3 Patient tolerated procedure well: Yes Block Charges Block Charge (with Pro Fee): Femoral Nerve Use of Ultrasound Machine for Block: Yes- US Guidance/pain block
[2025-08-04] MEDS: ONDANSETRON 2 MG/ML inj 4 MG IVP (13:16)
--- NOTE | 2025-08-04 15:30 | SUR.PHASEII ---
PT in room to decide on crutches or walker. Pt up to pivot transfer with walker.
== END 2025-08-04 16:00 | disposition home or self-care (01) ==
LOC: OR 07:31
PROVIDERS: PCP Nurse Practitioner Family; Visit Provider Podiatrist
PROC: (CPT 27675; principal; 2025-08-04 08:45)
DX: S86.012A Strain of left Achilles tendon, initial encounter (principal); G89.18 Other acute postprocedural pain; E11.9 Type 2 diabetes mellitus without complications; Z79.4 Long term (current) use of insulin
CPT/HCPCS: 27687; 27650; 27691; 01472; 64445; 64447; 73630; 76000; 76942; 82962; 97161; C1713; J0330; J0665; J0666; J0690; J2250; J2371; J2405; J2704; J3010; J3490; J7120